=== PATIENT | female | born 1985 | race Caucasian/White ===

== ENCOUNTER 2025-03-22 10:27 | Emergency (ER) | payer OTHER, SELFPAY ==
[2025-03-22 10:30] VITALS: BP 123/86; PULSE 98; RESP 14; TEMP 36.9; O2SAT 99; BMI 29.5
[2025-03-22] MEDS: Rabies Immune Globulin/PF 300 UNIT/ML, 5 ML VIAL 1320 UNIT IM (11:49)
--- NOTE | 2025-03-22 12:14 | EDS_ITS ---
HPI History of Present Illness Chief Complaint: Bite Narrative Narrative: Patient is a 39-year-old female presenting to the emergency department due to concern for a possible bat bite. Patient has no significant past medical history. States that she woke up on Saturday evening around 11 PM and saw her cat in the bathroom who killed a bat. She took the bat to the health department but states that they told her it was too long since it has been to tested for rabies. She went to urgent care and they told her they do not have rabies vaccines so they sent her here for evaluation. Patient has no known bites. No history of tetanus vaccine. [facility] History no medical history Home Medications ?Medication ?Instructions ?Recorded ?Last Taken ?Type albuterol sulfate 90 mcg/actuation 2 inh inhalation Q6 H PRN shortness 03/22/25 Unknown History aerosol inhaler (Ventolin HFA) of breath or wheezing fluoxetine 10 mg capsule 10 mg PO DAILY MOOD 03/22/25 03/21/25 History Allergy/AdvReac Type Severity Reaction Status Date / Time latex Allergy Severe Anaphylaxis Verified 03/22/25 10:30 peanut (peanuts) Allergy Severe Anaphylaxis Verified 03/22/25 10:30 shellfish derived Allergy Intermediate Nausea Verified 03/22/25 10:30 gluten Allergy Unknown Abd Verified 03/22/25 10:47 cramps/diarrhea Family History no significant family his Surgical History no surgical history Social History housing: apartment current occupational status: employed Smoking Status: Never smoker ROS ROS ED ROS Narrative See HPI EXAM Physical Exam Narrative Exam Narrative: Vital signs: Reviewed General: Alert and oriented. No acute distress HEENT: Head is normocephalic and atraumatic, sinuses nontender, pupils equal round and reactive. Nares are patent. Oropharynx and throat exams normal. Neck: Supple without lymphadenopathy nontender Cardiovascular: Regular rate and rhythm, no murmurs. No rubs or gallops. N ormal S1 and S2 Respiratory: Clear to auscultation bilaterally. No wheezes, rales, rhonchi Abdominal: Soft and nontender. Normal bowel sounds. No guarding or rebound. Nonsurgical abdomen Extremities: No tenderness. No bruising. Normal range of motion. Normal sensation. Skin: No rash or redness. Neurological: Cranial nerves II through XII are grossly intact. Normal strength and sensation. Normal cerebellar function The rest of the physical exam is unremarkable Const Vital Signs: 03/22/25 10:30 03/22/25 12:26 Temperature 98.5 F 98.5 F Temperature Source Temporal Pulse Rate 98 87 Respiratory Rate 14 16 Blood Pressure 123/86 H 119/71 Blood Pressure Mean 98 87 Pulse Ox 99 99 Oxygen Delivery Method Room Air MDM MDM MDM Narrative Medical decision making narrative: Patient is a 39-year-old female presenting emergency department for possible rabies exposure. Patient was seen and examined. Vitals are stable. Patient resting bed comfortably in no acute distress. Given she has never had a rabies vaccine before and is immunocompetent she was given rabies vaccine as well as immunoglobulin. Risks of the immunoglobulin were discussed with patient and she understands. She tolerated well here. She was given instructions for coming back on the following days for continued vaccination schedule. She is agreeable. Patient discharged from the Emergency Department. I do not feel that the patient's evaluation reveals any acute reason for admission at this time. I instructed them to either follow-up with their primary care physician or promptly return to the Emergency Department for reevaluation should symptoms worsen or new symptoms develop. I explained what symptoms would indicate the need to return to the emergency department. Shared decision making was used. The patient voiced understanding of the treatment plan and is agreeable with it. Clinical impression Possible rabies exposure History & Record Review Discussion w/independent historian: Patient Discharge Plan Triage Chief Complaint: Bite ED Provider: Carleen Coles Dx/Rx/DC Orders Clinical Impression: Rabies exposure Instructions: Rabies Immune Globulin (Human) Solution for injection, Rabies Vaccine Prescriptions: No Action fluoxetine 10 mg capsule 10 mg PO DAILY albuterol sulfate [Ventolin HFA] 90 mcg/actuation HFA aerosol inhaler 2 inh inhalation Q6H PRN (Reason: shortness of breath or wheezing) Primary Care Provider: Irma Alcala Referrals: Irma Alcala MD [Primary Care Provider] - 2 Days Activity Restrictions/Additional Instructions: You need to return at days 3, 7 and 14 for continued rabies vaccine series. Your evaluation in the Emergency Department did not reveal any acute reason for admission. However, I want to emphasize that you may be early in the course of a disease process or illness even if it is not present. For this reason you should follow-up within 24 hours for reevaluation with either your primary care physician or if necessary back here in the Emergency Department. You should return to the Emergency Department immediately if your symptoms worsen or new symptoms develop. Print Language: Mohawk Disposition Disposition: Home, Self Care Discharge Date/Time: 03/22/25 12:27
[2025-03-22 12:26] VITALS: BP 119/71; PULSE 87; RESP 16; TEMP 36.9; O2SAT 99
== END 2025-03-22 12:27 | disposition home or self-care (01) ==
PROVIDERS: Emergency Provider Student in an Organized Health Care Education/Training Program; PCP Internal Medicine; Visit Provider Student in an Organized Health Care Education/Training Program
DX: Z20.3 Contact with and (suspected) exposure to rabies (principal); Z23 Encounter for immunization
CPT/HCPCS: 90675; 96372; 99282; 90375

== ENCOUNTER 2025-03-25 05:36 | Outpatient (CLI) | payer OTHER, SELFPAY ==
[2025-03-25 05:38] VITALS: BP 124/75; PULSE 78; RESP 16; TEMP 36.8; O2SAT 99; BMI 30.3
--- OUTSIDE RECORDS SUMMARY | 2025-03-25 06:15 | XMS RPT_ITS | CCD ---
Author Organization [facility] Care Team Providers Care Restaurant Hospitality Manager Name Role Phone Cari BAUMANN, Irma Primary Care Provider [phone] Irma Villegas MD Primary Care Provider [phone] Older HOSPICE ADMINISTRATOR.COUNTER WAITER, Sridevi Unavailable CHRISTIANNE MURRAY Attending Unavailable IRMA VILLEGAS Primary Care Unavailable IRMA VILLEGAS Attending Unavailable IRMA VILLEGAS Primary Care Unavailable Sharyn BAUMANN, Dr. Durant Emergency Provider Unavailab celsa Villegas MD, Dr. Solis Primary Care Provider [phone] Carleen Coles Attending Unavailable Irma Villegas Primary Care Unavailable Allergies Allergy Classification Reported Allergen(s) Allergy Type Date of Onset Reaction(s) Facility (17 sources) Cheese; Translations: [CHEESE (SEE VEGETABLE GUM)] Food Intolerance 8 Intolerance [facility] Work Phone: (19 sources) Latex; Translations: [LATEX] Propensity to adverse reactions 5 Hives, Swelling [facility] Work Phone: (17 sources) peanut; Translations: [PEANUTS] Propensity to adverse reactions 5 Vomiting [facility] Work Phone: (17 sources) Shellfish; Translations: [SHELLFISH CONTAINING PRODUCTS] Drug Intolerance 8 Vomiting [facility] Work Phone: (17 sources) Sulfonamides (Antibiotic); Translations: [SULFA (SULFONAMIDE ANTIBIOTICS)] Propensity to adverse reactions 7 Hives [facility] Work Phone: (18 sources) Wheat gluten extract; Translations: [GLUTEN] Drug Allergy 8 Mental Status Change, Rash, Intolerance [facility] Work Phone: (10 sources) banannas [Other] Propensity to adverse reactions 5 Intolerance [facility] Work Phone: (17 sources) Monosodium Glutamate (Msg); Translations: [MONOSODIUM GLUTAMATE (MSG)] Food Intolerance 8 Intolerance [facility] Work Phone: (17 sources) Red Food Color (Bulk); Translations: [RED FOOD COLOR (BULK)] Drug Intolerance 8 Intolerance [facility] Work Phone: (7 sources) Banana Extract; Translations: [BANANA] Drug Allergy 4 Intolerance [facility] (1 source) peanut allergenic extract Drug Allergy 5 Anaphylaxis [facility] (2 sources) Shellfish; Translations: [shellfish derived] Allergy to substance 5 Nausea [facility] (1 source) Gluten Drug allergy (disorder) 5 [facility] (1 source) peanut allergenic extract Drug Allergy 5 [facility] Medications Current Medications Medication Drug Class(es) Dates Sig (Normalized) Sig (Original) [id number] 200 actuat albuterol 0.09 mg/actuat metered dose inhaler (20 sources) beta2-Adrenergic Agonist Start: 03-22-2025 Albuterol Sulfate (Ventolin Hfa) 90 mcg/actuation HFA aerosol inhaler Active 2 NMA INHALATION EVERY 6 HOURS as needed for shortness of breath or wheezing March 22, 2025 12:00am Start: 03-04-2020 take 2 puff(s) by in halation every four hours as needed for wheezing albuterol HFA (VENTOLIN HFA) 90 mcg/actuation inhaler Indications: Exercise-induced asthma (HCC) Inhale 2 Puffs as instructed every 4 hours as needed for Wheezing/Shortness of Breath. 1 Inhaler 03/04/2020 Active Start: 06-23-2007 End: 11-13-2023 take 2 puff(s) by inhalation every four to six hours as needed for wheezing albuterol 90 mcg/Actuation INHALATION Aero Indications: Unspecified asthma(493.90) 2 puffs every 4-6 hours as needed for wheezing or coughing. 1 0 06/23/2007 11/13/2023 Discontinued (Course of therapy completed) Comment on above: 2 puffs every 4-6 ho urs as needed for wheezing or coughing. Inhale 2 Puffs as in structed every 4 hours as needed for Wheezing/Shortness of Breath. doxycycline hyclate 100 mg oral tablet (1 source) Tetracycline-class Drug Start: End: take 1 tablet by mouth twice daily doxycycline (VIBRA-TABS) 100 mg tablet Indications: Acute cystitis without hematuria Take 1 tablet by mouth two times a day for 7 days. 14 tablet 0 11/26/2023 12/03/2023 Active FLUoxetine 10 mg oral capsule (12 sources) Serotonin Reuptake Inhibitor Start: take 1 capsule by mouth once daily Fluoxetine 10 mg capsule Active 10 mg PO DAILY March 22, 2025 12:00am MOOD Start: 02-18-2025 FLUoxetine HCl 20 mg tablet Indications: Depression, unspecified depression type Take 1/2 tablet daily to=10 mg daily (capsules and 10 mg tablets have red dye) 45 tablet 1 02/18/2025 Active Start: 02-18-2025 End: 02-18-2025 take 1 capsule by mouth once daily FLUoxetine (PROZAC) 10 mg capsule Take 1 capsule by mouth once daily. 30 capsule 4 02/18/2025 02/18/2025 Discontinued Start: 09-04-2022 End: 11-13-2023 FLUoxetine HCl 20 mg tablet Take 1/2 tablet daily to=10 mg daily (capsules and 10 mg tablets have red dye) 0 09/04/2022 11/13/2023 Discontinued (Course of therapy completed) Start: 09-04-2022 End: 09-04-2022 take 1 capsule by mouth once daily FLUoxetine (PROZAC) 10 mg capsule Take 1 capsule by mouth once daily. 30 capsule 4 09/04/2022 09/04/2022 Discontinued (Other) Comment on above: Take 1/2 tablet cleopatra y to=10 mg daily (capsules and 10 mg tablets have red dye) Take 1 capsule by mo [facility] once daily. Glycopyrrolate, Bulk, 100 % powd (3 sources) Start: 02-18-2025 Glycopyrrolate, Bulk, 100 % powd Indications: Excessive sweating 1 each every morning. 100 g 1 02/18/2025 Active Completed/Discontinued Medications Medication Drug Class(es) Dates Sig (Normalized) Sig (Original) buPROPion hydrochloride 75 mg oral tablet (2 sources) Aminoketone Start: 11-28-2022 End: 11-13-2023 take 1 tablet by mouth twice daily buPROPion (WELLBUTRIN) 75 mg tablet Take 1 tablet by mouth twice daily. 60 tablet 3 11/28/2022 11/13/2023 Discontinued (Course of therapy completed) Comment on above: Take 1 tablet by arash twice daily. nitrofurantoin, macrocrystals 25 mg / nitrofurantoin, monohydrate 75 mg oral capsule (3 sources) Nitrofuran Antibacterial Start: 11-18-2023 End: 11-23-2023 take 1 capsule by mouth twice daily nitrofurantoin monohydrate and macrocrystal (MACROBID) 100 mg capsule Take 1 capsule by mouth two times a day for 5 days. 10 capsule 0 11/18/2023 11/23/2023 Comment on above: Take 1 capsule by mo [facility] two times a day for 5 days. Problems Active Problems Problem Classification Problem Date Documented Da te Episodic/Chronic Adjustment disorders (2 sources) Grief finding; Translations: [Adjustment disorder, unspecified] Onset: 02-18-2025 02-18-2025 Chronic Anxiety disorders (1 source) Mixed anxiety and depressive disorder; Translations: [Other specified anxiety disorders] Chronic Benign neoplasm of uterus (1 source) Intramural leiomyoma of uterus; Translations: [Intramural leiomyoma of uterus] 11-22-2023 Episodic Contraceptive and procreative management (1 source) Encounter for other general counseling and advice on contraception; Translations: [ control counseling] Onset: 02-18-2025 Episodic Disorders of lipid metabolism (1 source) Mixed hyperlipidemia; Translations: [Mixed hyperlipidemia] 02-27-2024 Chronic E Codes: Fall (2 sources) Unspecified fall due to ice and snow, initial encounter; Translations: [Fall from other slipping, tripping, or stumbling] Episodic Genitourinary symptoms and ill-defined conditions (2 sources) Increased frequency of urination; Translations: [Frequency of micturition] 11-13-2023 Episodic Headache; including migraine (16 sources) Migraine; Translations: [Migraine, unspecified, not intractable, without status migrainosus] Onset: 11-13-2017 11-13-2017 Chronic Immunizations and screening for infectious disease (5 sources) Patient encounter status; Translations: [Encounter for immunization] Episodic Menstrual disorders (2 sources) Menorrhagia; Translations: [Excessive and frequent menstruation with regular cycle] 11-13-2023 Chronic Mood disorders (2 sources) Moderate major depression, single episode; Translations: [Major depressive disorder, single episode, moderate] Chronic Mood disorders (1 source) Mood disorders; Translations: [Depression, unspecified depression type] Onset: 02-18-2025 Nonmalignant breast conditions (1 source) Breast finding ; Translations: [Dense breast tissue] 11-17-2024 Episodic Open wounds of extremities (1 source) Laceration of right hand; Translations: [Laceration without foreign body of right hand, sequela] Episodic Other nutritional; endocrine; and metabolic disorders (1 source) Overweight; Translations: [Overweight] 11-22-2023 Episodic Other screening for suspected conditions (not mental disorders or infectious disease) (1 source) Cancer cervix screening status; Translations: [Encounter for screening for malignant neoplasm of cervix] 11-13-2023 Episodic Other skin disorders (1 source) Excessive sweating; Translations: [Generalized hyperhidrosis] 02-18-2025 Episodic Other skin disorders (1 source) Generalized hyperhidrosis; Translations: [Excessive sweating] Onset: 02-18-2025 Episodic Residual codes; unclassified (1 source) Early satiety; Translations: [Early satiety] 11-13-2023 Episodic Urinary tract infections (1 source) Acute cystitis; Translations: [Acute cystitis without hematuria] 11-22-2023 Episodic Past or Other Problems Problem Classification Problem Date Documented Da te Episodic/Chronic Residual codes; unclassified (13 sources) Family history of malignant neoplasm of ovary; Translations: [Family history of malignant neoplasm of ovary] Onset: 11-13-2023 11-13-2023 Episodic Unclassified (2 sources) Patient encounter status 11-17-2024 Unclassified (1 source) Breast finding 11-17-2024 Results Test Name Value Interpretation Reference Range Facil ity Emergency Department Summary on 03-22-2025 Emergency Department Summary [facility] Medical Records Department [address] [place] [address] Emergency Department Summary 03/22/25 MR#: [id number] Acct: [id number] Name: ALEX QUINONES Rep #: [id number] : 1985 39 From: Carleen Coles MD PCP: Dr. Irma Villegas MD Status:DEP ER Location: ED HPI History of Present Illness Chief Complaint: Bite Narrative Narrative: Patient is a 39-year-old female presenting to the emergency department due to concern for a possible bat bite. Patient has no significant past medical history. States that she woke up on Saturday evening around 11 PM and saw her cat in the bathroom who killed a bat. She took the bat to the health department but states that they told her it was too long since it has been to tested for rabies. She went to urgent care and they told her they do not have rabies vaccines so they sent her here for evaluation. Patient has no known bites. No history of tetanus vaccine. PFSH PFSH Medical History no medical history Home Medications ???Medication ???Instructions ???Recorded ???Last Taken ???Type albuterol sulfate 90 mcg/actuation 2 inh inhalation Q6H PRN shortne ss 03/22/25 Unknown History aerosol inhaler (Ventolin HFA) of breath or wheezing fluoxetine 10 mg capsule 10 mg PO DAILY MOOD 03/22/2503/21 History Allergy/AdvReac Type Severity Reaction Status Date / Time latex Allergy Severe Anaphylaxis Verified 03/22/25 10:30 peanut (peanuts) Allergy Severe Anaphylaxis Verified 03/22/25 10:30 shellfish derived Allergy Intermediate Nausea Verified 03/22/25 10:30 gluten Allergy Unknown Abd Verified 03/22/25 10:47 cramps/diarrhea Family History no significant family his Surgical History no surgical history Social History housing: apartment current occupational status: employed Smoking Status: Never smoker ROS ROS ED ROS Narrative See HPI EXAM Physical Exam Narrative Exam Narrative: Vital signs: Reviewed General: Alert and oriented. No acute distress HEENT: Head is normocephalic and atraumatic, sinuses nontender, pupils equal round and reactive. Nares are patent. Oropharynx and throat exams normal. Neck: Supple without lymphadenopathy nontender Cardiovascular: Regular rate and rhythm, no murmurs. No rubs or gallops. Normal S1 and S2 Respiratory: Clear to auscultation bilaterally. No wheezes, rales, rhonchi Abdominal: Soft and nontender. Normal bowel sounds. No guarding or rebound. Nonsurgical abdomen Extremities: No tenderness. No bruising. Normal range of motion. Normal sensation. Skin: No rash or redness. Neurological: Cranial nerves II through XII are grossly intact. Normal strength and sensation. Normal cerebellar function The rest of the physical exam is unremarkable Const Vital Signs: 03/22/25 10:30 03/22/25 12:26 Temperature 98.5 F 98.5 F Temperature Source Temporal Pulse Rate 98 87 Respiratory Rate 14 16 Blood Pressure 123/86 H 119/71 Blood Pressure Mean 98 87 Pulse Ox 99 99 Oxygen Delivery Method Room Air MDM MDM MDM Narrative Medical decision making narrative: Patient is a 39-year-old female presenting emergency department for possible rabies exposure. Patient was seen and examined. Vitals are stable. Patient resting bed comfortably in no acute distress. Given she has never had a rabies vaccine before and is immunocompetent she was given rabies vaccine as well as immunoglobulin. Risks of the immunoglobulin were discussed with patient and she understands. She tolerated well here. She was given instructions for coming back on the following days for continued vaccination schedule. She is agreeable. Patient discharged from the Emergency Department. I do not feel that the patient's evaluation reveals any acute reason for admission at this time. I instructed them to either follow-up with their primary care physician or promptly return to the Emergency Department for reevaluation should symptoms worsen or new symptoms develop. I explained what symptoms would indicate the need to return to the emergency department. Shared decision making was used. The patient voiced understanding of the treatment plan and is agreeable with it. Clinical impression Possible rabies exposure History Record Review Discussion w/independent historian: Patient Discharge Plan Triage Chief Complaint: Bite ED Provider: Carleen Coles Dx/Rx/DC Orders Clinical Impression: Rabies exposure Instructions: Rabies Immune Globulin (Human) Solution for injection, Rabies Vaccine Prescriptions: No Action fluoxetine 10 mg capsule 10 mg PO DAILY albuterol sulfate [Ventolin HFA] 90 mcg/actuation HFA aerosol inhaler 2 inh inhalation Q6H PRN (Reason: shortness of breath or wheezing) (more content not included)... Normal [facility] ALEX QUINONES I ([id number]) 1985 F Date Time Provider Department 03/16/25 IRMA VILLEGAS INTMWS During your visit today, we recorded the following information about you: Abi Mcnally LPN 03/16/2025 2:43 PM Signed Electronic PA rec'd and completed for fluoxetine HCL 20mg. This was approved. Prior authorization approved Payer: [employer] [phone] Note from payer: CaseId:[id number];Stat us:Approved;Review Type:Prior Auth;Coverage Start Date:02/14/2025;Cover age End Date:03/16/2026; Approval Details Authorized from February 14, 2025 to March 16, 2026 Electronic appeal: Not supported Prior auth initiated by: Abi Mcnally LPN View History Medication Being Authorized FLUoxetine HCl 20 mg tablet Take 1/2 tablet daily to=10 mg daily (capsules and 10 mg tablets have red dye) Dispense: 45 tablet Refills: 1 Start: 02/18/2025 Class: Normal Diagnoses: Depression, unspecified depression type [F32.A] This order has been released to its destination. To be filled at: [id number] [place] [address] [phone] [facility] [phone] [id number] Pharmacy notified. Allergies As of Date: 03/16/2025 Noted Allergy Reaction GLUTEN 11/13/2017 1 - Mental Status Change 2 - Rash 5 - Intolerance LATEX 05/24/2005 4 - Hives 7 - Swelling MONOSODIUM GLUTAMATE (MSG) 11/13/2017 5 - Intolerance Comments: migraines PEANUTS 05/24/2005 11 - Vomiting RED FOOD COLOR (BULK) 11/13/2017 5 - Intolerance Comments: migraines SHELLFISH CONTAINING PRODUCTS 11/13/2017 11 - Vomiting SULFA (SULFONAMIDE ANTIBIOTICS) 12/18/2006 4 - Hives BANANA 11/26/2023 5 - Intolerance CHEESE (SEE VEGETABLE GUM) 11/13/2017 5 - Intolerance Comments: Evan Cheese- Migraines Date Reviewed: 02/18/2025 Reviewed by: Mary Ellen Valdez MA - Fully Assessed Reason for Visit: Insurance Authorization [[id number]] Prescriptions as of 03/16/2025 - FLUoxetine HCl 20 mg tablet Take 1/2 tablet daily to=10 mg daily (capsules and 10 mg tablets have red dye) - Glycopyrrolate, Bulk, 100 % powd 1 each every morning. - albuterol HFA (VENTOLIN HFA) 90 mcg/actuation inhaler Inhale 2 Puffs as instructed every 4 hours as needed for Wheezing/Shortness of Breath. Problem List As Of Date 03/16/2025 Noted Resolved Migraines [G43.909] 11/13/2017 Family history of ovarian cancer [Z80.41] 11/13/2023 Encounter Status:Closed by ABI MCNALLY on 03/16/25 [facility] CNOVon 02-18-2025 CNOV Office Visit (INTMWS ) MONIQUE QUINONESN Andree ([id number]) 1985 F Date Time Provider Department 02/18/25 8:00 AM IRMA VILLEGAS INTMWS During your visit today, we recorded the following information about you: Pulse Respiration Blood pressure Weight 101/minute 16/minute 112/72 66.2 kg Irma Villegas MD 02/18/2025 12:05 PM Signed Reason for Visit Physical with few complaints HPI Alex Quinones is a 39-year-old female presenting with fatigue, decreased motivation, and irritability. She is also seeking advice on fragrance-free deodorants and control options. Alex reports feeling fatigued, less motivated, and experiencing increased irritability over the past week. She attributes these symptoms to the recent of her mother in September, for whom she was the primary caregiver. She describes her relationship with her mother as challenging and notes that while she does not feel sadness or grief, she does miss her mother. She also mentions being upset by the current political climate and social justice issues, which are important to her. She is considering restarting fluoxetine, which she found helpful in the past, but plans to wait until after her current semester ends on March 05 due to the medication's sedative effects. She was previously on a 20 mg dose, which she tolerated well after initially starting at 10 mg. Alex also reports difficulty finding a fragrance-free deodorant that does not cause headaches. She has tried various natural alternatives without success and inquires about the availability of a prescription deodorant. Additionally, Alex is interested in discussing control options. She has a history of using oral contraceptives as a teenager to regulate heavy menstrual periods but prefers not to use them again. She is considering a diaphragm but has a latex allergy, which complicates her options. She has never been sexually active but is interested in dating and wants to have contraceptive options available. Alex follows a gluten-free diet due to its positive impact on her skin and mental health, although she has not been formally tested for celiac disease. She denies recent migraines, attributing their absence to avoiding MSG and red dye. She tolerates dairy without issues. She reports regular menstrual periods. Social History Tobacco Use Smoking status: Never Smokeless tobacco: Never Vaping Use Vaping status: Never Used Substance Use Topics Alcohol use: Yes Comment: Occasionally Drug use: No Past medical history, appointments, medications, allergies reviewed. Pertinent Lab/Diagnostic Studies are reviewed and discussed today Current Outpatient Medications: FLUoxetine HCl 20 mg tablet Glycopyrrolate, Bulk, 100 % powd albuterol HFA (VENTOLIN HFA) 90 mcg/actuation inhaler Health Maintenance Depression Screening Anxiety Screening Covid-19 Vaccine( season)@ Review Of Systems Constitutional: (+) fatigue, (+) weight loss Head: (+) headaches Neurological: (-) migraines Psychiatric: (+) decreased motivation, (+) irritability Physical Exam BP 112/72 Pulse 101 Resp 16 Wt 66.2 kg (146 lb) LMP 10/19/2024 (Within Days) SpO2 98% BMI 28.75 kg/m? GENERAL: NAD, alert and oriented SKIN: unremarkable, no rash or skin lesions. HEAD: normocephalic EYES: PERRLA, EOMI, conjunctiva clear EARS: external ears normal, canals clear, TM's normal. NOSE/SINUSES: Nares normal. Septum midline. OROPHARYNX: lips, mucosa, and tongue normal, good dentition. No oral lesions noted. NECK: Supple, no lymphadenopathy, normal thyroid, no carotid bruits. LUNGS: Clear to auscultation bilaterally, no wheezes/rhonchi/rales . HEART: Regular rate and rhythm, no murmurs. No ectopy. EXTREMITIES: Normal, No deformities, No skin discoloration, No edema. NEURO: Awake, alert and oriented x3, cranial nerves II-XII grossly intact, normal gait, no involuntary motions Assessment and Plan 1. Annual physical exam (Z00.00) Patient presents for annual physical exam. 2. Depression, unspecified depression type (F32.A) Experiencing fatigue, decreased motivation, and irritability. Previous positive response to fluoxetine 20 mg. - Prescribed fluoxetine 20 mg daily, to be initiated on March 05 after the ester ends. - Sent prescription to [facility] for a 90-day supply with refills for 6 months. 3. Grief reaction (F43.20) Patient's mother in September from ovarian cancer. Patient is experiencing mild grief symptoms, including missing her mother and wishing to share moments with her. 4. Excessive sweating (R61) Patient reports difficulty finding a fragrance-free deodorant due to sensitivity to artificial fragrances, which trigger headaches. - Discussed potential use of glycopyrrolate powder as a topical application to reduce sweating. - Bayron (more content not included)... Normal [facility] CNOVon 11-17-2024 CNOV Office Visit (OBGYWM ) ALEX QUINONES I ([id number]) 1985 F Date Time Provider Department 11/17/24 3:30 PM CHRISTIANNE MURRAY During your visit today, we recorded the following information about you: Blood pressure Weight Height Last Period 118/70 68 kg 1.518 m 10/19/24 Christianne Murray APRN.CNM 11/17/2024 4:53 PM Signed Alex is a 39 year old who presents for an annual gynecologic exam Mother passed in September with Ovarian cancer Still get period: Yes LMP: 10/19/2024 Monthly, last 5 days Bleeding amount bothersome: Yes Bleeding between periods: No Period symptoms: Breast tenderness; Cramps; Fecal incontinence (inability to control bowel movements) Contraception frequency: N/A HPV vaccine: No; HPV: 11/13/2023 Negative Last pap smear: 11/13/2023 Normal History of abnormal pap: No, all prior PAP smears have been normal Bothersome pelvic pain: No Last mammogram: never OB History Gravida0 Para0 Term0 Preterm0 AB0 Living0 SAB0 IAB0 Ectopic0 Multiple0 Live Births0 Metal Sash Setter History LMP: 10/19/2024 (Within Days), Having periods Age at Menarche: 12 Age at First : Age at Menopause: Metal Sash Setter History Comments: Sexual Activity: Not Currently; No partner data on record Contraception: No contraception data on record Menstrual Tracking History Flowsheet Row Office Visit from 11/17/2024 in OB/Gynecology Period Cycle (Days) 28 Period Duration (Days) 5 Menstrual Flow Heavy FAMILY HISTORY Problem Relation Age of Onset Ovarian cancer Mother 65 Lived 2 years after diagnosis, passed 10/01/24 Hypertension Mother Thyroid Mother other (fallopian tube cancer) Mother Hyperlipidemia Father ADD/ADHD Brother No Known Problems Brother Diabetes Maternal Grandmother other (depression) Maternal Grandmother Prostate Cancer Maternal Grandfather bone cancer other (Couyfkw-Xqopo-Zouut Disease) Maternal Grandfather Hypertension Paternal Grandmother other (adrenal cancer) Paternal Grandmother Diabetes Paternal Grandfather Prostate Cancer Paternal Grandfather Heart Paternal Grandfather CHF other (auto immune problems) Other maternal side Diabetes Other maternal side other (graves disease) Other maternal side Arthritis Other maternal side SOCIAL HISTORY Social History Tobacco Use Smoking status: Never Smokeless tobacco: Never Vaping Use Vaping status: Never Used Substance Use Topics Alcohol use: Yes Comment: Occasionally Drug use: No REVIEW OF SYSTEMS Abdomen: No abdominal pain, nausea, vomiting, diarrhea, or constipation. No bloating, early satiety, indigestion, or increased flatulence. Bladder: No dysuria, gross hematuria, urinary frequency, urinary urgency, or incontinence. Breast: No breast lumps, nipple d/c, overlying skin changes, redness or skin retraction. Allergies and current medication updated:Yes SENSITIVE EXAM: The sensitive examination was discussed with the Patient or Patient's Authorized Development Director. As applicable, any other physician, advance practice provider, medical student, or other health professional student that will be observing or involved in the sensitive examination for educational or training purposes was discussed with the Patient or Authorized Development Director. The Patient or Authorized Development Director has agreed to proceed with the sensitive examination. (Sensitive examination includes inspection and/or palpation of the breasts, pelvis, prostate and anorectal regions). EXAM: BP 118/70 Ht 4' 11.75 (1.52m) Wt 150 lb (68.0kg) LMP 10/19/2024 BMI 29.53 kg/(m2). GENERAL: pleasant, female in no apparent distress HEENT: Normocephalic, atraumatic, mucus membranes moist, and no lesions NECK: Supple, full range of motion, no adenopathy, and thyroid normal DERMATOLOGY: Normal, without lesions, non-icteric, and non-hirsute BREAST: soft, non-tender, symmetric, no dominant mass, normal nipple-areolar complex, no lymphadenopathy, and no nipple discharge CHEST: Normal inspiratory effort ABDOMEN: soft, non-tender, and no masses PELVIC: external genitalia normal, normal Bartholin's glands, urethra, [place]'s glands, no vulvar lesions, no cervical lesions, good vaginal support, physiologic discharge present, normal appearing perineal body and perianal region BIMANUAL: uterus normal size, shape and consistency, no adnexal masses, and non-tender RECTOVAGINAL: deferred. NEURO: alert and oriented x3,exam grossly non-focal EXTREMITIES: normal ASSESSMENT/PLAN: 1. Encounter for gynecological examination (general) (routine) with abnormal findings - ICD9: V72.31, ICD10: Z01.411 (primary diagnosis) - Completed pelvic and breast exam - Encouraged monthly BSE - Follow up for annual exam in one year. - GRAHAM SCREENING W MAGGIE 2. Encounter for screening mammogram for breast cancer - ICD9: V76.12, ICD10: Z12.31 (more content not included)... Normal [facility] Panel Informationon 09-04 [facility] Vital Signs Date Time Vital Sign Value Performing Clinician Facility 03-22-2025 12:26-0400 Body temperature 98.5 [degF] Dr. Carleen Coles MD [facility] 03-22-2025 12:26-0400 Diastolic blood pressure 71 mm[Hg] Dr. Carleen Coles MD [facility] 03-22-2025 12:26-0400 Heart rate 87 /min Dr. Carleen Coles MD [facility] 03-22-2025 12:26-0400 Respiratory rate 16 /min Dr. Carleen Coles MD [facility] 03-22-2025 12:26-0400 SaO2% (BldA) [Mass fraction] 99 % Dr. Carleen Coles MD [facility] 03-22-2025 12:26-0400 Systolic blood pressure 119 mm[Hg] Dr. Carleen Coles MD [facility] 03-22-2025 10:30-0400 Body height 149.[address] Carleen Coles MD [facility] 03-22-2025 10:30-0400 Body mass index (BMI) [Ratio] 29.5 kg/m2 Dr. Carleen Coles MD [facility] 03-22-2025 10:30-0400 Body weight 66.[address] Carleen Coles MD [facility] 02-18-2025 08:01-0400 Body mass index (BMI) [Ratio] 28.75 kg/m2 Irma Villegas MD Work Phone: [facility] 02-18-2025 08:01-0400 Body weight 66.22 kg Irma Villegas MD Work Phone: [facility] 02-18-2025 08:01-0400 Diastolic blood pressure 72 mm[Hg] Irma Villegas MD Work Phone: [facility] 02-18-2025 08:01-0400 Heart rate 101 /min Irma Villegas MD Work Phone: [facility] 02-18-2025 08:01-0400 Respiratory rate 16 /min Irma Villegas MD Work Phone: [facility] 02-18-2025 08:01-0400 SaO2% (BldA) [Mass fraction] 98 % Irma Villegas MD Work Phone: [facility] 02-18-2025 08:01-0400 Systolic blood pressure 112 mm[Hg] Irma Villegas MD Work Phone: [facility] 11-17-2024 15:30-0400 Body height 151.8 cm Christianne Murray HOSPICE ADMINISTRATOR.CNM Work Phone: [facility] 11-17-2024 15:30-0400 Body mass index (BMI) [Ratio] 29.54 kg/m2 Christianne Murray HOSPICE ADMINISTRATOR.CNM Work Phone: [facility] 11-17-2024 15:30-0400 Body weight 68.04 kg Christianne Murray HOSPICE ADMINISTRATOR.CNM Work Phone: [facility] 11-17-2024 15:30-0400 Diastolic blood pressure 70 mm[Hg] Christianne Murray HOSPICE ADMINISTRATOR.CNM Work Phone: [facility] 11-17-2024 15:30-0400 Systolic blood pressure 118 mm[Hg] Christianne Murray HOSPICE ADMINISTRATOR.CNM Work Phone: [facility] 02-27-2024 08:50-0400 Body height 152.4 cm Irma Villegas MD Work Phone: [facility] 02-27-2024 08:50-0400 Body mass index (BMI) [Ratio] 29.35 kg/m2 Irma Villegas MD Work Phone: [facility] 02-27-2024 08:50-0400 Body weight 68.18 kg Irma Villegas MD Work Phone: [facility] 02-27-2024 08:50-0400 Diastolic blood pressure 82 mm[Hg] Irma Villegas MD Work Phone: [facility] 02-27-2024 08:50-0400 Heart rate 95 /min Irma Villegas MD Work Phone: [facility] 02-27-2024 08:50-0400 SaO2% (BldA) [Mass fraction] 97 % Irma Villegas MD Work Phone: [facility] 02-27-2024 08:50-0400 Systolic blood pressure 118 mm[Hg] Irma Villegas MD Work Phone: [facility] 11-13-2023 15:24-0400 Body height 152.4 cm Christianne Murray HOSPICE ADMINISTRATOR.CNM Work Phone: [facility] 11-13-2023 15:24-0400 Body weight 68.13 kg Christianne Murray HOSPICE ADMINISTRATOR.CNM Work Phone: [facility] 11-13-2023 15:24-0400 Diastolic blood pressure 78 mm[Hg] Christianne Murray HOSPICE ADMINISTRATOR.CNM Work Phone: [facility] 11-13-2023 15:24-0400 Systolic blood pressure 120 mm[Hg] Christianne Murray HOSPICE ADMINISTRATOR.CNM Work Phone: [facility] 09-04-2022 09:46-0500 Body height 152.4 cm Irma Villegas MD Work Phone: [facility] 09-04-2022 09:46-0500 Body temperature 98.71 [degF] Irma Villegas MD Work Phone: [facility] 09-04-2022 09:46-0500 Body weight 65.32 kg Irma Villegas MD Work Phone: [facility] 09-04-2022 09:46-0500 Diastolic blood pressure 62 mm[Hg] Irma Villegas MD Work Phone: [facility] 09-04-2022 09:46-0500 Heart rate 89 /min Irma Villegas MD Work Phone: [facility] 09-04-2022 09:46-0500 Respiratory rate 12 /min Irma Villegas MD Work Phone: [facility] 09-04-2022 09:46-0500 SaO2% (BldA) [Mass fraction] 98 % Irma Villegas MD Work Phone: [facility] 09-04-2022 09:46-0500 Systolic blood pressure 122 mm[Hg] Irma Villegas MD Work Phone: [facility] Encounters Encounter Date Encounter Type Care Provider Facility Start: 03-22-2025 End: 03-22-2025 Emergency department patient visit Dr. Carleen Coles MD -Emergency Department Work Phone: Start: 03-21-2025 End: 03-21-2025 ambulatory Nell Jones RN NURSE SPREADER OPERATOR Comment on above: Information Start: 03-16-2025 End: 03-16-2025 Telephone encounter Irma Villegas MD Work Phone: [facility] [place] Comment on above: Insurance Authorizat ion Start: 02-18-2025 End: 02-18-2025 Periodic preventive med est patient 18-39 yrs Irma Villegas MD Work Phone: [facility] [place] Comment on above: Annual physical exam (Primary Dx); Depression, unspecified depression type; Grief reaction; Excessive sweating; control counseling Start: 02-18-2025 End: 02-18-2025 ambulatory IRMA VILLEGAS Facility:[facility] Start: 02-18-2025 End: 02-18-2025 Patient encounter procedure Irma Villegas MD Work Phone: [facility] Work Phone: Start: 11-17-2024 End: 11-17-2024 ambulatory CHRISTIANNE MRURAY Facility:[facility] Start: 11-17-2024 End: 11-17-2024 Patient encounter procedure Christianne Murray APRN.CNM Work Phone: OB/Gynecology Comment on above: Encounter for gyneco logical examination (general) (routine) with abnormal findings (Primary Dx); Encounter for screening mammogram for breast cancer; Dense breast tissue; Family history of ovarian cancer Start: 11-17-2024 End: 11-17-2024 Patient encounter status Christianne Murray APRN.CNM Work Phone: [facility] Start: 02-27-2024 End: 02-27-2024 Patient encounter procedure Irma Villegas MD Work Phone: [facility] [place] Comment on above: Annual physical exam (Primary Dx); Hyperlipidemia, mixed Start: 11-22-2023 End: 11-22-2023 ambulatory Christianne Murray APRN.CNM Work Phone: OB/Gynecology Comment on above: Acute cystitis witho ut hematuria (Primary Dx); Family history of ovarian cancer; Intramural leiomyoma of uterus; Overweight Start: 11-22-2023 End: 11-22-2023 Telemedicine consultation with patient Christianne Murray APRN.CNM Work Phone: OB/Gynecology Start: 11-19-2023 ambulatory Christianne Murray APRN.CNM Work Phone: OB/Gynecology Comment on above: Can t take prescribe d medication Start: 11-18-2023 Telephone encounter Christianne templeton APRN.CNM Work Phone: OB/Gynecology Comment on above: Results Start: 11-18-2023 End: 11-18-2023 Subsequent hospital visit by physician [facility] Work Phone: Radiology Comment on above: Menorrhagia with reg ular cycle [N92.0] Start: 11-13-2023 End: 11-13-2023 Patient encounter procedure Christianne Murray APRN.CNM Work Phone: OB/Gynecology Comment on above: Encounter for gyneco logical examination (general) (routine) without abnormal findings (Primary Dx); Screening for cervical cancer; Encounter for screening for human papillomavirus (HPV); Family history of ovarian cancer; Urinary frequency; Nocturia; Menorrhagia with regular cycle; Early satiety Start: 11-13-2023 End: 11-13-2023 Patient encounter status Christianne Murray APRCASE Work Phone: [facility] Start: 11-28-2022 End: 11-28-2022 [facility] Imra Villegas MD Work Phone: Internal [facility] [place] Comment on above: Current moderate epi sode of major depressive disorder without prior episode (HCC) (Primary Dx) Start: 11-02-2022 ambulatory Irma Velez Work Phone: [facility] [place] Start: 11-02-2022 Emergency department patient visit Irma Villegas MD Work Phone: [facility] [place] Comment on above: Sorry to cancel! Per juanjo emergency Start: 09-04-2022 ambulatory Anju jean RN NURSE SPREADER OPERATOR Comment on above: Fall Start: 09-04-2022 Telephone encounter Irma castañeda MD Work Phone: [facility] [place] Comment on above: Medication Update Start: 09-04-2022 End: 09-04-2022 Subsequent hospital visit by physician Adi [facility] [place] Work Phone: Radiology Comment on above: Fall due to slipping on ice or snow, initial encounter [W00.9XXA] Start: 09-04-2022 End: 09-04-2022 Patient encounter procedure Irma Villegas MD Work Phone: [facility] [place] Comment on above: Fall due to slipping on ice or snow, initial encounter (Primary Dx); Encounter for immunization; Laceration of right hand, foreign body presence unspecified, sequela; Depression with anxiety Procedures Date Procedure Procedure Detail Performing Clinician Start: 09-04-2022 Radex spine cervical 4 or 5 views Irma Villegas MD Work Phone: Plan of Treatment Date Care Activity Detail Author Start: 09-04-2032 Urine microalbumin profile [facility] Start: 11-12-2028 Screening for malign ant neoplasm of cervix [facility] Start: 11-17-2025 End: 11-17-2025 Patient encounter procedure Mammogram Comment on above: Encounter for gyneco logical examination (general) (routine) with abnormal findings [Z01.411]; Encounter for screening mammogram for breast cancer [Z12.31]; Dense breast tissue [R92.30] Annual Start: 08-27-2025 End: 08-27-2025 Patient encounter procedure 08/27/2025 8:40 AM EST Office Visit [facility] [place] [address] [place] [address] Irma Villegas MD [address] [facility] [place] [id number] 6 month f/u [facility] [place] Comment on above: 6 month f/u Start: 05-19-2025 End: 12-17-2025 DBT Breast - bilateral screening GRAHAM SCREENING W MAGGIE Radiology Routine Encounter for gynecological examination (general) (routine) with abnormal findings Encounter for screening mammogram for breast cancer Dense breast tissue Expected: 05/19/2025 (Approximate), Expires: 12/17/2025 [facility] Work Phone: Comment on above: Expected: 05/19/2025 (Approximate), Expires: 12/17/2025 Start: 04-05-2025 Influenza vaccination Influenza Vacc ine (#1) [facility] Start: 02-26-2025 End: 02-26-2025 Patient encounter procedure 02/26/2025 8:00 AM EDT Office Visit Internal Medicine [place] [address] [place] [address] Irma Villegas MD [address] [facility] [place] [address] annual physical [facility] [place] Comment on above: annual physical Start: 02-18-2025 End: 05-20-2025 CBC W Auto Differential panel - Blood COMPLETE BLOOD COUNT AND DIFFERENTIAL Lab Routine Annual physical exam Expected: 02/18/2025, Expires: 05/20/2025 [facility] Comment on above: Expected: 02/18/2025 , Expires: 05/20/2025 Start: 02-18-2025 End: 05-20-2025 Comprehensive metabolic 2000 panel - Serum or Plasma COMPREHENSIVE METABOLIC PANEL Lab Routine Annual physical exam Expected: 02/18/2025, Expires: 05/20/2025 [facility] Comment on above: Expected: 02/18/2025 , Expires: 05/20/2025 Start: 02-18-2025 End: 05-20-2025 Lipid 1996 panel - Serum or Plasma LIPID PANEL, FASTING Lab Routine Annual physical exam Expected: 02/18/2025, Expires: 05/20/2025 [facility] Work Phone: Comment on above: Expected: 02/18/2025 , Expires: 05/20/2025 Start: 02-18-2025 End: 02-18-2025 Patient encounter procedure 02/18/2025 8:00 AM EDT Office Visit [facility] Medicine [place] [address] [place] [address] Irma Villegas MD [address] [place] [address] annual physical [facility] Medicine [place] Comment on above: annual physical Start: 11-12-2024 End: 11-12-2024 Patient encounter procedure 11/12/2024 3:30 PM EDT Office Visit OB/Gynecology [address] [place] [address] Christianne Murray APRN.CN [address] [place] [address] Annual OB/Gynecology Comment on above: Annual Start: 04-05-2024 Covid-19 Vaccine ( season) Covid-19 Vaccine ( season) [facility] Start: 04-05-2024 Influenza vaccination [facility] Start: 02-28-2024 End: 02-28-2024 ambulatory 02/28/2024 8:30 AM EDT Results Only [facility] [address] [place] [address] [facility] Start: 02-27-2024 End: 05-28-2024 CBC W Auto Differential panel - Blood COMPLETE BLOOD COUNT AND DIFFERENTIAL Lab Routine Annual physical exam Expected: 02/27/2024, Expires: 05/28/2024 [facility] Comment on above: Expected: 02/27/2024 , Expires: 05/28/2024 Start: 02-27-2024 End: 05-28-2024 Comprehensive metabolic 2000 panel - Serum or Plasma COMPREHENSIVE METABOLIC PANEL Lab Routine Hyperlipidemia, mixed Expected: 02/27/2024, Expires: 05/28/2024 [facility] Work Phone: Comment on above: Expected: 02/27/2024 , Expires: 05/28/2024 Start: 02-27-2024 End: 05-28-2024 Lipid 1996 panel - Serum or Plasma LIPID PANEL BASIC Lab Routine Hyperlipidemia, mixed Expected: 02/27/2024, Expires: 05/28/2024 [facility] Comment on above: Expected: 02/27/2024 , Expires: 05/28/2024 Start: 02-27-2024 End: 02-27-2024 Patient encounter procedure 02/27/2024 9:00 AM EDT Office Visit Internal Medicine [place] [address] [place], [place] [id number] Irma Villegas MD [address] [place] [address] [facility] Internal [facility] [place] Comment on above: [facility] general health Start: 11-13-2023 End: 02-12-2024 Bacteria identified in Urine by Culture URINE CULTURE Microbiology Routine Urinary frequency Expected: 11/13/2023, Expires: 02/12/2024 [facility] Work Phone: Comment on above: Expected: 11/13/2023 , Expires: 02/12/2024 Start: 11-13-2023 End: 02-12-2024 Cancer Ag 125 [Units/volume] in Serum or Plasma CA 125 Lab Routine Family history of ovarian cancer Early satiety Expected: 11/13/2023, Expires: 02/12/2024 [facility] Work Phone: Comment on above: Expected: 11/13/2023 , Expires: 02/12/2024 Start: 11-13-2023 End: 02-12-2024 Comprehensive metabolic 2000 panel - Serum or Plasma COMPREHENSIVE METABOLIC PANEL Lab Routine Menorrhagia with regular cycle Early satiety Expected: 11/13/2023, Expires: 02/12/2024 [facility] Work Phone: Comment on above: Expected: 11/13/2023 , Expires: 02/12/2024 Start: 11-13-2023 End: 02-12-2024 Prolactin [Mass/volume] in Serum or Plasma PROLACTIN Lab Routine Menorrhagia with regular cycle Early satiety Expected: 11/13/2023, Expires: 02/12/2024 [facility] Work Phone: Comment on above: Expected: 11/13/2023 , Expires: 02/12/2024 Start: 11-13-2023 End: 02-12-2024 Thyrotropin [Units/volume] in Serum or Plasma THYROID STIMULATING HORMONE Lab Routine Menorrhagia with regular cycle Early satiety Expected: 11/13/2023, Expires: 02/12/2024 [facility] Work Phone: Comment on above: Expected: 11/13/2023 , Expires: 02/12/2024 Start: 08-05-2023 Behavioral Health Screening Behavioral Health Screening [facility] Start: 04-05-2023 Covid-19 Vaccine () Covid-19 Vaccine () [facility] Start: 04-05-2023 Influenza vaccination Influenza Vacc ine (#1) [facility] Start: 11-13-2022 HPV TESTING HPV TESTING [facility] Start: 11-13-2022 PAP TESTING PAP TESTING [facility] Start: 11-13-2022 Screening for malign ant neoplasm of cervix [facility] Start: 04-05-2022 Influenza vaccination INFLUENZA (#1) [facility] Start: 09-18-2021 COVID-19 VACCINE (4 - Booster for Moderna series) COVID-19 VACCINE (4 - Booster for Moderna series) [facility] Start: 03-29-2014 Urine microalbumin profile DTAP,TDAP,TD (8 - Tdap) [facility] Start: 2012 HPV Vaccine (1 - 3-d ose SCDM series) HPV Vaccine (1 - 3-dose SCDM series) [facility] Start: 2003 Anxiety Screening Anxiety Screening [facility] Start: 2003 Depression Screening Depression Scre ening [facility] Start: 2003 HEPATITIS C SCREENING HEPATITIS C [facility] Start: 2003 Hepatitis C screening Hepatitis C [facility] Start: 2003 HIV SCREENING HIV SCREENING [facility] Start: 2003 HIV screening HIV Screening [facility] PAP TEST PAP TEST Lab Rou gomez Encounter for gynecological examination (general) (routine) without abnormal findings Screening for cervical cancer Encounter for screening for human papillomavirus (HPV) 11/13/2023 3:58 PM EDT [facility] Work Phone: Patient Education Rabies Immune Globulin (Human) Solution for injection Rabies Vaccine [facility] Work Phone: End: 12-12-2024 US Pelvis transvaginal US FEMALE PELVIS TRANSVAG Radiology Routine Menorrhagia with regular cycle 1 Occurrences starting 11/13/2023 until 12/12/2024 [facility] Work Phone: Comment on above: 1 Occurrences starti ng 11/13/2023 until 12/12/2024 US Pelvis transvaginal US FEMALE PELVIS TRANSVAG Radiology Routine Menorrhagia with regular cycle 11/18/2023 12:00 PM EDT [facility] Work Phone: [facility] Immunizations Immunization Date Immunization Notes Care Provider Fa cility 03-22-[address] Carleen quiñonez MD [facility] 03-22-2025 rabies vaccine, for intramuscular injection Dr. Carleen Coles MD [facility] 05-26-2024 influenza virus vacc ine, unspecified formulation Irma Villegas MD Work Phone: [facility] 09-04-2022 tetanus toxoid, redu marilynn diphtheria toxoid, and acellular pertussis vaccine, adsorbed Irma Villeags MD Work Phone: [facility] Work Phone: 05-22-2022 influenza virus vacc ine, unspecified formulation [facility] Work Phone: [facility] 03-29-2004 diphtheria and tetan us toxoids, adsorbed for pediatric use Anju Medina RN [facility] Work Phone: 02-18-2004 meningococcal polysaccharide vaccine (MPSV4) Anju Medina RN [facility] Work Phone: 08-05-2002 influenza virus vacc ine, unspecified formulation Anju Medina RN [facility] Work Phone: 07-01-2002 influenza virus vacc ine, unspecified formulation Anju Medina RN [facility] Work Phone: 05-30-2001 meningococcal polysaccharide vaccine (MPSV4) Anju Medina RN [facility] Work Phone: 06-25-2000 diphtheria and tetan us toxoids, adsorbed for pediatric use Anju Medina RN [facility] Work Phone: 03-22-1998 hepatitis B vaccine, pediatric or pediatric/adolescent dosage Anju Medina RN [facility] Work Phone: 11-11-1997 hepatitis B vaccine, pediatric or pediatric/adolescent dosage Anju Medina RN [facility] Work Phone: 08-02-1997 hepatitis B vaccine, pediatric or pediatric/adolescent dosage Anju Medina RN [facility] Work Phone: 08-02-1997 measles, mumps and rubella virus vaccine Anju Medina RN [facility] Work Phone: 02-10-1992 diphtheria, tetanus toxoids and pertussis vaccine Anju Medina RN [facility] Work Phone: 02-10-1992 trivalent poliovirus vaccine, live, oral Anju Medina RN [facility] Work Phone: 1990 Chicken Pox (disease) Alba Medina RN [facility] Work Phone: 07-20-1987 haemophilus influenz ae type b vaccine, HbOC conjugate Anju Medina RN [facility] Work Phone: 12-30-1986 diphtheria, tetanus toxoids and pertussis vaccine Anju Medina RN [facility] Work Phone: 12-30-1986 trivalent poliovirus vaccine, live, oral Anju Medina [facility] Work Phone: 10-21-1986 measles, mumps and rubella virus vaccine Anju Medina [facility] Work Phone: 1985 diphtheria, tetanus toxoids and pertussis vaccine Anju eMdina [facility] Work Phone: 1985 diphtheria, tetanus toxoids and pertussis vaccine Anju Medina [facility] Work Phone: 1985 trivalent poliovirus vaccine, live, oral Anju Medina [facility] Work Phone: 1985 diphtheria, tetanus toxoids and pertussis vaccine Anju Medina [facility] Work Phone: 1985 trivalent poliovirus vaccine, live, oral Anju Medina [facility] Work Phone: Payers Date Payer Category Payer Self-pay 2025 Unknown [id number] 2019 Private Health Insurance [facility] [id number] 2019 Unknown [id number] 2019 Unknown [id number] Unknown [id number] Social History Date Type Detail Facility Start: 09-04-2022 End: 03-22-2025 Tobacco smoking status NHIS Never smoked tobacco [facility] Work Phone: Start: 09-04-2022 Tobacco use and exposure Smokeless tobacco non-user [facility] Work Phone: Start: 09-04-2022 End: 11-17-2024 Alcohol intake Current drinker of alcohol (finding) [facility] Start: 03-04-2020 End: 11-28-2022 History SDOH Alcohol Frequency 3 [facility] Start: 03-04-2020 End: 11-28-2022 History SDOH Alcohol Std Drinks 1 [facility] Start: 03-04-2020 End: 11-28-2022 History SDOH Social Connections Living 7 [facility] Start: 03-04-2020 End: 05-04-2020 History SDOH Physical Activity DPW 5 [facility] Start: 03-04-2020 End: 11-28-2022 History SDOH Stress 2 [facility] Start: 03-03-2020 Education 17 [facility] Start: 11-13-2017 Alcohol Comment occasionally [facility] Start: 1985 Sex Assigned At Female [facility] Start: 11-01-2022 End: 11-28-2022 History SDOH Social Connections Phone 4 [facility] [facility] Start: 11-01-2022 End: 11-28-2022 History SDOH [facility]ctions [facility] Start: 05-04-2020 End: 11-13-2023 History of Social function [facility] Start: 05-04-2020 End: 11-13-2023 Social connection and isolation panel [facility] Start: 07-06-2012 Frequency of Social Gatherings with Friends and Family Not on file [facility] How often to you hav e a drink containing alcohol? 2-4 times a month [facility] How many standard dr inks containing alcohol do you have on a typical day? 1 or 2 [facility] How often do you hav e 6 or more drinks on 1 occasion? Never [facility] Do you feel stress - tense, restless, nervous, or anxious, or unable to sleep at night because your mind is troubled all the time - these days [OSQ] Only a little [facility] (I/We) worried wheth er (my/our) food would run out before (I/we) got money to buy more. Never true [facility] In the past 12 month s, was there a time when you were not able to pay the mortgage or rent on time? No [facility] Start: 04-11-2021 Gender identity Identifies as female gender (finding) [facility] Do you belong to any clubs or organizations such as sikhism groups, unions, fraternal or athletic groups, or school groups? Yes [facility] Are you now , , , , never or living with a partner? Never [facility] How hard is it for y ou to pay for the very basics like food, housing, medical care, and heating Somewhat hard [facility] Do you feel stress - tense, restless, nervous, or anxious, or unable to sleep at night because your mind is troubled all the time - these days [OSQ] To some extent [facility] Start: 10-15-2023 Sexual orientation Heterosexual (finding) [facility] Clinical Notes 09-04-2022 to 03-21-2025 Telephone Encounter - Nell Jones RN - 03/21/2025 8:42 AM EDTTelephone Encounter - Nell Jones RN - 03/21/2025 8:42 AM EDTPatient InstructionsPatient Instructions Note Date & Type Note Facility 03-21-2025 Telephone encounter Note Patient calling with information she states her cat killed a bat and it was in her bathroom. She states she had no contact with bat and when she disposed of it she wore gloves. Reviewed information on protocol bat bites. No bite noted but [facility]. Also advised patient to contact cats veterinary on Saturday. Patient will also contact health department to dispose of bat body.Patient denies any new or worsening symptoms of which a provider is not aware:Yes. [facility] 03-21-2025 Miscellaneous Notes Patient calling with information she states her cat killed a bat and it was in her bathroom. She states she had no contact with bat and when she disposed of it she wore gloves. Reviewed information on protocol bat bites. No bite noted but patient advised to go to [facility] for rabies vaccine. Also advised patient to contact cats veterinary on Saturday. Patient will also contact health department to dispose of bat body.Patient denies any new or worsening symptoms of which a provider is not aware:Yes. documented in this encounter [facility] 03-16-2025 Telephone encounter Note Images from the original note were not included. Electronic PA rec'd and completed for fluoxetine HCL 20mg. This was approved. Prior authorization approved Payer: [employer] [phone] Note from payer: CaseId:[id number];Status:Approve d;Review Type:Prior Auth;Coverage Start Date:02/14/2025;Coverage End Date:03/16/2026; Approval Details Authorized from February 14, 2025 to March 16, 2026 Electronic appeal: Not supported Prior auth initiated by: Abi Mcnally LPN View History Medication Being Authorized FLUoxetine HCl 20 mg tablet Take 1/2 tablet daily to=10 mg daily (capsules and 10 mg tablets have red dye) Dispense: 45 tablet Refills: 1 Start: 02/18/2025 Class: Normal Diagnoses: Depression, unspecified depression type [F32.A] This order has been released to its destination. To be filled at: [facility] [place] [address] [address] [facility] [phone] [id number] Pharmacy notified. [facility] 03-16-2025 Miscellaneous Notes Images from the original note were not included. Electronic PA rec'd and completed for fluoxetine HCL 20mg. This was approved. Prior authorization approved Payer: [employer] [phone] Note from payer: CaseId:[id number];Status:Approve d;Review Type:Prior Auth;Coverage Start Date:02/14/2025;Coverage End Date:03/16/2026; Approval Details Authorized from February 14, 2025 to March 16, 2026 Electronic appeal: Not supported Prior auth initiated by: Abi Mcnally LPN View History Medication Being Authorized FLUoxetine HCl 20 mg tablet Take 1/2 tablet daily to=10 mg daily (capsules and 10 mg tablets have red dye) Dispense: 45 tablet Refills: 1 Start: 02/18/2025 Class: Normal Diagnoses: Depression, unspecified depression type [F32.A] This order has been released to its destination. To be filled at: [facility] [place] [address] [address] [facility] [phone] [id number] Pharmacy notified. documented in this encounter [facility] 02-18-2025 Instructions Irma Villegas MD - 02/18/2025 8:46 AM EDT We discussed your mental health and feelings of fatigue, anger, and lack of motivation: - We decided to restart you on Fluoxetine (Prozac) at 20 mg daily, as this worked well for you in the past. This prescription has been sent to [facility] for a 90-day supply with 6 months of refills. You mentioned you plan to start taking it after your semester ends on March 05 due to concerns about drowsiness. - Please monitor how you feel once you start the medication and let me know if you experience any side effects or if adjustments are needed. We discussed your concerns about deodorants and fragrance sensitivity: - You are sensitive to artificial fragrances, which cause headaches. I sent a message to the pharmacist to inquire about the use of glycopyrrolate bulk powder as a potential option for dusting on your underarms. I will follow up with you once I receive a response. - I recommend continuing to research fragrance-free deodorants, as there may be non-prescription options available. If you find one that works, please let me know. We discussed your interest in control options: - You expressed interest in non-hormonal options, such as diaphragms or non-latex condoms, due to your latex allergy and preference to avoid modes that have half-way release of hormones - I recommend scheduling an appointment with [facility] to discuss your options in more detail, including barrier methods, non-latex options, and other contraceptive methods. We discussed your dietary restrictions and migraines: - You reported that avoiding gluten, MSG, and red dye has helped prevent migraines and improved your overall well-being. Continue to avoid these triggers as they seem to be effective for you. Follow-Up: - Please let me know if you experience any issues with the Fluoxetine or if you have additional questions about your care plan. - Schedule an appointment with [facility] to discuss control options. - I will follow up with you regarding the pharmacist s response about glycopyrrolate powder for deodorant use. documented in this encounter [facility] 02-18-2025 Note HNO ID: [id number] Author: IRMA VILLEGAS MD Service: ? Author Type: Physician Type: Progress Notes Filed: 02/18/2025 12:05 Note Text: Reason for Visit Physical with few complaints HPI Alex Quinones is a 39-year-old female presenting with fatigue, decreased motivation, and irritability. She is also seeking advice on fragrance-free deodorants and control options. Alex reports feeling fatigued, less motivated, and experiencing increased irritability over the past week. She attributes these symptoms to the recent of her mother in September, for whom she was the primary caregiver. She describes her relationship with her mother as challenging and notes that while she does not feel sadness or grief, she does miss her mother. She also mentions being upset by the current political climate and social justice issues, which are important to her. She is considering restarting fluoxetine, which she found helpful in the past, but plans to wait until after her current semester ends on March 05 due to the medication's sedative effects. She was previously on a 20 mg dose, which she tolerated well after initially starting at 10 mg. Alex also reports difficulty finding a fragrance-free deodorant that does not cause headaches. She has tried various natural alternatives without success and inquires about the availability of a prescription deodorant. Additionally, Alex is interested in discussing control options. She has a history of using oral contraceptives as a teenager to regulate heavy menstrual periods but prefers not to use them again. She is considering a diaphragm but has a latex allergy, which complicates her options. She has never been sexually active but is interested in dating and wants to have contraceptive options available. Alex follows a gluten-free diet due to its positive impact on her skin and mental health, although she has not been formally tested for celiac disease. She denies recent migraines, attributing their absence to avoiding MSG and red dye. She tolerates dairy without issues. She reports regular menstrual periods. Social History Tobacco Use Smoking status: Never Smokeless tobacco: Never Vaping Use Vaping status: Never Used Substance Use Topics Alcohol use: Yes Comment: Occasionally Drug use: No Past medical history, appointments, medications, allergies reviewed. Pertinent Lab/Diagnostic Studies are reviewed and discussed today Current Outpatient Medications: FLUoxetine HCl 20 mg tablet Glycopyrrolate, Bulk, 100 % powd albuterol HFA (VENTOLIN HFA) 90 mcg/actuation inhaler Health Maintenance Depression Screening Anxiety Screening Covid-19 Vaccine( season)@ Review Of Systems Constitutional: (+) fatigue, (+) weight loss Head: (+) headaches Neurological: (-) migraines Psychiatric: (+) decreased motivation, (+) irritability Physical Exam BP 112/72 Pulse 101 Resp 16 Wt 66.2 kg (146 lb) LMP 10/19/2024 (Within Days) SpO2 98% BMI 28.75 kg/m? GENERAL: NAD, alert and oriented SKIN: unremarkable, no rash or skin lesions. HEAD: normocephalic EYES: PERRLA, EOMI, conjunctiva clear EARS: external ears normal, canals clear, TM's normal. NOSE/SINUSES: Nares normal. Septum midline. OROPHARYNX: lips, mucosa, and tongue normal, good dentition. No oral lesions noted. NECK: Supple, no lymphadenopathy, normal thyroid, no carotid bruits. LUNGS: Clear to auscultation bilaterally, no wheezes/rhonchi/rales. HEART: Regular rate and rhythm, no murmurs. No ectopy. EXTREMITIES: Normal, No deformities, No skin discoloration, No edema. NEURO: Awake, alert and oriented x3, cranial nerves II-XII grossly intact, normal gait, no involuntary motions Assessment and Plan 1. Annual physical exam (Z00.00) Patient presents for annual physical exam. 2. Depression, unspecified depression type (F32.A) Experiencing fatigue, decreased motivation, and irritability. Previous positive response to fluoxetine 20 mg. - Prescribed fluoxetine 20 mg daily, to be initiated on March 05 after the semester ends. - Sent prescription to [facility] for a 90-day supply with refills for 6 months. 3. Grief reaction (F43.20) Patient's mother in September from ovarian cancer. Patient is experiencing mild grief symptoms, including missing her mother and wishing to share moments with her. 4. Excessive sweating (R61) Patient reports difficulty finding a fragrance-free deodorant due to sensitivity to artificial fragrances, which trigger headaches. - Discussed potential use of glycopyrrolate powder as a topical application to reduce sweating. - Sent a message to the pharmacist to inquire about the use of glycopyrrolate powder as a deodorant and to recommend fragrance-free options. 5. control counseling (Z30.09) Patient is considering control options and has a latex allergy. Prefers non-hormonal (more content not included)... [facility] 02-18-2025 History of Presen t illness Narrative Reason for Visit Physical with few complaints HPI Alex Quinones is a 39-year-old female presenting with fatigue, decreased motivation, and irritability. She is also seeking advice on fragrance-free deodorants and control options. Alex reports feeling fatigued, less motivated, and experiencing increased irritability over the past week. She attributes these symptoms to the recent of her mother in September, for whom she was the primary caregiver. She describes her relationship with her mother as challenging and notes that while she does not feel sadness or grief, she does miss her mother. She also mentions being upset by the current political climate and social justice issues, which are important to her. She is considering restarting fluoxetine, which she found helpful in the past, but plans to wait until after her current semester ends on March 05 due to the medication's sedative effects. She was previously on a 20 mg dose, which she tolerated well after initially starting at 10 mg. Alex also reports difficulty finding a fragrance-free deodorant that does not cause headaches. She has tried various natural alternatives without success and inquires about the availability of a prescription deodorant. Additionally, Alex is interested in discussing control options. She has a history of using oral contraceptives as a teenager to regulate heavy menstrual periods but prefers not to use them again. She is considering a diaphragm but has a latex allergy, which complicates her options. She has never been sexually active but is interested in dating and wants to have contraceptive options available. Alex follows a gluten-free diet due to its positive impact on her skin and mental health, although she has not been formally tested for celiac disease. She denies recent migraines, attributing their absence to avoiding MSG and red dye. She tolerates dairy without issues. She reports regular menstrual periods. Social History Tobacco Use Smoking status: Never Smokeless tobacco: Never Vaping Use Vaping status: Never Used Substance Use Topics Alcohol use: Yes Comment: Occasionally Drug use: No Past medical history, appointments, medications, allergies reviewed. Pertinent Lab/Diagnostic Studies are reviewed and discussed today Current Outpatient Medications: FLUoxetine HCl 20 mg tablet Glycopyrrolate, Bulk, 100 % powd albuterol HFA (VENTOLIN HFA) 90 mcg/actuation inhaler Health Maintenance Depression Screening Anxiety Screening Covid-19 Vaccine( season)@ Review Of Systems Constitutional: (+) fatigue, (+) weight loss Head: (+) headaches Neurological: (-) migraines Psychiatric: (+) decreased motivation, (+) irritability Physical Exam BP 112/72 Pulse 101 Resp 16 Wt 66.2 kg (146 lb) LMP 10/19/2024 (Within Days) SpO2 98% BMI 28.75 kg/m GENERAL: NAD, alert and oriented SKIN: unremarkable, no rash or skin lesions. HEAD: normocephalic EYES: PERRLA, EOMI, conjunctiva clear EARS: external ears normal, canals clear, TM's normal. NOSE/SINUSES: Nares normal. Septum midline. OROPHARYNX: lips, mucosa, and tongue normal, good dentition. No oral lesions noted. NECK: Supple, no lymphadenopathy, normal thyroid, no carotid bruits. LUNGS: Clear to auscultation bilaterally, no wheezes/rhonchi/rales. HEART: Regular rate and rhythm, no murmurs. No ectopy. EXTREMITIES: Normal, No deformities, No skin discoloration, No edema. NEURO: Awake, alert and oriented x3, cranial nerves II-XII grossly intact, normal gait, no involuntary motions Assessment and Plan 1. Annual physical exam (Z00.00) Patient presents for annual physical exam. 2. Depression, unspecified depression type (F32.A) Experiencing fatigue, decreased motivation, and irritability. Previous positive response to fluoxetine 20 mg. - Prescribed fluoxetine 20 mg daily, to be initiated on March 05 after the ester ends. - Sent prescription to [facility] for a 90-day supply with refills for 6 months. 3. Grief reaction (F43.20) Patient's mother in September from ovarian cancer. Patient is experiencing mild grief symptoms, including missing her mother and wishing to share moments with her. 4. Excessive sweating (R61) Patient reports difficulty finding a fragrance-free deodorant due to sensitivity to artificial fragrances, which trigger headaches. - Discussed potential use of glycopyrrolate powder as a topical application to reduce sweating. - Sent a message to the pharmacist to inquire about the use of glycopyrrolate powder as a deodorant and to recommend fragrance-free options. 5. control counseling (Z30.09) Patient is considering control options and has a latex allergy. Prefers non-hormonal methods such as diaphragms and non-latex condoms. - Referred patient to [facility] for detailed control counseling. Voice recognition software was used to compose this office note. Please excuse any unintended typographical errors. Recording using VIAP software for draft documentation of the visit was discussed with the patient/authorized inbound call center representative; all questions welcomed and answered. Patient/authorized inbound call center representative agreed to proceed Irma Villegas MD documented in this encounter [facility] 11-17-2024 Note HNO ID: [id number] Author: CHRISTIANNE MURRAY APRN.CNM Service: ? Author Type: Dicer Machine Operator Type: Progress Notes Filed: 11/17/2024 16:53 Note Text: Alex is a 39 year old who presents for an annual gynecologic exam Mother passed in September with Ovarian cancer Still get period: Yes LMP: 10/19/2024 Monthly, last 5 days Bleeding amount bothersome: Yes Bleeding between periods: No Period symptoms: Breast tenderness; Cramps; Fecal incontinence (inability to control bowel movements) Contraception frequency: N/A HPV vaccine: No; HPV: 11/13/2023 Negative Last pap smear: 11/13/2023 Normal History of abnormal pap: No, all prior PAP smears have been normal Bothersome pelvic pain: No Last mammogram: never OB History Gravida0 Para0 Term0 Preterm0 AB0 Living0 SAB0 IAB0 Ectopic0 Multiple0 Live Births0 Metal Sash 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 History LMP: 10/19/2024 (Within Days), Having periods Age at Menarche: 12 Age at First : Age at Menopause: Metal Sash Setter History Comments: Sexual Activity: Not Currently; No partner data on record Contraception: No contraception data on record Menstrual Tracking History Flowsheet Row Office Visit from 11/17/2024 in OB/Gynecology Period Cycle (Days) 28 Period Duration (Days) 5 Menstrual Flow Heavy FAMILY HISTORY Problem Relation Age of Onset Ovarian cancer Mother 65 Lived 2 years after diagnosis, passed 10/01/24 Hypertension Mother Thyroid Mother other (fallopian tube cancer) Mother Hyperlipidemia Father ADD/ADHD Brother No Known Problems Brother Diabetes Maternal Grandmother other (depression) Maternal Grandmother Prostate Cancer Maternal Grandfather bone cancer other (Ccxfhjh-Wfryk-Ypnxp Disease) Maternal Grandfather Hypertension Paternal Grandmother other (adrenal cancer) Paternal Grandmother Diabetes Paternal Grandfather Prostate Cancer Paternal Grandfather Heart Paternal Grandfather CHF other (auto immune problems) Other maternal side Diabetes Other maternal side other (graves disease) Other maternal side Arthritis Other maternal side SOCIAL HISTORY Social History Tobacco Use Smoking status: Never Smokeless tobacco: Never Vaping Use Vaping status: Never Used Substance Use Topics Alcohol use: Yes Comment: Occasionally Drug use: No REVIEW OF SYSTEMS Abdomen: No abdominal pain, nausea, vomiting, diarrhea, or constipation. No bloating, early satiety, indigestion, or increased flatulence. Bladder: No dysuria, gross hematuria, urinary frequency, urinary urgency, or incontinence. Breast: No breast lumps, nipple d/c, overlying skin changes, redness or skin retraction. Allergies and current medication updated:Yes SENSITIVE EXAM: The sensitive examination was discussed with the Patient or Patient's Authorized Development Director. As applicable, any other physician, advance practice provider, medical student, or other health professional student that will be observing or involved in the sensitive examination for educational or training purposes was discussed with the Patient or Authorized Development Director. The Patient or Authorized Development Director has agreed to proceed with the sensitive examination. (Sensitive examination includes inspection and/or palpation of the breasts, pelvis, prostate and anorectal regions). EXAM: BP 118/70 Ht 4' 11.75 (1.52m) Wt 150 lb (68.0kg) LMP 10/19/2024 BMI 29.53 kg/(m2). GENERAL: pleasant, female in no apparent distress HEENT: Normocephalic, atraumatic, mucus membranes moist, and no lesions NECK: Supple, full range of motion, no adenopathy, and thyroid normal DERMATOLOGY: Normal, without lesions, non-icteric, and non-hirsute BREAST: soft, non-tender, symmetric, no dominant mass, normal nipple-areolar complex, no lymphadenopathy, and no nipple discharge CHEST: Normal inspiratory effort ABDOMEN: soft, non-tender, and no masses PELVIC: external genitalia normal, normal Bartholin's glands, urethra, [place]'s glands, no vulvar lesions, no cervical lesions, good vaginal support, physiologic discharge present, normal appearing perineal body and perianal region BIMANUAL: uterus normal size, shape and consistency, no adnexal masses, and non-tender RECTOVAGINAL: deferred. NEURO: alert and oriented x3,exam grossly non-focal EXTREMITIES: normal ASSESSMENT/PLAN: 1. Encounter for gynecological examination (general) (routine) with abnormal findings - ICD9: V72.31, ICD10: Z01.411 (primary diagnosis) - Completed pelvic and breast exam - Encouraged monthly BSE - Follow up for annual exam in one year. - GRAHAM SCREENING W MAGGIE 2. Encounter for screening mammogram for breast cancer - ICD9: V76.12, ICD10: Z12.31 - Completed pelvic and breast exam - Encouraged monthly BSE - Follow up for annual exam in one year. - GRAHAM SCREENING W MAGGIE 3. Dense breast tissue - ICD9: 793.82, ICD10: R92.30 - GRAHAM SCREENING W MAGGIE 4. Family history of ovarian cancer - ICD9: V16.41, ICD (more content not included)... [facility] 11-17-2024 History of Presen t illness Narrative Alex is a 39 year old who presents for an annual gynecologic exam Mother passed in September with Ovarian cancer Still get period: Yes LMP: 10/19/2024 Monthly, last 5 days Bleeding amount bothersome: Yes Bleeding between periods: No Period symptoms: Breast tenderness; Cramps; Fecal incontinence (inability to control bowel movements) Contraception frequency: N/A HPV vaccine: No; HPV: 11/13/2023 Negative Last pap smear: 11/13/2023 Normal History of abnormal pap: No, all prior PAP smears have been normal Bothersome pelvic pain: No Last mammogram: never OB History Gravida0 Para0 Term0 Preterm0 AB0 Living0 SAB0 IAB0 Ectopic0 Multiple0 Live Births0 Metal 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 History LMP: 10/19/2024 (Within Days), Having periods Age at Menarche: 12 Age at First : Age at Menopause: Metal Sash Setter History Comments: Sexual Activity: Not Currently; No partner data on record Contraception: No contraception data on record Menstrual Tracking History Flowsheet Row Office Visit from 11/17/2024 in OB/Gynecology Period Cycle (Days) 28 Period Duration (Days) 5 Menstrual Flow Heavy FAMILY HISTORY Problem Relation Age of Onset Ovarian cancer Mother 65 Lived 2 years after diagnosis, passed 10/01/24 Hypertension Mother Thyroid Mother other (fallopian tube cancer) Mother Hyperlipidemia Father ADD/ADHD Brother No Known Problems Brother Diabetes Maternal Grandmother other (depression) Maternal Grandmother Prostate Cancer Maternal Grandfather bone cancer other (Crwevjm-Ppxxi-Irlri Disease) Maternal Grandfather Hypertension Paternal Grandmother other (adrenal cancer) Paternal Grandmother Diabetes Paternal Grandfather Prostate Cancer Paternal Grandfather Heart Paternal Grandfather CHF other (auto immune problems) Other maternal side Diabetes Other maternal side other (graves disease) Other maternal side Arthritis Other maternal side SOCIAL HISTORY Social History Tobacco Use Smoking status: Never Smokeless tobacco: Never Vaping Use Vaping status: Never Used Substance Use Topics Alcohol use: Yes Comment: Occasionally Drug use: No REVIEW OF SYSTEMS Abdomen: No abdominal pain, nausea, vomiting, diarrhea, or constipation. No bloating, early satiety, indigestion, or increased flatulence. Bladder: No dysuria, gross hematuria, urinary frequency, urinary urgency, or incontinence. Breast: No breast lumps, nipple d/c, overlying skin changes, redness or skin retraction. Allergies and current medication updated:Yes SENSITIVE EXAM: The sensitive examination was discussed with the Patient or Patient's Authorized Development Director. As applicable, any other physician, advance practice provider, medical student, or other health professional student that will be observing or involved in the sensitive examination for educational or training purposes was discussed with the Patient or Authorized Development Director. The Patient or Authorized Development Director has agreed to proceed with the sensitive examination. (Sensitive examination includes inspection and/or palpation of the breasts, pelvis, prostate and anorectal regions). EXAM: BP 118/70 Ht 4' 11.75 (1.52m) Wt 150 lb (68.0kg) LMP 10/19/2024 BMI 29.53 kg/(m^2). GENERAL: pleasant, female in no apparent distress HEENT: Normocephalic, atraumatic, mucus membranes moist, and no lesions NECK: Supple, full range of motion, no adenopathy, and thyroid normal DERMATOLOGY: Normal, without lesions, non-icteric, and non-hirsute BREAST: soft, non-tender, symmetric, no dominant mass, normal nipple-areolar complex, no lymphadenopathy, and no nipple discharge CHEST: Normal inspiratory effort ABDOMEN: soft, non-tender, and no masses PELVIC: external genitalia normal, normal Bartholin's glands, urethra, [place]'s glands, no vulvar lesions, no cervical lesions, good vaginal support, physiologic discharge present, normal appearing perineal body and perianal region BIMANUAL: uterus normal size, shape and consistency, no adnexal masses, and non-tender RECTOVAGINAL: deferred. NEURO: alert and oriented x3,exam grossly non-focal EXTREMITIES: normal ASSESSMENT/PLAN: 1. Encounter for gynecological examination (general) (routine) with abnormal findings - ICD9: V72.31, ICD10: Z01.411 (primary diagnosis) - Completed pelvic and breast exam - Encouraged monthly BSE - Follow up for annual exam in one year. - GRAHAM SCREENING W MAGGIE 2. Encounter for screening mammogram for breast cancer - ICD9: V76.12, ICD10: Z12.31 - Completed pelvic and breast exam - Encouraged monthly BSE - Follow up for annual exam in one year. - GRAHAM SCREENING W MAGGIE 3. Dense breast tissue - ICD9: 793.82, ICD10: R92.30 - GRAHAM SCREENING W MAGGIE 4. Family history of ovarian cancer - ICD9: V16.41, ICD10: Z80.41 -Declines any genetic referral 1) Health maintenance: Pap/HPV up to date. Mammogram starting age 40. Nutrition, exercise and routine health maintenance exams reviewed. Calcium/Vitamin D supplementation information provided. Colon cancer screening: start at age 45 Lipids/glucose: followed by PCP Vitamin D: followed by PCP 2) Contraception: none. Contraceptive options reviewed and information provided. 3) STD screening: Declined STD check. 4) Follow up one year or sooner as needed Christianne Murray APRN.CNM documented in this encounter [facility] 02-27-2024 History of Presen t illness Narrative Reason for Visit Patient presents with: Physical: Bowel habits have changed, loose and frequent for over a year. Alex Quinones is a 38 year old female who presents here today for CPE. Health Maintenance Depression Screening Anxiety Screening Hepatitis C Screening HIV Screening Covid-19 Vaccine( season) HPI Very pleasant 38-year-old with a past medical history of migraines that are triggered by red dyes, depression and anxiety, gluten intolerance She had fallen a year ago on the ice and is better with regard to that, no issues now. Weight gain has been a concern and she has been trying to do her best to lose weight, she has been stable for the past few years. Does not have time to take care of herself as her mother is very sick, and she it taking care of her after dx of ovarian cancer. She goes to a cancer support group once a month that helps her. Over all with anxiety and depression, she is stable and does not need more help She has been having heavy menstrual bleeding,. Has a fibroid that is the culprit. never sexually active, never had a bld transfusion, never used needles. 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 No problem-specific Assessment & Plan notes found for this encounter. PAST MEDICAL HISTORY Diagnosis Date Allergic rhinitis Attention deficit disorder with hyperactivity(314.01) Migraine without aura and without status migrainosus, not intractable Unspecified asthma(493.90) PAST SURGICAL HISTORY Procedure Laterality Date PAST SURGICAL HISTORY OF 3 years of age hernia repair FAMILY HISTORY Problem Relation Age of Onset Ovarian cancer Mother Hypertension Mother Thyroid Mother other (fallopian tube cancer) Mother Hyperlipidemia Father ADD/ADHD Brother No Known Problems Brother Diabetes Maternal Grandmother other (depression) Maternal Grandmother Prostate Cancer Maternal Grandfather bone cancer other (Dwegzdk-Nxgtb-Ygdyk Disease) Maternal Grandfather Hypertension Paternal Grandmother other (adrenal cancer) Paternal Grandmother Diabetes Paternal Grandfather Prostate Cancer Paternal Grandfather Heart Paternal Grandfather CHF other (auto immune problems) Other maternal side Diabetes Other maternal side other (graves disease) Other maternal side Arthritis Other maternal side Social History Tobacco Use Smoking status: Never Smokeless tobacco: Never Vaping Use Vaping Use: Never used Substance Use Topics Alcohol use: Yes Comment: Occasionally Drug use: No Past medical history, appointments, medications, allergies reviewed. Pertinent Lab/Diagnostic Studies are reviewed and discussed today Current Outpatient Medications: albuterol HFA (VENTOLIN HFA) 90 mcg/actuation inhaler Review of Systems CONSTITUTIONAL: No fevers, chills, nightsweats, unintended weight loss HEENT: Denies frequent or severe heaches, nasal congestion/sinus symptoms, problematic allergy problems. EYES: No diplopia or blurry vision. CARDIOVASCULAR: No chest pain, dyspnea, palpitations, orthopnea, PND, ankle edema. PULM: No dyspnea, unexplained cough. GI: No dysphagia/odynophagia, problematic reflux, constipation, diarrhea, changes in stool habits, hematochezia, melena. : No new urinary complaints, including dysuria, gross hematuria or pyuria. NEURO: No new balance problems, peripheral weakness/paresthesias or numbness of concern. MUSC-SKEL: No new joint pain, swelling, or erythema. PSY: No concerns regarding depression, anxiety or panic. INTEGUMENTARY: No new skin changes (rash, new or changing mole, new growth) Physical Exam BP 118/82 (BP Site: Left Arm) Pulse 95 Ht 152.4 cm (5') Wt 68.2 kg (150 lb 4.8 oz) LMP 10/31/2023 (Approximate) SpO2 97% BMI 29.35 kg/m General appearance: Well appearing, alert, in no acute distress, well-hydrated, well nourished. Skin: Skin color, texture, turgor normal, no suspicious rashes or lesions Head: Normocephalic, no masses, lesions, tenderness or abnormalities Eyes: Anicteric sclera. Pupils are equally round and reactive to light. Extraocular movements are intact. Ears: External ears normal, canals clear Nose/Sinuses: Nares normal, septum midline, mucosa normal, no drainage or sinus tenderness Oropharynx: Lips, mucosa, and tongue normal, teeth and gums normal, oropharynx normal Neck: Supple, no adenopathy; thyroid symmetric, normal size, no bruits Back: Normal exam Lungs: Lungs clear to auscultation. No wheezing, rhonchi, rales Heart: RRR without murmur, gallop, or rubs. No ectopy Abdomen: Normal abdominal exam, Abdomen soft, non-tender. Bowel sounds normal. No masses, organomegaly Extremities: No deformities, edema, skin discoloration, clubbing or cyanosis. Good capillary refill. Musculoskeletal: No joint swelling, deformity, or tenderness Peripheral pulses: Normal Neuro: Gait normal. Reflexes normal and symmetric. Sensation grossly intact. ASSESSMENT/PLAN: 1. Annual physical exam - ICD9: V70.0, ICD10: Z00.00 (primary diagnosis) - COMPLETE BLOOD COUNT AND DIFFERENTIAL 2. Hyperlipidemia, mixed - ICD9: 272.2, ICD10: E78.2 - COMPREHENSIVE METABOLIC PANEL - LIPID PANEL BASIC Imra Villegas MD documented in this encounter [facility] 11-22-2023 Miscellaneous Notes Seen patient for visit today. Christianne Murray APRN.CNM Patient was prescribed Macrobid on 11/17 for UTI. Carly Conte RN documented in this encounter [facility] 11-22-2023 Instructions Christianne Murray APRN.CNM - 11/22/2023 2:22 PM EDT Urinary Tract Infection: [facility] Urinary Tract Plus 30-90 days Weight management: Nutrition Therapy: 8 am to 4 pm: [phone] [facility] Call Center: 24 hours/day, 7 days/week: [phone] I can put a consult for weight management if you desire. documented in this encounter [facility] 11-22-2023 History of Presen t illness Narrative DISTANCE HEALTH VISIT This Team Access Model visit is a virtual encounter. It required patient-provider interaction for the medical decision making as documented below. I have communicated my name and active licensure. The patient's identity and physical location were verified at the time of this visit. Either the patient or their legal inbound call center representative has been informed of the risks and benefits of -- and alternatives to -- treatment through a remote evaluation and consents to proceed with the evaluation remotely. Alex Quinones is a 38 year old female seen for follow up. Menses are heavier than normal for her but still manageable. . 11/13/23-In the last year, increased urination frequency, nocturia at least once if not more. Denies increased thirst. Staph Increased bowel movements, having about three a day, loose to pasty. Decreased hunger cues, early satiety, denies bloating. Increased weight gain 04/12/21 124lb, now 150lb. In the last year feels diet choices have not been as good, increased stress, and feels she could improve her choices. Increased exercise and feels she is on the right path. Menses: Started in last year. Menses are every 28 days, last for 5 days. Heavy for first 3 days, Menses heavy, soaking through overnight pad in one hour during the morning then slows. This is for 2 days. Contraception: none HISTORY REVIEWED (electronic chart updated): - medical history - medications - allergies REVIEW OF SYSTEMS: GENERAL: feeling well without fatigue, no recent change in weight PHYSICAL EXAMINATION: VIDEO EXAM: (if done, performed via video enabled technology) GENERAL: alert and appropriate, in no distress, well-hydrated, well nourished, and happy, smiling, interactive 11/19/23IMPRESSION: 1. Thickened endometrial stripe likely related to phase of menstrual cycle. 2. Left upper uterine body intramural fibroid. Latest Ref Rng 11/14/2023 Protein, Total 6.3 - 8.0 g/dL 7.6 Albumin 3.9 - 4.9 g/dL 4.4 Calcium 8.5 - 10.2 mg/dL 9.6 Bilirubin, Total 0.2 - 1.3 mg/dL 0.4 Alkaline Phosphatase 34 - 123 U/L 74 AST 13 - 35 U/L 16 ALT 7 - 38 U/L 16 Glucose 74 - 99 mg/dL 95 BUN 7 - 21 mg/dL 10 Creatinine 0.58 - 0.96 mg/dL 0.82 Sodium 136 - 144 mmol/L 136 Potassium 3.7 - 5.1 mmol/L 3.8 Chloride 97 - 105 mmol/L 103 CO2 22 - 30 mmol/L 24 Anion Gap 9 - 18 mmol/L 9 eGFR >=60 mL/min/1.73m 94 CA 125 <39 U/mL 13 TSH 0.270 - 4.200 mIU/L 1.570 Prolactin 4.5 - 26.8 ng/mL 14.8 ASSESSMENT/PLAN: 1. Acute cystitis without hematuria - ICD9: 595.0, ICD10: N30.00 (primary diagnosis) -Allergic to red dye in macrobid, will send Doxycycline 100mg PO BID x 7 days 2. Family history of ovarian cancer - ICD9: V16.41, ICD10: Z80.41 -US and CA 125 normal 3. Intramural leiomyoma of uterus - ICD9: 218.1, ICD10: D25.1 -Reviewed menses overall normal and not concerning for flow. Ok to monitor or discussed can try hormonal management at this time. Would like to monitor and will follow up if she desires futher management. 4. Overweight - ICD9: 278.02, ICD10: E66.3 -Referral to salesperson terrazzo tiles Christianne Murray APRN.CNM I spent 30 minutes in the visit, with more than 50% of the total [id number] time of the visit in counseling / coordination of care. documented in this encounter [facility] 11-18-2023 Miscellaneous Notes Order signed. Christianne Murray APRN.CNM Patient notified. Allergies updated. Dejah Nye RN Left message for patient to call office. Adrienne Hernandez RN ----- Message from Christianne Murray APRN.CNM sent at 11/18/2023 12:23 PM EDT ----- Patient needs treatment for UTI. Allergy list not completed and has latex and peanut allergy with unknown reaction. I can submit medication unless these are corrected. Can you please call patient to find out reaction and then can send Macrobid 100mg PO BID x 5 days. Thanks, Christianne Murray APRN.CNM documented in this encounter [facility] 11-18-2023 History of Presen t illness Narrative Radiology Service Progress Note PATIENT NAME: Alxe Quinones DATE OF SERVICE: November 18, 2023 TIME: 2:33 PM PATIENT IDENTITY VERIFICATION COMPLETED USING TWO (2) IDENTIFIERS: Name and Date of confirmed by patient verbally. FALL SCREENING: Has the patient had 2 falls in the last year or 1 fall with injury or currently using an Ambulatory Assistive Device (Walker, Cane, Wheelchair, Crutches, etc.)? No PATIENT GENDER DATA: Female. status: : No status: NO. PATIENT RELEVANT IMPLANT DATA REVIEWED: Not Applicable PATIENT PRESENTS WITH AN IMPLANTABLE OR ATTACHED NETWORK DIAGNOSTIC SUPPORT SPECIALIST: No RADIOLOGY DEPARTMENT: Ultrasound PERIPHERAL IV DATA: Not applicable SIGNED BY: Christianne Mooney RDMS RVT November 18, 2023 2:33 PM documented in this encounter [facility] 11-13-2023 History of Presen t illness Narrative Supervisor Loading offered: Patient declines. Alex is a 38 year old who presents for an annual gynecologic exam without complaints. In the last year, increased urination frequency, nocturia at least once if not more. Denies increased thirst. Increased bowel movements, having about three a day, loose to pasty. Decreased hunger cues, early satiety, denies bloating. Increased weight gain 04/12/21 124lb, now 150lb. Menses: Started in last year. Menses are every 28 days, last for 5 days. Heavy for first 3 days, Menses heavy, soaking through overnight pad in one hour during the morning then slows. This is for 2 days. Contraception: none HPV vaccine: No Last Pap: 11/21/2017 normal HPV: 11/15/2017 negative History of abnormal pap: No Last mammogram: never Sexually active: No, virgin Exercise: Walking 1-2 hr a day Diet: trying to eat but early satiety Seatbelt use: Yes OB History T0 L0 SAB0 IAB0 Ectopic0 Multiple0 Live Births0 Metal Sash Setter History LMP: 10/31/2023 (Approximate), Having periods Age at Menarche: Age at First : Age at Menopause: Metal Sash Setter History Comments: Sexual Activity: Not Currently; No partner data on record Contraception: No contraception data on record PAST MEDICAL HISTORY Diagnosis Date Allergic rhinitis Attention deficit disorder with hyperactivity(314.01) Migraine without aura and without status migrainosus, not intractable Unspecified asthma(493.90) PAST SURGICAL HISTORY Procedure Laterality Date PAST SURGICAL HISTORY OF 3 years of age hernia repair FAMILY HISTORY Problem Relation Age of Onset Ovarian cancer Mother Hypertension Mother Thyroid Mother other (fallopian tube cancer) Mother Hyperlipidemia Father ADD/ADHD Brother No Known Problems Brother Diabetes Maternal Grandmother other (depression) Maternal Grandmother Prostate Cancer Maternal Grandfather bone cancer other (Pxymijw-Laxqn-Batqm Disease) Maternal Grandfather Hypertension Paternal Grandmother other (adrenal cancer) Paternal Grandmother Diabetes Paternal Grandfather Prostate Cancer Paternal Grandfather Heart Paternal Grandfather CHF other (auto immune problems) Other maternal side Diabetes Other maternal side other (graves disease) Other maternal side Arthritis Other maternal side SOCIAL HISTORY Social History Tobacco Use Smoking status: Never Smokeless tobacco: Never Vaping Use Vaping Use: Never used Substance Use Topics Alcohol use: Yes Comment: Occasionally Drug use: No REVIEW OF SYSTEMS Abdomen: No abdominal pain, nausea, vomiting, diarrhea, or constipation. No bloating, early satiety, indigestion, or increased flatulence. Bladder: No dysuria, gross hematuria, urinary urgency, or incontinence. Breast: No breast lumps, nipple d/c, overlying skin changes, redness or skin retraction. Allergies and current medication updated:Yes EXAM: BP 120/78 Ht 5' 0 (1.52m) Wt 150 lb 3.2 oz (68.1kg) LMP 10/31/2023 BMI 29.33 kg/(m^2). GENERAL: pleasant, female in no apparent distress HEENT: Normocephalic, atraumatic, mucus membranes moist, and no lesions NECK: Supple, full range of motion, no adenopathy, and thyroid normal DERMATOLOGY: Normal, without lesions, non-icteric, and non-hirsute BREAST: soft, non-tender, symmetric, no dominant mass, normal nipple-areolar complex, no lymphadenopathy, and no nipple discharge CHEST: Clear to auscultation, Normal inspiratory effort, Regular rate and rhythm, and No murmurs, clicks, rubs or gallops ABDOMEN: soft, non-tender, and no masses PELVIC: external genitalia normal, normal Bartholin's glands, urethra, [place]'s glands, no vulvar lesions, no cervical lesions, good vaginal support, physiologic discharge present, normal appearing perineal body and perianal region BIMANUAL: uterus normal size, shape and consistency, no adnexal masses, and non-tender RECTOVAGINAL: deferred. NEURO: alert and oriented x3,exam grossly non-focal EXTREMITIES: normal ASSESSMENT/PLAN: 1. Encounter for gynecological examination (general) (routine) without abnormal findings - ICD9: V72.31, ICD10: Z01.419 (primary diagnosis) - Completed pelvic and breast exam - Encouraged monthly BSE - Follow up for annual exam in one year. - PAP TEST 2. Screening for cervical cancer - ICD9: V76.2, ICD10: Z12.4 - Completed pelvic and breast exam - Encouraged monthly BSE - Follow up for annual exam in one year. - PAP TEST 3. Encounter for screening for human papillomavirus (HPV) - ICD9: V73.81, ICD10: Z11.51 - PAP TEST 4. Family history of ovarian cancer - ICD9: V16.41, ICD10: Z80.41 -Early satiety, mother with history of ovarian cancer. Genetic testing negative and patient was informed she did not need testing. Offered referral to genetic counselor and declines. - CA 125 5. Urinary frequency - ICD9: 788.41, ICD10: R35.0 - URINE CULTURE 6. Nocturia - ICD9: 788.43, ICD10: R35.1 - URINE CULTURE -States she had HgBA1C at work and normal. CMP ordered and requested lab 7. Menorrhagia with regular cycle - ICD9: 626.2, ICD10: N92.0 - US FEMALE PELVIS TRANSVAG - THYROID STIMULATING HORMONE - PROLACTIN - COMPREHENSIVE METABOLIC PANEL 8. Early satiety - ICD9: 780.94, ICD10: R68.81 - CA 125 - THYROID STIMULATING HORMONE - PROLACTIN - COMPREHENSIVE METABOLIC PANEL 1) Health maintenance: Pap done with HPV. Mammogram starting age 40. Nutrition, exercise and routine health maintenance exams reviewed. Calcium/Vitamin D supplementation information provided. Lipids/glucose: followed by PCP Vitamin D: followed by PCP 2) Contraception: none and virgin. 3) STD screening: Declined STD check. 4) Follow up one year or sooner as needed Christianne Murray APRN.CNM documented in this encounter [facility] 11-28-2022 History of Presen t illness Narrative Chief Complaint Patient presents with: Depression HPI Alex Quinones is a 37 year old female who is contacted today for a virtual/telemedicine visit. This is an established patient of Dr. Irma Villegas MD. Follow up neck and back pain. Reviewed neck and back xr. They are normal Neck pain is much better infact resolved. The pain dissipated over time. She was taking naproxen , was putting heat on it and resting a lot more. Back pain was not much of an issue. No concerns today On prozac for depression, she is def noticed a difference, she is more relaxed, laughs more and feeling over all better. She had nausea initially but that resolved. She does note being a lot more tired , feels the need to nap more, Like on Saturday she napped 3 times, watches TV a lot which is new. Lost a friend to suicide , grand mother recently from her adrenal issues, and mother was dx recently with adenocarcinoma of the fallopian tubes and ovary. Patient is primary caregiver. There has been a lot of appointments and dealing with this illness at home has been challenging for the patient Past medical history, appointments, medications, allergies reviewed 11/28/2022 Previous Medical History PAST MEDICAL HISTORY Diagnosis Date Allergic rhinitis Attention deficit disorder with hyperactivity(314.01) Migraine without aura and without status migrainosus, not intractable Unspecified asthma(493.90) Previous Surgical History PAST SURGICAL HISTORY Procedure Laterality Date PAST SURGICAL HISTORY OF 3 years of age hernia repair Family History FAMILY HISTORY Problem Relation Age of Onset Hypertension Mother Thyroid Mother other (fallopian tube cancer) Mother Hyperlipidemia Father ADD/ADHD Brother No Known Problems Brother Diabetes Maternal Grandmother other (depression) Maternal Grandmother Prostate Cancer Maternal Grandfather bone cancer other (Fntrsrz-Ysryz-Wdhaw Disease) Maternal Grandfather Ovarian cancer Paternal Grandmother Hypertension Paternal Grandmother Diabetes Paternal Grandfather Prostate Cancer Paternal Grandfather Heart Paternal Grandfather CHF other (auto immune problems) Other maternal side Diabetes Other maternal side other (graves disease) Other maternal side Arthritis Other maternal side Patient Allergies ALLERGIES Allergen Reactions Banannas [Other] Cheese (See Vegetab* Intolerance Evan Cheese- Migraines Gluten Mental Status Change, Rash Latex Monosodium Glutamat* Intolerance migraines Peanuts Red Food Color (Bul* Intolerance migraines Shellfish Containin* Vomiting Sulfa (Sulfonamide * Hives Current Medications Current Outpatient Medications on File Prior to Visit Medication Sig FLUoxetine HCl 20 mg tablet Take 1/2 tablet daily to=10 mg daily (capsules and 10 mg tablets have red dye) albuterol HFA (VENTOLIN HFA) 90 mcg/actuation inhaler Inhale 2 Puffs as instructed every 4 hours as needed for Wheezing/Shortness of Breath. albuterol 90 mcg/Actuation INHALATION Aero 2 puffs every 4-6 hours as needed for wheezing or coughing. No current facility-administered medications on file prior to visit. Social History Social History Tobacco Use Smoking status: Never Smokeless tobacco: Never Vaping Use Vaping Use: Never used Substance Use Topics Alcohol use: Yes Comment: Occasionally Drug use: No Review of Symptoms GENERAL: No weight loss. No malaise or fevers HEENT: Negative for headaches No eye discharge or redness No earaches or drainage No sore throat Nose POS/NEG for congestion and nasal discharge NECK: Negative for lumps, pain or significant neck swelling RESPIRATORY: No wheezing, SOB, Difficulty breathing. CARDIOVASCULAR: Negative for chest pain GI: No nausea, vomiting, or diarrhea MUSCULOSKELETAL: Negative for muscle aches or bodyaches SKIN: Negative for lesions, rash, and itching Neuro: No lightheadedness or dizziness EXAM: LMP 08/27/2022 (Approximate) Deferred physical exam as visit was completed over the phone. Virtual visit completed using video, limited exam completed. General Appearance: Well appearing, alert, in no acute distress, well-hydrated, well nourished. Skin: Skin color Head: Normocephalic Psych: Attitude - cooperative, easily engaged in conversation Appearance - normal, hygiene and grooming appropriate Affect - euthymic, normal mood Mental status: Alert, attentive. Speech is clear and fluent with good repetition, comprehension Coordination: No abnormal or extraneous movements. Gait/Stance: Posture is normal. Health Maintenance List HEPATITIS C SCREENING Never done HIV SCREENING Never done COVID-19 VACCINE(4 - Booster for Moderna series) due on 09/18/2021 PAP TESTING due on 11/13/2022 HPV TESTING due on 11/13/2022 DTAP,TDAP,TD(9 - Td or Tdap) due on 09/04/2032 HEPATITIS B Completed INFLUENZA Completed DEPRESSION ASSESSMENT Completed Data reviewed Last 5 Encounter BP Readings: Date: BP: 09/04/2022 122/62 04/12/2021 104/62 05/06/2020 108/68 02/16/2020 100/62 11/13/2017 110/72 BMI Readings from Last 5 Encounters: 09/04/22 : 28.12 kg/m 04/12/21 : 23.72 kg/m 05/06/20 : 23.83 kg/m 02/16/20 : 24.58 kg/m 11/13/17 : 26.02 kg/m Last 5 Encounter Wt Readings: Date: Wt: 09/04/2022 65.3 kg (144 lb) 04/12/2021 56.2 kg (124 lb) 05/06/2020 55.3 kg (122 lb) 02/16/2020 57.2 kg (126 lb) 11/13/2017 60.5 kg (133 lb 6.4 oz) Medication and allergy list reviewed, reconciled and updated 11/28/2022 ASSESSMENT/PLAN: 1. Current moderate episode of major depressive disorder without prior episode (HCC) - ICD9: 296.22, ICD10: F32.1 Adding the Wellbutrin to the Prozac. If her symptoms are much better of anxiety and depression is controlled with Wellbutrin continue the same regimen. Discussed SSRI's in detail, their side effects including weight gain in some, sexual side effects, that it needs to build up in their system and usually in the 3rd week they will start feeling the effects. Also discussed that each SSRI may affect differently , might have to try a couple before finding out a perfect fit. Irma Villegas MD documented in this encounter [facility] 09-04-2022 Miscellaneous Notes Lester from [facility] pharmacy calls and wanted provider to know that fluoxetine 10 mg capsules has red dye in it as does 10 mg tablets. Lester switch medication to fluoxetine 20 mg tablet and told patient to take half a tablet daily since 20 mg tablet does not have red dye. Katie Quinteros RN documented in this encounter [facility] 09-04-2022 History of Presen t illness Narrative Radiology Service Progress Note PATIENT NAME: Alex Quinones DATE OF SERVICE: September 04, 2022 TIME: 11:26 AM PATIENT IDENTITY VERIFICATION COMPLETED USING TWO (2) IDENTIFIERS: Name and Date of confirmed by patient verbally. FALL SCREENING: Has the patient had 2 falls in the last year or 1 fall with injury or currently using an Ambulatory Assistive Device (Walker, Cane, Wheelchair, Crutches, etc.)? No PATIENT GENDER DATA: Female. status: : No status: NO. PATIENT RELEVANT IMPLANT DATA REVIEWED: Not Applicable RADIOLOGY DEPARTMENT: General X-ray: Exam(s) Completed: Spine X-Ray(s): Cervical AP / LAT / OBL and Lumbar AP / LAT / L5-S1 PERIPHERAL IV DATA: Not applicable SIGNED BY: RT Helga(R) September 04, 2022 11:30 AM documented in this encounter [facility] 09-04-2022 History of Presen t illness Narrative Reason for Visit No chief complaint on file. Alex Quinones is a 37 year old female who presents here today for Above Complaints.. Health Maintenance HEPATITIS C SCREENING HIV SCREENING DTAP,TDAP,TD(8 - Tdap) COVID-19 VACCINE(4 - Booster for Moderna series) INFLUENZA(1) DEPRESSION ASSESSMENT PAP TESTING HPV TESTING HPI She was in [facility] recently, when she slipped and fell as there was sleet. She slipped and twisted on fell on the lower back, it pushed her neck forward, head does not hurt but her neck does hurt and it is very stiff and the lower back does hurt some. she took 600 mgs of advil 6:15 Am and she feels like the shower helps her. No gross swelling anywhere. Patient has not been feeling emotionally well for a while, she was hard time taking care of things. Her parents got within the past 12 months. Gained weight around 20 pounds since she last saw me. Phq9- 1, 2, 3,2, 2,1,1, 0, 0. - 12- moderate. Gad7- 1, 0, 1,0, 0, 1,1- 4- She has been functional although she is a little depressed. The divorce was a little bit of a trigger. She cannot tolerate gluten and the red dyes cause migraines. No problem-specific Assessment & Plan notes found for this encounter. PAST MEDICAL HISTORY Diagnosis Date Allergic rhinitis Attention deficit disorder with hyperactivity(314.01) Migraine without aura and without status migrainosus, not intractable Unspecified asthma(493.90) PAST SURGICAL HISTORY Procedure Laterality Date PAST SURGICAL HISTORY OF 3 years of age hernia repair FAMILY HISTORY Problem Relation Age of Onset Hypertension Mother Thyroid Mother Hyperlipidemia Father ADD/ADHD Brother No Known Problems Brother Diabetes Maternal Grandmother other (depression) Maternal Grandmother Prostate Cancer Maternal Grandfather bone cancer other (Uqdzxom-Vdbfj-Rrurm Disease) Maternal Grandfather Ovarian cancer Paternal Grandmother Hypertension Paternal Grandmother Diabetes Paternal Grandfather Prostate Cancer Paternal Grandfather Heart Paternal Grandfather CHF other (auto immune problems) Other maternal side Diabetes Other maternal side other (graves disease) Other maternal side Arthritis Other maternal side Social History Tobacco Use Smoking status: Never Smokeless tobacco: Never Vaping Use Vaping Use: Never used Substance Use Topics Alcohol use: Yes Comment: Occasionally Drug use: No Past medical history, appointments, medications, allergies reviewed. Pertinent Lab/Diagnostic Studies are reviewed and discussed today Current Outpatient Medications: albuterol HFA (VENTOLIN HFA) 90 mcg/actuation inhaler albuterol 90 mcg/Actuation INHALATION Aero Review of Systems CONSTITUTIONAL: No fevers, chills night sweats, unintended weight loss CARDIOVASCULAR: No chest pain, dyspnea, palpitations, orthopnea, PND, ankle edema. PULM: No dyspnea, unexplained cough. GI: No dysphagia/odynophagia, problematic reflux, constipation, diarrhea, changes in stool habits, hematochezia, melena. : No new urinary complaints, including dysuria, gross hematuria or pyuria. NEURO: No new balance problems, peripheral weakness/paresthesias or numbness of concern. Physical Exam BP 122/62 (BP Site: Left Arm, BP Position: Sitting, BP Cuff Size: Regular Adult) Pulse 89 Temp 37.1 C (98.7 F) Resp 12 Ht 152.4 cm (5') Wt 65.3 kg (144 lb) LMP 08/27/2022 (Approximate) SpO2 98% BMI 28.12 kg/m General appearance: Well appearing, alert, in no acute distress, well nourished. Skin:very tiny skin laceration of the hand, looks like a small ulcer that is around 3 mm in diameter Head: Normocephalic, no masses, lesions, tenderness or abnormalities Eyes: Anicteric sclera. Pupils are equally round and reactive to light. Extraocular movements are intact. Lungs: Lungs clear to auscultation. No wheezing, rhonchi, rales Heart: RRR without murmur, gallop, or rubs. Extremities: No deformities, edema, skin discoloration, clubbing or cyanosis. Good capillary refill. ASSESSMENT/PLAN: 1. Fall due to slipping on ice or snow, initial encounter - ICD9: E885.9, ICD10: W00.9XXA (primary diagnosis) - DEPRESSION SCREENING/ASSESSMENT - XR LUMBAR LIMITED 2V AP/LAT - XR CERV OTHER 4V AP/LAT/OBL - TDAP VACCINE AGE 7+ IM 2. Encounter for immunization - ICD9: V03.89, ICD10: Z23 3. Laceration of right hand, foreign body presence unspecified, sequela - ICD9: 906.1, ICD10: S61.411S 4. Depression with anxiety - ICD9: 300.4, ICD10: F41.8 Discussed SSRI's in detail, their side effects including weight gain in some, sexual side effects, that it needs to build up in their system and usually in the 3rd week they will start feeling the effects. Also discussed that each SSRI may affect differently , might have to try a couple before finding out a perfect fit. Irma Villegas MD documented in this encounter [facility] 09-04-2022 Miscellaneous Notes Reason for Call: Neck and Upper Shoulder Discomfort due to recent fall Outcome: Patient was conferenced to [place] in Appointment Center for PCP within 24 hour scheduling. Advised patient that Express/Urgent Care are options if no appointments available. Reason for Disposition [1] No prior tetanus shots (or is not fully vaccinated) AND [2] any wound (e.g., cut, scrape) Answer Assessment - Initial Assessment Questions 1. MECHANISM: Icy parking lot, snow over ice, slipped, slid rotated to left, landed on right upper buttock, back of head struck car bumper, neck crunched down, neck and upper shoulders sore, right hand cut 2. ONSET: 09/03/22 9:45 AM 3. NEUROLOGIC SYMPTOMS: Denies any loss of consciousness 4. MENTAL STATUS: Denies any change in mental status 5. LOCATION: Back of head 6. SCALP APPEARANCE Not bleeding, cut on right hand from breaking fall 7. SIZE: Probably bruise on right buttock where landed 8. PAIN: Head is fine, neck and shoulders sore, left and right rotation of neck causes discomfort 9. TETANUS: Long time ago, 1991 10. OTHER SYMPTOMS Holding head in downward position due to discomfort 11. : Denies. Last period a couple days ago Protocols used: Head Nbirmy-IYNUD-TC documented in this encounter [facility] Evaluation note Diagnosis Fall due to slipping on ice or snow, initial encounter- Primary Encounter for immunization Need for other specified prophylactic vaccination against single bacterial disease Laceration of right hand, foreign body presence unspecified, sequela Depression with anxiety Dysthymic disorder [facility] Diagnosis Current moderate episode of major depressive disorder without prior episode (HCC)- [facility] Fall due to slipping on ice or snow, initial encounter [facility] Diagnosis Encounter for gynecological examination (general) (routine) without abnormal findings- Primary Screening for cervical cancer Screening for malignant neoplasm of the cervix Encounter for screening for human papillomavirus (HPV) Special screening examination for human papillomavirus (HPV) Family history of ovarian cancer Family history of malignant neoplasm of ovary Urinary frequency Nocturia Menorrhagia with regular cycle Excessive or frequent menstruation Early satiety [facility] Diagnosis Menorrhagia with regular cycle Excessive or frequent menstruation [facility] Diagnosis Acute cystitis without hematuria- Primary Acute cystitis Family history of ovarian cancer Family history of malignant neoplasm of ovary Intramural leiomyoma of uterus Overweight [facility] Diagnosis Annual physical exam- Primary Routine general medical examination at a health care facility Hyperlipidemia, mixed Mixed hyperlipidemia [facility] Diagnosis Encounter for gynecological examination (general) (routine) with abnormal findings- Primary Encounter for screening mammogram for breast cancer Dense breast tissue Family history of ovarian cancer Family history of malignant neoplasm of ovary [facility] Diagnosis Annual physical exam- Primary Routine general medical examination at a health care facility Depression, unspecified depression type Grief reaction Adjustment disorder with depressed mood Excessive sweating Generalized hyperhidrosis control counseling General counseling for initiation of other contraceptive measures [facility] noteNo assessment information availableWKindred Healthcare Work Phone: Hospital Discharge instructionsAdditional Instructions You need to return at days 3, 7 and 14 for continued rabies vaccine series. Your evaluation in the Emergency Department did not reveal any acute reason for admission. However, I want to emphasize that you may be early in the course of a disease process or illness even if it is not present. For this reason you should follow-up within 24 hours for reevaluation with either your primary care physician or if necessary back here in the Emergency Department. You should return to the Emergency Department immediately if your symptoms worsen or new symptoms develop.[facility] Work Phone: Reason for referral (narrative)* Diagnostic Procedure Only (Routine) - Closed Specialty Diagnoses / Procedures Referred By Contac t Referred To Contact XR IMAGING Diagnoses Fall due to slipping on ice or snow, initial encounter Procedures XR CERV OTHER 4V AP/LAT/OBL RADEX SPINE CERVICAL 4 OR 5 VIEWS Irma Villegas MD [address] [place] [address] Xr Imaging Referral ID Status Reason Start Date Expiration Date V isits Requested Visits Authorized [id number] Closed Auto-Generate d Referral 09/04/2022 10/04/2023 1 1 * Diagnostic Procedure Only (Routine) - Closed Specialty Diagnoses / Procedures Referred By Contac t Referred To Contact XR IMAGING Diagnoses Fall due to slipping on ice or snow, initial encounter Procedures XR LUMBAR LIMITED 2V AP/LAT RADEX SPINE LUMBOSACRAL 2/3 VIEWS Irma Villegas MD [address] [place] [address] Xr Imaging Referral ID Status Reason Start Date Expiration Date V isits Requested Visits Authorized [id number] Closed Auto-Generate d Referral 09/04/2022 10/04/2023 1 1 [facility] for referral (narrative)* Diagnostic Procedure Only (Routine) - Closed Specialty Diagnoses / Procedures Referred By Contac t Referred To Contact XR IMAGING Diagnoses Fall due to slipping on ice or snow, initial encounter Procedures XR LUMBAR LIMITED 2V AP/LAT RADEX SPINE LUMBOSACRAL 2/3 VIEWS Irma Villegas MD [address] [place] [address] [place] [address] Referral ID Status Reason Start Date Expiration Date V isits Requested Visits Authorized [id number] Closed Auto-Generate d Referral 09/04/2022 10/04/2023 1 1 * Diagnostic Procedure Only (Routine) - Closed Specialty Diagnoses / Procedures Referred By Contac t Referred To Contact XR IMAGING Diagnoses Fall due to slipping on ice or snow, initial encounter Procedures XR CERV OTHER 4V AP/LAT/OBL RADEX SPINE CERVICAL 4 OR 5 VIEWS Irma Villegas MD [address] [place] [address] [place] [address] Referral ID Status Reason Start Date Expiration Date V isits Requested Visits Authorized [id number] Closed Auto-Generate d Referral 09/04/2022 10/04/2023 1 1 [facility] for referral (narrative)* Diagnostic Procedure Only (Routine) - Pending Review Specialty Diagnoses / Procedures Referred By Contac t Referred To Contact US IMAGING Diagnoses Menorrhagia with regular cycle Procedures US FEMALE PELVIS TRANSVAG US TRANSVAGINAL Christianne Murray APRN.CNBrittney [address] [place] [address] [place] [address] Referral ID Status Reason Start Date Expiration Date Visits Requested Visits Authorized [id number] Pending Review Auto-Generat ed Referral 11/13/2023 12/12/2024 1 1 [facility] for referral (narrative)No reason for referral information availableWKindred Healthcare Work Phone: Reason for visit Narrative* Diagnostic Procedure Only (Routine) - Closed Specialty Diagnoses / Procedures Referred By Contac t Referred To Contact Internal Medicine / INTERNAL MEDICINE Diagnoses Wellness examination PER NOC SEEN WITHIN 24 HOURS Neck Stiffness pt fell Procedures OFFICE/OUTPATIENT ESTABLISHED MOD MDM 30-39 MIN 4C EST Self Irma Villegas MD [address] [place] [address] Referral ID Status Reason Start Date Expiration Date Visits Re quested Visits Authorized [id number] Closed 09/04/2022 12/03/2022 1 1 [facility] for visit Narrative* Diagnostic Procedure Only (Routine) - Closed Specialty Diagnoses / Procedures Referred By Contac t Referred To Contact XR IMAGING Diagnoses Fall due to slipping on ice or snow, initial encounter Procedures XR CERV OTHER 4V AP/LAT/OBL RADEX SPINE CERVICAL 4 OR 5 VIEWS Irma Villegas MD [address] [place] [address] [place] [address] Referral ID Status Reason Start Date Expiration Date V isits Requested Visits Authorized [id number] Closed Auto-Generate d Referral 09/04/2022 10/04/2023 1 1 [facility] Reason for Referral Specialty Diagnoses / Procedures Referred By Contac t Referred To Contact Nutrition Diagnoses Overweight Procedures CONSULT TO NUTRITION THERAPY MEDICAL NUTRITION ASSMT&IVNTJ INDIV EACH 15 Christianne Spencer APRN.CNM [address] [place] [address] Referral ID Status Reason Start Date Expiration Date Visits Requested Visits Authorized [id number] Pending Review PCP Requested Referral 11/26/2023 11/21/2024 1 4 Summary Purpose Family History No Family History Records FoundNo Family History Records Found Advance Directives No Advanced Directives Records Found Advance Directive Response Recorded Date/ Time Do you have a Healthcare Power of Salon Designer? No March 22, 2025 10:53am Chief Complaint and Reason for Visit Chief Complaint Admit Date RABIES EXPOSURE March 22, 2025 10 :27am Additional Source Comments Source Comments (unrecognize d section and content) In the event this informatio n is protected by the Federal Confidentiality of Alcohol and Drug Abuse Patient Records regulations: The Federal rules restrict any use of the information to criminally investigate or prosecute any alcohol or drug abuse patient.[facility] the event this information is protected by the Federal Confidentiality of Alcohol and Drug Abuse Patient Records regulations: The Federal rules restrict any use of the information to criminally investigate or prosecute any alcohol or drug abuse patient.[facility] Hospital[facility] the event this information is protected by the Federal Confidentiality of Alcohol and Drug Abuse Patient Records regulations: The Federal rules restrict any use of the information to criminally investigate or prosecute any alcohol or drug abuse patient.[facility] Hospital[facility] the event this information is protected by the Federal Confidentiality of Alcohol and Drug Abuse Patient Records regulations: The Federal rules restrict any use of the information to criminally investigate or prosecute any alcohol or drug abuse patient.[facility] Hospital[facility] the event this information is protected by the Federal Confidentiality of Alcohol and Drug Abuse Patient Records regulations: The Federal rules restrict any use of the information to criminally investigate or prosecute any alcohol or drug abuse patient.[facility] Hospital[facility] the event this information is protected by the Federal Confidentiality of Alcohol and Drug Abuse Patient Records regulations: The Federal rules restrict any use of the information to criminally investigate or prosecute any alcohol or drug abuse patient.[facility] Hospital[facility] the event this information is protected by the Federal Confidentiality of Alcohol and Drug Abuse Patient Records regulations: The Federal rules restrict any use of the information to criminally investigate or prosecute any alcohol or drug abuse patient.[facility] Hospital[facility] the event this information is protected by the Federal Confidentiality of Alcohol and Drug Abuse Patient Records regulations: The Federal rules restrict any use of the information to criminally investigate or prosecute any alcohol or drug abuse patient.[facility] HospitalIn the event this information is protected by the Federal Confidentiality of Alcohol and Drug Abuse Patient Records regulations: The Federal rules restrict any use of the information to criminally investigate or prosecute any alcohol or drug abuse patient.[facility] Hospital[facility] the event this information is protected by the Federal Confidentiality of Alcohol and Drug Abuse Patient Records regulations: The Federal rules restrict any use of the information to criminally investigate or prosecute any alcohol or drug abuse patient.[facility] Hospital[facility] the event this information is protected by the Federal Confidentiality of Alcohol and Drug Abuse Patient Records regulations: The Federal rules restrict any use of the information to criminally investigate or prosecute any alcohol or drug abuse patient.[facility] HospitalIn the event this information is protected by the Federal Confidentiality of Alcohol and Drug Abuse Patient Records regulations: The Federal rules restrict any use of the information to criminally investigate or prosecute any alcohol or drug abuse patient.[facility] HospitalIn the event this information is protected by the Federal Confidentiality of Alcohol and Drug Abuse Patient Records regulations: The Federal rules restrict any use of the information to criminally investigate or prosecute any alcohol or drug abuse patient.[facility] HospitalIn the event this information is protected by the Federal Confidentiality of Alcohol and Drug Abuse Patient Records regulations: The Federal rules restrict any use of the information to criminally investigate or prosecute any alcohol or drug abuse patient.[facility] Hospital[facility] the event this information is protected by the Federal Confidentiality of Alcohol and Drug Abuse Patient Records regulations: The Federal rules restrict any use of the information to criminally investigate or prosecute any alcohol or drug abuse patient.[facility] HospitalIn the event this information is protected by the Federal Confidentiality of Alcohol and Drug Abuse Patient Records regulations: The Federal rules restrict any use of the information to criminally investigate or prosecute any alcohol or drug abuse patient.[facility] Reason for Visit (unrecogniz ed section and content) Reason Comments Fall Reason Onset Date Comments Medication Update 09/04/2022 Reason Comments Depression Reason Comments Well Woman Reason Comments Results Reason Comments Radiology US Specialty Diagnoses / Procedures Referred By Tamra dawson Referred To Contact US IMAGING Diagnoses Menorrhagia with regular cycle Procedures US FEMALE PELVIS TRANSVAG US TRANSVAGINAL Christianne Murray APRN.CN [address] [place] [address] [facility] [place] [address] Referral ID Status Reason Start Date Expiration Date V isits Requested Visits Authorized [id number] Closed Auto-Generate d Referral 11/13/2023 12/12/2024 1 1 Reason Comments Menstrual Problem Reason Comments Physical Bowel habits have ch anged, loose and frequent for over a year. Reason Comments Yearly Exam Annual Physical Reason Comments Insurance Authorization Reason Comments Information Care Teams (unrecognized sec tion and content) Restaurant Hospitality Manager Relationship Specialty Start Date End Date Irma Villegas MD [address], [place] [id number] PCP - General Internal Medicine 09/04/22 Restaurant Hospitality Manager Relationship Specialty Start Date End Date Irma Villegas MD [address], [place] [id number] PCP - General Internal Medicine 09/04/22 Restaurant Hospitality Manager Relationship Specialty Start Date End Date Irma Villegas MD [address], [place] [id number] PCP - General Internal Medicine 09/04/22 Restaurant Hospitality Manager Relationship Specialty Start Date End Date Irma Villegas MD [address] [facility] [place] [address] PCP - General Internal Medicine 09/04/22 Restaurant Hospitality Manager Relationship Specialty Start Date End Date Irma Villegas MD [address] [facility] [place] [address] PCP - General Internal Medicine 09/04/22 Restaurant Hospitality Manager Relationship Specialty Start Date End Date Irma Villegas MD [address] [facility] [place] [address] PCP - General Internal Medicine 09/04/22 Restaurant Hospitality Manager Relationship Specialty Start Date End Date Irma Villegas MD [address] [facility] [place] [address] PCP - General Internal Medicine 09/04/22 Restaurant Hospitality Manager Relationship Specialty Start Date End Date Irma Villegas MD [address] [facility] [place] [address] PCP - General Internal Medicine 09/04/22 Restaurant Hospitality Manager Relationship Specialty Start Date End Date Irma Villegas MD [address] [facility] [place] [address] PCP - General Internal Medicine 09/04/22 [employer] Relationship Specialty Start Date End Date Irma Villegas MD [address] [facility] [place] [address] PCP - General Internal Medicine 09/04/22 [employer]ality [employer] Relationship Specialty Start Date End Date Irma Villegas MD [address] [facility] [place] [address] PCP - General Internal Medicine 09/04/22 Restaurant Hospitality Manager Relationship Specialty Start Date End Date Irma Villegas MD [address] [facility] [place], [place] [address] PCP - General Internal Medicine 09/04/22 Sridevi Sol APRN.COUNTER WAITER [address] [facility] [place], [place] [address] Network Relations Consultant Internal Medicine 07/12/24 Restaurant Hospitality Manager Relationship Specialty Start Date End Date Irma Villegas MD [address] [facility], [place] [id number] PCP - General Internal Medicine 09/04/22 Sridevi Sol APRN.COUNTER WAITER [address] [facility] [place] [address] Network Relations Consultant Internal Medicine 07/12/24 Restaurant Hospitality Manager Relationship Specialty Start Date End Date Irma Villegas MD [address] [facility], [place] [address] PCP - General Internal Medicine 09/04/22 Sridevi Sol APRN.COUNTER WAITER [address] [facility] [place] [address] Network Relations Consultant Internal Medicine 07/12/24 Team Status: Active Member Role/Relationship Status Dates Dr. Irma Villegas MD Primary Care Provider Active Team Status: Inactive Member Role/Relationship Status Dates Dr. Carleen Coles MD Emergency Provider Active S tart: March 22, 2025 End: March 22, 2025 Dr. Irma Villegas MD Primary Care Provider Active Start: March 22, 2025 End: March 22, 2025 INFORMATION SOURCE (unrecogn ized section and content) DATE CREATED AUTHOR 03/18/2025 [facility] DATE CREATED AUTHOR AUTHOR'S ORGANIZ ATION 03/23/2025 [facility] Goals (unrecognized section and content) Goals may be documented in a n alternate section FOR RECORDS PERTAINING TO PATIENTS WHO ARE OR HAVE BEEN ENROLLED IN A CHEMICAL DEPENDENCY/SUBSTANCEABUSE PROGRAM, SOME INFORMATION MAY BE OMITTED. This clinical summary was aggregated from multiple sources. Caution should be exercised in using it in the provision of clinical care. This summary normalizes information from multiple sources, and as a consequence, information in this document may materially change the coding, format and clinical context of patient data. In addition, data may be omitted in some cases. CLINICAL DECISIONS SHOULD BE BASED ON THE PRIMARY CLINICAL RECORDS. [facility] [employer] [facility]. provides no warranty or guarantee of the accuracy or completeness of information in this document.
[2025-03-25 06:34] VITALS: BP 111/74; PULSE 77; RESP 16; TEMP 37.1; O2SAT 97
--- OUTSIDE RECORDS SUMMARY | 2025-03-25 07:13 | XMS RPT_ITS | CCD ---
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 Durant Emergency Provider Unavailab Bayron BAUMANN, Dr. Solis Primary Care Provider [phone] Carleen Coles Attending Unavailable Irma Villegas Primary Care Unavailable Sharyn BAUMANN, Dr. Durant Referring Provider Unavailab celsa Allergies Allergy Classification Reported Allergen(s) Allergy Type Date of Onset Reaction(s) Facility (17 sources) Cheese; Translations: [CHEESE (SEE VEGETABLE GUM)] Food Intolerance 8 Intolerance [facility] Work Phone: (20 sources) Latex; Translations: [LATEX] Propensity to adverse reactions 5 Hives, Swelling [facility] Work Phone: (17 sources) peanut; Translations: [PEANUTS] Propensity to adverse reactions 5 Vomiting [facility] Work Phone: (17 sources) Shellfish; Translations: [SHELLFISH CONTAINING PRODUCTS] Drug Intolerance 8 Vomiting [facility] Work Phone: (17 sources) Sulfonamides (Antibiotic); Translations: [SULFA (SULFONAMIDE ANTIBIOTICS)] Propensity to adverse reactions 7 Hives [facility] Work Phone: (19 sources) Wheat gluten extract; Translations: [GLUTEN] Drug Allergy 8 Mental Status Change, Rash, Intolerance [facility] Work Phone: (10 sources) banannas [Other] Propensity to adverse reactions 5 Intolerance [facility] Work Phone: (17 sources) Monosodium Glutamate (Msg); Translations: [MONOSODIUM GLUTAMATE (MSG)] Food Intolerance 8 Intolerance [facility] Work Phone: (17 sources) Red Food Color (Bulk); Translations: [RED FOOD COLOR (BULK)] Drug Intolerance 8 Intolerance [facility] Work Phone: (7 sources) Banana Extract; Translations: [BANANA] Drug Allergy 4 Intolerance [facility] (2 sources) peanut allergenic extract Drug Allergy 5 Anaphylaxis [facility] (3 sources) Shellfish; Translations: [shellfish derived] Allergy to substance 5 Nausea [facility] (1 source) Gluten Drug allergy (disorder) 5 [facility] Repository (1 source) peanut allergenic extract Drug Allergy 5 [facility] Repository Medications Current Medications Medication Drug Class(es) Dates Sig (Normalized) Sig (Original) [id number] 200 actuat albuterol 0.09 mg/actuat metered dose [...] 12/03/2023 Active FLUoxetine 10 mg oral capsule (13 sources) Serotonin Reuptake Inhibitor Start: take 1 [...] have red dye) Take 1 capsule by [facility] once daily. Glycopyrrolate, Bulk, 100 % powd [...] on above: Take 1 capsule by mo [facility] two times a day for 5 [...] Chronic Immunizations and screening for infectious disease (6 sources) Patient encounter status; Translations: [Encounter for [...] Department Summary on 03-22-2025 Emergency Department Summary [facility] Medical Records Department [address] [place] [address] Emergency Department Summary 03/22/25 MR#: [id number] Acct: [id number] Name: ALEX QUINONES Rep #: [id number] : 1985 39 From: Carleen Coles MD [...] or wheezing) (more content not included)... Normal [facility] 03-16-2025 CNPN Telephone (INTMWS) ALEX QUINONES I ([id number]) 1985 F Date Time Provider Department 03/16/25 IRMA VILLEGAS INTMWS During your visit today, we recorded the following information about you: Abi Mcnally LPN 03/16/2025 2:43 PM Signed Electronic PA rec'd and completed for fluoxetine HCL 20mg. This was approved. Prior authorization approved Payer: [employer] [phone] Note from payer: CaseId:[id number];Stat us:Approved;Review Type:Prior Auth;Coverage Start Date:02/14/2025;Cover age End [...] to its destination. To be filled at: [facility] [id number] [place] [address] [facility] [phone] [id number] Pharmacy notified. Allergies As of Date: [...] Encounter Status:Closed by ABI MCNALLY on 03/16/25 [facility] Supa 02-18-2025 CNOV Office Visit (INTMWS ) ALEX QUINONES I ([id number]) 1985 F Date Time Provider Department 02/18/25 8:00 AM IRMA VILLEGAS INTBrittneyWS During your visit today, we recorded the following information about you: Pulse Respiration Blood pressure Weight 101/minute 16/minute 112/72 66.2 kg Irma Villegas MD 02/18/2025 12:05 PM Signed Reason for Visit Physical with few complaints HPI Alex Andree Quinones is a 39-year-old female presenting with [...] the ester ends. - Sent prescription to [facility] for a 90-day supply with refills [...] - Bayron (more content not included)... Normal [facility] CNOVon 11-17-2024 CNOV Office Visit (OBGYWM ) ALEX QUINONES I ([id number]) 1985 F Date Time Provider Department 11/17/24 [...] Living0 SAB0 IAB0 Ectopic0 Multiple0 Live Births0 Chief Operator Synthesis History LMP: 10/19/2024 (Within Days), Having periods Age at Menarche: 12 Age at First : Age at Menopause: Chief Operator Synthesis History Comments: Sexual Activity: Not Currently; No [...] Prostate Cancer Maternal Grandfather bone cancer other (Xjykpnd-Kbypv-Azwxw Disease) Maternal Grandfather Hypertension Paternal Grandmother other [...] discussed with the Patient or Patient's Authorized Liner Replacer. As applicable, any other physician, advance practice provider, medical student, or other health professional student that will be observing or involved in the sensitive examination for educational or training purposes was discussed with the Patient or Authorized Liner Replacer. The Patient or Authorized Liner Replacer has agreed to proceed with the sensitive [...] external genitalia normal, normal Bartholin's glands, urethra, [place]'s glands, no vulvar lesions, no cervical lesions, [...] ICD10: Z12.31 (more content not included)... Normal [facility] No Panel Informationon 09-04 [facility] Vital Signs Date Time Vital Sign Value Performing Clinician Facility 03-25-2025 06:34-0400 Body temperature 98.7 [degF] Dr. Carleen Coles MD [facility] 03-25-2025 06:34-0400 Diastolic blood pressure 74 mm[Hg] Dr. Carleen Coles MD [facility] 03-25-2025 06:34-0400 Heart rate 77 /min Dr. Carleen Coles MD [facility] 03-25-2025 06:34-0400 Respiratory rate 16 /min Dr. Carleen Coles MD [facility] 03-25-2025 06:34-0400 SaO2% (BldA) [Mass fraction] 97 % Dr. Carleen Coles MD [facility] 03-25-2025 06:34-0400 Systolic blood pressure 111 mm[Hg] Dr. Carleen Coles MD [facility] 03-25-2025 05:38-0400 Body height 149.[address] Carleen Coles MD [facility] 03-25-2025 05:38-0400 Body mass index (BMI) [Ratio] 30.3 kg/m2 Dr. Carleen Coles MD [facility] 03-25-2025 05:38-0400 Body weight 68.[address] Carleen Coles MD [facility] 03-22-2025 12:26-0400 Body temperature 98.5 [degF] Dr. Carleen Coles MD [facility] 03-22-2025 12:26-0400 Diastolic blood pressure 71 mm[Hg] Dr. Carleen Coles MD [facility] 03-22-2025 12:26-0400 Heart rate 87 /min Dr. Carleen Coles MD [facility] 03-22-2025 12:26-0400 Respiratory rate 16 /min Dr. Carleen Coles MD [facility] 03-22-2025 12:26-0400 SaO2% (BldA) [Mass fraction] 99 % Dr. Carleen Coles MD [facility] 03-22-2025 12:26-0400 Systolic blood pressure 119 mm[Hg] Dr. Carleen Coles MD [facility] 03-22-2025 10:30-0400 Body height 149.[address] Carleen Coles MD [facility] 03-22-2025 10:30-0400 Body mass index (BMI) [Ratio] 29.5 kg/m2 Dr. Carleen Coles MD [facility] 03-22-2025 10:30-0400 Body weight 66.[address] Carleen Coles MD [facility] 02-18-2025 08:01-0400 Body mass index (BMI) [Ratio] 28.75 kg/m2 Irma Villegas MD Work Phone: [facility] 02-18-2025 08:01-0400 Body weight 66.22 kg Irma Villegas MD Work Phone: [facility] 02-18-2025 08:01-0400 Diastolic blood pressure 72 mm[Hg] Irma Villegas MD Work Phone: [facility] 02-18-2025 08:01-0400 Heart rate 101 /min Irma Villegas MD Work Phone: [facility] 02-18-2025 08:01-0400 Respiratory rate 16 /min Irma Villegas MD Work Phone: [facility] 02-18-2025 08:01-0400 SaO2% (BldA) [Mass fraction] 98 % Irma Villegas MD Work Phone: [facility] 02-18-2025 08:01-0400 Systolic blood pressure 112 mm[Hg] Irma Villegas MD Work Phone: [facility] 11-17-2024 15:30-0400 Body height 151.8 cm Christianne Murray FARM CONTRACTOR BUYER.CNM Work Phone: [facility] 11-17-2024 15:30-0400 Body mass index (BMI) [Ratio] 29.54 kg/m2 Christianne Murray APRN.CNM Work Phone: [facility] 11-17-2024 15:30-0400 Body weight 68.04 kg Christianne Murray APRN.CNM Work Phone: [facility] 11-17-2024 15:30-0400 Diastolic blood pressure 70 mm[Hg] Christianne Murray APRN.CNM Work Phone: [facility] 11-17-2024 15:30-0400 Systolic blood pressure 118 mm[Hg] Christianne Murray APRN.CNM Work Phone: [facility] 02-27-2024 08:50-0400 Body height 152.4 cm Irma Villegas MD Work Phone: [facility] 02-27-2024 08:50-0400 Body mass index (BMI) [Ratio] 29.35 kg/m2 Irma Villegas MD Work Phone: [facility] 02-27-2024 08:50-0400 Body weight 68.18 kg Irma Villegas MD Work Phone: [facility] 02-27-2024 08:50-0400 Diastolic blood pressure 82 mm[Hg] Irma Villegas MD Work Phone: [facility] 02-27-2024 08:50-0400 Heart rate 95 /min Irma Villegas MD Work Phone: [facility] 02-27-2024 08:50-0400 SaO2% (BldA) [Mass fraction] 97 % Imra Villegas MD Work Phone: [facility] 02-27-2024 08:50-0400 Systolic blood pressure 118 mm[Hg] Irma Villegas MD Work Phone: [facility] 11-13-2023 15:24-0400 Body height 152.4 cm 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 Murray FARM CONTRACTOR BUYER.CNM Work Phone: [facility] 11-13-2023 15:24-0400 Body weight 68.13 kg Christianne Trevor BOTELLO.CNM Work Phone: [facility] 11-13-2023 15:24-0400 Diastolic blood pressure 78 mm[Hg] Christianne Trevor FARM CONTRACTOR BUYER.CNM Work Phone: [facility] 11-13-2023 15:24-0400 Systolic blood pressure 120 mm[Hg] Christianne Trevor SINGHN.CNM Work Phone: [facility] 09-04-2022 09:46-0500 Body height 152.4 cm Irma Villegas MD Work Phone: [facility] 09-04-2022 09:46-0500 Body temperature 98.71 [degF] Irma Villegas MD Work Phone: [facility] 09-04-2022 09:46-0500 Body weight 65.32 kg Irma Villegas MD Work Phone: [facility] 09-04-2022 09:46-0500 Diastolic blood pressure 62 mm[Hg] Irma Villegas MD Work Phone: [facility] 09-04-2022 09:46-0500 Heart rate 89 /min Irma Villegas MD Work Phone: [facility] 09-04-2022 09:46-0500 Respiratory rate 12 /min Irma Villegas MD Work Phone: [facility] 09-04-2022 09:46-0500 SaO2% (BldA) [Mass fraction] 98 % Irma Villegas MD Work Phone: [facility] 09-04-2022 09:46-0500 Systolic blood pressure 122 mm[Hg] Irma Villegas MD Work Phone: [facility] Encounters Encounter Date Encounter Type Care Provider Facility Start: 03-25-2025 End: 03-25-2025 Emergency department patient visit Dr. Carleen Coles MD -Emergency Department Work Phone: Start: 03-22-2025 End: 03-22-2025 Emergency department patient visit Dr. Carleen Coles MD -Emergency Department Work Phone: Start: 03-21-2025 End: 03-21-2025 ambulatory Nell Jones RN NURSE WHEEL CUTTER Comment on above: Information Start: 03-16-2025 End: 03-16-2025 Telephone encounter Irma Villegas MD Work Phone: [facility] [place] Comment on above: Insurance Authorizat ion Start: 02-18-2025 End: 02-18-2025 Periodic preventive med est patient 18-39 yrs Irma Villegas MD Work Phone: [facility] [place] Comment on above: Annual physical exam (Primary Dx); Depression, unspecified depression type; Grief reaction; Excessive sweating; control counseling Start: 02-18-2025 End: 02-18-2025 ambulatory IRMA VILLEGAS Facility:[facility] Start: 02-18-2025 End: 02-18-2025 Patient encounter procedure Iram Villegas MD Work Phone: [facility] Work Phone: Start: 11-17-2024 End: 11-17-2024 ambulatory CHRISTIANNE MURRAY Facility:[facility] Start: 11-17-2024 End: 11-17-2024 Patient encounter procedure Christianne Murray APRN.CNM Work Phone: OB/Gynecology Comment on above: Encounter for gyneco logical examination (general) (routine) with abnormal findings (Primary Dx); Encounter for screening mammogram for breast cancer; Dense breast tissue; Family history of ovarian cancer Start: 11-17-2024 End: 11-17-2024 Patient encounter status Christianne Murray APRN.CNM Work Phone: [facility] Start: 02-27-2024 End: 02-27-2024 Patient encounter procedure Irma Villegas MD Work Phone: [facility] [place] Comment on above: Annual physical exam (Primary Dx); Hyperlipidemia, mixed Start: 11-22-2023 End: 11-22-2023 ambulatory Christianne Murray APRN.CNM Work Phone: OB/Gynecology Comment on above: Acute cystitis witho ut hematuria (Primary Dx); Family history of ovarian cancer; Intramural leiomyoma of uterus; Overweight Start: 11-22-2023 End: 11-22-2023 Telemedicine consultation with patient Christianne Murray LINO Work Phone: OB/Gynecology Start: 11-19-2023 ambulatory Christianne Trevor HUYNH Work Phone: OB/Gynecology Comment on above: Can t take prescribe d medication Start: 11-18-2023 Telephone encounter Christiannemagali templeton APRN.CNM Work Phone: OB/Gynecology Comment on above: Results Start: 11-18-2023 End: 11-18-2023 Subsequent hospital visit by physician [facility] Work Phone: Radiology Comment on above: Menorrhagia with reg ular cycle [N92.0] Start: 11-13-2023 End: 11-13-2023 Patient encounter procedure Christianne Murray LINO Work Phone: OB/Gynecology Comment on above: Encounter for gyneco logical examination (general) (routine) without abnormal findings (Primary Dx); Screening for cervical cancer; Encounter for screening for human papillomavirus (HPV); Family history of ovarian cancer; Urinary frequency; Nocturia; Menorrhagia with regular cycle; Early satiety Start: 11-13-2023 End: 11-13-2023 Patient encounter status Christianne Trevor HUYNH Work Phone: [facility] Start: 11-28-2022 End: 11-28-2022 [facility] Irma Villegas MD Work Phone: [facility] [place] Comment on above: Current moderate epi sode of major depressive disorder without prior episode (HCC) (Primary Dx) Start: 11-02-2022 ambulatory Irma Velez Work Phone: [facility] [place] Start: 11-02-2022 Emergency department patient visit Irma Villegas MD Work Phone: [facility] [place] Comment on above: Sorry to cancel! Per [facility]anjo emergency Start: 09-04-2022 ambulatory Anju jean RN NURSE WHEEL CUTTER Comment on above: Fall Start: 09-04-2022 Telephone encounter Irma castañeda MD Work Phone: [facility] [place] Comment on above: Medication Update Start: 09-04-2022 End: 09-04-2022 Subsequent hospital visit by physician Adi [facility] [place] Work Phone: Radiology Comment on above: Fall due to slipping on ice or snow, initial encounter [W00.9XXA] Start: 09-04-2022 End: 09-04-2022 Patient encounter procedure Irma Villegas MD Work Phone: [facility] [place] Comment on above: Fall due to slipping [...] Detail Author Start: 09-04-2032 Urine microalbumin profile [facility] Start: 11-12-2028 Screening for malign ant neoplasm of cervix [facility] Start: 11-17-2025 End: 11-17-2025 Patient encounter procedure Mammogram Comment on above: Encounter for gyneco logical examination (general) (routine) with abnormal findings [Z01.411]; Encounter for screening mammogram for breast cancer [Z12.31]; Dense breast tissue [R92.30] Annual Start: 08-27-2025 End: 08-27-2025 Patient encounter procedure 08/27/2025 8:40 AM EST Office Visit [facility] [place] [address] [place] [address] Irma Villegas MD [address] [place] [id number] 6 month f/u [facility] [place] Comment on above: 6 month f/u Start: 05-19-2025 End: 12-17-2025 DBT Breast - bilateral screening [facility] SCREENING [facility] Radiology Routine Encounter for gynecological examination (general) (routine) with abnormal findings Encounter for screening mammogram for breast cancer Dense breast tissue Expected: 05/19/2025 (Approximate), Expires: 12/17/2025 [facility] Work Phone: Comment on above: Expected: 05/19/2025 (Approximate), Expires: 12/17/2025 Start: 04-05-2025 Influenza vaccination Influenza Vacc ine (#1) [facility] Start: 02-26-2025 End: 02-26-2025 Patient encounter procedure 02/26/2025 8:00 AM EDT Office Visit [facility] [place] [address] [facility] [place] [id number] Irma Villegas MD [address] [facility] [place] [id number] annual physical [facility] [place] Comment on above: annual physical Start: 02-18-2025 End: 05-20-2025 CBC W Auto Differential panel - Blood COMPLETE BLOOD COUNT AND DIFFERENTIAL Lab Routine Annual physical exam Expected: 02/18/2025, Expires: 05/20/2025 [facility] Comment on above: Expected: 02/18/2025 , Expires: 05/20/2025 Start: 02-18-2025 End: 05-20-2025 Comprehensive metabolic 2000 panel - Serum or Plasma COMPREHENSIVE METABOLIC PANEL Lab Routine Annual physical exam Expected: 02/18/2025, Expires: 05/20/2025 [facility] Comment on above: Expected: 02/18/2025 , Expires: 05/20/2025 Start: 02-18-2025 End: 05-20-2025 Lipid 1996 panel - Serum or Plasma LIPID PANEL, FASTING Lab Routine Annual physical exam Expected: 02/18/2025, Expires: 05/20/2025 [facility] Work Phone: Comment on above: Expected: 02/18/2025 , Expires: 05/20/2025 Start: 02-18-2025 End: 02-18-2025 Patient encounter procedure 02/18/2025 8:00 AM EDT Office Visit [facility] [place] [address] [facility] [place] [phone] Irma Villegas MD [address] [place] [address] annual physical [facility] [place] Comment on above: annual physical Start: 11-12-2024 End: 11-12-2024 Patient encounter procedure 11/12/2024 3:30 PM EDT Office Visit OB/Gynecology [address] [place] [address] Christianne Murray APRN.CN [address] [place] [address] Annual OB/Gynecology Comment on above: Annual Start: 04-05-2024 Covid-19 Vaccine ( season) Covid-19 Vaccine ( season) [facility] Start: 04-05-2024 Influenza vaccination [facility] Start: 02-28-2024 End: 02-28-2024 ambulatory 02/28/2024 8:30 AM EDT Results Only [place] [facility] Draw Station [address] [place] [address] [facility] Draw Station Start: 02-27-2024 End: 05-28-2024 CBC W Auto Differential panel - Blood COMPLETE BLOOD COUNT AND DIFFERENTIAL Lab Routine Annual physical exam Expected: 02/27/2024, Expires: 05/28/2024 [facility] Comment on above: Expected: 02/27/2024 , Expires: 05/28/2024 Start: 02-27-2024 End: 05-28-2024 Comprehensive metabolic 2000 panel - Serum or Plasma COMPREHENSIVE METABOLIC PANEL Lab Routine Hyperlipidemia, mixed Expected: 02/27/2024, Expires: 05/28/2024 [facility] Work Phone: Comment on above: Expected: 02/27/2024 , Expires: 05/28/2024 Start: 02-27-2024 End: 05-28-2024 Lipid 1996 panel - Serum or Plasma LIPID PANEL BASIC Lab Routine Hyperlipidemia, mixed Expected: 02/27/2024, Expires: 05/28/2024 [facility] Comment on above: Expected: 02/27/2024 , Expires: 05/28/2024 Start: 02-27-2024 End: 02-27-2024 Patient encounter procedure 02/27/2024 9:00 AM EDT Office Visit [facility] [place] [address] [place] [address] Irma Villegas MD [address] [facility] [place] [id number] [facility] [place] Comment on above: [facility] general health Start: 11-13-2023 End: 02-12-2024 Bacteria identified in Urine by Culture URINE CULTURE Microbiology Routine Urinary frequency Expected: 11/13/2023, Expires: 02/12/2024 [facility] Work Phone: Comment on above: Expected: 11/13/2023 , Expires: 02/12/2024 Start: 11-13-2023 End: 02-12-2024 Cancer Ag 125 [Units/volume] in Serum or Plasma CA 125 Lab Routine Family history of ovarian cancer Early satiety Expected: 11/13/2023, Expires: 02/12/2024 [facility] Work Phone: Comment on above: Expected: 11/13/2023 , Expires: 02/12/2024 Start: 11-13-2023 End: 02-12-2024 Comprehensive metabolic 2000 panel - Serum or Plasma COMPREHENSIVE METABOLIC PANEL Lab Routine Menorrhagia with regular cycle Early satiety Expected: 11/13/2023, Expires: 02/12/2024 [facility] Work Phone: Comment on above: Expected: 11/13/2023 , Expires: 02/12/2024 Start: 11-13-2023 End: 02-12-2024 Prolactin [Mass/volume] in Serum or Plasma PROLACTIN Lab Routine Menorrhagia with regular cycle Early satiety Expected: 11/13/2023, Expires: 02/12/2024 [facility] Work Phone: Comment on above: Expected: 11/13/2023 , Expires: 02/12/2024 Start: 11-13-2023 End: 02-12-2024 Thyrotropin [Units/volume] in Serum or Plasma THYROID STIMULATING HORMONE Lab Routine Menorrhagia with regular cycle Early satiety Expected: 11/13/2023, Expires: 02/12/2024 [facility] Work Phone: Comment on above: Expected: 11/13/2023 , Expires: 02/12/2024 Start: 08-05-2023 Behavioral Health Screening Behavioral Health Screening [facility] Start: 04-05-2023 Covid-19 Vaccine () Covid-19 Vaccine () [facility] Start: 04-05-2023 Influenza vaccination Influenza Vacc ine (#1) [facility] Start: 11-13-2022 HPV TESTING HPV TESTING [facility] Start: 11-13-2022 PAP TESTING PAP TESTING [facility] Start: 11-13-2022 Screening for malign ant neoplasm of cervix [facility] Start: 04-05-2022 Influenza vaccination INFLUENZA (#1) [facility] Start: 09-18-2021 COVID-19 VACCINE (4 - Booster for Moderna series) COVID-19 VACCINE (4 - Booster for Moderna series) [facility] Start: 03-29-2014 Urine microalbumin profile DTAP,TDAP,TD (8 - Tdap) [facility] Start: 2012 HPV Vaccine (1 - 3-d ose SCDM series) HPV Vaccine (1 - 3-dose SCDM series) [facility] Start: 2003 Anxiety Screening Anxiety Screening [facility] Start: 2003 Depression Screening Depression Scre ening [facility] Start: 2003 HEPATITIS C SCREENING HEPATITIS C [facility] Start: 2003 Hepatitis C screening Hepatitis C [facility] Start: 2003 HIV SCREENING HIV SCREENING [facility] Start: 2003 HIV screening HIV Screening [facility] PAP TEST PAP TEST Lab Divina dyer Encounter for gynecological examination (general) (routine) without abnormal findings Screening for cervical cancer Encounter for screening for human papillomavirus (HPV) 11/13/2023 3:58 PM EDT [facility] Work Phone: Patient Education Rabies Immune Globulin (Human) Solution for injection Rabies Vaccine [facility] Work Phone: End: 12-12-2024 US Pelvis transvaginal US FEMALE PELVIS TRANSVAG Radiology Routine Menorrhagia with regular cycle 1 Occurrences starting 11/13/2023 until 12/12/2024 [facility] Work Phone: Comment on above: 1 Occurrences starti ng 11/13/2023 until 12/12/2024 US Pelvis transvaginal US FEMALE PELVIS TRANSVAG Radiology Routine Menorrhagia with regular cycle 11/18/2023 12:00 PM EDT [facility] Work Phone: [facility] Immunizations Immunization Date Immunization Notes Care Provider Fa ysabel 03-25-2025 rabies vaccine, for intramuscular injection Dr. Carleen Coles MD [facility] 03-22-[address] Carleen quiñonez MD [facility] 03-22-2025 rabies vaccine, for intramuscular injection Dr. Carleen Coles MD [facility] 05-26-2024 influenza virus vacc ine, unspecified formulation Irma Villegas MD Work Phone: [facility] 09-04-2022 tetanus toxoid, redu marilynn diphtheria toxoid, and acellular pertussis vaccine, adsorbed Irma Villegas MD Work Phone: [facility] Work Phone: 05-22-2022 influenza virus vacc ine, unspecified formulation [employer] Work Phone: [facility] 03-29-2004 diphtheria and tetan us toxoids, adsorbed for pediatric use Anju Medina RN [facility] Work Phone: 02-18-2004 meningococcal polysaccharide vaccine (MPSV4) Anju Medina RN [facility] Work Phone: 08-05-2002 influenza virus vacc ine, unspecified formulation Anju Medina RN [facility] Work Phone: 07-01-2002 influenza virus vacc ine, unspecified formulation Anju Medina RN [facility] Work Phone: 05-30-2001 meningococcal polysaccharide vaccine (MPSV4) Anju Medina RN [facility] Work Phone: 06-25-2000 diphtheria and tetan us toxoids, adsorbed for pediatric use Anju Medina RN [facility] Work Phone: 03-22-1998 hepatitis B vaccine, pediatric or pediatric/adolescent dosage Anju Medina RN [facility] Work Phone: 11-11-1997 hepatitis B vaccine, pediatric or pediatric/adolescent dosage Anju Medina RN [facility] Work Phone: 08-02-1997 hepatitis B vaccine, pediatric or pediatric/adolescent dosage Anju Medina RN [facility] Work Phone: 08-02-1997 measles, mumps and rubella virus vaccine Anju Medina RN [facility] Work Phone: 02-10-1992 diphtheria, tetanus toxoids and pertussis vaccine Anju Medina RN [facility] Work Phone: 02-10-1992 trivalent poliovirus vaccine, live, oral Anju Medina RN [facility] Work Phone: 1990 Chicken Pox (disease) Alba Medina RN [facility] Work Phone: 07-20-1987 haemophilus influenz ae type b vaccine, HbOC conjugate Anju Medina RN [facility] Work Phone: 12-30-1986 diphtheria, tetanus toxoids and pertussis vaccine Anju Medina RN [facility] Work Phone: 12-30-1986 trivalent poliovirus vaccine, live, oral Anju Medina RN [facility] Work Phone: 10-21-1986 measles, mumps and rubella virus vaccine Anju Medina RN [facility] Work Phone: 1985 diphtheria, tetanus toxoids and pertussis vaccine Anju Medina RN [facility] Work Phone: 1985 diphtheria, tetanus toxoids and pertussis vaccine Anju Medina RN [facility] Work Phone: 1985 trivalent poliovirus vaccine, live, oral Anju Medina RN [facility] Work Phone: 1985 diphtheria, tetanus toxoids and pertussis vaccine Anju Medina RN [facility] Work Phone: 1985 trivalent poliovirus vaccine, live, oral Anju Medina RN [facility] Work Phone: Payers Date Payer Category Payer Self-pay 2025 Unknown [id number] 2019 Private Health Insurance [facility] [employer] [employer] [id number] 2019 Unknown [id number] 2019 Unknown [id number] Unknown [id number] Social History Date Type Detail Facility Start: 09-04-2022 End: 03-22-2025 Tobacco smoking status NHIS Never smoked tobacco [facility] Work Phone: Start: 09-04-2022 Tobacco use and exposure Smokeless tobacco non-user [facility] Work Phone: Start: 09-04-2022 End: 11-17-2024 Alcohol intake Current drinker of alcohol (finding) [facility] Start: 03-04-2020 End: 11-28-2022 History SDOH Alcohol Frequency 3 [facility] Start: 03-04-2020 End: 11-28-2022 History SDOH Alcohol Std Drinks 1 [facility] Start: 03-04-2020 End: 11-28-2022 History SDOH Social Connections Living 7 [facility] Start: 03-04-2020 End: 05-04-2020 History SDOH Physical Activity DPW 5 [facility] Start: 03-04-2020 End: 11-28-2022 History SDOH Stress 2 [facility] Start: 03-03-2020 Education 17 [facility] Start: 11-13-2017 Alcohol Comment occasionally [facility] Start: 1985 Sex Assigned At Female [facility] Start: 11-01-2022 End: 11-28-2022 History SDOH Social Connections Phone 4 [facility] Start: 11-01-2022 End: 11-28-2022 History SDOH Social Connections Hindu 98 [facility] Start: 05-04-2020 End: 11-13-2023 History of Social function [facility] Start: 05-04-2020 End: 11-13-2023 Social connection and isolation panel [facility] Start: 07-06-2012 Frequency of Social Gatherings with Friends and Family Not on file [facility] How often to you hav e a drink containing alcohol? 2-4 times a month [facility] How many standard dr inks containing alcohol do you have on a typical day? 1 or 2 [facility] How often do you hav e 6 or more drinks on 1 occasion? Never [facility] Do you feel stress - tense, restless, nervous, or anxious, or unable to sleep at night because your mind is troubled all the time - these days [OSQ] Only a little [facility] (I/We) worried wheth er (my/our) food would run out before (I/we) got money to buy more. Never true [facility] In the past 12 month s, was there a time when you were not able to pay the mortgage or rent on time? No [facility] Start: 04-11-2021 Gender identity Identifies as female gender (finding) [facility] Do you belong to any clubs or organizations such as restoration groups, unions, fraternal or athletic groups, or school groups? Yes [facility] Are you now , , , , never or living with a partner? Never [facility] How hard is it for y ou to pay for the very basics like food, housing, medical care, and heating Somewhat hard [facility] Do you feel stress - tense, restless, nervous, or anxious, or unable to sleep at night because your mind is troubled all the time - these days [OSQ] To some extent [facility] Start: 10-15-2023 Sexual orientation Heterosexual (finding) [facility] Clinical Notes 09-04-2022 to 03-21-2025 Telephone [...] noted but patient advised to [facility]. Also advised patient to contact cats veterinary on Saturday. Patient will also contact health department to dispose of bat body.Patient denies any new or worsening symptoms of which a provider is not aware:Yes. [facility] 03-21-2025 Miscellaneous Notes Patient calling with information she states her cat killed a bat and it was in her bathroom. She states she had no contact with bat and when she disposed of it she wore gloves. Reviewed information on protocol bat bites. No bite noted but patient advised to [facility]. Also advised patient to contact cats veterinary on Saturday. Patient will also contact health department to dispose of bat body.Patient denies any new or worsening symptoms of which a provider is not aware:Yes. documented in this encounter [facility] 03-16-2025 Telephone encounter Note Images from the original note were not included. Electronic PA rec'd and completed for fluoxetine HCL 20mg. This was approved. Prior authorization approved Payer: [employer] [phone] Note from payer: CaseId:[id number];Status:Approve d;Review Type:Prior Auth;Coverage Start Date:02/14/2025;Coverage End Date:03/16/2026; [...] to its destination. To be filled at: [address] [id number] - [address] [id number] Pharmacy notified. [facility] 03-16-2025 Miscellaneous Notes Images from the original note were not included. Electronic PA rec'd and completed for fluoxetine HCL 20mg. This was approved. Prior authorization approved Payer: [employer] [phone] Note from payer: CaseId:[id number];Status:Approve d;Review Type:Prior Auth;Coverage Start Date:02/14/2025;Coverage End Date:03/16/2026; [...] to its destination. To be filled at: [id number] [place] [address] [address] [facility] [phone] Pharmacy notified. documented in this encounter [facility] 02-18-2025 Instructions Irma Villegas MD - 02/18/2025 8:46 AM EDT We discussed your mental health and feelings of fatigue, anger, and lack of motivation: - We decided to restart you on Fluoxetine (Prozac) at 20 mg daily, as this worked well for you in the past. This prescription has been sent to [facility] for a 90-day supply with 6 [...] and preference to avoid modes that have penitentiary release of hormones - I recommend scheduling [...] for deodorant use. documented in this encounter [facility] 02-18-2025 Note HNO ID: [id number] Author: IRMA VILLEGAS MD Service: ? Author [...] the semester ends. - Sent prescription to [facility] for a 90-day supply with refills [...] allergy. Prefers non-hormonal (more content not included)... [facility] 02-18-2025 History of Presen t illness Narrative [...] the semester ends. - Sent prescription to [facility] for a 90-day supply with refills [...] excuse any unintended typographical errors. Recording using Kyte software for draft documentation of the visit was discussed with the patient/authorized insurance healthcare representative; all questions welcomed and answered. Patient/authorized insurance healthcare representative agreed to proceed Irma Villegas MD documented in this encounter [facility] 11-17-2024 Note HNO ID: [id number] Author: CHRISTIANNE MURRAY APRN.CNM Service: ? Author Type: Child Health Associate Type: Progress Notes Filed: 11/17/2024 16:53 Note [...] Living0 SAB0 IAB0 Ectopic0 Multiple0 Live Births0 Chief Operator Synthesis History LMP: 10/19/2024 (Within Days), Having periods Age at Menarche: 12 Age at First : Age at Menopause: Chief Operator Synthesis History Comments: Sexual Activity: Not Currently; No [...] Prostate Cancer Maternal Grandfather bone cancer other (Xanhpnw-Migjv-Ozccn Disease) Maternal Grandfather Hypertension Paternal Grandmother other [...] discussed with the Patient or Patient's Authorized Liner Replacer. As applicable, any other physician, advance practice provider, medical student, or other health professional student that will be observing or involved in the sensitive examination for educational or training purposes was discussed with the Patient or Authorized Liner Replacer. The Patient or Authorized Liner Replacer has agreed to proceed with the sensitive [...] external genitalia normal, normal Bartholin's glands, urethra, [place]'s glands, no vulvar lesions, no cervical lesions, [...] ICD9: V16.41, ICD (more content not included)... [facility] 11-17-2024 History of Presen t illness Narrative [...] Living0 SAB0 IAB0 Ectopic0 Multiple0 Live Births0 Chief Operator Synthesis History LMP: 10/19/2024 (Within Days), Having periods Age at Menarche: 12 Age at First : Age at Menopause: Chief Operator Synthesis History Comments: Sexual Activity: Not Currently; No [...] Prostate Cancer Maternal Grandfather bone cancer other (Kowmben-Migth-Zexfp Disease) Maternal Grandfather Hypertension Paternal Grandmother other [...] discussed with the Patient or Patient's Authorized Liner Replacer. As applicable, any other physician, advance practice provider, medical student, or other health professional student that will be observing or involved in the sensitive examination for educational or training purposes was discussed with the Patient or Authorized Liner Replacer. The Patient or Authorized Liner Replacer has agreed to proceed with the sensitive [...] external genitalia normal, normal Bartholin's glands, urethra, [place]'s glands, no vulvar lesions, no cervical lesions, [...] Christianne Murray APRN.CNM documented in this encounter [facility] 02-27-2024 History of Presen t illness [...] Prostate Cancer Maternal Grandfather bone cancer other (Gvobsoe-Ocldt-Lmpdt Disease) Maternal Grandfather Hypertension Paternal Grandmother other [...] COMPREHENSIVE METABOLIC PANEL - LIPID PANEL BASIC Irma Villegas MD documented in this encounter [facility] 11-22-2023 Miscellaneous Notes Seen patient for visit today. Christianne Murray APRN.CNM Patient was prescribed Macrobid on 11/17 for UTI. Carly Conte RN documented in this encounter [facility] 11-22-2023 Instructions Christianne Murray APRN.CNM - 11/22/2023 2:22 PM EDT Urinary Tract Infection: [facility] Urinary Tract Plus 30-90 days Weight management: Nutrition Therapy: 8 am to 4 pm: [phone] [facility] Call Center: 24 hours/day, 7 days/week: [phone] I can put a consult for weight management if you desire. documented in this encounter [facility] 11-22-2023 History of Presen t illness Narrative DISTANCE HEALTH VISIT This Team Access Model visit is a virtual encounter. It required patient-provider interaction for the medical decision making as documented below. I have communicated my name and active licensure. The patient's identity and physical location were verified at the time of this visit. Either the patient or their legal insurance healthcare representative has been informed of the risks [...] - ICD9: 278.02, ICD10: E66.3 -Referral to sql database administrator Christianne Murray APRN.CNM I spent 30 minutes in the visit, with more than 50% of the total eezu-dt-esix time of the visit in counseling / coordination of care. documented in this encounter [facility] 11-18-2023 Miscellaneous Notes Order signed. Christianne [...] Christianne Murray APRN.CNM documented in this encounter [facility] 11-18-2023 History of Presen t illness Narrative Radiology Service Progress Note PATIENT NAME: Alex Quinones DATE OF SERVICE: November 18, 2023 [...] PATIENT PRESENTS WITH AN IMPLANTABLE OR ATTACHED INSPECTOR PACKER GLASS CONTAINER: No RADIOLOGY DEPARTMENT: Ultrasound PERIPHERAL IV DATA: Not applicable SIGNED BY: Christianne Mooney RDMS RVT November 18, 2023 2:33 PM documented in this encounter [facility] 11-13-2023 History of Presen t illness Narrative Bilingual Legal Assistant offered: Patient declinesJanis Johnson is a 38 year old who presents [...] L0 SAB0 IAB0 Ectopic0 Multiple0 Live Births0 Chief Operator Synthesis History LMP: 10/31/2023 (Approximate), Having periods Age at Menarche: Age at First : Age at Menopause: Chief Operator Synthesis History Comments: Sexual Activity: Not Currently; No [...] Prostate Cancer Maternal Grandfather bone cancer other (Oqzgiio-Fmoah-Cgshg Disease) Maternal Grandfather Hypertension Paternal Grandmother other [...] external genitalia normal, normal Bartholin's glands, urethra, [place]'s glands, no vulvar lesions, no cervical lesions, [...] Christianne Murray APRN.CNM documented in this encounter [facility] 11-28-2022 History of Presen t illness [...] Prostate Cancer Maternal Grandfather bone cancer other (Hittzjb-Fxqca-Smzuc Disease) Maternal Grandfather Ovarian cancer Paternal Grandmother [...] Irma Villegas MD documented in this encounter [facility] 09-04-2022 Miscellaneous Notes Lester from [facility] calls and wanted provider to know that fluoxetine 10 mg capsules has red dye in it as does 10 mg tablets. Lester switch medication to fluoxetine 20 mg tablet and told patient to take half a tablet daily since 20 mg tablet does not have red dye. Katie Quinteros RN documented in this encounter [facility] 09-04-2022 History of Presen t illness [...] 2022 11:30 AM documented in this encounter [facility] 09-04-2022 History of Presen t illness Narrative Reason for Visit No chief complaint on file. Alex Quinones is a 37 year old female who presents here today for Above Complaints.. Health Maintenance HEPATITIS C SCREENING HIV SCREENING DTAP,TDAP,TD(8 - Tdap) COVID-19 VACCINE(4 - Booster for Moderna series) INFLUENZA(1) DEPRESSION ASSESSMENT PAP TESTING HPV TESTING HPI She was in [facility] recently, when she slipped and fell as [...] Prostate Cancer Maternal Grandfather bone cancer other (Bnkdfss-Uzdhy-Aknyx Disease) Maternal Grandfather Ovarian cancer Paternal Grandmother [...] Irma Villegas MD documented in this encounter [facility] 09-04-2022 Miscellaneous Notes Reason for Call: Neck and Upper Shoulder Discomfort due to recent fall Outcome: Patient was conferenced to [place] in Appointment Center for PCP within 24 [...] a couple days ago Protocols used: Head Odkidn-DDKGD-HR documented in this encounter [facility] Evaluation note Diagnosis Fall due to slipping on ice or snow, initial encounter- Primary Encounter for immunization Need for other specified prophylactic vaccination against single bacterial disease Laceration of right hand, foreign body presence unspecified, sequela Depression with anxiety Dysthymic disorder [facility] Diagnosis Current moderate episode of major depressive disorder without prior episode (HCC)- Primary [facility]* Diagnosis Fall due to slipping on ice or snow, initial encounter [facility]* Diagnosis Encounter for gynecological examination [...] menstruation Early satiety [facility] Diagnosis Menorrhagia with regular cycle Excessive or frequent menstruation [facility]* Diagnosis Acute cystitis without hematuria- Primary Acute cystitis Family history of ovarian cancer Family history of malignant neoplasm of ovary Intramural leiomyoma of uterus Overweight [facility]* Diagnosis Annual physical exam- Primary Routine general medical examination at a health care facility Hyperlipidemia, mixed Mixed hyperlipidemia [facility] Diagnosis Encounter for gynecological examination (general) (routine) with abnormal findings- Primary Encounter for screening mammogram for breast cancer Dense breast tissue Family history of ovarian cancer Family history of malignant neoplasm of ovary [facility] Annual physical exam- Primary Routine general medical examination at a health care facility Depression, unspecified depression type Grief reaction Adjustment disorder with depressed mood Excessive sweating Generalized hyperhidrosis control counseling General counseling for initiation of other contraceptive measures [facility] noteNo assessment information availableWDiley Ridge Medical Center Work Phone: Hospital Discharge instructionsAdditional Instructions You [...] if your symptoms worsen or new symptoms develop.[facility] Work Phone: Reason for referral (narrative)* Diagnostic Procedure Only (Routine) - Closed Specialty Diagnoses / Procedures Referred By Contac t Referred To Contact XR IMAGING Diagnoses Fall due to slipping on ice or snow, initial encounter Procedures XR CERV OTHER 4V AP/LAT/OBL RADEX SPINE CERVICAL 4 OR 5 VIEWS Irma Villegas MD [address] [place] [address] Xr Imaging Referral ID Status Reason Start Date Expiration Date V isits Requested Visits Authorized [id number] Closed Auto-Generate d Referral 09/04/2022 10/04/2023 1 1 * Diagnostic Procedure Only (Routine) - Closed Specialty Diagnoses / Procedures Referred By Contac t Referred To Contact XR IMAGING Diagnoses Fall due to slipping on ice or snow, initial encounter Procedures XR LUMBAR LIMITED 2V AP/LAT RADEX SPINE LUMBOSACRAL 2/3 VIEWS Irma Villegsa MD [address] [place] [address] X[facility] Imaging Referral ID Status Reason Start Date Expiration Date V isits Requested Visits Authorized [id number] Closed Auto-Generate d Referral 09/04/2022 10/04/2023 1 1 [facility] for referral (narrative)* Diagnostic Procedure Only (Routine) - Closed Specialty Diagnoses / Procedures Referred By Contac t Referred To Contact XR IMAGING Diagnoses Fall due to slipping on ice or snow, initial encounter Procedures XR LUMBAR LIMITED 2V AP/LAT RADEX SPINE LUMBOSACRAL 2/3 VIEWS Irma Villegas MD [address] [place] [address] [place] [address] Referral ID Status Reason Start Date Expiration Date V isits Requested Visits Authorized [id number] Closed Auto-Generate d Referral 09/04/2022 10/04/2023 1 1 * Diagnostic Procedure Only (Routine) - Closed Specialty Diagnoses / Procedures Referred By Contac t Referred To Contact XR IMAGING Diagnoses Fall due to slipping on ice or snow, initial encounter Procedures XR CERV OTHER 4V AP/LAT/OBL RADEX SPINE CERVICAL 4 OR 5 VIEWS Irma Villegas MD [address] [place] [address] [place] [address] Referral ID Status Reason Start Date Expiration Date V isits Requested Visits Authorized [id number] Closed Auto-Generate d Referral 09/04/2022 10/04/2023 1 1 [facility] for referral (narrative)* Diagnostic Procedure Only (Routine) - Pending Review Specialty Diagnoses / Procedures Referred By Contac t Referred To Contact US IMAGING Diagnoses Menorrhagia with regular cycle Procedures US FEMALE PELVIS TRANSVAG US TRANSVAGINAL Christianne Murray APRN.CNM [address] [place] [address] [place] [address] Referral ID Status Reason Start Date Expiration Date Visits Requested Visits Authorized [id number] Pending Review Auto-Generat ed Referral 11/13/2023 12/12/2024 1 1 [facility] for referral (narrative)No reason for referral information availableWDiley Ridge Medical Center Work Phone: Reason for visit Narrative* Diagnostic Procedure Only (Routine) - Closed Specialty Diagnoses / Procedures Referred By Contac t Referred To Contact Internal Medicine / INTERNAL MEDICINE Diagnoses Wellness examination PER NOC SEEN WITHIN 24 HOURS Neck Stiffness pt fell Procedures OFFICE/OUTPATIENT ESTABLISHED MOD MDM 30-39 MIN 4C EST Self Irma Villegas MD [address] [place] [address] Referral ID Status Reason Start Date Expiration Date Visits Re quested Visits Authorized [id number] Closed 09/04/2022 12/03/2022 1 1 [facility] Diagnostic Procedure Only (Routine) - Closed Specialty Diagnoses / Procedures Referred By Contac t Referred To Contact XR IMAGING Diagnoses Fall due to slipping on ice or snow, initial encounter Procedures XR CERV OTHER 4V AP/LAT/OBL RADEX SPINE CERVICAL 4 OR 5 VIEWS Irma Villegas MD [address] [place] [address] [place] [address] Referral ID Status Reason Start Date Expiration Date V isits Requested Visits Authorized [id number] Closed Auto-Generate d Referral 09/04/2022 10/04/2023 1 1 [facility] Reason for Referral Specialty Diagnoses / Procedures Referred By Contac t Referred To Contact Nutrition Diagnoses Overweight Procedures CONSULT TO NUTRITION THERAPY MEDICAL NUTRITION ASSMT&IVNTJ INDIV EACH 15 Christianne Spencer, ROSMERY.CN [address] [place] [address] Referral ID Status Reason Start Date Expiration Date Visits Requested Visits Authorized [id number] Pending Review PCP Requested Referral 11/26/2023 11/21/2024 1 4 Summary Purpose Family History No Family History Records FoundNo Family History Records Found Advance Directives Advance Directive Response Recorded Date/ Time Do you have a Healthcare Power of Flooring Mechanic? No March 22, 2025 10:53am Chief Complaint and Reason for Visit Chief Complaint Admit Date RABIES EXPOSURE March 22, 2025 10 :27am Chief Complaint Admit Date RABIES EXPOSURE March 22, 2025 10 :27am rabies shot March 25, 2025 5: 36am Additional Source Comments Source Comments (unrecognize d section and content) In the event this informatio n is protected by the Federal Confidentiality of Alcohol and Drug Abuse Patient Records regulations: The Federal rules restrict any use of the information to criminally investigate or prosecute any alcohol or drug abuse patient.[facility] the event this information is protected by the Federal Confidentiality of Alcohol and Drug Abuse Patient Records regulations: The Federal rules restrict any use of the information to criminally investigate or prosecute any alcohol or drug abuse patient.[facility] the event this information is protected by the Federal Confidentiality of Alcohol and Drug Abuse Patient Records regulations: The Federal rules restrict any use of the information to criminally investigate or prosecute any alcohol or drug abuse patient.[facility] the event this information is protected by the Federal Confidentiality of Alcohol and Drug Abuse Patient Records regulations: The Federal rules restrict any use of the information to criminally investigate or prosecute any alcohol or drug abuse patient.[facility] the event this information is protected by the Federal Confidentiality of Alcohol and Drug Abuse Patient Records regulations: The Federal rules restrict any use of the information to criminally investigate or prosecute any alcohol or drug abuse patient.[facility] the event this information is protected by the Federal Confidentiality of Alcohol and Drug Abuse Patient Records regulations: The Federal rules restrict any use of the information to criminally investigate or prosecute any alcohol or drug abuse patient.[facility] the event this information is protected by the Federal Confidentiality of Alcohol and Drug Abuse Patient Records regulations: The Federal rules restrict any use of the information to criminally investigate or prosecute any alcohol or drug abuse patient.[facility]In the event this information is protected by the Federal Confidentiality of Alcohol and Drug Abuse Patient Records regulations: The Federal rules restrict any use of the information to criminally investigate or prosecute any alcohol or drug abuse patient.[facility] the event this information is protected by the Federal Confidentiality of Alcohol and Drug Abuse Patient Records regulations: The Federal rules restrict any use of the information to criminally investigate or prosecute any alcohol or drug abuse patient.[facility]In the event this information is protected by the Federal Confidentiality of Alcohol and Drug Abuse Patient Records regulations: The Federal rules restrict any use of the information to criminally investigate or prosecute any alcohol or drug abuse patient.[facility]In the event this information is protected by the Federal Confidentiality of Alcohol and Drug Abuse Patient Records regulations: The Federal rules restrict any use of the information to criminally investigate or prosecute any alcohol or drug abuse patient.[facility] HospitalIn the event this information is protected by the Federal Confidentiality of Alcohol and Drug Abuse Patient Records regulations: The Federal rules restrict any use of the information to criminally investigate or prosecute any alcohol or drug abuse patient.[facility] HospitalIn the event this information is protected by the Federal Confidentiality of Alcohol and Drug Abuse Patient Records regulations: The Federal rules restrict any use of the information to criminally investigate or prosecute any alcohol or drug abuse patient.[facility] HospitalIn the event this information is protected by the Federal Confidentiality of Alcohol and Drug Abuse Patient Records regulations: The Federal rules restrict any use of the information to criminally investigate or prosecute any alcohol or drug abuse patient.[facility] HospitalIn the event this information is protected by the Federal Confidentiality of Alcohol and Drug Abuse Patient Records regulations: The Federal rules restrict any use of the information to criminally investigate or prosecute any alcohol or drug abuse patient.[facility] HospitalIn the event this information is protected by the Federal Confidentiality of Alcohol and Drug Abuse Patient Records regulations: The Federal rules restrict any use of the information to criminally investigate or prosecute any alcohol or drug abuse patient.[facility] Reason for Visit (unrecogniz ed section and content) Reason Comments Fall Reason Onset Date Comments Medication Update 09/04/2022 Reason Comments Depression Reason Comments Well Woman Reason Comments Results Reason Comments Radiology US Specialty Diagnoses / Procedures Referred By Tamra dawson Referred To Contact US IMAGING Diagnoses Menorrhagia with regular cycle Procedures US FEMALE PELVIS TRANSVAG US TRANSVAGINAL Christianne Murray APRN.CN [id number] [place] [address] [place] [address] Referral ID Status Reason Start Date Expiration Date V isits Requested Visits Authorized [id number] Closed Auto-Generate d Referral 11/13/2023 12/12/2024 1 1 Reason Comments Menstrual Problem Reason Comments Physical Bowel habits have ch anged, loose and frequent for over a year. Reason Comments Yearly Exam Annual Physical Reason Comments Insurance Authorization Reason Comments Information Care Teams (unrecognized sec tion and content) Residential Substance Abuse Counselor Relationship Specialty Start Date End Date Irma Villegas MD [address] [place] [address] PCP - General Internal Medicine 09/04/22 Residential Substance Abuse Counselor Relationship Specialty Start Date End Date Irma Villegas MD [address] [place] [address] PCP - General Internal Medicine 09/04/22 Residential Substance Abuse Counselor Relationship Specialty Start Date End Date Irma Villegas MD [address] [place] [address] PCP - General Internal Medicine 09/04/22 Residential Substance Abuse Counselor Relationship Specialty Start Date End Date Irma Villegas MD [address] [place] [address] PCP - General Internal Medicine 09/04/22 Residential Substance Abuse Counselor Relationship Specialty Start Date End Date Irma Villegas MD [address] [place] [address] PCP - General Internal Medicine 09/04/22 Residential Substance Abuse Counselor Relationship Specialty Start Date End Date Irma Villegas MD [address] [place] [address] PCP - General Internal Medicine 09/04/22 Residential Substance Abuse Counselor Relationship Specialty Start Date End Date Irma Villegas MD [address] [place] [address] PCP - General Internal Medicine 09/04/22 Residential Substance Abuse Counselor Relationship Specialty Start Date End Date Irma Villegas MD [address] [place] [address] PCP - General Internal Medicine 09/04/22 Residential Substance Abuse Counselor Relationship Specialty Start Date End Date Irma Villegas MD [address] [place] [address] PCP - General Internal Medicine 09/04/22 Residential Substance Abuse Counselor Relationship Specialty Start Date End Date Irma Villegas MD [address] [place] [address] PCP - General Internal Medicine 09/04/22 Residential Substance Abuse Counselor Relationship Specialty Start Date End Date Irma Villegas MD [address] [place] [address] PCP - General Internal Medicine 09/04/22 Residential Substance Abuse Counselor Relationship Specialty Start Date End Date Irma Villegas MD [address] [place] [address] PCP - General Internal Medicine 09/04/22 Sridevi Sol APRN.CNP [address] [place] [address] Accounts Payable Representative Internal Medicine 07/12/24 Residential Substance Abuse Counselor Relationship Specialty Start Date End Date Irma Villegas MD [address] [facility] [place] [address] PCP - General Internal Medicine 09/04/22 Sridevi Sol APRN.FITTING ROOM SUPERVISOR [address] [facility] [place] [address] Accounts Payable Representative Internal Medicine 07/12/24 Residential Substance Abuse Counselor Relationship Specialty Start Date End Date Irma Villegas MD [address] [place] [address] PCP - General Internal Medicine 09/04/22 Sridevi Sol APRN.FITTING ROOM SUPERVISOR [address] [facility] [place] [address] Accounts Payable Representative Internal Medicine 07/12/24 Team Status: Active Member Role/Relationship Status Dates Dr. Irma Villegas MD Primary Care Provider Active Team Status: Inactive Member Role/Relationship Status Dates Dr. Carleen Coles MD Emergency Provider Active S tart: March 22, 2025 End: March 22, 2025 Dr. Irma Villegas MD Primary Care Provider Active Start: March 22, 2025 End: March 22, 2025 Team Status: Inactive Member Role/Relationship Status Dates Dr. Irma Villegas MD Primary Care Provider Active Start: March 25, 2025 End: March 25, 2025 Dr. Carleen Coles MD Referring Provider Active S tart: March 25, 2025 End: March 25, 2025 Dr. Carleen Coles MD Emergency Provider Active S tart: March 25, 2025 End: March 25, 2025 INFORMATION SOURCE (unrecogn ized section and content) DATE CREATED AUTHOR 03/18/2025 [facility] DATE CREATED AUTHOR AUTHOR'S ORGANIZ ATION 03/23/2025 [facility] Goals (unrecognized section and content) Goals may be documented in a n alternate sectionGoals may be documented in an alternate section FOR RECORDS PERTAINING TO PATIENTS [...] BE BASED ON THE PRIMARY CLINICAL RECORDS. [facility] [employer] [facility] provides no warranty or guarantee of the accuracy or completeness of information in this document.
--- OUTSIDE RECORDS SUMMARY | 2025-03-25 07:13 | XMS RPT_ITS | CCD ---
Author Organization [facility] Care Team Providers Care Signalman Name Role Phone Cari BAUMANN, Irma Primary Care Provider Irma Villegas MD Primary Care Provider [phone] Older CLAIM INVESTIGATOR.TYPEWRITERS FUNCTIONAL TESTER, Sridevi Unavailable CHRISTIANNE MURRAY Attending Unavailable IRMA VILLEGAS Primary Care Unavailable IRMA VILLEGAS Attending Unavailable IRMA VILLEGAS Primary Care Unavailable Sharyn BAUMANN, Dr. Durant Emergency Provider Unavailab Bayron BAUMANN, Dr. Solis Primary Care Provider [phone] Carleen Coles Attending Unavailable Irma Villegas Primary Care Unavailable Sharyn BAUMANN, Dr. Durant Referring Provider Unavailab celsa Allergies Allergy Classification Reported Allergen(s) Allergy Type Date of Onset Reaction(s) Facility (17 sources) Cheese; Translations: [CHEESE (SEE VEGETABLE GUM)] Food Intolerance 8 Intolerance [facility] Work Phone: (20 sources) Latex; Translations: [LATEX] Propensity to adverse reactions 5 Hives, Swelling [facility] Work Phone: (17 sources) peanut; Translations: [PEANUTS] Propensity to adverse reactions 5 Vomiting [facility] Work Phone: (17 sources) Shellfish; Translations: [SHELLFISH CONTAINING PRODUCTS] Drug Intolerance 8 Vomiting [facility] Work Phone: (17 sources) Sulfonamides (Antibiotic); Translations: [SULFA (SULFONAMIDE ANTIBIOTICS)] Propensity to adverse reactions 7 Hives [facility] Work Phone: (19 sources) Wheat gluten extract; Translations: [GLUTEN] Drug Allergy 8 Mental Status Change, Rash, Intolerance [facility] Work Phone: (10 sources) banannas [Other] Propensity to adverse reactions 5 Intolerance [facility] Work Phone: (17 sources) Monosodium Glutamate (Msg); Translations: [MONOSODIUM GLUTAMATE (MSG)] Food Intolerance 8 Intolerance [facility] Work Phone: (17 sources) Red Food Color (Bulk); Translations: [RED FOOD COLOR (BULK)] Drug Intolerance 8 Intolerance [facility] Work Phone: (7 sources) Banana Extract; Translations: [BANANA] Drug Allergy 4 Intolerance [facility] (2 sources) peanut allergenic extract Drug Allergy 5 Anaphylaxis [facility] (3 sources) Shellfish; Translations: [shellfish derived] Allergy to substance 5 Nausea [facility] (1 source) Gluten Drug allergy (disorder) 5 [facility] Repository (1 source) peanut allergenic extract Drug Allergy 5 [facility]ository Medications Current Medications Medication Drug Class(es) Dates Sig (Normalized) Sig (Original) [id number] 200 actuat albuterol 0.09 mg/actuat metered dose [...] have red dye) Take 1 capsule by [facility] once daily. Glycopyrrolate, Bulk, 100 % [...] on above: Take 1 capsule by mo [facility] two times a day for 5 days. [...] Department Summary on 03-22-2025 Emergency Department Summary [facility] Medical Records Department [address] [place] [address] Emergency Department Summary 03/22/25 MR#: [id number] Acct: [id number] Name: ALEX QUINONES Rep #: [id number] : 1985 39 From: Carleen Coles MD [...] or wheezing) (more content not included)... Normal [facility] 03-16-2025 CNPN Telephone (INTMWS) ALEX QUINONES I ([id number]) 1985 F Date Time Provider Department 03/16/25 IRMA VILLEGAS INTMWS During your visit today, we recorded the following information about you: Abi Mcnally LPN 03/16/2025 2:43 PM Signed Electronic PA rec'd and completed for fluoxetine HCL 20mg. This was approved. Prior authorization approved Payer: [employer] [phone] Note from payer: CaseId:[id number];Stat us:Approved;Review Type:Prior Auth;Coverage Start Date:02/14/2025;Cover age End [...] to its destination. To be filled at: [id number] [place] [address] [address] [employer] [phone] [id number] Pharmacy notified. Allergies As of Date: [...] Encounter Status:Closed by ABI MCNALLY on 03/16/25 [facility] Supa 02-18-2025 CNOV Office Visit (INTMWS ) ALEX QUINONES I ([id number]) 1985 F Date Time Provider Department 02/18/25 [...] the ester ends. - Sent prescription to [facility] for a 90-day supply with refills [...] - Bayron (more content not included)... Normal [facility] CNOVon 11-17-2024 CNOV Office Visit (OBGYWM ) ALEX QUINONES I ([id number]) 1985 F Date Time Provider Department 11/17/24 [...] Living0 SAB0 IAB0 Ectopic0 Multiple0 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 LMP: 10/19/2024 (Within Days), Having periods Age at Menarche: 12 Age at First : Age at Menopause: 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 History Comments: Sexual Activity: Not Currently; No [...] Prostate Cancer Maternal Grandfather bone cancer other (Nmehpsv-Dgtsu-Osjhl Disease) Maternal Grandfather Hypertension Paternal Grandmother other [...] discussed with the Patient or Patient's Authorized Jumpbasting Lining Baster. As applicable, any other physician, advance practice provider, medical student, or other health professional student that will be observing or involved in the sensitive examination for educational or training purposes was discussed with the Patient or Authorized Jumpbasting Lining Baster. The Patient or Authorized Jumpbasting Lining Baster has agreed to proceed with the sensitive [...] external genitalia normal, normal Bartholin's glands, urethra, Bensley's glands, no vulvar lesions, no cervical lesions, [...] ICD10: Z12.31 (more content not included)... Normal [facility] No Panel Informationon 09-04 [facility] Vital Signs Date Time Vital Sign Value Performing Clinician Facility 03-25-2025 06:34-0400 Body temperature 98.7 [degF] Dr. Carleen Coles MD [facility] 03-25-2025 06:34-0400 Diastolic blood pressure 74 mm[Hg] Dr. Carleen Coles MD [facility] 03-25-2025 06:34-0400 Heart rate 77 /min Dr. Carleen Coles MD [facility] 03-25-2025 06:34-0400 Respiratory rate 16 /min Dr. Carlene Coles MD [facility] 03-25-2025 06:34-0400 SaO2% (BldA) [Mass fraction] 97 % Dr. Carleen Coles MD [facility] 03-25-2025 06:34-0400 Systolic blood pressure 111 mm[Hg] Dr. Carleen Coles MD [facility] 03-25-2025 05:38-0400 Body height 149.[address] Carleen Coles MD [facility] 03-25-2025 05:38-0400 Body mass index (BMI) [Ratio] 30.3 kg/m2 Dr. Carleen Coles MD [facility] 03-25-2025 05:38-0400 Body weight 68.[address] Carleen Coles MD [facility] 03-22-2025 12:26-0400 Body temperature 98.5 [degF] Dr. Carleen Coles MD [facility] 03-22-2025 12:26-0400 Diastolic blood pressure 71 mm[Hg] Dr. Carleen Coles MD [facility] 03-22-2025 12:26-0400 Heart rate 87 /min Dr. Carleen Coles MD [facility] 03-22-2025 12:26-0400 Respiratory rate 16 /min Dr. Carleen Coles MD [facility] 03-22-2025 12:26-0400 SaO2% (BldA) [Mass fraction] 99 % Dr. Carleen Coles MD [facility] 03-22-2025 12:26-0400 Systolic blood pressure 119 mm[Hg] Dr. Carleen Coles MD [facility] 03-22-2025 10:30-0400 Body height 149.[address] Carleen Coles MD [facility] 03-22-2025 10:30-0400 Body mass index (BMI) [Ratio] 29.5 kg/m2 Dr. Carleen Coles MD [facility] 03-22-2025 10:30-0400 Body weight 66.[address] Carleen Coles MD [facility] 02-18-2025 08:01-0400 Body mass index (BMI) [Ratio] 28.75 kg/m2 Irma Villegas MD Work Phone: [facility] 02-18-2025 08:01-0400 Body weight 66.22 kg Irma Villegas MD Work Phone: [facility] 02-18-2025 08:01-0400 Diastolic blood pressure 72 mm[Hg] Irma Villegas MD Work Phone: [facility] 02-18-2025 08:01-0400 Heart rate 101 /min Irma Villegas MD Work Phone: [facility] 02-18-2025 08:01-0400 Respiratory rate 16 /min Irma Villegas MD Work Phone: [facility] 02-18-2025 08:01-0400 SaO2% (BldA) [Mass fraction] 98 % Irma Villegas MD Work Phone: [facility] 02-18-2025 08:01-0400 Systolic blood pressure 112 mm[Hg] Irma Villgeas MD Work Phone: [facility] 11-17-2024 15:30-0400 Body height 151.8 cm Christianne Murray CLAIM INVESTIGATOR.CNM Work Phone: [facility] 11-17-2024 15:30-0400 Body mass index (BMI) [Ratio] 29.54 kg/m2 Christianne Murray APRN.CNM Work Phone: [facility] 11-17-2024 15:30-0400 Body weight 68.04 kg Christianne Murray APRN.CNM Work Phone: [facility] 11-17-2024 15:30-0400 Diastolic blood pressure 70 mm[Hg] Christianne Murray APRN.CNM Work Phone: [facility] 11-17-2024 15:30-0400 Systolic blood pressure 118 mm[Hg] Christianne Murray APRN.CNM Work Phone: [facility] 02-27-2024 08:50-0400 Body height 152.4 cm Irma Villegas MD Work Phone: [facility] 02-27-2024 08:50-0400 Body mass index (BMI) [Ratio] 29.35 kg/m2 Irma Villegas MD Work Phone: [facility] 02-27-2024 08:50-0400 Body weight 68.18 kg Irma Villegas MD Work Phone: [facility] 02-27-2024 08:50-0400 Diastolic blood pressure 82 mm[Hg] Irma Villegas MD Work Phone: [facility] 02-27-2024 08:50-0400 Heart rate 95 /min Irma Villegas MD Work Phone: [facility] 02-27-2024 08:50-0400 SaO2% (BldA) [Mass fraction] 97 % Irma Villegas MD Work Phone: [facility] 02-27-2024 08:50-0400 Systolic blood pressure 118 mm[Hg] Irma Villegas MD Work Phone: [facility] 11-13-2023 15:24-0400 Body height 152.4 cm Christianne Murray CLAIM INVESTIGATOR.CNM Work Phone: [facility] 11-13-2023 15:24-0400 Body weight 68.13 kg Christianne Trevor BOTELLO.CNM Work Phone: [facility] 11-13-2023 15:24-0400 Diastolic blood pressure 78 mm[Hg] Christianne Trevor CLAIM INVESTIGATOR.CNM Work Phone: [facility] 11-13-2023 15:24-0400 Systolic blood pressure 120 mm[Hg] Christianne Trevor SINGHN.CNM Work Phone: [facility] 09-04-2022 09:46-0500 Body height 152.4 cm Irma Villegas MD Work Phone: [facility] 09-04-2022 09:46-0500 Body temperature 98.71 [degF] Irma Villegas MD Work Phone: [facility] 09-04-2022 09:46-0500 Body weight 65.32 kg Irma Villegas MD Work Phone: [facility] 09-04-2022 09:46-0500 Diastolic blood pressure 62 mm[Hg] Irma Villegas MD Work Phone: [facility] 09-04-2022 09:46-0500 Heart rate 89 /min Irma Villegas MD Work Phone: [facility] 09-04-2022 09:46-0500 Respiratory rate 12 /min Irma Villegas MD Work Phone: [facility] 09-04-2022 09:46-0500 SaO2% (BldA) [Mass fraction] 98 % Irma Villegas MD Work Phone: [facility] 09-04-2022 09:46-0500 Systolic blood pressure 122 mm[Hg] Irma Villegas MD Work Phone: [facility] Encounters Encounter Date Encounter Type Care Provider Facility Start: 03-25-2025 End: 03-25-2025 Emergency department patient visit Dr. Carleen Coles MD -Emergency Department Work Phone: Start: 03-22-2025 End: 03-22-2025 Emergency department patient visit Dr. Carleen Coles MD -Emergency Department Work Phone: Start: 03-21-2025 End: 03-21-2025 ambulatory Nell Jones RN NURSE FACILITIES ADMINISTRATOR Comment on above: Information Start: 03-16-2025 End: 03-16-2025 Telephone encounter Irma Villegas MD Work Phone: [facility] [place] Comment on above: Insurance Authorizat ion Start: 02-18-2025 End: 02-18-2025 Periodic preventive med est patient 18-39 yrs Irma Villegas MD Work Phone: [facility] [place] Comment on above: Annual physical exam (Primary Dx); Depression, unspecified depression type; Grief reaction; Excessive sweating; control counseling Start: 02-18-2025 End: 02-18-2025 ambulatory IRMA VILLEGAS Facility:[facility] Start: 02-18-2025 End: 02-18-2025 Patient encounter procedure Irma Villegas MD Work Phone: [facility] Work Phone: Start: 11-17-2024 End: 11-17-2024 ambulatory CHRISTIANNE MURRAY Facility:[facility] Start: 11-17-2024 End: 11-17-2024 Patient encounter procedure Christianne Murray APRN.CNM Work Phone: OB/Gynecology Comment on above: Encounter for gyneco logical examination (general) (routine) with abnormal findings (Primary Dx); Encounter for screening mammogram for breast cancer; Dense breast tissue; Family history of ovarian cancer Start: 11-17-2024 End: 11-17-2024 Patient encounter status Christianne Murray APRN.CNM Work Phone: [facility] Start: 02-27-2024 End: 02-27-2024 Patient encounter [...] End: 11-18-2023 Subsequent hospital visit by physician [facility] Work Phone: Radiology Comment [...] encounter status Christianne Trevor HUYNH Work Phone: [facility] Start: 11-28-2022 End: 11-28-2022 [facility] Irma Villegas MD Work Phone: [facility] [place] Comment on above: Current moderate epi sode of major depressive disorder without prior episode (HCC) (Primary Dx) Start: 11-02-2022 ambulatory Irma Velez Work Phone: [facility] [place] Start: 11-02-2022 Emergency department patient visit Irma Villegas MD Work Phone: [facility] [place] Comment on above: Sorry to cancel! Per juanjo emergency Start: 09-04-2022 ambulatory Anju jean RN NURSE FACILITIES ADMINISTRATOR Comment on above: Fall Start: 09-04-2022 Telephone encounter Irma castañeda MD Work Phone: [facility] [place] Comment on above: Medication Update Start: 09-04-2022 End: 09-04-2022 Subsequent hospital visit by physician Adi [facility] [place] Work Phone: Radiology Comment on [...] Detail Author Start: 09-04-2032 Urine microalbumin profile [facility] Start: 11-12-2028 Screening for malign ant neoplasm of cervix [facility] Start: 11-17-2025 End: 11-17-2025 Patient encounter procedure Mammogram Comment on above: Encounter for gyneco logical examination (general) (routine) with abnormal findings [Z01.411]; Encounter for screening mammogram for breast cancer [Z12.31]; Dense breast tissue [R92.30] Annual Start: 08-27-2025 End: 08-27-2025 Patient encounter procedure 08/27/2025 8:40 AM EST Office Visit [facility] [place] [address] [place] [address] Irma Villegas MD [address] [place] [id number] 6 month f/u [facility] [place] Comment on above: 6 month f/u Start: 05-19-2025 End: 12-17-2025 DBT Breast - bilateral screening [facility] SCREENING [facility] Radiology Routine Encounter for gynecological examination (general) (routine) with abnormal findings Encounter for screening mammogram for breast cancer Dense breast tissue Expected: 05/19/2025 (Approximate), Expires: 12/17/2025 [facility] Work Phone: Comment on above: Expected: 05/19/2025 (Approximate), Expires: 12/17/2025 Start: 04-05-2025 Influenza vaccination Influenza Vacc ine (#1) [facility] Start: 02-26-2025 End: 02-26-2025 Patient encounter procedure 02/26/2025 8:00 AM EDT Office Visit [facility] [place] [address] [facility] [place] [phone] Irma Villegas MD [address] [facility] [place] [id number] annual physical [facility] [place] Comment on above: annual physical Start: 02-18-2025 End: 05-20-2025 CBC W Auto Differential panel - Blood COMPLETE BLOOD COUNT AND DIFFERENTIAL Lab Routine Annual physical exam Expected: 02/18/2025, Expires: 05/20/2025 [facility] Comment on above: Expected: 02/18/2025 , Expires: 05/20/2025 Start: 02-18-2025 End: 05-20-2025 Comprehensive metabolic 2000 panel - Serum or Plasma COMPREHENSIVE METABOLIC PANEL Lab Routine Annual physical exam Expected: 02/18/2025, Expires: 05/20/2025 [facility] Comment on above: Expected: 02/18/2025 , Expires: 05/20/2025 Start: 02-18-2025 End: 05-20-2025 Lipid 1996 panel - Serum or Plasma LIPID PANEL, FASTING Lab Routine Annual physical exam Expected: 02/18/2025, Expires: 05/20/2025 [facility] Work Phone: Comment on above: Expected: 02/18/2025 , Expires: 05/20/2025 Start: 02-18-2025 End: 02-18-2025 Patient encounter procedure 02/18/2025 8:00 AM EDT Office Visit [facility] [place] [address] [facility] [place] [phone] Irma Villegas MD [address] [place] [address] annual physical [facility] [place] Comment on above: annual physical Start: 11-12-2024 End: 11-12-2024 Patient encounter procedure 11/12/2024 3:30 PM EDT Office Visit OB/Gynecology [address] [place] [address] Christianne Murray APRN.CN [address] [place] [address] Annual OB/Gynecology Comment on above: Annual Start: 04-05-2024 Covid-19 Vaccine ( season) Covid-19 Vaccine ( season) [facility] Start: 04-05-2024 Influenza vaccination [facility] Start: 02-28-2024 End: 02-28-2024 ambulatory 02/28/2024 8:30 AM EDT Results Only [place] [facility] Draw Station [address] [place] [address] [facility] Start: 02-27-2024 End: 05-28-2024 CBC W Auto Differential panel - Blood COMPLETE BLOOD COUNT AND DIFFERENTIAL Lab Routine Annual physical exam Expected: 02/27/2024, Expires: 05/28/2024 [facility] Comment on above: Expected: 02/27/2024 , Expires: 05/28/2024 Start: 02-27-2024 End: 05-28-2024 Comprehensive metabolic 2000 panel - Serum or Plasma COMPREHENSIVE METABOLIC PANEL Lab Routine Hyperlipidemia, mixed Expected: 02/27/2024, Expires: 05/28/2024 [facility] Work Phone: Comment on above: Expected: 02/27/2024 , Expires: 05/28/2024 Start: 02-27-2024 End: 05-28-2024 Lipid 1996 panel - Serum or Plasma LIPID PANEL BASIC Lab Routine Hyperlipidemia, mixed Expected: 02/27/2024, Expires: 05/28/2024 [facility] Comment on above: Expected: 02/27/2024 , Expires: 05/28/2024 Start: 02-27-2024 End: 02-27-2024 Patient encounter procedure 02/27/2024 9:00 AM EDT Office Visit [facility] [place] [address] [place] [address] Irma Villegas MD [address] [facility] [place] [phone] [facility] [place] Comment on above: [facility] general health Start: 11-13-2023 End: 02-12-2024 Bacteria identified in Urine by Culture URINE CULTURE Microbiology Routine Urinary frequency Expected: 11/13/2023, Expires: 02/12/2024 [facility] Work Phone: Comment on above: Expected: 11/13/2023 , Expires: 02/12/2024 Start: 11-13-2023 End: 02-12-2024 Cancer Ag 125 [Units/volume] in Serum or Plasma CA 125 Lab Routine Family history of ovarian cancer Early satiety Expected: 11/13/2023, Expires: 02/12/2024 [facility] Work Phone: Comment on above: Expected: 11/13/2023 , Expires: 02/12/2024 Start: 11-13-2023 End: 02-12-2024 Comprehensive metabolic 2000 panel - Serum or Plasma COMPREHENSIVE METABOLIC PANEL Lab Routine Menorrhagia with regular cycle Early satiety Expected: 11/13/2023, Expires: 02/12/2024 [facility] Work Phone: Comment on above: Expected: 11/13/2023 , Expires: 02/12/2024 Start: 11-13-2023 End: 02-12-2024 Prolactin [Mass/volume] in Serum or Plasma PROLACTIN Lab Routine Menorrhagia with regular cycle Early satiety Expected: 11/13/2023, Expires: 02/12/2024 [facility] Work Phone: Comment on above: Expected: 11/13/2023 , Expires: 02/12/2024 Start: 11-13-2023 End: 02-12-2024 Thyrotropin [Units/volume] in Serum or Plasma THYROID STIMULATING HORMONE Lab Routine Menorrhagia with regular cycle Early satiety Expected: 11/13/2023, Expires: 02/12/2024 [facility] Work Phone: Comment on above: Expected: 11/13/2023 , Expires: 02/12/2024 Start: 08-05-2023 Behavioral Health Screening Behavioral Health Screening [facility] Start: 04-05-2023 Covid-19 Vaccine () Covid-19 Vaccine () [facility] Start: 04-05-2023 Influenza vaccination Influenza Vacc ine (#1) [facility] Start: 11-13-2022 HPV TESTING HPV TESTING [facility] Start: 11-13-2022 PAP TESTING PAP TESTING [facility] Start: 11-13-2022 Screening for malign ant neoplasm of cervix [facility] Start: 04-05-2022 Influenza vaccination INFLUENZA (#1) [facility] Start: 09-18-2021 COVID-19 VACCINE (4 - Booster for Moderna series) COVID-19 VACCINE (4 - Booster for Moderna series) [facility] Start: 03-29-2014 Urine microalbumin profile DTAP,TDAP,TD (8 - Tdap) [facility] Start: 2012 HPV Vaccine (1 - 3-d ose SCDM series) HPV Vaccine (1 - 3-dose SCDM series) [facility] Start: 2003 Anxiety Screening Anxiety Screening [facility] Start: 2003 Depression Screening Depression Scre ening [facility] Start: 2003 HEPATITIS C SCREENING HEPATITIS C [facility] Start: 2003 Hepatitis C screening Hepatitis C [facility] Start: 2003 HIV SCREENING HIV SCREENING [facility] Start: 2003 HIV screening HIV Screening [facility] PAP TEST PAP TEST Lab Divina dyer Encounter for gynecological examination (general) (routine) without abnormal findings Screening for cervical cancer Encounter for screening for human papillomavirus (HPV) 11/13/2023 3:58 PM EDT [facility] Work Phone: Patient Education Rabies Immune Globulin (Human) Solution for injection Rabies Vaccine [facility] Work Phone: End: 12-12-2024 US Pelvis transvaginal US FEMALE PELVIS TRANSVAG Radiology Routine Menorrhagia with regular cycle 1 Occurrences starting 11/13/2023 until 12/12/2024 [facility] Work Phone: Comment on above: 1 Occurrences starti ng 11/13/2023 until 12/12/2024 US Pelvis transvaginal US FEMALE PELVIS TRANSVAG Radiology Routine Menorrhagia with regular cycle 11/18/2023 12:00 PM EDT [facility] Work Phone: [facility] Immunizations Immunization Date Immunization Notes Care Provider Fa ysabel 03-25-2025 rabies vaccine, for intramuscular injection Dr. Carleen Coles MD [facility] 03-22-[address] Carleen quiñonez MD [facility] 03-22-2025 rabies vaccine, for intramuscular injection Dr. Carleen Coles MD [facility] 05-26-2024 influenza virus vacc ine, unspecified formulation Irma Villegas MD Work Phone: [facility] 09-04-2022 tetanus toxoid, redu marilynn diphtheria toxoid, and acellular pertussis vaccine, adsorbed Irma Villegas MD Work Phone: [facility] Work Phone: 05-22-2022 influenza virus vacc ine, unspecified formulation Xr Mob Work Phone: [facility] 03-29-2004 diphtheria and tetan us toxoids, adsorbed for pediatric use Anju Medina RN [facility] Work Phone: 02-18-2004 meningococcal polysaccharide vaccine (MPSV4) Anju Medina RN [facility] Work Phone: 08-05-2002 influenza virus vacc ine, unspecified formulation Anju Medina RN [facility] Work Phone: 07-01-2002 influenza virus vacc ine, unspecified formulation Anju Medina RN [facility] Work Phone: 05-30-2001 meningococcal polysaccharide vaccine (MPSV4) Anju Medina RN [facility] Work Phone: 06-25-2000 diphtheria and tetan us toxoids, adsorbed for pediatric use Anju Medina RN [facility] Work Phone: 03-22-1998 hepatitis B vaccine, pediatric or pediatric/adolescent dosage Anju Medina RN [facility] Work Phone: 11-11-1997 hepatitis B vaccine, pediatric or pediatric/adolescent dosage Anju Medina RN [facility] Work Phone: 08-02-1997 hepatitis B vaccine, pediatric or pediatric/adolescent dosage Anju Medina RN [facility] Work Phone: 08-02-1997 measles, mumps and rubella virus vaccine Anju Medina RN [facility] Work Phone: 02-10-1992 diphtheria, tetanus toxoids and pertussis vaccine Anju Medina RN [facility] Work Phone: 02-10-1992 trivalent poliovirus vaccine, live, oral Anju Medina RN [facility] Work Phone: 1990 Chicken Pox (disease) Alba Medina RN [facility] Work Phone: 07-20-1987 haemophilus influenz ae type b vaccine, HbOC conjugate Anju Medina RN [facility] Work Phone: 12-30-1986 diphtheria, tetanus toxoids and pertussis vaccine Anju Medina RN [facility] Work Phone: 12-30-1986 trivalent poliovirus vaccine, live, oral Anju Medina RN [facility] Work Phone: 10-21-1986 measles, mumps and rubella virus vaccine Anju Medina RN [facility] Work Phone: 1985 diphtheria, tetanus toxoids and pertussis vaccine Anju Medina RN [facility] Work Phone: 1985 diphtheria, tetanus toxoids and pertussis vaccine Anju Medina RN [facility] Work Phone: 1985 trivalent poliovirus vaccine, live, oral Anju Medina RN [facility] Work Phone: 1985 diphtheria, tetanus toxoids and pertussis vaccine Anju Medina RN [facility] Work Phone: 1985 trivalent poliovirus vaccine, live, oral Anju Medina RN [facility] Work Phone: Payers Date Payer Category Payer Self-pay 2025 Unknown [id number] 2019 Private Health Insurance [facility] [employer] [id number] 2019 Unknown [id number] 2019 Unknown [id number] Unknown [id number] Social History Date Type Detail Facility Start: 09-04-2022 End: 03-22-2025 Tobacco smoking status NHIS Never smoked tobacco [facility] Work Phone: Start: 09-04-2022 Tobacco use and exposure Smokeless tobacco non-user [facility] Work Phone: Start: 09-04-2022 End: 11-17-2024 Alcohol intake Current drinker of alcohol (finding) [facility] Start: 03-04-2020 End: 11-28-2022 History SDOH Alcohol Frequency 3 [facility] Start: 03-04-2020 End: 11-28-2022 History SDOH Alcohol Std Drinks 1 [facility] Start: 03-04-2020 End: 11-28-2022 History SDOH Social Connections Living 7 [facility] Start: 03-04-2020 End: 05-04-2020 History SDOH Physical Activity DPW 5 [facility] Start: 03-04-2020 End: 11-28-2022 History SDOH Stress 2 [facility] Start: 03-03-2020 Education 17 [facility] Start: 11-13-2017 Alcohol Comment occasionally [facility] Start: 1985 Sex Assigned At Female [facility] Start: 11-01-2022 End: 11-28-2022 History SDOH Social Connections Phone 4 [facility] Start: 11-01-2022 End: 11-28-2022 History SDOH Social Connections [facility] Start: 05-04-2020 End: 11-13-2023 History of Social function [facility] Start: 05-04-2020 End: 11-13-2023 Social connection and isolation panel [facility] Start: 07-06-2012 Frequency of Social Gatherings with Friends and Family Not on file [facility] How often to you hav e a drink containing alcohol? 2-4 times a month [facility] How many standard dr inks containing alcohol do you have on a typical day? 1 or 2 [facility] How often do you hav e 6 or more drinks on 1 occasion? Never [facility] Do you feel stress - tense, restless, nervous, or anxious, or unable to sleep at night because your mind is troubled all the time - these days [OSQ] Only a little [facility] (I/We) worried wheth er (my/our) food would run out before (I/we) got money to buy more. Never true [facility] In the past 12 month s, was there a time when you were not able to pay the mortgage or rent on time? No [facility] Start: 04-11-2021 Gender identity Identifies as female gender (finding) [facility] Do you belong to any clubs or organizations such as mosque groups, unions, fraternal or athletic groups, or school groups? Yes [facility] Are you now , , , , never or living with a partner? Never [facility] How hard is it for y ou to pay for the very basics like food, housing, medical care, and heating Somewhat hard [facility] Do you feel stress - tense, restless, nervous, or anxious, or unable to sleep at night because your mind is troubled all the time - these days [OSQ] To some extent [facility] Start: 10-15-2023 Sexual orientation Heterosexual (finding) [facility] Clinical Notes 09-04-2022 to 03-21-2025 Telephone [...] of which a provider is not aware:Yes. [facility] 03-21-2025 Miscellaneous Notes Patient calling with [...] is not aware:Yes. documented in this encounter [facility] 03-16-2025 Telephone encounter Note Images from the original note were not included. Electronic PA rec'd and completed for fluoxetine HCL 20mg. This was approved. Prior authorization approved Payer: [employer] [phone] Note from payer: CaseId:[id number];Status:Approve d;Review Type:Prior Auth;Coverage Start Date:02/14/2025;Coverage End Date:03/16/2026; [...] to its destination. To be filled at: [address] [id number] [address] [id number] Pharmacy notified. [facility] 03-16-2025 Miscellaneous Notes Images from the original note were not included. Electronic PA rec'd and completed for fluoxetine HCL 20mg. This was approved. Prior authorization approved Payer: [employer] [phone] Note from payer: CaseId:[id number];Status:Approve d;Review Type:Prior Auth;Coverage Start Date:02/14/2025;Coverage End Date:03/16/2026; [...] to its destination. To be filled at: [id number] [place] [address] [address] [phone] [id number] Pharmacy notified. documented in this encounter [facility] 02-18-2025 Instructions Irma Villegas MD - 02/18/2025 8:46 AM EDT We discussed your mental health and feelings of fatigue, anger, and lack of motivation: - We decided to restart you on Fluoxetine (Prozac) at 20 mg daily, as this worked well for you in the past. This prescription has been sent to [facility] for a 90-day supply with 6 [...] and preference to avoid modes that have mcc release of hormones - I recommend scheduling [...] for deodorant use. documented in this encounter [facility] 02-18-2025 Note HNO ID: [id number] Author: IRMA VILLEGAS MD Service: ? Author [...] the semester ends. - Sent prescription to [facility] for a 90-day supply with refills [...] allergy. Prefers non-hormonal (more content not included)... [facility] 02-18-2025 History of Presen t [...] the semester ends. - Sent prescription to [facility] for a 90-day supply with refills [...] excuse any unintended typographical errors. Recording using [employer] software for draft documentation of the visit was discussed with the patient/authorized auto claim representative; all questions welcomed and answered. Patient/authorized auto claim representative agreed to proceed Irma Villegas MD documented in this encounter [facility] 11-17-2024 Note HNO ID: [id number] Author: CHRISTIANNE MURRAY APRN.CNM Service: ? 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 As applicable, any other physician, advance practice provider, medical student, or other health professional student that will be observing or involved in the sensitive examination for educational or training purposes was discussed with the Patient or Authorized Jumpbasting Lining Baster. The Patient or Authorized Jumpbasting Lining Baster has agreed to proceed with the sensitive [...] external genitalia normal, normal Bartholin's glands, urethra, Bensley's glands, no vulvar lesions, no cervical lesions, [...] ICD9: V16.41, ICD (more content not included)... 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 As applicable, any other physician, advance practice provider, medical student, or other health professional student that will be observing or involved in the sensitive examination for educational or training purposes was discussed with the Patient or Authorized Jumpbasting Lining Baster. The Patient or Authorized Jumpbasting Lining Baster has agreed to proceed with the sensitive [...] external genitalia normal, normal Bartholin's glands, urethra, Bensley's glands, no vulvar lesions, no cervical lesions, [...] Christianne Murray APRN.CNM documented in this encounter [facility] 02-27-2024 History of Presen t illness [...] Prostate Cancer Maternal Grandfather bone cancer other (Ymiflbr-Mkgbn-Gnfqu Disease) Maternal Grandfather Hypertension Paternal Grandmother other [...] Irma Villegas MD documented in this encounter [facility] 11-22-2023 Miscellaneous Notes Seen patient for visit today. Christianne Murray APRN.CNM Patient was prescribed Macrobid on 11/17 for UTI. Carly Conte RN documented in this encounter [facility] 11-22-2023 Instructions Christianne Murray APRN.CNM - 11/22/2023 2:22 PM EDT Urinary Tract Infection: [facility] Urinary Tract Plus 30-90 days Weight management: Nutrition Therapy: 8 am to 4 pm: [phone] [facility] Call Center: 24 hours/day, 7 days/week: [phone] I can put a consult for weight management if you desire. documented in this encounter [facility] 11-22-2023 History of Presen t illness Narrative DISTANCE HEALTH VISIT This Team Access Model visit is a virtual encounter. It required patient-provider interaction for the medical decision making as documented below. I have communicated my name and active licensure. The patient's identity and physical location were verified at the time of this visit. 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 documented in this encounter [facility] 11-18-2023 Miscellaneous Notes Order signed. Christianne [...] Christianne Murray APRN.CNM documented in this encounter [facility] 11-18-2023 History of Presen t illness [...] PATIENT PRESENTS WITH AN IMPLANTABLE OR ATTACHED TRACTOR DRILL OPERATOR: No RADIOLOGY DEPARTMENT: Ultrasound PERIPHERAL IV DATA: Not applicable SIGNED BY: Christianne Mooney RDMS RVT November 18, 2023 2:33 PM documented in this encounter [facility] 11-13-2023 History of Presen t illness Narrative Tile Molder offered: Patient declinesJanis Johnson is a 38 [...] L0 SAB0 IAB0 Ectopic0 Multiple0 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 LMP: 10/31/2023 (Approximate), Having periods Age at Menarche: Age at First : Age at 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: 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 History Comments: Sexual Activity: Not Currently; No [...] Prostate Cancer Maternal Grandfather bone cancer other (Poprpki-Erexf-Suhue Disease) Maternal Grandfather Hypertension Paternal Grandmother other [...] external genitalia normal, normal Bartholin's glands, urethra, Bensley's glands, no vulvar lesions, no cervical lesions, [...] Christianne Murray APRN.CNM documented in this encounter [facility] 11-28-2022 History of Presen t illness [...] Prostate Cancer Maternal Grandfather bone cancer other (Bkaacwh-Iczbp-Eyjap Disease) Maternal Grandfather Ovarian cancer Paternal Grandmother [...] Irma Villegas MD documented in this encounter [facility] 09-04-2022 Miscellaneous Notes Lester from [facility] pharmacy calls and wanted provider to know that fluoxetine 10 mg capsules has red dye in it as does 10 mg tablets. Lester switch medication to fluoxetine 20 mg tablet and told patient to take half a tablet daily since 20 mg tablet does not have red dye. Katie Quinteros RN documented in this encounter [facility] 09-04-2022 History of Presen t illness [...] 2022 11:30 AM documented in this encounter [facility] 09-04-2022 History of Presen t illness Narrative Reason for Visit No chief complaint on file. Alex Quinones is a 37 year old female who presents here today for Above Complaints.. Health Maintenance HEPATITIS C SCREENING HIV SCREENING DTAP,TDAP,TD(8 - Tdap) COVID-19 VACCINE(4 - Booster for Moderna series) INFLUENZA(1) DEPRESSION ASSESSMENT PAP TESTING HPV TESTING HPI She was in [facility] recently, when she slipped and fell [...] Prostate Cancer Maternal Grandfather bone cancer other (Rpwioam-Jplct-Wtqmf Disease) Maternal Grandfather Ovarian cancer Paternal Grandmother [...] Irma Villegas MD documented in this encounter [facility] 09-04-2022 Miscellaneous Notes Reason for Call: Neck and Upper Shoulder Discomfort due to recent fall Outcome: Patient was conferenced to [place] in Appointment Center for PCP within 24 [...] a couple days ago Protocols used: Head Hfrprg-XMDJM-RE documented in this encounter [facility] Evaluation note Diagnosis Fall due to slipping on ice or snow, initial encounter- Primary Encounter for immunization Need for other specified prophylactic vaccination against single bacterial disease Laceration of right hand, foreign body presence unspecified, sequela Depression with anxiety Dysthymic disorder [facility] Current moderate episode of major depressive disorder without prior episode (HCC)- Primary [facility] Diagnosis Fall due to slipping on ice or snow, initial encounter [facility] Diagnosis Encounter for gynecological examination [...] menstruation Early satiety [facility] Diagnosis Menorrhagia with regular cycle Excessive or frequent menstruation [facility] Diagnosis Acute cystitis without hematuria- Primary Acute cystitis Family history of ovarian cancer Family history of malignant neoplasm of ovary Intramural leiomyoma of uterus Overweight [facility] Diagnosis Annual physical exam- Primary Routine general medical examination at a health care facility Hyperlipidemia, mixed Mixed hyperlipidemia [facility] Diagnosis Encounter for gynecological examination [...] other contraceptive measures [facility] noteNo assessment information availableWCleveland Clinic Luther[facility] Work Phone: Hospital Discharge instructionsAdditional Instructions You [...] if your symptoms worsen or new symptoms develop.[facility] Work Phone: Reason for referral (narrative)* Diagnostic Procedure Only (Routine) - Closed Specialty Diagnoses / Procedures Referred By Contac t Referred To Contact XR IMAGING Diagnoses Fall due to slipping on ice or snow, initial encounter Procedures XR CERV OTHER 4V AP/LAT/OBL RADEX SPINE CERVICAL 4 OR 5 VIEWS Irma Villegas MD [address] [place] [address] Xr Imaging Referral ID Status Reason Start Date Expiration Date V isits Requested Visits Authorized [id number] Closed Auto-Generate d Referral 09/04/2022 10/04/2023 1 1 * Diagnostic Procedure Only (Routine) - Closed Specialty Diagnoses / Procedures Referred By Contac t Referred To Contact XR IMAGING Diagnoses Fall due to slipping on ice or snow, initial encounter Procedures XR LUMBAR LIMITED 2V AP/LAT RADEX SPINE LUMBOSACRAL 2/3 VIEWS Irma Villegas MD [address] [place] [address] Xr Imaging Referral ID Status Reason Start Date Expiration Date V isits Requested Visits Authorized [id number] Closed Auto-Generate d Referral 09/04/2022 10/04/2023 1 1 [facility] for referral (narrative)* Diagnostic Procedure Only (Routine) - Closed Specialty Diagnoses / Procedures Referred By Contac t Referred To Contact XR IMAGING Diagnoses Fall due to slipping on ice or snow, initial encounter Procedures XR LUMBAR LIMITED 2V AP/LAT RADEX SPINE LUMBOSACRAL 2/3 VIEWS Irma Villegas MD [address] [place] [address] [place] [address] Referral ID Status Reason Start Date Expiration Date V isits Requested Visits Authorized [id number] Closed Auto-Generate d Referral 09/04/2022 10/04/2023 1 1 * Diagnostic Procedure Only (Routine) - Closed Specialty Diagnoses / Procedures Referred By Contac t Referred To Contact XR IMAGING Diagnoses Fall due to slipping on ice or snow, initial encounter Procedures XR CERV OTHER 4V AP/LAT/OBL RADEX SPINE CERVICAL 4 OR 5 VIEWS Irma Villegas MD [address] [place] [address] [place] [address] Referral ID Status Reason Start Date Expiration Date V isits Requested Visits Authorized [id number] Closed Auto-Generate d Referral 09/04/2022 10/04/2023 1 1 [facility] for referral (narrative)* Diagnostic Procedure Only (Routine) - Pending Review Specialty Diagnoses / Procedures Referred By Contac t Referred To Contact US IMAGING Diagnoses Menorrhagia with regular cycle Procedures US FEMALE PELVIS TRANSVAG US TRANSVAGINAL hCristianne Murray APRN.CNM [address] [place] [address] [place] [address] Referral ID Status Reason Start Date Expiration Date Visits Requested Visits Authorized [id number] Pending Review Auto-Generat ed Referral 11/13/2023 12/12/2024 1 1 [facility] for referral (narrative)No reason for referral information availableWCleveland Clinic Lutheran Hospital Work Phone: Reason for visit Narrative* Diagnostic Procedure Only (Routine) - Closed Specialty Diagnoses / Procedures Referred By Contac t Referred To Contact Internal Medicine / INTERNAL MEDICINE Diagnoses Wellness examination PER NOC SEEN WITHIN 24 HOURS Neck Stiffness pt fell Procedures OFFICE/OUTPATIENT ESTABLISHED MOD MDM 30-39 MIN 4C EST Self Irma Villegas MD [address] [place] [address] Referral ID Status Reason Start Date Expiration Date Visits Re quested Visits Authorized [id number] Closed 09/04/2022 12/03/2022 1 1 [facility]* Diagnostic Procedure Only (Routine) - Closed Specialty Diagnoses / Procedures Referred By Contac t Referred To Contact XR IMAGING Diagnoses Fall due to slipping on ice or snow, initial encounter Procedures XR CERV OTHER 4V AP/LAT/OBL RADEX SPINE CERVICAL 4 OR 5 VIEWS Irma Villegas MD [address] [place] [address] [place] [address] Referral ID Status Reason Start Date Expiration Date V isits Requested Visits Authorized [id number] Closed Auto-Generate d Referral 09/04/2022 10/04/2023 1 1 [facility] Reason for Referral Specialty Diagnoses / Procedures Referred By Contac t Referred To Contact Nutrition Diagnoses Overweight Procedures CONSULT TO NUTRITION THERAPY MEDICAL NUTRITION ASSMT&IVNTJ INDIV EACH 15 Christianne Spencer, ROSMERY.CN [address] [place] [address] Referral ID Status Reason Start Date Expiration Date Visits Requested Visits Authorized [id number] Pending Review PCP Requested Referral 11/26/2023 11/21/2024 1 4 Summary Purpose Family History No Family History Records FoundNo Family History Records Found Advance Directives Advance Directive Response Recorded Date/ Time Do you have a Healthcare Power of Beverage Server? No March 22, 2025 10:53am Chief Complaint [...] or prosecute any alcohol or drug abuse patient.[facility] the event this information is protected by the Federal Confidentiality of Alcohol and Drug Abuse Patient Records regulations: The Federal rules restrict any use of the information to criminally investigate or prosecute any alcohol or drug abuse patient.[facility] HospitalIn the event this information is protected by the Federal Confidentiality of Alcohol and Drug Abuse Patient Records regulations: The Federal rules restrict any use of the information to criminally investigate or prosecute any alcohol or drug abuse patient.[facility] HospitalIn the event this information is protected by the Federal Confidentiality of Alcohol and Drug Abuse Patient Records regulations: The Federal rules restrict any use of the information to criminally investigate or prosecute any alcohol or drug abuse patient.[facility] HospitalIn the event this information is protected by the Federal Confidentiality of Alcohol and Drug Abuse Patient Records regulations: The Federal rules restrict any use of the information to criminally investigate or prosecute any alcohol or drug abuse patient.[facility] HospitalIn the event this information is protected by the Federal Confidentiality of Alcohol and Drug Abuse Patient Records regulations: The Federal rules restrict any use of the information to criminally investigate or prosecute any alcohol or drug abuse patient.[facility] HospitalIn the event this information is protected by the Federal Confidentiality of Alcohol and Drug Abuse Patient Records regulations: The Federal rules restrict any use of the information to criminally investigate or prosecute any alcohol or drug abuse patient.[facility] HospitalIn the event this information is protected by the Federal Confidentiality of Alcohol and Drug Abuse Patient Records regulations: The Federal rules restrict any use of the information to criminally investigate or prosecute any alcohol or drug abuse patient.[facility] HospitalIn the event this information is protected by the Federal Confidentiality of Alcohol and Drug Abuse Patient Records regulations: The Federal rules restrict any use of the information to criminally investigate or prosecute any alcohol or drug abuse patient.[facility] HospitalIn the event this information is protected by the Federal Confidentiality of Alcohol and Drug Abuse Patient Records regulations: The Federal rules restrict any use of the information to criminally investigate or prosecute any alcohol or drug abuse patient.[facility] HospitalIn the event this information is protected by the Federal Confidentiality of Alcohol and Drug Abuse Patient Records regulations: The Federal rules restrict any use of the information to criminally investigate or prosecute any alcohol or drug abuse patient.[facility] HospitalIn the event this information is protected by the Federal Confidentiality of Alcohol and Drug Abuse Patient Records regulations: The Federal rules restrict any use of the information to criminally investigate or prosecute any alcohol or drug abuse patient.[facility] HospitalIn the event this information is protected by the Federal Confidentiality of Alcohol and Drug Abuse Patient Records regulations: The Federal rules restrict any use of the information to criminally investigate or prosecute any alcohol or drug abuse patient.[facility] HospitalIn the event this information is protected by the Federal Confidentiality of Alcohol and Drug Abuse Patient Records regulations: The Federal rules restrict any use of the information to criminally investigate or prosecute any alcohol or drug abuse patient.[facility] HospitalIn the event this information is protected by the Federal Confidentiality of Alcohol and Drug Abuse Patient Records regulations: The Federal rules restrict any use of the information to criminally investigate or prosecute any alcohol or drug abuse patient.[facility] HospitalIn the event this information is protected by the Federal Confidentiality of Alcohol and Drug Abuse Patient Records regulations: The Federal rules restrict any use of the information to criminally investigate or prosecute any alcohol or drug abuse patient.[facility] Reason for Visit (unrecogniz ed section [...] Christianne Murray APRN.CN [id number] [place] [address] [place] [address] Referral ID Status Reason Start Date Expiration Date V isits Requested Visits Authorized [id number] Closed Auto-Generate d Referral 11/13/2023 12/12/2024 1 1 Reason Comments Menstrual Problem Reason Comments Physical Bowel habits have ch anged, loose and frequent for over a year. Reason Comments Yearly Exam Annual Physical Reason Comments Insurance Authorization Reason Comments Information Care Teams (unrecognized sec tion and content) Signalman Relationship Specialty Start Date End Date Irma Villegas MD [address] [place] [address] PCP - General Internal Medicine 09/04/22 Signalman Relationship Specialty Start Date End Date Irma Villegas MD [address] [place] [address] PCP - General Internal Medicine 09/04/22 Signalman Relationship Specialty Start Date End Date Irma Villegas MD [address] [place] [address] PCP - General Internal Medicine 09/04/22 Signalman Relationship Specialty Start Date End Date Irma Villegas MD [address] [place] [address] PCP - General Internal Medicine 09/04/22 Signalman Relationship Specialty Start Date End Date Irma Villegas MD [address] [place] [address] PCP - General Internal Medicine 09/04/22 Signalman Relationship Specialty Start Date End Date Irma Vilelgas MD [address] [place] [address] PCP - General Internal Medicine 09/04/22 Signalman Relationship Specialty Start Date End Date Irma Villegas MD [address] [place] [address] PCP - General Internal Medicine 09/04/22 Signalman Relationship Specialty Start Date End Date Irma Villegas MD [address] [place] [address] PCP - General Internal Medicine 09/04/22 Signalman Relationship Specialty Start Date End Date Irma Villegas MD [address] [place] [address] PCP - General Internal Medicine 09/04/22 Signalman Relationship Specialty Start Date End Date Irma Villegas MD [address] [place] [address] PCP - General Internal Medicine 09/04/22 Signalman Relationship Specialty Start Date End Date Irma Villegas MD [address] [place] [address] PCP - General Internal Medicine 09/04/22 Signalman Relationship Specialty Start Date End Date Irma Villegas MD [address] [place] [address] PCP - General Internal Medicine 09/04/22 Sridevi Sol APRN.CNP [address] [place] [address] Assembler Bonding Internal Medicine 07/12/24 Signalman Relationship Specialty Start Date End Date Irma Villegas MD [address] [facility] [place] [address] PCP - General Internal Medicine 09/04/22 Sridevi Sol APRN.[employer]CTION[employer] [address] [facility] [place] [address] Assembler Bonding Internal Medicine 07/12/24 Signalman Relationship Specialty Start Date End Date Irma Villegas MD [address] [place] [address] PCP - General Internal Medicine 09/04/22 Sridevi Sol APRN.[employer] [address] [facility] [place] [place] [address] Assembler Bonding Internal Medicine 07/12/24 Team Status: Active Member [...] section and content) DATE CREATED AUTHOR 03/18/2025 [facility] DATE CREATED AUTHOR AUTHOR'S ORGANIZ ATION 03/23/2025 [facility] Goals (unrecognized section and content) Goals [...] BE BASED ON THE PRIMARY CLINICAL RECORDS. [facility] [employer] [facility]. provides no warranty or guarantee of the accuracy or completeness of information in this document.
== END 2025-03-25 06:36 | disposition home or self-care (01) ==
LOC: ED 07:10
PROVIDERS: PCP Internal Medicine; Referring Provider Student in an Organized Health Care Education/Training Program; Visit Provider Student in an Organized Health Care Education/Training Program
DX: Z23 Encounter for immunization (principal); Z20.3 Contact with and (suspected) exposure to rabies
CPT/HCPCS: 90675; 96372

== ENCOUNTER 2025-03-29 05:37 | Outpatient (CLI) | payer OTHER, SELFPAY ==
[2025-03-29 05:37] VITALS: BP 106/79; PULSE 87; RESP 18; O2SAT 98
[2025-03-29 05:46] VITALS: BP 106/79; PULSE 87; RESP 16; TEMP 36.6; O2SAT 98
--- OUTSIDE RECORDS SUMMARY | 2025-03-29 05:59 | XMS RPT_ITS | CCD ---
Author Organization [facility] Care Team Providers Care Drinking Water Technician Name Role Phone Cari BAUMANN, Irma Primary Care Provider Irma Villegas MD Primary Care Provider Older OPERATIONS OFFICER TRUST DEPARTMENT.TIME ANALYSIS CLERK, Sridevi Unavailable CHRISTIANNE MURRAY Attending Unavailable IRMA VILLEGAS Primary Care Unavailable IRMA VILLEGAS Attending Unavailable IRMA VILLEGAS Primary Care Unavailable Sharyn BAUMANN, Dr. Durant Emergency Provider Unavailab Bayron BAUMANN, Dr. Solis Primary Care Provider Dr. Carleen Coles MD Referring Provider UnavailCarleen Zavala Referring Unavailable Carleen Coles Attending Unavailable Irma Villegas Primary Care Unavailable Carleen Coles Attending Unavailable Irma Villegas Primary Care Unavailable Allergies Allergy Classification Reported Allergen(s) Allergy Type Date of Onset Reaction(s) Facility (17 sources) Cheese; Translations: [CHEESE (SEE VEGETABLE GUM)] Food Intolerance 8 Intolerance [facility] Work Phone: (20 sources) Latex; Translations: [LATEX] Propensity to adverse reactions 200 5 Hives, Swelling [facility] Work Phone: (17 sources) peanut; Translations: [PEANUTS] Propensity to adverse reactions 200 5 Vomiting [facility] Work Phone: (17 sources) Shellfish; Translations: [SHELLFISH CONTAINING PRODUCTS] Drug Intolerance 8 Vomiting [facility] Work Phone: (17 sources) Sulfonamides (Antibiotic); Translations: [SULFA (SULFONAMIDE ANTIBIOTICS)] Propensity to adverse reactions 7 Hives [facility] Work Phone: (19 sources) Wheat gluten extract; Translations: [GLUTEN] Drug Allergy 8 Mental Status Change, Rash, Intolerance [facility] Work Phone: (10 sources) banannas [Other] Propensity to adverse reactions 5 Intolerance [facility] Work Phone: (17 sources) Monosodium Glutamate (Msg); Translations: [MONOSODIUM GLUTAMATE (MSG)] Food Intolerance 8 Intolerance [facility] Work Phone: (17 sources) Red Food Color (Bulk); Translations: [RED FOOD COLOR (BULK)] Drug Intolerance 8 Intolerance [facility] Work Phone: (7 sources) Banana Extract; Translations: [BANANA] Drug Allergy 4 Intolerance [facility] (2 sources) peanut allergenic extract Drug Allergy 5 Anaphylaxis [facility] (3 sources) Shellfish; Translations: [shellfish derived] Allergy to substance 5 Nausea [facility] (1 source) Gluten Drug allergy (disorder) 5 [facility] Repository (1 source) peanut allergenic extract Drug Allergy 5 [facility] Repository Medications Current Medications Medication Drug Class(es) Dates Sig (Normalized) Sig (Original) [id number] 200 actuat albuterol 0.09 mg/actuat metered dose [...] red dye) Take 1 capsule by mo [facility] once daily. Glycopyrrolate, Bulk, 100 % powd [...] Comment on above: Take 1 tablet by [facility] twice daily. nitrofurantoin, macrocrystals 25 mg / nitrofurantoin, monohydrate 75 mg oral capsule (3 sources) Nitrofuran Antibacterial Start: 11-18-2023 End: 11-23-2023 take 1 capsule by mouth twice daily nitrofurantoin monohydrate and macrocrystal (MACROBID) 100 mg capsule Take 1 capsule by mouth two times a day for 5 days. 10 capsule 0 11/18/2023 11/23/2023 Comment on above: Take 1 capsule by [facility] two times a day for 5 days. [...] Chronic Immunizations and screening for infectious disease (7 sources) Patient encounter status; Translations: [Encounter for immunization] Onset: 03-26-2025 Episodic Menstrual disorders (2 sources) Menorrhagia; Translations: [...] Department Summary on 03-22-2025 Emergency Department Summary [facility] Medical Records Department [address] [place] [address] Emergency Department Summary 03/22/25 MR#: [id number] Acct: [id number] Name: ALEX QUINONES Rep #: [id number] : 1985 39 From: Carleen Coles MD [...] bites. No history of tetanus vaccine. PFSH PFS Medical History no medical history Home Medications [...] or wheezing) (more content not included)... Normal [facility] 03-16-2025 [facility] Telephone (INTMWS) ALEX QUINONES I ([id number]) 1985 F Date Time Provider Department 03/16/25 IRMA VILLEGAS INTMWS During your visit today, we recorded the following information about you: Abi Mcnally LPN 03/16/2025 2:43 PM Signed Electronic PA rec'd and completed for fluoxetine HCL 20mg. This was approved. Prior authorization approved Payer: [employer] [phone] Note from payer: CaseId:[id number];Stat us:Approved;Review Type:Prior Auth;Coverage Start Date:02/14/2025;Cover age End [...] its destination. To be filled at: [id number] [place] [address] [address] [facility] [phone] [id number] Pharmacy notified. Allergies As of Date: [...] cancer [Z80.41] 11/13/2023 Encounter Status:Closed by ABI MNCALLY on 03/16/25 [facility] 02-18-2025 CNOV Office Visit (INTMWS ) ALEX QUINONES I ([id number]) 1985 F Date Time Provider Department 02/18/25 [...] the ester ends. - Sent prescription to [facility] for a 90-day supply with refills [...] a topical application to reduce sweating. - Sen (more content not included)... Normal [facility] CNOVon 11-17-2024 CNOV Office Visit (OBGYWM ) ALEX QUINONES I ([id number]) 1985 F Date Time Provider Department 11/17/24 3:30 PM CHRISTIANNE MURRAY During your visit today, we recorded the following information about you: Blood pressure Weight Height Last Period 118 68 kg 1.518 m 10/19/24 Christianne Murray APRN.CN 11/17/2024 4:53 PM Signed Alex is a [...] Living0 SAB0 IAB0 Ectopic0 Multiple0 Live Births0 Mig Welder History LMP: 10/19/2024 (Within Days), Having periods Age at Menarche: 12 Age at First : Age at Menopause: Mig Welder History Comments: Sexual Activity: Not Currently; No [...] Prostate Cancer Maternal Grandfather bone cancer other (Kzdnxrk-Dpwbv-Ejgna Disease) Maternal Grandfather Hypertension Paternal Grandmother other [...] discussed with the Patient or Patient's Authorized Reporting Lead. As applicable, any other physician, advance practice provider, medical student, or other health professional student that will be observing or involved in the sensitive examination for educational or training purposes was discussed with the Patient or Authorized Reporting Lead. The Patient or Authorized Reporting Lead has agreed to proceed with the sensitive [...] external genitalia normal, normal Bartholin's glands, urethra, [place]'s glands, no vulvar lesions, no cervical lesions, [...] ICD10: Z12.31 (more content not included)... Normal [facility] No Panel Informationon 09-04 [facility] Vital Signs Date Time Vital Sign Value Performing Clinician Facility 03-25-2025 06:34-0400 Body temperature 98.7 [degF] Dr. Carleen Coles MD [facility] 03-25-2025 06:34-0400 Diastolic blood pressure 74 mm[Hg] Dr. Carleen Coles MD [facility] 03-25-2025 06:34-0400 Heart rate 77 /min Dr. Carleen Coles MD [facility] 03-25-2025 06:34-0400 Respiratory rate 16 /min Dr. Carleen Coles MD [facility] 03-25-2025 06:34-0400 SaO2% (BldA) [Mass fraction] 97 % Dr. Carleen Coles MD [facility] 03-25-2025 06:34-0400 Systolic blood pressure 111 mm[Hg] Dr. Carleen Coles MD [facility] 03-25-2025 05:38-0400 Body height 149.[address] Carleen Coles MD [facility] 03-25-2025 05:38-0400 Body mass index (BMI) [Ratio] 30.3 kg/m2 Dr. Carleen Coles MD [facility] 03-25-2025 05:38-0400 Body weight 68.[address] Carleen Coles MD [facility] 03-22-2025 12:26-0400 Body temperature 98.5 [degF] Dr. Carleen Coles MD [facility] 03-22-2025 12:26-0400 Diastolic blood pressure 71 mm[Hg] Dr. Carleen Coles MD [facility] 03-22-2025 12:26-0400 Heart rate 87 /min Dr. Carleen Coles MD [facility] 03-22-2025 12:26-0400 Respiratory rate 16 /min Dr. Carleen Coles MD [facility] 03-22-2025 12:26-0400 SaO2% (BldA) [Mass fraction] 99 % Dr. Carleen Coles MD [facility] 03-22-2025 12:26-0400 Systolic blood pressure 119 mm[Hg] Dr. Carleen Coles MD [facility] 03-22-2025 10:30-0400 Body height 149.[address] Carleen Coles MD [facility] 03-22-2025 10:30-0400 Body mass index (BMI) [Ratio] 29.5 kg/m2 Dr. Carleen Coles MD [facility] 03-22-2025 10:30-0400 Body weight 66.[address] Carleen Coles MD [facility] 02-18-2025 08:01-0400 Body mass index (BMI) [Ratio] 28.75 kg/m2 Irma Villegas MD Work Phone: [facility] 02-18-2025 08:01-0400 Body weight 66.22 kg Irma Villegas MD Work Phone: [facility] 02-18-2025 08:01-0400 Diastolic blood pressure 72 mm[Hg] Irma Villegas MD Work Phone: [facility] 02-18-2025 08:01-0400 Heart rate 101 /min Irma Villegas MD Work Phone: [facility] 02-18-2025 08:01-0400 Respiratory rate 16 /min Irma Villegas MD Work Phone: [facility] 02-18-2025 08:01-0400 SaO2% (BldA) [Mass fraction] 98 % Irma Villegas MD Work Phone: [facility] 02-18-2025 08:01-0400 Systolic blood pressure 112 mm[Hg] Irma Villegas MD Work Phone: [facility] 11-17-2024 15:30-0400 Body height 151.8 cm Christianne Murray OPERATIONS OFFICER TRUST DEPARTMENT.CNM Work Phone: [facility] 11-17-2024 15:30-0400 Body mass index (BMI) [Ratio] 29.54 kg/m2 Christianne Murray OPERATIONS OFFICER TRUST DEPARTMENT.CNM Work Phone: [facility] 11-17-2024 15:30-0400 Body weight 68.04 kg Christianne Murray OPERATIONS OFFICER TRUST DEPARTMENT.CNM Work Phone: [facility] 11-17-2024 15:30-0400 Diastolic blood pressure 70 mm[Hg] Christianne Murray OPERATIONS OFFICER TRUST DEPARTMENT.CNM Work Phone: [facility] 11-17-2024 15:30-0400 Systolic blood pressure 118 mm[Hg] Christianne Murray OPERATIONS OFFICER TRUST DEPARTMENT.CNM Work Phone: [facility] 02-27-2024 08:50-0400 Body height 152.4 cm Irma Villegas MD Work Phone: [facility] 02-27-2024 08:50-0400 Body mass index (BMI) [Ratio] 29.35 kg/m2 Irma Villegas MD Work Phone: [facility] 02-27-2024 08:50-0400 Body weight 68.18 kg Irma Villegas MD Work Phone: [facility] 02-27-2024 08:50-0400 Diastolic blood pressure 82 mm[Hg] Irma Villegas MD Work Phone: [facility] 02-27-2024 08:50-0400 Heart rate 95 /min Irma Villegas MD Work Phone: [facility] 02-27-2024 08:50-0400 SaO2% (BldA) [Mass fraction] 97 % Irma Villegas MD Work Phone: [facility] 02-27-2024 08:50-0400 Systolic blood pressure 118 mm[Hg] Irma Villegas MD Work Phone: [facility] 11-13-2023 15:24-0400 Body height 152.4 cm Christianne Murray APRN.CNM Work Phone: [facility] 11-13-2023 15:24-0400 Body weight 68.13 kg Christianne Murray APRN.CNM Work Phone: [facility] 11-13-2023 15:24-0400 Diastolic blood pressure 78 mm[Hg] Christianne Murray OPERATIONS OFFICER TRUST DEPARTMENT.CNM Work Phone: [facility] 11-13-2023 15:24-0400 Systolic blood pressure 120 mm[Hg] Christianne Murray OPERATIONS OFFICER TRUST DEPARTMENT.CNM Work Phone: [facility] 09-04-2022 09:46-0500 Body height 152.4 cm Irma Villegas MD Work Phone: [facility] 09-04-2022 09:46-0500 Body temperature 98.71 [degF] Irma Villegas MD Work Phone: [facility] 09-04-2022 09:46-0500 Body weight 65.32 kg Irma Villegas MD Work Phone: [facility] 09-04-2022 09:46-0500 Diastolic blood pressure 62 mm[Hg] Irma Villegas MD Work Phone: [facility] 09-04-2022 09:46-0500 Heart rate 89 /min Irma Villegas MD Work Phone: [facility] 09-04-2022 09:46-0500 Respiratory rate 12 /min Irma Villegas MD Work Phone: [facility] 09-04-2022 09:46-0500 SaO2% (BldA) [Mass fraction] 98 % Irma Villegas MD Work Phone: [facility] 09-04-2022 09:46-0500 Systolic blood pressure 122 mm[Hg] Irma Villegas MD Work Phone: [facility] Encounters Encounter Date Encounter Type Care Provider Facility Start: 03-25-2025 End: 03-25-2025 Emergency department patient visit Dr. Carleen Coles MD -Emergency Department Work Phone: Start: 03-25-2025 End: 03-25-2025 ambulatory Carleen Coles Facility:[facility] Start: 03-22-2025 End: 03-22-2025 Emergency department patient visit Dr. Carleen Coles MD -Emergency Department Work Phone: Start: 03-21-2025 End: 03-21-2025 ambulatory Nell Jones RN NURSE SHOW HOST Comment on above: Information Start: 03-16-2025 End: 03-16-2025 Telephone encounter Irma Villegas MD Work Phone: [facility] Comment on above: Insurance Authorizat ion Start: 02-18-2025 End: 02-18-2025 Periodic preventive med est patient 18-39 yrs Irma Villegas MD Work Phone: [facility] Comment on above: Annual physical exam (Primary Dx); Depression, unspecified depression type; Grief reaction; Excessive sweating; control counseling Start: 02-18-2025 End: 02-18-2025 ambulatory IRMA VILLEGAS Facility:[facility] Start: 02-18-2025 End: 02-18-2025 Patient encounter procedure Irma Villegas MD Work Phone: [facility] Work Phone: Start: 11-17-2024 End: 11-17-2024 ambulatory CHRISTIANNE MURRAY Facility:[facility] Start: 11-17-2024 End: 11-17-2024 Patient encounter procedure Christianne Murray APRN.CNM Work Phone: OB/Gynecology Comment on above: Encounter for gyneco logical examination (general) (routine) with abnormal findings (Primary Dx); Encounter for screening mammogram for breast cancer; Dense breast tissue; Family history of ovarian cancer Start: 11-17-2024 End: 11-17-2024 Patient encounter status Christianne Murray APRN.CNM Work Phone: [facility] Start: 02-27-2024 End: 02-27-2024 Patient encounter [...] End: 11-22-2023 Telemedicine consultation with patient Christianne Trevor HUYNH Work Phone: OB/Gynecology Start: 11-19-2023 ambulatory Christianne Murray APRN.CNM Work Phone: OB/Gynecology Comment on above: Can t take prescribe d medication Start: 11-18-2023 Telephone encounter Christianne templeton APRN.CNM Work Phone: OB/Gynecology Comment on above: Results Start: 11-18-2023 End: 11-18-2023 Subsequent hospital visit by physician [facility] Work Phone: Radiology Comment [...] End: 11-13-2023 Patient encounter status Christianne Murray APRN.CNM Work Phone: [facility] Start: 11-28-2022 End: 11-28-2022 [facility] Irma Villegas MD Work Phone: [facility] [place] Comment on above: Current moderate epi sode of major depressive disorder without prior episode (HCC) (Primary Dx) Start: 11-02-2022 ambulatory Irma Velez Work Phone: [facility] [place] Start: 11-02-2022 Emergency department patient visit Irma Villegas MD Work Phone: [facility] [place] Comment on above: Sorry to cancel! Per [facility] emergency Start: 09-04-2022 ambulatory Anju jean RN NURSE SHOW HOST Comment on above: Fall Start: 09-04-2022 Telephone encounter Irma castañeda MD Work Phone: [facility] [place] Comment on above: Medication Update Start: 09-04-2022 End: 09-04-2022 Subsequent hospital visit by physician Adi [facility] [place] Work Phone: Radiology Comment on [...] Detail Author Start: 09-04-2032 Urine microalbumin profile [facility] Start: 11-12-2028 Screening for malign ant neoplasm of cervix [facility] Start: 11-17-2025 End: 11-17-2025 Patient encounter procedure Mammogram Comment on above: Encounter for gyneco logical examination (general) (routine) with abnormal findings [Z01.411]; Encounter for screening mammogram for breast cancer [Z12.31]; Dense breast tissue [R92.30] Annual Start: 08-27-2025 End: 08-27-2025 Patient encounter procedure 08/27/2025 8:40 AM EST Office Visit [facility] [place] [address] [place] [address] Irma Villegas MD [address] [place] [id number] 6 month f/u [facility] Comment on above: 6 month f/u Start: 05-19-2025 End: 12-17-2025 DBT Breast - bilateral screening [facility] SCREENING [facility] Radiology Routine Encounter for gynecological examination (general) (routine) with abnormal findings Encounter for screening mammogram for breast cancer Dense breast tissue Expected: 05/19/2025 (Approximate), Expires: 12/17/2025 [facility] Work Phone: Comment on above: Expected: 05/19/2025 (Approximate), Expires: 12/17/2025 Start: 04-05-2025 Influenza vaccination Influenza Vacc ine (#1) [facility] Start: 02-26-2025 End: 02-26-2025 Patient encounter procedure 02/26/2025 8:00 AM EDT Office Visit [facility] [address] [place], [place] [id number] Irma Villegas MD [address] [place] [address] annual physical [facility] Comment on above: annual physical Start: 02-18-2025 End: 05-20-2025 CBC W Auto Differential panel - Blood COMPLETE BLOOD COUNT AND DIFFERENTIAL Lab Routine Annual physical exam Expected: 02/18/2025, Expires: 05/20/2025 [facility] Comment on above: Expected: 02/18/2025 , Expires: 05/20/2025 Start: 02-18-2025 End: 05-20-2025 Comprehensive metabolic 2000 panel - Serum or Plasma COMPREHENSIVE METABOLIC PANEL Lab Routine Annual physical exam Expected: 02/18/2025, Expires: 05/20/2025 [facility] Comment on above: Expected: 02/18/2025 , Expires: 05/20/2025 Start: 02-18-2025 End: 05-20-2025 Lipid 1996 panel - Serum or Plasma LIPID PANEL, FASTING Lab Routine Annual physical exam Expected: 02/18/2025, Expires: 05/20/2025 [facility] Work Phone: Comment on above: Expected: 02/18/2025 , Expires: 05/20/2025 Start: 02-18-2025 End: 02-18-2025 Patient encounter procedure 02/18/2025 8:00 AM EDT Office Visit [facility] [place] [address] [place] [address] Irma Villegas MD [address] [place] [address] annual physical [facility] [place] Comment on above: annual physical Start: 11-12-2024 End: 11-12-2024 Patient encounter procedure 11/12/2024 3:30 PM EDT Office Visit OB/Gynecology [address] [place] [address] Christianne Murray APRN.CN [address] [place] [address] Annual OB/Gynecology Comment on above: Annual Start: 04-05-2024 Covid-19 Vaccine ( season) Covid-19 Vaccine ( season) [facility] Start: 04-05-2024 Influenza vaccination C [facility] Start: 02-28-2024 End: 02-28-2024 ambulatory 02/28/2024 8:30 AM EDT Results Only [place] [address] [place] [address] [facility] Start: 02-27-2024 End: 05-28-2024 CBC W Auto Differential panel - Blood COMPLETE BLOOD COUNT AND DIFFERENTIAL Lab Routine Annual physical exam Expected: 02/27/2024, Expires: 05/28/2024 [facility] Comment on above: Expected: 02/27/2024 , Expires: 05/28/2024 Start: 02-27-2024 End: 05-28-2024 Comprehensive metabolic 2000 panel - Serum or Plasma COMPREHENSIVE METABOLIC PANEL Lab Routine Hyperlipidemia, mixed Expected: 02/27/2024, Expires: 05/28/2024 [facility] Work Phone: Comment on above: Expected: 02/27/2024 , Expires: 05/28/2024 Start: 02-27-2024 End: 05-28-2024 Lipid 1996 panel - Serum or Plasma LIPID PANEL BASIC Lab Routine Hyperlipidemia, mixed Expected: 02/27/2024, Expires: 05/28/2024 [facility] Comment on above: Expected: 02/27/2024 , Expires: 05/28/2024 Start: 02-27-2024 End: 02-27-2024 Patient encounter procedure 02/27/2024 9:00 AM EDT Office Visit [facility] [place] [address] [place] [id number] Irma Villegas MD [address] [place], [place] [phone] [facility] [place] Comment on above: [facility] Start: 11-13-2023 End: 02-12-2024 Bacteria identified in Urine by Culture URINE CULTURE Microbiology Routine Urinary frequency Expected: 11/13/2023, Expires: 02/12/2024 [facility] Work Phone: Comment on above: Expected: 11/13/2023 , Expires: 02/12/2024 Start: 11-13-2023 End: 02-12-2024 Cancer Ag 125 [Units/volume] in Serum or Plasma CA 125 Lab Routine Family history of ovarian cancer Early satiety Expected: 11/13/2023, Expires: 02/12/2024 [facility] Work Phone: Comment on above: Expected: 11/13/2023 , Expires: 02/12/2024 Start: 11-13-2023 End: 02-12-2024 Comprehensive metabolic 2000 panel - Serum or Plasma COMPREHENSIVE METABOLIC PANEL Lab Routine Menorrhagia with regular cycle Early satiety Expected: 11/13/2023, Expires: 02/12/2024 [facility] Work Phone: Comment on above: Expected: 11/13/2023 , Expires: 02/12/2024 Start: 11-13-2023 End: 02-12-2024 Prolactin [Mass/volume] in Serum or Plasma PROLACTIN Lab Routine Menorrhagia with regular cycle Early satiety Expected: 11/13/2023, Expires: 02/12/2024 [facility] Work Phone: Comment on above: Expected: 11/13/2023 , Expires: 02/12/2024 Start: 11-13-2023 End: 02-12-2024 Thyrotropin [Units/volume] in Serum or Plasma THYROID STIMULATING HORMONE Lab Routine Menorrhagia with regular cycle Early satiety Expected: 11/13/2023, Expires: 02/12/2024 [facility] Work Phone: Comment on above: Expected: 11/13/2023 , Expires: 02/12/2024 Start: 08-05-2023 Behavioral Health Screening Behavioral Health Screening [facility] Start: 04-05-2023 Covid-19 Vaccine () Covid-19 Vaccine () [facility] Start: 04-05-2023 Influenza vaccination Influenza Vacc ine (#1) [facility] Start: 11-13-2022 HPV TESTING HPV TESTING [facility] Start: 11-13-2022 PAP TESTING PAP TESTING [facility] Start: 11-13-2022 Screening for malign ant neoplasm of cervix [facility] Start: 04-05-2022 Influenza vaccination INFLUENZA (#1) [facility] Start: 09-18-2021 COVID-19 VACCINE (4 - Booster for Moderna series) COVID-19 VACCINE (4 - Booster for Moderna series) [facility] Start: 03-29-2014 Urine microalbumin profile DTAP,TDAP,TD (8 - Tdap) [facility] Start: 2012 HPV Vaccine (1 - 3-d ose SCDM series) HPV Vaccine (1 - 3-dose SCDM series) [facility] Start: 2003 Anxiety Screening Anxiety Screening [facility] Start: 2003 Depression Screening Depression Scre ening [facility] Start: 2003 HEPATITIS C SCREENING HEPATITIS C [facility] Start: 2003 Hepatitis C screening Hepatitis C [facility] Start: 2003 HIV SCREENING HIV SCREENING [facility] Start: 2003 HIV screening HIV Screening [facility] PAP TEST PAP TEST Lab Rou gomez Encounter for gynecological examination (general) (routine) without abnormal findings Screening for cervical cancer Encounter for screening for human papillomavirus (HPV) 11/13/2023 3:[address] [facility] Work Phone: Patient Education Rabies Immune Globulin (Human) Solution for injection Rabies Vaccine [facility] Work Phone: End: 12-12-2024 US Pelvis transvaginal US FEMALE PELVIS TRANSVAG Radiology Routine Menorrhagia with regular cycle 1 Occurrences starting 11/13/2023 until 12/12/2024 [facility] Work Phone: Comment on above: 1 Occurrences starti ng 11/13/2023 until 12/12/2024 US Pelvis transvaginal US FEMALE PELVIS TRANSVAG Radiology Routine Menorrhagia with regular cycle 11/18/2023 12:[address] [facility] Work Phone: [facility] [facility] Immunization Date Immunization Notes Care Provider Debbie grady 03-25-2025 rabies vaccine, for intramuscular injection Dr. Carleen Coels MD [facility] 03-22-[address] Carleen quiñonez MD [facility] 03-22-2025 rabies vaccine, for intramuscular injection Dr. Carleen Coles MD [facility] 05-26-2024 influenza virus vacc ine, unspecified formulation Irma Villegas MD Work Phone: [facility] 09-04-2022 tetanus toxoid, redu marilynn diphtheria toxoid, and acellular pertussis vaccine, adsorbed Irma Villegas MD Work Phone: [facility] Work Phone: 05-22-2022 influenza virus vacc ine, unspecified formulation [facility] Work Phone: [facility] 03-29-2004 diphtheria and tetan us toxoids, adsorbed for pediatric use Anju Medina RN [facility] Work Phone: 02-18-2004 meningococcal polysaccharide vaccine (MPSV4) Anju Medina RN [facility] Work Phone: 08-05-2002 influenza virus vacc ine, unspecified formulation Anju Medina [facility] Work Phone: 07-01-2002 influenza virus vacc ine, unspecified formulation Anju Medina [facility] Work Phone: 05-30-2001 meningococcal polysaccharide vaccine (MPSV4) Anju Medina RN [facility] Work Phone: 06-25-2000 diphtheria and tetan us toxoids, adsorbed for pediatric use Anju Medina RN [facility] Work Phone: 03-22-1998 hepatitis B vaccine, pediatric or pediatric/adolescent dosage Anju Medina RN [facility] Work Phone: 11-11-1997 hepatitis B vaccine, pediatric or pediatric/adolescent dosage Anju Medina [facility] Work Phone: 08-02-1997 hepatitis B vaccine, pediatric or pediatric/adolescent dosage Anju Medina [facility] Work Phone: 08-02-1997 measles, mumps and rubella virus vaccine Anju Medina [facility] Work Phone: 02-10-1992 diphtheria, tetanus toxoids and pertussis vaccine Anju Medina [facility] Work Phone: 02-10-1992 trivalent poliovirus vaccine, live, oral Anju Medina [facility] Work Phone: 1990 Chicken Pox (disease) Alba Medina [facility] Work Phone: 07-20-1987 haemophilus influenz ae type b vaccine, HbOC conjugate Anju Medina [facility] Work Phone: 12-30-1986 diphtheria, tetanus toxoids and pertussis vaccine Anju Medina [facility] Work Phone: 12-30-1986 trivalent poliovirus vaccine, live, oral Anju Medina [facility] Work Phone: 10-21-1986 measles, mumps and rubella virus vaccine Anju Medina RN [facility] Work Phone: 1985 diphtheria, tetanus toxoids and pertussis vaccine Anju Medina RN [facility] Work Phone: 1985 diphtheria, tetanus toxoids and pertussis vaccine Anju Medina RN [facility] Work Phone: 1985 trivalent poliovirus vaccine, live, oral Anju Medina RN [facility] Work Phone: 1985 diphtheria, tetanus toxoids and pertussis vaccine Anju Medina RN [facility] Work Phone: 1985 trivalent poliovirus vaccine, live, oral Anju Medina RN [facility] Work Phone: Payers Date Payer Category Payer Self-pay 2019 Private Health Insurance [facility] [id number] 2019 Unknown [id number] 2019 Unknown [id number] Unknown [id number] Unknown [id number] Unknown [id number] Social History Date Type Detail Facility Start: 09-04-2022 End: 03-22-2025 Tobacco smoking status ARIS Never smoked tobacco [facility] Work Phone: Start: 09-04-2022 Tobacco use and exposure Smokeless tobacco non-user [facility] Work Phone: Start: 09-04-2022 End: 11-17-2024 Alcohol intake Current drinker of alcohol (finding) [facility] Start: 03-04-2020 End: 11-28-2022 History SDOH Alcohol Frequency 3 [facility] Start: 03-04-2020 End: 11-28-2022 History SDOH Alcohol Std Drinks 1 [facility] Start: 03-04-2020 End: 11-28-2022 History SDOH Social Connections Living 7 [facility] Start: 03-04-2020 End: 05-04-2020 History SDOH Physical Activity DPW 5 [facility] Start: 03-04-2020 End: 11-28-2022 History SDOH Stress 2 [facility] Start: 03-03-2020 Education 17 [facility] Start: 11-13-2017 Alcohol Comment occasionally [facility] Start: 1985 Sex Assigned At Female [facility] Start: 11-01-2022 End: 11-28-2022 History SDOH Social Connections Phone 4 [facility] Start: 11-01-2022 End: 11-28-2022 History SDOH Social Connections [facility] 98 [facility] Start: 05-04-2020 End: 11-13-2023 History of Social function [facility] Start: 05-04-2020 End: 11-13-2023 Social connection and isolation panel [facility] Start: 07-06-2012 Frequency of Social Gatherings with Friends and Family Not on file [facility] How often to you hav e a drink containing alcohol? 2-4 times a month [facility] How many standard dr inks containing alcohol do you have on a typical day? 1 or 2 [facility] How often do you hav e 6 or more drinks on 1 occasion? Never [facility] Do you feel stress - tense, restless, nervous, or anxious, or unable to sleep at night because your mind is troubled all the time - these days [OSQ] Only a little [facility] (I/We) worried whegiselle er (my/our) food would run out before (I/we) got money to buy more. Never true [facility] In the past 12 month s, was there a time when you were not able to pay the mortgage or rent on time? No [facility] Start: 04-11-2021 Gender identity Identifies as female gender (finding) [facility] Do you belong to any clubs or organizations such as anabaptism groups, unions, fraternal or athletic groups, or school groups? Yes [facility] Are you now , , , , never or living with a partner? Never [facility] How hard is it for y ou to pay for the very basics like food, housing, medical care, and heating Somewhat hard [facility] Do you feel stress - tense, restless, nervous, or anxious, or unable to sleep at night because your mind is troubled all the time - these days [OSQ] To some extent [facility] Start: 10-15-2023 Sexual orientation Heterosexual (finding) [facility] Clinical Notes 09-04-2022 to 03-21-2025 Telephone [...] of which a provider is not aware:Yes. [facility] 03-21-2025 Miscellaneous Notes Patient calling with [...] advised patient to contact cats veterinary on [address]. Patient will also contact health department to dispose of bat body.Patient denies any new or worsening symptoms of which a provider is not aware:Yes. documented in this encounter [facility] 03-16-2025 Telephone encounter Note Images from the original note were not included. Electronic PA rec'd and completed for fluoxetine HCL 20mg. This was approved. Prior authorization approved Payer: [employer] HOME DELIVERY [phone] Note from payer: CaseId:[id number];Status:Approve d;Review Type:Prior Auth;Coverage Start Date:02/14/2025;Coverage End Date:03/16/2026; [...] its destination. To be filled at: [facility] [address] [address] [address] [address] Pharmacy notified. [facility] 03-16-2025 Miscellaneous Notes Images from the original note were not included. Electronic PA rec'd and completed for fluoxetine HCL 20mg. This was approved. Prior authorization approved Payer: [employer] HOME [employer]IVERY [phone] Note from payer: CaseId:[id number];Status:Approve d;Review Type:Prior Auth;Coverage Start Date:02/14/2025;Coverage End Date:03/16/2026; [...] to its destination. To be filled at: [facility] [address] [place] [address] [facility] [phone] [id number] Pharmacy notified. documented in this encounter [facility] 02-18-2025 Instructions Irma Villegas MD - 02/18/2025 8:46 AM EDT We discussed your mental health and feelings of fatigue, anger, and lack of motivation: - We decided to restart you on Fluoxetine (Prozac) at 20 mg daily, as this worked well for you in the past. This prescription has been sent to [facility] for a 90-day supply with 6 [...] and preference to avoid modes that have alf release of hormones - I recommend scheduling [...] for deodorant use. documented in this encounter [facility] 02-18-2025 Note HNO ID: [id number] Author: IRMA VILLEGAS MD Service: ? Author [...] the semester ends. - Sent prescription to [facility] for a 90-day supply with refills [...] allergy. Prefers non-hormonal (more content not included)... [facility] 02-18-2025 History of Presen t illness [...] the semester ends. - Sent prescription to [facility] for a 90-day supply with refills [...] excuse any unintended typographical errors. Recording using [employer] software for draft documentation of the visit was discussed with the patient/authorized disability representative; all questions welcomed and answered. Patient/authorized disability representative agreed to proceed Irma Villegas MD documented in this encounter [facility] 11-17-2024 Note HNO ID: [id number] Author: CHRISTIANNE MURRAY APRN.CNM Service: ? Author Type: Inside Sales Specialist Type: Progress Notes Filed: 11/17/2024 16:53 Note [...] Living0 SAB0 IAB0 Ectopic0 Multiple0 Live Births0 Mig Welder History LMP: 10/19/2024 (Within Days), Having periods Age at Menarche: 12 Age at First : Age at Menopause: Mig Welder History Comments: Sexual Activity: Not Currently; No [...] Prostate Cancer Maternal Grandfather bone cancer other (Ckykprh-Cbbyd-Avjxf Disease) Maternal Grandfather Hypertension Paternal Grandmother other [...] discussed with the Patient or Patient's Authorized Reporting Lead. As applicable, any other physician, advance practice provider, medical student, or other health professional student that will be observing or involved in the sensitive examination for educational or training purposes was discussed with the Patient or Authorized Reporting Lead. The Patient or Authorized Reporting Lead has agreed to proceed with the sensitive [...] external genitalia normal, normal Bartholin's glands, urethra, [place]'s glands, no vulvar lesions, no cervical lesions, [...] ICD9: V16.41, ICD (more content not included)... [facility] 11-17-2024 History of Presen t illness [...] Living0 SAB0 IAB0 Ectopic0 Multiple0 Live Births0 Mig Welder History LMP: 10/19/2024 (Within Days), Having periods Age at Menarche: 12 Age at First : Age at Menopause: Mig Welder History Comments: Sexual Activity: Not Currently; No [...] Prostate Cancer Maternal Grandfather bone cancer other (Eyeysqa-Foneq-Rfist Disease) Maternal Grandfather Hypertension Paternal Grandmother other [...] discussed with the Patient or Patient's Authorized Reporting Lead. As applicable, any other physician, advance practice provider, medical student, or other health professional student that will be observing or involved in the sensitive examination for educational or training purposes was discussed with the Patient or Authorized Reporting Lead. The Patient or Authorized Reporting Lead has agreed to proceed with the sensitive [...] external genitalia normal, normal Bartholin's glands, urethra, [place]'s glands, no vulvar lesions, no cervical lesions, [...] Christianne Murray APRN.CNM documented in this encounter [facility] 02-27-2024 History of Presen t illness [...] Prostate Cancer Maternal Grandfather bone cancer other (Rrykvoc-Vjpif-Psdnh Disease) Maternal Grandfather Hypertension Paternal Grandmother other [...] Irma Villegas MD documented in this encounter [facility] 11-22-2023 Miscellaneous Notes Seen patient for visit today. Christianne Murray APRN.CNM Patient was prescribed Macrobid on 11/17 for UTI. Carly Conte RN documented in this encounter [facility] 11-22-2023 Instructions Christianne Murray APRN.CNM - 11/22/2023 2:22 PM EDT Urinary Tract Infection: [facility] Urinary Tract Plus 30-90 days Weight management: Nutrition Therapy: 8 am to 4 pm: [phone] [facility] Call Center: 24 hours/day, 7 days/week: [phone] I can put a consult for weight management if you desire. documented in this encounter [facility] 11-22-2023 History of Presen t illness Narrative DISTANCE HEALTH VISIT This Team Access Model visit is a virtual encounter. It required patient-provider interaction for the medical decision making as documented below. I have communicated my name and active licensure. The patient's identity and physical location were verified at the time of this visit. Either the patient or their legal disability representative has been informed of the risks [...] - ICD9: 278.02, ICD10: E66.3 -Referral to snow removal/plowing Christianne Murray APRN.CNM I spent 30 minutes in the visit, with more than 50% of the total mwxb-ul-ptcz time of the visit in counseling / coordination of care. documented in this encounter [facility] 11-18-2023 Miscellaneous Notes Order signed. Christianne [...] Christianne Murray APRN.CNM documented in this encounter [facility] 11-18-2023 History of Presen t illness [...] PATIENT PRESENTS WITH AN IMPLANTABLE OR ATTACHED KNIFE SETTER ASSEMBLER: No RADIOLOGY DEPARTMENT: Ultrasound PERIPHERAL IV DATA: Not applicable SIGNED BY: Christianne Mooney RDMS RVT November 18, 2023 2:33 PM documented in this encounter [facility] 11-13-2023 History of Presen t illness Narrative [employer] Teacher offered: Patient declines. Alex is a 38 [...] L0 SAB0 IAB0 Ectopic0 Multiple0 Live Births0 Mig Welder History LMP: 10/31/2023 (Approximate), Having periods Age at Menarche: Age at First : Age at Menopause: Mig Welder History Comments: Sexual Activity: Not Currently; No [...] Prostate Cancer Maternal Grandfather bone cancer other (Zpnozlv-Vfhdj-Vdivs Disease) Maternal Grandfather Hypertension Paternal Grandmother other [...] external genitalia normal, normal Bartholin's glands, urethra, [place]'s glands, no vulvar lesions, no cervical lesions, [...] Christianne Murray APRN.CNM documented in this encounter [facility] 11-28-2022 History of Presen t illness [...] Prostate Cancer Maternal Grandfather bone cancer other (Evmwgci-Rstcj-Thrry Disease) Maternal Grandfather Ovarian cancer Paternal Grandmother [...] Irma Villegas MD documented in this encounter [facility] 09-04-2022 Miscellaneous Notes Lester from [facility] calls and wanted provider to know that fluoxetine 10 mg capsules has red dye in it as does 10 mg tablets. Lester switch medication to fluoxetine 20 mg tablet and told patient to take half a tablet daily since 20 mg tablet does not have red dye. Katie Quinteros RN documented in this encounter [facility] 09-04-2022 History of Presen t illness [...] 2022 11:30 AM documented in this encounter [facility] 09-04-2022 History of Presen t illness Narrative Reason for Visit No chief complaint on file. Alex Quinones is a 37 year old female who presents here today for Above Complaints.. Health Maintenance HEPATITIS C SCREENING HIV SCREENING DTAP,TDAP,TD(8 - Tdap) COVID-19 VACCINE(4 - Booster for Moderna series) INFLUENZA(1) DEPRESSION ASSESSMENT PAP TESTING HPV TESTING HPI She was [facility] recently, when she slipped and fell [...] Prostate Cancer Maternal Grandfather bone cancer other (Gwryofo-Nayrx-Eucbo Disease) Maternal Grandfather Ovarian cancer Paternal Grandmother [...] Irma Villegas MD documented in this encounter [facility] 09-04-2022 Miscellaneous Notes Reason for Call: Neck and Upper Shoulder Discomfort due to recent fall Outcome: Patient was conferenced to [facility] in Appointment Center for PCP within 24 [...] a couple days ago Protocols used: Head Dgnghw-VESZD-JU documented in this encounter [facility] Evaluation note Diagnosis Fall due to slipping on ice or snow, initial encounter- Primary Encounter for immunization Need for other specified prophylactic vaccination against single bacterial disease Laceration of right hand, foreign body presence unspecified, sequela Depression with anxiety Dysthymic disorder [facility] Diagnosis Current moderate episode of major depressive disorder without prior episode (HCC)- Primary [facility] Fall due to slipping on ice or snow, initial encounter [facility] Diagnosis Encounter for gynecological examination [...] menstruation Early satiety [facility] Diagnosis Menorrhagia with regular cycle Excessive or frequent menstruation [facility] Diagnosis Acute cystitis without hematuria- Primary Acute cystitis Family history of ovarian cancer Family history of malignant neoplasm of ovary Intramural leiomyoma of uterus Overweight [facility] Diagnosis Annual physical exam- Primary Routine general medical examination at a health care facility Hyperlipidemia, mixed Mixed hyperlipidemia [facility] Diagnosis Encounter for gynecological examination (general) (routine) with abnormal findings- Primary Encounter for screening mammogram for breast cancer Dense breast tissue Family history of ovarian cancer Family history of malignant neoplasm of ovary [facility] Diagnosis Annual physical exam- Primary Routine general medical examination at a health care facility Depression, unspecified depression type Grief reaction Adjustment disorder with depressed mood Excessive sweating Generalized hyperhidrosis control counseling General counseling for initiation of other contraceptive measures [facility] noteNo assessment information availableWooOhio State [facility] Work Phone: Hospital Discharge instructionsAdditional Instructions [...] if your symptoms worsen or new symptoms develop.[facility] Work Phone: Reason for referral (narrative)* Diagnostic Procedure Only (Routine) - Closed Specialty Diagnoses / Procedures Referred By Contac t Referred To Contact XR IMAGING Diagnoses Fall due to slipping on ice or snow, initial encounter Procedures XR CERV OTHER 4V AP/LAT/OBL RADEX SPINE CERVICAL 4 OR 5 VIEWS Irma Villegas MD [address] [place] [address] Xr Imaging Referral ID Status Reason Start Date Expiration Date V isits Requested Visits Authorized [id number] Closed Auto-Generate d Referral 09/04/2022 10/04/2023 1 1 * Diagnostic Procedure Only (Routine) - Closed Specialty Diagnoses / Procedures Referred By Contac t Referred To Contact XR IMAGING Diagnoses Fall due to slipping on ice or snow, initial encounter Procedures XR LUMBAR LIMITED 2V AP/LAT RADEX SPINE LUMBOSACRAL 2/3 VIEWS Irma Villegas MD [address] [place] [address] Xr Imaging Referral ID Status Reason Start Date Expiration Date V isits Requested Visits Authorized [id number] Closed Auto-Generate d Referral 09/04/2022 10/04/2023 1 1 [facility] for referral (narrative)* Diagnostic Procedure Only (Routine) - Closed Specialty Diagnoses / Procedures Referred By Contac t Referred To Contact XR IMAGING Diagnoses Fall due to slipping on ice or snow, initial encounter Procedures XR LUMBAR LIMITED 2V AP/LAT RADEX SPINE LUMBOSACRAL 2/3 VIEWS Irma Villegas MD [address] [place] [address] [place] [address] Referral ID Status Reason Start Date Expiration Date V isits Requested Visits Authorized [id number] Closed Auto-Generate d Referral 09/04/2022 10/04/2023 1 1 * Diagnostic Procedure Only (Routine) - Closed Specialty Diagnoses / Procedures Referred By Contac t Referred To Contact XR IMAGING Diagnoses Fall due to slipping on ice or snow, initial encounter Procedures XR CERV OTHER 4V AP/LAT/OBL RADEX SPINE CERVICAL 4 OR 5 VIEWS Irma Villegas MD [address] [place] [address] [place] [address] Referral ID Status Reason Start Date Expiration Date V isits Requested Visits Authorized [id number] Closed Auto-Generate d Referral 09/04/2022 10/04/2023 1 1 [facility] for referral (narrative)* Diagnostic Procedure Only (Routine) - Pending Review Specialty Diagnoses / Procedures Referred By Contac t Referred To Contact US IMAGING Diagnoses Menorrhagia with regular cycle Procedures US FEMALE PELVIS TRANSVAG US TRANSVAGINAL Christianne Murray APRN.CNM [address] [place] [address] [place] [address] Referral ID Status Reason Start Date Expiration Date Visits Requested Visits Authorized [id number] Pending Review Auto-Generat ed Referral 11/13/2023 12/12/2024 1 1 [facility] for referral (narrative)No reason for referral information availableWGerman Hospital Work Phone: Reason for visit Narrative* Diagnostic Procedure Only (Routine) - Closed Specialty Diagnoses / Procedures Referred By Contac t Referred To Contact Internal Medicine / INTERNAL MEDICINE Diagnoses Wellness examination PER NOC SEEN WITHIN 24 HOURS Neck Stiffness pt fell Procedures OFFICE/OUTPATIENT ESTABLISHED MOD MDM 30-39 MIN 4C EST Self Irma Villegas MD [address] [place] [address] Referral ID Status Reason Start Date Expiration Date Visits Re quested Visits Authorized [id number] Closed 09/04/2022 12/03/2022 1 1 [facility] for visit Narrative* Diagnostic Procedure Only (Routine) - Closed Specialty Diagnoses / Procedures Referred By Tamra t Referred To Contact XR IMAGING Diagnoses Fall due to slipping on ice or snow, initial encounter Procedures XR CERV OTHER 4V AP/LAT/OBL RADEX SPINE CERVICAL 4 OR 5 VIEWS Irma Villegas MD [address] [place] [address] [place] [address] Referral ID Status Reason Start Date Expiration Date V isits Requested Visits Authorized [id number] Closed Auto-Generate d Referral 09/04/2022 10/04/2023 1 1 [facility] Reason for Referral Specialty Diagnoses / Procedures Referred By Tamra t Referred To Contact Nutrition Diagnoses Overweight Procedures CONSULT TO NUTRITION THERAPY MEDICAL NUTRITION ASSMT&IVNTJ INDIV EACH 15 NM Christianne Murray, ROSMERY.CN [address] [place] [address] Referral ID Status Reason Start Date Expiration Date Visits Requested Visits Authorized [id number] Pending Review PCP Requested Referral 11/26/2023 11/21/2024 1 4 Summary Purpose Family History No Family History Records FoundNo Family History Records Found Advance Directives No Advanced Directives Records Found Advance Directive Response Recorded Date/ Time Do you have a Healthcare Power of Engineering Test Mechanic? No March 22, 2025 10:53am Chief [...] or prosecute any alcohol or drug abuse patient.[facility] Hospital[facility] the event this information is protected by the Federal Confidentiality of Alcohol and Drug Abuse Patient Records regulations: The Federal rules restrict any use of the information to criminally investigate or prosecute any alcohol or drug abuse patient.[facility] HospitalIn the event this information is protected by the Federal Confidentiality of Alcohol and Drug Abuse Patient Records regulations: The Federal rules restrict any use of the information to criminally investigate or prosecute any alcohol or drug abuse patient.[facility] HospitalIn the event this information is protected by the Federal Confidentiality of Alcohol and Drug Abuse Patient Records regulations: The Federal rules restrict any use of the information to criminally investigate or prosecute any alcohol or drug abuse patient.[facility] HospitalIn the event this information is protected by the Federal Confidentiality of Alcohol and Drug Abuse Patient Records regulations: The Federal rules restrict any use of the information to criminally investigate or prosecute any alcohol or drug abuse patient.[facility] HospitalIn the event this information is protected by the Federal Confidentiality of Alcohol and Drug Abuse Patient Records regulations: The Federal rules restrict any use of the information to criminally investigate or prosecute any alcohol or drug abuse patient.[facility] HospitalIn the event this information is protected by the Federal Confidentiality of Alcohol and Drug Abuse Patient Records regulations: The Federal rules restrict any use of the information to criminally investigate or prosecute any alcohol or drug abuse patient.[facility] HospitalIn the event this information is protected by the Federal Confidentiality of Alcohol and Drug Abuse Patient Records regulations: The Federal rules restrict any use of the information to criminally investigate or prosecute any alcohol or drug abuse patient.[facility] HospitalIn the event this information is protected by the Federal Confidentiality of Alcohol and Drug Abuse Patient Records regulations: The Federal rules restrict any use of the information to criminally investigate or prosecute any alcohol or drug abuse patient.[facility] HospitalIn the event this information is protected by the Federal Confidentiality of Alcohol and Drug Abuse Patient Records regulations: The Federal rules restrict any use of the information to criminally investigate or prosecute any alcohol or drug abuse patient.[facility] HospitalIn the event this information is protected by the Federal Confidentiality of Alcohol and Drug Abuse Patient Records regulations: The Federal rules restrict any use of the information to criminally investigate or prosecute any alcohol or drug abuse patient.[facility] HospitalIn the event this information is protected by the Federal Confidentiality of Alcohol and Drug Abuse Patient Records regulations: The Federal rules restrict any use of the information to criminally investigate or prosecute any alcohol or drug abuse patient.[facility] HospitalIn the event this information is protected by the Federal Confidentiality of Alcohol and Drug Abuse Patient Records regulations: The Federal rules restrict any use of the information to criminally investigate or prosecute any alcohol or drug abuse patient.[facility] HospitalIn the event this information is protected by the Federal Confidentiality of Alcohol and Drug Abuse Patient Records regulations: The Federal rules restrict any use of the information to criminally investigate or prosecute any alcohol or drug abuse patient.[facility] HospitalIn the event this information is protected by the Federal Confidentiality of Alcohol and Drug Abuse Patient Records regulations: The Federal rules restrict any use of the information to criminally investigate or prosecute any alcohol or drug abuse patient.[facility] HospitalIn the event this information is protected by the Federal Confidentiality of Alcohol and Drug Abuse Patient Records regulations: The Federal rules restrict any use of the information to criminally investigate or prosecute any alcohol or drug abuse patient.[facility] Reason for Visit (unrecogniz ed section and content) Reason Comments Fall Reason Onset Date Comments Medication Update 09/04/2022 Reason Comments Depression Reason Comments Well Woman Reason Comments Results Reason Comments Radiology US Specialty Diagnoses / Procedures Referred By Contac t Referred To Contact US IMAGING Diagnoses Menorrhagia with regular cycle Procedures US FEMALE PELVIS TRANSVAG US TRANSVAGINAL Christianne Murray APRN.CN [address] [place] [address] [id number] Referral ID Status Reason Start Date Expiration Date V isits Requested Visits Authorized [id number] Closed Auto-Generate d Referral 11/13/2023 12/12/2024 1 1 Reason Comments Menstrual Problem Reason Comments Physical Bowel habits have ch anged, loose and frequent for over a year. Reason Comments Yearly Exam Annual Physical Reason Comments Insurance Authorization Reason Comments Information Care Teams (unrecognized sec tion and content) Drinking Water Technician Relationship Specialty Start Date End Date Irma Villegas MD [address], [place] [id number] PCP - General Internal Medicine 09/04/22 Drinking Water Technician Relationship Specialty Start Date End Date Irma Villegas MD [address], [place] [id number] PCP - General Internal Medicine 09/04/22 Drinking Water Technician Relationship Specialty Start Date End Date Irma Villegas MD [address], [place] [address] PCP - General Internal Medicine 09/04/22 Drinking Water Technician Relationship Specialty Start Date End Date Irma Villegas MD [address], [place] [id number] PCP - General Internal Medicine 09/04/22 Drinking Water Technician Relationship Specialty Start Date End Date Irma Villegas MD [address] [place] [address] PCP - General Internal Medicine 09/04/22 Drinking Water Technician Relationship Specialty Start Date End Date Irma Villegas MD [address] [place] [address] PCP - General Internal Medicine 09/04/22 Drinking Water Technician Relationship Specialty Start Date End Date Irma Villegas MD [address] [place] [address] PCP - General Internal Medicine 09/04/22 Drinking Water Technician Relationship Specialty Start Date End Date Irma Villegas MD [address] [place] [address] PCP - General Internal Medicine 09/04/22 Drinking Water Technician Relationship Specialty Start Date End Date Irma Villegas MD [address] [place] [address] PCP - General Internal Medicine 09/04/22 Drinking Water Technician Relationship Specialty Start Date End Date Irma Villegas MD [address] [place] [address] PCP - General Internal Medicine 09/04/22 Drinking Water Technician Relationship Specialty Start Date End Date Irma Villegas MD [address] [place] [address] PCP - General Internal Medicine 09/04/22 Drinking Water Technician Relationship Specialty Start Date End Date Irma Villegas MD [address] [place] [address] PCP - General Internal Medicine 09/04/22 Sridevi Sol APRN.TIME ANALYSIS CLERK [address] [place] [address] [employer] [facility] 07/12/24 Drinking Water Technician Relationship Specialty Start Date End Date Irma Villegas MD [address] [place] [address] PCP - General Internal Medicine 09/04/22 Sridevi Sol APRN.TIME ANALYSIS CLERK [address] [place] [address] [employer] [facility] 07/12/24 Drinking Water Technician Relationship Specialty Start Date End Date Irma Villegas MD [address] [place] [address] PCP - General Internal Medicine 09/04/22 Sridevi Sol APRN.TIME ANALYSIS CLERK [address] [place] [address] [employer] [facility] 07/12/24 Team Status: Active Member [...] section and content) DATE CREATED AUTHOR 03/18/2025 [facility] DATE CREATED AUTHOR AUTHOR'Edin MORALES 03/26/2025 [facility] Goals (unrecognized section and content) [...] BE BASED ON THE PRIMARY CLINICAL RECORDS. [employer] [facility]. provides no warranty or guarantee of the accuracy or completeness of information in this document.
[2025-03-29 06:05] VITALS: BP 119/76; PULSE 83; RESP 16; TEMP 36.6; O2SAT 97
--- OUTSIDE RECORDS SUMMARY | 2025-03-29 06:10 | XMS RPT_ITS | CCD ---
Author Organization [facility] Care Team Providers Care Pipe Cleaner Name Role Phone Cari BAUMANN, Irma Primary Care Provider Irma Villegas MD Primary Care Provider Older SUPERINTENDENT DIVISION.DIRECTOR FINANCIAL SYSTEMS, Sridevi Unavailable CHRISTIANNE MURRAY Attending Unavailable IRMA VILLEGAS Primary Care Unavailable IRMA VILLGEAS Attending Unavailable IRMA VILLEGAS Primary Care Unavailable Sharyn BAUMANN, Dr. Durant Emergency Provider Unavailab Bayron BAUMANN, Dr. Solis Primary Care Provider [phone] Dr. Carleen Coles MD Referring Provider UnavailCarleen Zavala Referring Unavailable Carleen Coles Attending Unavailable Irma Villegas Primary Care Unavailable Carleen Coles Attending Unavailable Irma Villegas Primary Care Unavailable Dr. Carleen Coles MD Attending Provider Unavailab steen Allergies Allergy Classification Reported Allergen(s) Allergy Type Date of Onset Reaction(s) Facility (17 sources) Cheese; Translations: [CHEESE (SEE VEGETABLE GUM)] Food Intolerance 8 Intolerance [facility] Work Phone: (20 sources) Latex; Translations: [LATEX] Propensity to adverse reactions 5 Hives, Swelling [facility] Work Phone: (17 sources) peanut; Translations: [PEANUTS] Propensity to adverse reactions 5 Vomiting [facility] Work Phone: (17 sources) Shellfish; Translations: [SHELLFISH CONTAINING PRODUCTS] Drug Intolerance 8 Vomiting [facility] Work Phone: (17 sources) Sulfonamides (Antibiotic); Translations: [SULFA (SULFONAMIDE ANTIBIOTICS)] Propensity to adverse reactions 7 Hives [facility] Work Phone: (20 sources) Wheat gluten extract; Translations: [GLUTEN] Drug Allergy 8 Mental Status Change, Rash, Intolerance [facility] Work Phone: (10 sources) banannas [Other] Propensity to adverse reactions 5 Intolerance [facility] Work Phone: (17 sources) Monosodium Glutamate (Msg); Translations: [MONOSODIUM GLUTAMATE (MSG)] Food Intolerance 8 Intolerance [facility] Work Phone: (17 sources) Red Food Color (Bulk); Translations: [RED FOOD COLOR (BULK)] Drug Intolerance 8 Intolerance [facility] Work Phone: (7 sources) Banana Extract; Translations: [BANANA] Drug Allergy 4 Intolerance [facility] (3 sources) peanut allergenic extract Drug Allergy 5 Anaphylaxis [facility] (4 sources) Shellfish; Translations: [shellfish derived] Allergy to substance 5 Nausea [facility] (1 source) Gluten Drug allergy (disorder) 5 [facility] Repository (1 source) peanut allergenic extract Drug Allergy 5 [facility] Repository Medications Current Medications Medication Drug Class(es) Dates Sig (Normalized) Sig (Original) [id number] 200 actuat albuterol 0.09 mg/actuat metered dose [...] 12/03/2023 Active FLUoxetine 10 mg oral capsule (14 sources) Serotonin Reuptake Inhibitor Start: take 1 [...] red dye) Take 1 capsule by mo [facility] once daily. Glycopyrrolate, Bulk, 100 % powd [...] on above: Take 1 capsule by mo [facility] two times a day for 5 [...] Chronic Immunizations and screening for infectious disease (8 sources) Patient encounter status; Translations: [Encounter for [...] Department Summary on 03-22-2025 Emergency Department Summary [facility] Medical Records Department [address] [place] [address] Emergency Department Summary 03/22/25 MR#: [id number] Acct: [id number] Name: ALEX QUINONES Rep #: [id number] : 1985 39 From: Carleen Coles MD [...] or wheezing) (more content not included)... Normal [facility] 03-16-2025 [facility] Telephone (INTMWS) ALEX QUINONES I ([id number]) 1985 F Date Time Provider Department 03/16/25 IRMA VILLEGAS INTMWS During your visit today, we recorded the following information about you: Abi Mcnally LPN 03/16/2025 2:43 PM Signed Electronic PA rec'd and completed for fluoxetine HCL 20mg. This was approved. Prior authorization approved Payer: [employer] [phone] Note from payer: CaseId:[id number];Stat us:Approved;Review Type:Prior Auth;Coverage Start Date:02/14/2025;Cover age End [...] to its destination. To be filled at: [id number] [place] [address] [id number] [facility] [phone] [id number] Pharmacy notified. Allergies As of Date: [...] Encounter Status:Closed by ABI MCNALLY on 03/16/25 [facility] CNOVon 02-18-2025 CNOV Office Visit (INTMWS ) ALEX QUINONES I ([id number]) 1985 F Date Time Provider Department 02/18/25 [...] the ester ends. - Sent prescription to [facility] for a 90-day supply with refills [...] - Sen (more content not included)... 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 As applicable, any other physician, advance practice provider, medical student, or other health professional student that will be observing or involved in the sensitive examination for educational or training purposes was discussed with the Patient or Authorized It Support Engineer. The Patient or Authorized It Support Engineer has agreed to proceed with the sensitive [...] external genitalia normal, normal Bartholin's glands, urethra, Gibsland's glands, no vulvar lesions, no cervical lesions, [...] ICD10: Z12.31 (more content not included)... Normal [facility] No Panel Informationon 09-04 [facility] Vital Signs Date Time Vital Sign Value Performing Clinician Facility 03-29-2025 06:05-0400 Body temperature 98 [degF] Dr. Carleen Coles MD [facility] 03-29-2025 06:05-0400 Diastolic blood pressure 76 mm[Hg] Dr. Carleen Coles MD [facility] 03-29-2025 06:05-0400 Heart rate 83 /min Dr. Carleen Coles MD [facility] 03-29-2025 06:05-0400 Respiratory rate 16 /min Dr. Carleen Coles MD [facility] 03-29-2025 06:05-0400 SaO2% (BldA) [Mass fraction] 97 % Dr. Carleen Coles MD [facility] 03-29-2025 06:05-0400 Systolic blood pressure 119 mm[Hg] Dr. Carleen Coles MD [facility] 03-29-2025 05:46-0400 Body height 149.[address] Carleen Coles MD [facility] 03-29-2025 05:46-0400 Body mass index (BMI) [Ratio] 30 kg/m2 Dr. Carleen Coles MD [facility] 03-29-2025 05:46-0400 Body weight 67.[address] Carleen Coles MD [facility] 03-25-2025 06:34-0400 Body temperature 98.7 [degF] Dr. Carleen Coles MD [facility] 03-25-2025 06:34-0400 Diastolic blood pressure 74 mm[Hg] Dr. Carleen Coles MD [facility] 03-25-2025 06:34-0400 Heart rate 77 /min Dr. Carleen Coles MD [facility] 03-25-2025 06:34-0400 Respiratory rate 16 /min Dr. Carleen Coles MD [facility] 03-25-2025 06:34-0400 SaO2% (BldA) [Mass fraction] 97 % Dr. Carleen Coles MD [facility] 03-25-2025 06:34-0400 Systolic blood pressure 111 mm[Hg] Dr. Carleen Coles MD [facility] 03-25-2025 05:38-0400 Body height 149.[address] Carleen Coles MD [facility] 03-25-2025 05:38-0400 Body mass index (BMI) [Ratio] 30.3 kg/m2 Dr. Carleen Coles MD [facility] 03-25-2025 05:38-0400 Body weight 68.[address] Carleen Coles MD [facility] 03-22-2025 12:26-0400 Body temperature 98.5 [degF] Dr. Carleen Coles MD [facility] 03-22-2025 12:26-0400 Diastolic blood pressure 71 mm[Hg] Dr. Carleen Coles MD [facility] 03-22-2025 12:26-0400 Heart rate 87 /min Dr. Carleen Coles MD [facility] 03-22-2025 12:26-0400 Respiratory rate 16 /min Dr. Carleen Coles MD [facility] 03-22-2025 12:26-0400 SaO2% (BldA) [Mass fraction] 99 % Dr. Carleen Coles MD [facility] 03-22-2025 12:26-0400 Systolic blood pressure 119 mm[Hg] Dr. Carleen Coles MD [facility] 03-22-2025 10:30-0400 Body height 149.[address] Carleen Coles MD [facility] 03-22-2025 10:30-0400 Body mass index (BMI) [Ratio] 29.5 kg/m2 Dr. Carleen Coles MD [facility] 03-22-2025 10:30-0400 Body weight 66.[address] Carleen Coles MD [facility] 02-18-2025 08:01-0400 Body mass index (BMI) [Ratio] 28.75 kg/m2 Irma Villegas MD Work Phone: [facility] 02-18-2025 08:01-0400 Body weight 66.22 kg Irma Villegas MD Work Phone: [facility] 02-18-2025 08:01-0400 Diastolic blood pressure 72 mm[Hg] Irma Villegas MD Work Phone: [facility] 02-18-2025 08:01-0400 Heart rate 101 /min Irma Villegas MD Work Phone: [facility] 02-18-2025 08:01-0400 Respiratory rate 16 /min Irma Villegas MD Work Phone: [facility] 02-18-2025 08:01-0400 SaO2% (BldA) [Mass fraction] 98 % Irma Villegas MD Work Phone: [facility] 02-18-2025 08:01-0400 Systolic blood pressure 112 mm[Hg] Irma Vilelgas MD Work Phone: [facility] 11-17-2024 15:30-0400 Body height 151.8 cm Christianne Murray APRN.CNM Work Phone: [facility] 11-17-2024 15:30-0400 Body mass index (BMI) [Ratio] 29.54 kg/m2 Christianne Murray APRN.CNM Work Phone: [facility] 11-17-2024 15:30-0400 Body weight 68.04 kg Christianne Murray APRN.CNBrittney Work Phone: [facility] 11-17-2024 15:30-0400 Diastolic blood pressure 70 mm[Hg] Christianne Murray APRN.CNM Work Phone: [facility] 11-17-2024 15:30-0400 Systolic blood pressure 118 mm[Hg] Christianne Murray SUPERINTENDENT DIVISION.CNM Work Phone: [facility] 02-27-2024 08:50-0400 Body height 152.4 cm Irma Villegas MD Work Phone: [facility] 02-27-2024 08:50-0400 Body mass index (BMI) [Ratio] 29.35 kg/m2 Irma Villegas MD Work Phone: [facility] 02-27-2024 08:50-0400 Body weight 68.18 kg Irma Villegas MD Work Phone: [facility] 02-27-2024 08:50-0400 Diastolic blood pressure 82 mm[Hg] Irma Villegas MD Work Phone: [facility] 02-27-2024 08:50-0400 Heart rate 95 /min Irma Villegas MD Work Phone: [facility] 02-27-2024 08:50-0400 SaO2% (BldA) [Mass fraction] 97 % Irma Villegas MD Work Phone: [facility] 02-27-2024 08:50-0400 Systolic blood pressure 118 mm[Hg] Irma Villegas MD Work Phone: [facility] 11-13-2023 15:24-0400 Body height 152.4 cm Christianne Murray SUPERINTENDENT DIVISION.CNM Work Phone: [facility] 11-13-2023 15:24-0400 Body weight 68.13 kg Christianne Murray SUPERINTENDENT DIVISION.CNM Work Phone: [facility] 11-13-2023 15:24-0400 Diastolic blood pressure 78 mm[Hg] Christianne Murray SUPERINTENDENT DIVISION.CNM Work Phone: [facility] 11-13-2023 15:24-0400 Systolic blood pressure 120 mm[Hg] Christianne Murray SUPERINTENDENT DIVISION.CNM Work Phone: [facility] 09-04-2022 09:46-0500 Body height 152.4 cm Irma Villegas MD Work Phone: [facility] 09-04-2022 09:46-0500 Body temperature 98.71 [degF] Irma Villegas MD Work Phone: [facility] 09-04-2022 09:46-0500 Body weight 65.32 kg Irma Villegas MD Work Phone: [facility] 09-04-2022 09:46-0500 Diastolic blood pressure 62 mm[Hg] Irma Villegas MD Work Phone: [facility] 09-04-2022 09:46-0500 Heart rate 89 /min Irma Villegas MD Work Phone: [facility] 09-04-2022 09:46-0500 Respiratory rate 12 /min Irma Villegas MD Work Phone: [facility] 09-04-2022 09:46-0500 SaO2% (BldA) [Mass fraction] 98 % Irma Villegas MD Work Phone: [facility] 09-04-2022 09:46-0500 Systolic blood pressure 122 mm[Hg] Irma Villegas MD Work Phone: [facility] Encounters Encounter Date Encounter Type Care Provider Facility Start: 03-29-2025 End: 03-29-2025 Emergency department patient visit Dr. Carleen Coles MD -Emergency Department Work Phone: Start: 03-25-2025 End: 03-25-2025 Emergency department patient visit Dr. Carleen Coles MD -Emergency Department Work Phone: Start: 03-25-2025 End: 03-25-[address] Carleen Coles MD -Emergency Department Work Phone: Start: 03-25-2025 End: 03-25-2025 ambulatory Carleen Coles Facility:[facility] Start: 03-22-2025 End: 03-22-2025 Emergency department patient visit Dr. Carleen Coles MD -Emergency Department Work Phone: Start: 03-21-2025 End: 03-21-2025 ambulatory Nell Jones RN NURSE SPOOL SORTER Comment on above: Information Start: 03-16-2025 End: 03-16-2025 Telephone encounter Irma Villegas MD Work Phone: [facility] [place] Comment on above: Insurance Authorizat ion Start: 02-18-2025 End: 02-18-2025 Periodic preventive med est patient 18-39 yrs Irma Villegas MD Work Phone: [facility] [place] Comment on above: Annual physical exam (Primary Dx); Depression, unspecified depression type; Grief reaction; Excessive sweating; control counseling Start: 02-18-2025 End: 02-18-2025 ambulatory IRMA VILLEGAS Facility:[facility] Start: 02-18-2025 End: 02-18-2025 Patient encounter procedure Irma Villegas MD Work Phone: [facility] Work Phone: Start: 11-17-2024 End: 11-17-2024 ambulatory CHRISTIANNE MURRAY Facility:[facility] Start: 11-17-2024 End: 11-17-2024 Patient encounter procedure Christianne Murray APRN.CNM Work Phone: OB/Gynecology Comment on above: Encounter for gyneco logical examination (general) (routine) with abnormal findings (Primary Dx); Encounter for screening mammogram for breast cancer; Dense breast tissue; Family history of ovarian cancer Start: 11-17-2024 End: 11-17-2024 Patient encounter status Christianne Murray APRN.CNM Work Phone: [facility] Start: 02-27-2024 End: 02-27-2024 Patient encounter [...] 11-22-2023 Telemedicine consultation with patient Christianne Murray APRN.UYEN Work Phone: OB/Gynecology Start: 11-19-2023 ambulatory Christianne Murray APRN.DEMIM Work Phone: OB/Gynecology Comment on above: Can t take prescribe d medication Start: 11-18-2023 Telephone encounter Christianne Velásquez jareth BOTELLO.CNM Work Phone: OB/Gynecology Comment on above: Results Start: 11-18-2023 End: 11-18-2023 Subsequent hospital visit by physician [facility] Work Phone: Radiology Comment on above: Menorrhagia with reg ular cycle [N92.0] Start: 11-13-2023 End: 11-13-2023 Patient encounter procedure Christianne Murray APRNTRENTM Work Phone: OB/Gynecology Comment on above: Encounter for gyneco logical examination (general) (routine) without abnormal findings (Primary Dx); Screening for cervical cancer; Encounter for screening for human papillomavirus (HPV); Family history of ovarian cancer; Urinary frequency; Nocturia; Menorrhagia with regular cycle; Early satiety Start: 11-13-2023 End: 11-13-2023 Patient encounter status Christianne Murray APRNTRENTM Work Phone: [facility] Start: 11-28-2022 End: 11-28-2022 [facility] Irma Villegas MD Work Phone: [facility] [place] Comment on above: Current moderate epi sode of major depressive disorder without prior episode (HCC) (Primary Dx) Start: 11-02-2022 ambulatory Irma Velez Work Phone: [facility] [place] Start: 11-02-2022 Emergency department patient visit Irma Villegas MD Work Phone: [facility] [place] Comment on above: Sorry to cancel! Per [facility] emergency Start: 09-04-2022 ambulatory Anju jean RN NURSE SPOOL SORTER Comment on above: Fall Start: 09-04-2022 Telephone encounter Irma castañeda MD Work Phone: [facility] [place] Comment on above: Medication Update Start: 09-04-2022 End: 09-04-2022 Subsequent hospital visit by physician [facility]i [facility] [place] Work Phone: Radiology Comment [...] Detail Author Start: 09-04-2032 Urine microalbumin profile [facility] Start: 11-12-2028 Screening for malign ant neoplasm of cervix [facility] Start: 11-17-2025 End: 11-17-2025 Patient encounter procedure Mammogram Comment on above: Encounter for gyneco logical examination (general) (routine) with abnormal findings [Z01.411]; Encounter for screening mammogram for breast cancer [Z12.31]; Dense breast tissue [R92.30] Annual Start: 08-27-2025 End: 08-27-2025 Patient encounter procedure 08/27/2025 8:40 AM EST Office Visit [facility] [place] [address] [place], [place] [id number] Irma Villegas MD [address] [place] [address] 6 month f/u [facility] [place] Comment on above: 6 month f/u Start: 05-19-2025 End: 12-17-2025 DBT Breast - bilateral screening [facility] SCREENING [facility] Radiology Routine Encounter for gynecological examination (general) (routine) with abnormal findings Encounter for screening mammogram for breast cancer Dense breast tissue Expected: 05/19/2025 (Approximate), Expires: 12/17/2025 [facility] Work Phone: Comment on above: Expected: 05/19/2025 (Approximate), Expires: 12/17/2025 Start: 04-05-2025 Influenza vaccination Influenza Vacc ine (#1) [facility] Start: 02-26-2025 End: 02-26-2025 Patient encounter procedure 02/26/2025 8:00 AM EDT Office Visit [facility] [place] [address] [facility] [place], [place] [id number] Irma Villegas MD [address] [facility] [place] [id number] annual physical [facility] [place] Comment on above: annual physical Start: 02-18-2025 End: 05-20-2025 CBC W Auto Differential panel - Blood COMPLETE BLOOD COUNT AND DIFFERENTIAL Lab Routine Annual physical exam Expected: 02/18/2025, Expires: 05/20/2025 [facility] Comment on above: Expected: 02/18/2025 , Expires: 05/20/2025 Start: 02-18-2025 End: 05-20-2025 Comprehensive metabolic 2000 panel - Serum or Plasma COMPREHENSIVE METABOLIC PANEL Lab Routine Annual physical exam Expected: 02/18/2025, Expires: 05/20/2025 [facility] Comment on above: Expected: 02/18/2025 , Expires: 05/20/2025 Start: 02-18-2025 End: 05-20-2025 Lipid 1996 panel - Serum or Plasma LIPID PANEL, FASTING Lab Routine Annual physical exam Expected: 02/18/2025, Expires: 05/20/2025 [facility] Work Phone: Comment on above: Expected: 02/18/2025 , Expires: 05/20/2025 Start: 02-18-2025 End: 02-18-2025 Patient encounter procedure 02/18/2025 8:00 AM EDT Office Visit [facility] [place] [address] [facility] [place], [place] [id number] Irma Villegas MD [address] [facility] [place], [place] [id number] annual physical [facility] [place] Comment on above: annual physical Start: 11-12-2024 End: 11-12-2024 Patient encounter procedure 11/12/2024 3:30 PM EDT Office Visit OB/Gynecology [address] [place] [address] Christianne Murray APRN.CN [address] [place] [address] Annual OB/Gynecology Comment on above: Annual Start: 04-05-2024 Covid-19 Vaccine ( season) Covid-19 Vaccine () [facility] Start: 04-05-2024 Influenza vaccination [facility] Start: 02-28-2024 End: 02-28-2024 ambulatory 02/28/2024 8:30 AM EDT Results Only [place] [facility] Draw Station [address] [place] [address] [place] [facility] Draw Station Start: 02-27-2024 End: 05-28-2024 CBC W Auto Differential panel - Blood COMPLETE BLOOD COUNT AND DIFFERENTIAL Lab Routine Annual physical exam Expected: 02/27/2024, Expires: 05/28/2024 [facility] Comment on above: Expected: 02/27/2024 , Expires: 05/28/2024 Start: 02-27-2024 End: 05-28-2024 Comprehensive metabolic 2000 panel - Serum or Plasma COMPREHENSIVE METABOLIC PANEL Lab Routine Hyperlipidemia, mixed Expected: 02/27/2024, Expires: 05/28/2024 [facility] Work Phone: Comment on above: Expected: 02/27/2024 , Expires: 05/28/2024 Start: 02-27-2024 End: 05-28-2024 Lipid 1996 panel - Serum or Plasma LIPID PANEL BASIC Lab Routine Hyperlipidemia, mixed Expected: 02/27/2024, Expires: 05/28/2024 [facility] Comment on above: Expected: 02/27/2024 , Expires: 05/28/2024 Start: 02-27-2024 End: 02-27-2024 Patient encounter procedure 02/27/2024 9:00 AM EDT Office Visit [facility] [place] [address] [place] [address] Irma Villegas MD [address] [place] [address] [facility] [place] Comment on above: Just general [facility] Start: 11-13-2023 End: 02-12-2024 Bacteria identified in Urine by Culture URINE CULTURE Microbiology Routine Urinary frequency Expected: 11/13/2023, Expires: 02/12/2024 [facility] Work Phone: Comment on above: Expected: 11/13/2023 , Expires: 02/12/2024 Start: 11-13-2023 End: 02-12-2024 Cancer Ag 125 [Units/volume] in Serum or Plasma CA 125 Lab Routine Family history of ovarian cancer Early satiety Expected: 11/13/2023, Expires: 02/12/2024 [facility] Work Phone: Comment on above: Expected: 11/13/2023 , Expires: 02/12/2024 Start: 11-13-2023 End: 02-12-2024 Comprehensive metabolic 2000 panel - Serum or Plasma COMPREHENSIVE METABOLIC PANEL Lab Routine Menorrhagia with regular cycle Early satiety Expected: 11/13/2023, Expires: 02/12/2024 [facility] Work Phone: Comment on above: Expected: 11/13/2023 , Expires: 02/12/2024 Start: 11-13-2023 End: 02-12-2024 Prolactin [Mass/volume] in Serum or Plasma PROLACTIN Lab Routine Menorrhagia with regular cycle Early satiety Expected: 11/13/2023, Expires: 02/12/2024 [facility] Work Phone: Comment on above: Expected: 11/13/2023 , Expires: 02/12/2024 Start: 11-13-2023 End: 02-12-2024 Thyrotropin [Units/volume] in Serum or Plasma THYROID STIMULATING HORMONE Lab Routine Menorrhagia with regular cycle Early satiety Expected: 11/13/2023, Expires: 02/12/2024 [facility] Work Phone: Comment on above: Expected: 11/13/2023 , Expires: 02/12/2024 Start: 08-05-2023 Behavioral Health Screening Behavioral Health Screening [facility] Start: 04-05-2023 Covid-19 Vaccine ( season) Covid-19 Vaccine ( season) [facility] Start: 04-05-2023 Influenza vaccination Influenza Vacc ine (#1) [facility] Start: 11-13-2022 HPV TESTING HPV TESTING [facility] Start: 11-13-2022 PAP TESTING PAP TESTING [facility] Start: 11-13-2022 Screening for malign ant neoplasm of cervix [facility] Start: 04-05-2022 Influenza vaccination INFLUENZA (#1) [facility] Start: 09-18-2021 COVID-19 VACCINE (4 - Booster for Moderna series) COVID-19 VACCINE (4 - Booster for Moderna series) [facility] Start: 03-29-2014 Urine microalbumin profile DTAP,TDAP,TD (8 - Tdap) [facility] Start: 2012 HPV Vaccine (1 - 3-d ose SCDM series) HPV Vaccine (1 - 3-dose SCDM series) [facility] Start: 2003 Anxiety Screening Anxiety Screening [facility] Start: 2003 Depression Screening Depression Scre [facility] Start: 2003 HEPATITIS C SCREENING HEPATITIS C [facility] Start: 2003 Hepatitis C screening Hepatitis C [facility] Start: 2003 HIV SCREENING HIV SCREENING [facility] Start: 2003 HIV screening HIV Screening [facility] PAP TEST PAP TEST Lab Divina dyer Encounter for gynecological examination (general) (routine) without abnormal findings Screening for cervical cancer Encounter for screening for human papillomavirus (HPV) 11/13/2023 3:58 PM EDT [facility] Work Phone: Patient Education Rabies Immune Globulin (Human) Solution for injection Rabies Vaccine [facility] Work Phone: End: 12-12-2024 US Pelvis transvaginal US FEMALE PELVIS TRANSVAG Radiology Routine Menorrhagia with regular cycle 1 Occurrences starting 11/13/2023 until 12/12/2024 [facility] Work Phone: Comment on above: 1 Occurrences starti ng 11/13/2023 until 12/12/2024 US Pelvis transvaginal US FEMALE PELVIS TRANSVAG Radiology Routine Menorrhagia with regular cycle 11/18/2023 12:00 PM EDT [facility] Work Phone: [facility] Immunizations Immunization Date Immunization Notes Care Provider Fa ryder 03-29-2025 rabies vaccine, for intramuscular injection Dr. Carleen Coles MD [facility] 03-25-2025 rabies vaccine, for intramuscular injection Dr. Carleen Coles MD [facility] 03-22-[address] Carleen quiñonez MD [facility] 03-22-2025 rabies vaccine, for intramuscular injection Dr. Carleen Coles MD [facility] 05-26-2024 influenza virus vacc ine, unspecified formulation Irma Villegas MD Work Phone: [facility] 09-04-2022 tetanus toxoid, redu marilynn diphtheria toxoid, and acellular pertussis vaccine, adsorbed Irma Villegas MD Work Phone: [facility] Work Phone: 05-22-2022 influenza virus vacc ine, unspecified formulation [facility] Work Phone: [facility] 03-29-2004 diphtheria and tetan us toxoids, adsorbed for pediatric use nAju Medina RN [facility] Work Phone: 02-18-2004 meningococcal polysaccharide vaccine (MPSV4) Anju Medina RN [facility] Work Phone: 08-05-2002 influenza virus vacc ine, unspecified formulation Anju Medina RN [facility] Work Phone: 07-01-2002 influenza virus vacc ine, unspecified formulation Anju Medina RN [facility] Work Phone: 05-30-2001 meningococcal polysaccharide vaccine (MPSV4) Anju Medina RN [facility] Work Phone: 06-25-2000 diphtheria and tetan us toxoids, adsorbed for pediatric use Anju Medina RN [facility] Work Phone: 03-22-1998 hepatitis B vaccine, pediatric or pediatric/adolescent dosage Anju Medina RN [facility] Work Phone: 11-11-1997 hepatitis B vaccine, pediatric or pediatric/adolescent dosage Anju Medina RN [facility] Work Phone: 08-02-1997 hepatitis B vaccine, pediatric or pediatric/adolescent dosage Anju Medina RN [facility] Work Phone: 08-02-1997 measles, mumps and rubella virus vaccine Anju Medina RN [facility] Work Phone: 02-10-1992 diphtheria, tetanus toxoids and pertussis vaccine Anju Medina [facility] Work Phone: 02-10-1992 trivalent poliovirus vaccine, live, oral Anju Medina [facility] Work Phone: 1990 Chicken Pox (disease) [facility] Work Phone: 07-20-1987 haemophilus influenz ae type b vaccine, HbOC conjugate Anju Medina [facility] Work Phone: 12-30-1986 diphtheria, tetanus toxoids and pertussis vaccine Anju Medina [facility] Work Phone: 12-30-1986 trivalent poliovirus vaccine, live, oral Anju Medina RN [facility] Work Phone: 10-21-1986 measles, mumps and rubella virus vaccine Anju Medina [facility] Work Phone: 1985 diphtheria, tetanus toxoids and pertussis vaccine Anju Medina RN [facility] Work Phone: 1985 diphtheria, tetanus toxoids and pertussis vaccine Anju Medina RN [facility] Work Phone: 1985 trivalent poliovirus vaccine, live, oral Anju Medina [facility] Work Phone: 1985 diphtheria, tetanus toxoids and pertussis vaccine Anju Medina RN [facility] Work Phone: 1985 trivalent poliovirus vaccine, live, oral Anju Medina RN [facility] Work Phone: Payers Date Payer Category Payer Self-pay 2019 Private Health Insurance [facility] PL[facility] GENERIC [id number] 2019 Unknown [id number] 2019 Unknown [id number] Unknown [id number] Unknown [id number] Unknown [id number] Social History Date Type Detail Facility Start: 09-04-2022 End: 03-22-2025 Tobacco smoking status OKIS Never smoked tobacco [facility] Work Phone: Start: 09-04-2022 Tobacco use and exposure Smokeless tobacco non-user [facility] Work Phone: Start: 09-04-2022 End: 11-17-2024 Alcohol intake Current drinker of alcohol (finding) [facility] Start: 03-04-2020 End: 11-28-2022 History SDOH Alcohol Frequency 3 [facility] Start: 03-04-2020 End: 11-28-2022 History SDOH Alcohol Std Drinks 1 [facility] Start: 03-04-2020 End: 11-28-2022 History SDOH Social Connections Living 7 [facility] Start: 03-04-2020 End: 05-04-2020 History SDOH Physical Activity DPW 5 [facility] Start: 03-04-2020 End: 11-28-2022 History SDOH Stress 2 [facility] Start: 03-03-2020 Education 17 [facility] Start: 11-13-2017 Alcohol Comment occasionally [facility] Start: 1985 Sex Assigned At Female [facility] Start: 11-01-2022 End: 11-28-2022 History SDOH Social Connections Phone 4 [facility] Start: 11-01-2022 End: 11-28-2022 History SDOH Social Connections [employer] [facility] Start: 05-04-2020 End: 11-13-2023 History of Social function [facility] Start: 05-04-2020 End: 11-13-2023 Social connection and isolation panel [facility] Start: 07-06-2012 Frequency of Social Gatherings with Friends and Family Not on file [facility] How often to you hav e a drink containing alcohol? 2-4 times a month [facility] How many standard dr inks containing alcohol do you have on a typical day? 1 or 2 [facility] How often do you hav e 6 or more drinks on 1 occasion? Never [facility] Do you feel stress - tense, restless, nervous, or anxious, or unable to sleep at night because your mind is troubled all the time - these days [OSQ] Only a little [facility] (I/We) worried whegiselle er (my/our) food would run out before (I/we) got money to buy more. Never true [facility] In the past 12 month s, was there a time when you were not able to pay the mortgage or rent on time? No [facility] Start: 04-11-2021 Gender identity Identifies as female gender (finding) [facility] Do you belong to any clubs or organizations such as advent groups, unions, fraternal or athletic groups, or school groups? Yes [facility] Are you now , , , , never or living with a partner? Never [facility] How hard is it for y ou to pay for the very basics like food, housing, medical care, and heating Somewhat hard [facility] Do you feel stress - tense, restless, nervous, or anxious, or unable to sleep at night because your mind is troubled all the time - these days [OSQ] To some extent [facility] Start: 10-15-2023 Sexual orientation Heterosexual (finding) [facility] Clinical Notes 09-04-2022 to 03-21-2025 Telephone [...] of which a provider is not aware:Yes. [facility] 03-21-2025 Miscellaneous Notes Patient calling with [...] is not aware:Yes. documented in this encounter [facility] 03-16-2025 Telephone encounter Note Images from the original note were not included. Electronic PA rec'd and completed for fluoxetine HCL 20mg. This was approved. Prior authorization approved Payer: [employer] [phone] Note from payer: CaseId:[id number];Status:Approve d;Review Type:Prior Auth;Coverage Start Date:02/14/2025;Coverage End Date:03/16/2026; [...] to its destination. To be filled at: [facility] [place], [place] [id number] - [address] [id number] Pharmacy notified. [facility] 03-16-2025 Miscellaneous Notes Images from the original note were not included. Electronic PA rec'd and completed for fluoxetine HCL 20mg. This was approved. Prior authorization approved Payer: [employer] [phone] Note from payer: CaseId:[id number];Status:Approve d;Review Type:Prior Auth;Coverage Start Date:02/14/2025;Coverage End Date:03/16/2026; [...] to its destination. To be filled at: [facility] [place], [place] [address] - [address] [facility] [phone] [id number] Pharmacy notified. documented in this encounter [facility] 02-18-2025 Instructions Irma Villegas MD - 02/18/2025 8:46 AM EDT We discussed your mental health and feelings of fatigue, anger, and lack of motivation: - We decided to restart you on Fluoxetine (Prozac) at 20 mg daily, as this worked well for you in the past. This prescription has been sent to [facility] for a 90-day supply with 6 [...] and preference to avoid modes that have buttermaker release of hormones - I recommend scheduling [...] for deodorant use. documented in this encounter [facility] 02-18-2025 Note HNO ID: [id number] Author: IRMA VILLEGAS MD Service: ? Author [...] the semester ends. - Sent prescription to [facility] for a 90-day supply with refills [...] allergy. Prefers non-hormonal (more content not included)... [facility] 02-18-2025 History of Presen t illness [...] the semester ends. - Sent prescription to [facility] for a 90-day supply with refills [...] excuse any unintended typographical errors. Recording using Bu[employer] software for draft documentation of the visit was discussed with the patient/authorized sales representatives; all questions welcomed and answered. Patient/authorized sales representatives agreed to proceed Irma Villegas MD documented in this encounter [facility] 11-17-2024 Note HNO ID: [id number] Author: CHRISTIANNE MURRAY APRN.CNM Service: ? 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 As applicable, any other physician, advance practice provider, medical student, or other health professional student that will be observing or involved in the sensitive examination for educational or training purposes was discussed with the Patient or Authorized It Support Engineer. The Patient or Authorized It Support Engineer has agreed to proceed with the sensitive [...] external genitalia normal, normal Bartholin's glands, urethra, Gibsland's glands, no vulvar lesions, no cervical lesions, [...] ICD9: V16.41, ICD (more content not included)... 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 As applicable, any other physician, advance practice provider, medical student, or other health professional student that will be observing or involved in the sensitive examination for educational or training purposes was discussed with the Patient or Authorized It Support Engineer. The Patient or Authorized It Support Engineer has agreed to proceed with the sensitive [...] external genitalia normal, normal Bartholin's glands, urethra, Gibsland's glands, no vulvar lesions, no cervical lesions, [...] Christianne Murray APRN.CNM documented in this encounter [facility] 02-27-2024 History of Presen t illness [...] Prostate Cancer Maternal Grandfather bone cancer other (Oxhwqdp-Lkdqc-Ogbnx Disease) Maternal Grandfather Hypertension Paternal Grandmother other [...] Irma Villegas MD documented in this encounter [facility] 11-22-2023 Miscellaneous Notes Seen patient for visit today. Christianne Murray APRN.CNM Patient was prescribed Macrobid on 11/17 for UTI. Carly Conte RN documented in this encounter [facility] 11-22-2023 Instructions Christianne Murray APRN.CNM - 11/22/2023 2:22 PM EDT Urinary Tract Infection: [facility] Urinary Tract Plus 30-90 days Weight management: Nutrition Therapy: 8 am to 4 pm: [phone] [facility] Call Center: 24 hours/day, 7 days/week: [phone] I can put a consult for weight management if you desire. documented in this encounter [facility] 11-22-2023 History of Presen t illness Narrative DISTANCE HEALTH VISIT This Team Access Model visit is a virtual encounter. It required patient-provider interaction for the medical decision making as documented below. I have communicated my name and active licensure. The patient's identity and physical location were verified at the time of this visit. Either the patient or their legal sales representatives has been informed of the risks and [...] - ICD9: 278.02, ICD10: E66.3 -Referral to educational director Christianne Murray APRN.CNM I spent 30 minutes in the visit, with more than 50% of the total ysqh-sx-pdif time of the visit in counseling / coordination of care. documented in this encounter [facility] 11-18-2023 Miscellaneous Notes Order signed. 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 LMP: 10/31/2023 (Approximate), Having periods Age at Menarche: Age at First : Age at Menopause: Hatchery Manager History Comments: Sexual Activity: Not Currently; No [...] Prostate Cancer Maternal Grandfather bone cancer other (Ouhhres-Ahbha-Ztqtq Disease) Maternal Grandfather Hypertension Paternal Grandmother other [...] external genitalia normal, normal Bartholin's glands, urethra, Gibsland's glands, no vulvar lesions, no cervical lesions, [...] Christianne Murray APRN.CNM documented in this encounter [facility] 11-28-2022 History of Presen t illness Narrative Chief Complaint Patient presents with: Depression HEBERT Alex Quinones is a 37 year old [...] Prostate Cancer Maternal Grandfather bone cancer other (Sflshkq-Vhkne-Qmqdp Disease) Maternal Grandfather Ovarian cancer Paternal Grandmother [...] Irma Villegas MD documented in this encounter [facility] 09-04-2022 Miscellaneous Notes [facility] and wanted provider to know that fluoxetine 10 mg capsules has red dye in it as does 10 mg tablets. Lester switch medication to fluoxetine 20 mg tablet and told patient to take half a tablet daily since 20 mg tablet does not have red dye. Katie Quinteros RN documented in this encounter [facility] 09-04-2022 History of Presen t illness [...] 2022 11:30 AM documented in this encounter [facility] 09-04-2022 History of Presen t illness Narrative Reason for Visit No chief complaint on file. Alex Quinones is a 37 year old female who presents here today for Above Complaints.. Health Maintenance HEPATITIS C SCREENING HIV SCREENING DTAP,TDAP,TD(8 - Tdap) COVID-19 VACCINE(4 - Booster for Moderna series) INFLUENZA(1) DEPRESSION ASSESSMENT PAP TESTING HPV TESTING HPI She was in [facility] recently, when she slipped and [...] Prostate Cancer Maternal Grandfather bone cancer other (Hgjgyvc-Ubnzi-Niezo Disease) Maternal Grandfather Ovarian cancer Paternal Grandmother [...] Irma Villegas MD documented in this encounter [facility] 09-04-2022 Miscellaneous Notes Reason for Call: Neck and Upper Shoulder Discomfort due to recent fall Outcome: Patient was conferenced to [place] in Appointment Center for PCP within 24 [...] a couple days ago Protocols used: Head Pzvnap-YPMLM-OB documented in this encounter [facility] Evaluation note Diagnosis Fall due to slipping on ice or snow, initial encounter- Primary Encounter for immunization Need for other specified prophylactic vaccination against single bacterial disease Laceration of right hand, foreign body presence unspecified, sequela Depression with anxiety Dysthymic disorder [facility] Diagnosis Current moderate episode of major depressive disorder without prior episode (HCC)- Primary [facility] Diagnosis Fall due to slipping on ice or snow, initial encounter [facility] Diagnosis Encounter for gynecological examination [...] menstruation Early satiety [facility] Diagnosis Menorrhagia with regular cycle Excessive or frequent menstruation [facility] Diagnosis Acute cystitis without hematuria- Primary Acute cystitis Family history of ovarian cancer Family history of malignant neoplasm of ovary Intramural leiomyoma of uterus Overweight [facility] Diagnosis Annual physical exam- Primary Routine general medical examination at a health care facility Hyperlipidemia, mixed Mixed hyperlipidemia [facility] Diagnosis Encounter for gynecological examination (general) (routine) with abnormal findings- Primary Encounter for screening mammogram for breast cancer Dense breast tissue Family history of ovarian cancer Family history of malignant neoplasm of ovary [facility] Diagnosis Annual physical exam- Primary Routine general medical examination at a health care facility Depression, unspecified depression type Grief reaction Adjustment disorder with depressed mood Excessive sweating Generalized hyperhidrosis control counseling General counseling for initiation of other contraceptive measures [facility] noteNo assessment information availableWChildren's Hospital of [facility] Work Phone: Hospital Discharge instructionsAdditional Instructions You [...] if your symptoms worsen or new symptoms develop.[facility] Work Phone: Reason for referral (narrative)* Diagnostic Procedure Only (Routine) - Closed Specialty Diagnoses / Procedures Referred By Contac t Referred To Contact XR IMAGING Diagnoses Fall due to slipping on ice or snow, initial encounter Procedures XR CERV OTHER 4V AP/LAT/OBL RADEX SPINE CERVICAL 4 OR 5 VIEWS Irma Villegas MD [address] [place] [address] Xr Imaging Referral ID Status Reason Start Date Expiration Date V isits Requested Visits Authorized [id number] Closed Auto-Generate d Referral 09/04/2022 10/04/2023 1 1 * Diagnostic Procedure Only (Routine) - Closed Specialty Diagnoses / Procedures Referred By Contac t Referred To Contact XR IMAGING Diagnoses Fall due to slipping on ice or snow, initial encounter Procedures XR LUMBAR LIMITED 2V AP/LAT RADEX SPINE LUMBOSACRAL 2/3 VIEWS Irma Villegas MD [address] [place] [address] Xr Imaging Referral ID Status Reason Start Date Expiration Date V isits Requested Visits Authorized [id number] Closed Auto-Generate d Referral 09/04/2022 10/04/2023 1 1 [facility] for referral (narrative)* Diagnostic Procedure Only (Routine) - Closed Specialty Diagnoses / Procedures Referred By Contac t Referred To Contact XR IMAGING Diagnoses Fall due to slipping on ice or snow, initial encounter Procedures XR LUMBAR LIMITED 2V AP/LAT RADEX SPINE LUMBOSACRAL 2/3 VIEWS Irma Villegas MD [address] [place] [address] [place] [address] Referral ID Status Reason Start Date Expiration Date V isits Requested Visits Authorized [id number] Closed Auto-Generate d Referral 09/04/2022 10/04/2023 1 1 * Diagnostic Procedure Only (Routine) - Closed Specialty Diagnoses / Procedures Referred By Contac t Referred To Contact XR IMAGING Diagnoses Fall due to slipping on ice or snow, initial encounter Procedures XR CERV OTHER 4V AP/LAT/OBL RADEX SPINE CERVICAL 4 OR 5 VIEWS Irma Villegas MD [address] [place] [address] [place] [address] Referral ID Status Reason Start Date Expiration Date V isits Requested Visits Authorized [id number] Closed Auto-Generate d Referral 09/04/2022 10/04/2023 1 1 [facility] for referral (narrative)* Diagnostic Procedure Only (Routine) - Pending Review Specialty Diagnoses / Procedures Referred By Contac t Referred To Contact US IMAGING Diagnoses Menorrhagia with regular cycle Procedures US FEMALE PELVIS TRANSVAG US TRANSVAGINAL Christianne Murray APRN.CNM [address] [place] [address] [place] [address] Referral ID Status Reason Start Date Expiration Date Visits Requested Visits Authorized [id number] Pending Review Auto-Generat ed Referral 11/13/2023 12/12/2024 1 1 [facility] for referral (narrative)No reason for referral information availableWChildren's Hospital of [facility] Work Phone: Reason for visit Narrative* Diagnostic Procedure Only (Routine) - Closed Specialty Diagnoses / Procedures Referred By Contac t Referred To Contact Internal Medicine / INTERNAL MEDICINE Diagnoses Wellness examination PER NOC SEEN WITHIN 24 HOURS Neck Stiffness pt fell Procedures OFFICE/OUTPATIENT ESTABLISHED MOD MDM 30-39 MIN 4C EST Self Irma Villegas MD [address] [place] [address] Referral ID Status Reason Start Date Expiration Date Visits Re quested Visits Authorized [id number] Closed 09/04/2022 12/03/2022 1 1 [facility]* Diagnostic Procedure Only (Routine) - Closed Specialty Diagnoses / Procedures Referred By Contac t Referred To Contact XR IMAGING Diagnoses Fall due to slipping on ice or snow, initial encounter Procedures XR CERV OTHER 4V AP/LAT/OBL RADEX SPINE CERVICAL 4 OR 5 VIEWS Irma Villegas MD [address] [place] [address] [place] [address] Referral ID Status Reason Start Date Expiration Date V isits Requested Visits Authorized [id number] Closed Auto-Generate d Referral 09/04/2022 10/04/2023 1 1 [facility] Reason for Referral Specialty Diagnoses / Procedures Referred By Contac t Referred To Contact Nutrition Diagnoses Overweight Procedures CONSULT TO NUTRITION THERAPY MEDICAL NUTRITION ASSMT&IVNTJ INDIV EACH 15 Christianne Spencer APRN.CNBrittney [address] [place] [address] Referral ID Status Reason Start Date Expiration Date Visits Requested Visits Authorized [id number] Pending Review PCP Requested Referral 11/26/2023 11/21/2024 1 4 Summary Purpose Family History No Family History Records FoundNo Family History Records Found Advance Directives Advance Directive Response Recorded Date/ Time Do you have a Healthcare Power of Office Services Clerk? No March 22, 2025 10:53am Chief Complaint and Reason for Visit Chief Complaint Admit Date RABIES EXPOSURE March 22, 2025 10 :27am Chief Complaint Admit Date RABIES EXPOSURE March 22, 2025 10 :27am rabies shot March 25, 2025 5: 36am Chief Complaint Admit Date RABIES EXPOSURE March 22, 2025 10 :27am rabies shot March 25, 2025 5: 36am meds only March 29, 2025 5: 37am Additional Source Comments Source Comments (unrecognize d section and content) In the event this informatio n is protected by the Federal Confidentiality of Alcohol and Drug Abuse Patient Records regulations: The Federal rules restrict any use of the information to criminally investigate or prosecute any alcohol or drug abuse patient.[facility] the event this information is protected by the Federal Confidentiality of Alcohol and Drug Abuse Patient Records regulations: The Federal rules restrict any use of the information to criminally investigate or prosecute any alcohol or drug abuse patient.[facility] the event this information is protected by the Federal Confidentiality of Alcohol and Drug Abuse Patient Records regulations: The Federal rules restrict any use of the information to criminally investigate or prosecute any alcohol or drug abuse patient.[facility] the event this information is protected by the Federal Confidentiality of Alcohol and Drug Abuse Patient Records regulations: The Federal rules restrict any use of the information to criminally investigate or prosecute any alcohol or drug abuse patient.[facility] the event this information is protected by the Federal Confidentiality of Alcohol and Drug Abuse Patient Records regulations: The Federal rules restrict any use of the information to criminally investigate or prosecute any alcohol or drug abuse patient.[facility] the event this information is protected by the Federal Confidentiality of Alcohol and Drug Abuse Patient Records regulations: The Federal rules restrict any use of the information to criminally investigate or prosecute any alcohol or drug abuse patient.[facility] the event this information is protected by the Federal Confidentiality of Alcohol and Drug Abuse Patient Records regulations: The Federal rules restrict any use of the information to criminally investigate or prosecute any alcohol or drug abuse patient.[facility] the event this information is protected by the Federal Confidentiality of Alcohol and Drug Abuse Patient Records regulations: The Federal rules restrict any use of the information to criminally investigate or prosecute any alcohol or drug abuse patient.[facility] the event this information is protected by the Federal Confidentiality of Alcohol and Drug Abuse Patient Records regulations: The Federal rules restrict any use of the information to criminally investigate or prosecute any alcohol or drug abuse patient.[facility] the event this information is protected by the Federal Confidentiality of Alcohol and Drug Abuse Patient Records regulations: The Federal rules restrict any use of the information to criminally investigate or prosecute any alcohol or drug abuse patient.[facility] the event this information is protected by the Federal Confidentiality of Alcohol and Drug Abuse Patient Records regulations: The Federal rules restrict any use of the information to criminally investigate or prosecute any alcohol or drug abuse patient.[facility] the event this information is protected by the Federal Confidentiality of Alcohol and Drug Abuse Patient Records regulations: The Federal rules restrict any use of the information to criminally investigate or prosecute any alcohol or drug abuse patient.[facility] the event this information is protected by the Federal Confidentiality of Alcohol and Drug Abuse Patient Records regulations: The Federal rules restrict any use of the information to criminally investigate or prosecute any alcohol or drug abuse patient.[facility] the event this information is protected by the Federal Confidentiality of Alcohol and Drug Abuse Patient Records regulations: The Federal rules restrict any use of the information to criminally investigate or prosecute any alcohol or drug abuse patient.[facility] the event this information is protected by the Federal Confidentiality of Alcohol and Drug Abuse Patient Records regulations: The Federal rules restrict any use of the information to criminally investigate or prosecute any alcohol or drug abuse patient.[facility] Hospital[facility] the event this information is protected by the Federal Confidentiality of Alcohol and Drug Abuse Patient Records regulations: The Federal rules restrict any use of the information to criminally investigate or prosecute any alcohol or drug abuse patient.[facility] Reason for Visit (unrecogniz ed section and content) Reason Comments Fall Reason Onset Date Comments Medication Update 09/04/2022 Reason Comments Depression Reason Comments Well Woman Reason Comments Results Reason Comments Radiology US Specialty Diagnoses / Procedures Referred By Contac t Referred To Contact US IMAGING Diagnoses Menorrhagia with regular cycle Procedures US FEMALE PELVIS TRANSVAG US TRANSVAGINAL Christianne Murray APRN.[facility] [address] [place] [address] [place] [address] Referral ID Status Reason Start Date Expiration Date V isits Requested Visits Authorized [id number] Closed Auto-Generate d Referral 11/13/2023 12/12/2024 1 1 Reason Comments Menstrual Problem Reason Comments Physical Bowel habits have ch anged, loose and frequent for over a year. Reason Comments Yearly Exam Annual Physical Reason Comments Insurance Authorization Reason Comments Information Care Teams (unrecognized sec tion and content) Pipe Cleaner Relationship Specialty Start Date End Date Irma Villegas MD [address] [place] [address] PCP - General Internal Medicine 09/04/22 Pipe Cleaner Relationship Specialty Start Date End Date Irma Villegas MD [address] [place] [address] PCP - General Internal Medicine 09/04/22 Pipe Cleaner Relationship Specialty Start Date End Date Irma Villegas MD [address] [place] [address] PCP - General Internal Medicine 09/04/22 Pipe Cleaner Relationship Specialty Start Date End Date Irma Villegas MD [address] [place] [address] PCP - General Internal Medicine 09/04/22 Pipe Cleaner Relationship Specialty Start Date End Date Irma Villegas MD [address] [place] [address] PCP - General Internal Medicine 09/04/22 Pipe Cleaner Relationship Specialty Start Date End Date Irma Villegas MD [address] [place] [address] PCP - General Internal Medicine 09/04/22 Pipe Cleaner Relationship Specialty Start Date End Date Irma Villegas MD [address] [place] [address] PCP - General Internal Medicine 09/04/22 Pipe Cleaner Relationship Specialty Start Date End Date Irma Villegas MD [address] [place] [address] PCP - General Internal Medicine 09/04/22 Pipe Cleaner Relationship Specialty Start Date End Date Irma Villegas MD [address] [place] [address] PCP - General Internal Medicine 09/04/22 Pipe Cleaner Relationship Specialty Start Date End Date Irma Villegas MD [address] [place] [address] PCP - General Internal Medicine 09/04/22 Pipe Cleaner Relationship Specialty Start Date End Date Irma Villegas MD [address] [place] [address] PCP - General Internal Medicine 09/04/22 Pipe Cleaner Relationship Specialty Start Date End Date Irma Villegas MD [address] [place] [address] PCP - General Internal Medicine 09/04/22 Sridevi Sol APRN.[employer] [address] [place] [address] Visual Training Aide Internal Medicine 07/12/24 Pipe Cleaner Relationship Specialty Start Date End Date Irma Villegas MD [address] [place] [address] PCP - General Internal Medicine 09/04/22 Sridevi Sol APRN.[employer] [address] [place] [address] Visual Training Aide Internal Medicine 07/12/24 Pipe Cleaner Relationship Specialty Start Date End Date Irma Villegas MD [address] [place] [address] PCP - General Internal Medicine 09/04/22 Sridevi Sol APRN.[employer] [address] [place] [address] Visual Training Aide Internal Medicine 07/12/24 Team Status: Active Member [...] March 25, 2025 End: March 25, 2025 Team Status: Inactive Member Role/Relationship Status Dates Dr. Carleen Coles MD Attending Provider Active S tart: March 22, 2025 End: March 22, 2025 Dr. Carleen Coles MD Emergency Provider Active S tart: March 22, 2025 End: March 22, 2025 Dr. Irma Villegas MD Primary Care Provider Active Start: March 22, 2025 End: March 22, 2025 Team Status: Inactive Member Role/Relationship Status Dates Dr. Irma Villegas MD Primary Care Provider Active Start: March 25, 2025 End: March 25, 2025 Dr. Carleen Coles MD Attending Provider Active S tart: March 25, 2025 End: March 25, 2025 Dr. Carleen Coles MD Referring Provider Active S tart: March 25, 2025 End: March 25, 2025 Team Status: Inactive Member Role/Relationship Status Dates Dr. Irma Villegas MD Primary Care Provider Active Start: March 29, 2025 End: March 29, 2025 Dr. Carleen Coles MD Emergency Provider Active S tart: March 29, 2025 End: March 29, 2025 INFORMATION SOURCE (unrecogn ized section and content) DATE CREATED AUTHOR 03/18/2025 [facility] DATE CREATED AUTHOR AUTHOR'S ORGANIZ ATION 03/26/2025 [facility] Goals (unrecognized section and content) Goals may be documented in a n alternate sectionGoals may be documented in an alternate sectionGoals may be documented in an [...] BE BASED ON THE PRIMARY CLINICAL RECORDS. [employer] provides no warranty or guarantee of the accuracy or completeness of information in this document.
== END 2025-03-29 06:07 | disposition home or self-care (01) ==
PROVIDERS: PCP Internal Medicine; Visit Provider Student in an Organized Health Care Education/Training Program
DX: Z23 Encounter for immunization (principal)
CPT/HCPCS: 90675; 96372

== ENCOUNTER 2025-04-05 06:02 | Outpatient (CLI) | payer OTHER, SELFPAY ==
[2025-04-05 06:02] VITALS: BP 117/87; PULSE 89; RESP 18; TEMP 36.7; O2SAT 99
--- OUTSIDE RECORDS SUMMARY | 2025-04-05 06:23 | XMS RPT_ITS | CCD ---
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 Durant Emergency Provider Unavailab Bayron BAUMANN, Dr. Solis Primary Care Provider [phone] Sharyn BAUMANN, Dr. Durant Referring Provider Unavailab Levi BAUMANN, Dr. Durant Attending Provider UnavailCarleen Zavala Attending Unavailable Nelly, Irma Primary Care Unavailable Nelly, Irma Primary Care Unavailable Carleen Coles Attending Unavailable Nelly, Irma Primary Care Unavailable Carleen Coles Referring Unavailable Carleen Coles Attending Unavailable Allergies Allergy Classification Reported Allergen(s) Allergy Type Date of Onset Reaction(s) Facility (17 sources) Cheese; Translations: [CHEESE (SEE VEGETABLE GUM)] Food Intolerance 8 Intolerance [facility] Work Phone: (20 sources) Latex; Translations: [LATEX] Propensity to adverse reactions 5 Hives, Swelling [facility] Work Phone: (17 sources) peanut; Translations: [PEANUTS] Propensity to adverse reactions 200 5 Vomiting [facility] Work Phone: (17 sources) Shellfish; Translations: [SHELLFISH CONTAINING PRODUCTS] Drug Intolerance 8 Vomiting [facility] Work Phone: (17 sources) Sulfonamides (Antibiotic); Translations: [SULFA (SULFONAMIDE ANTIBIOTICS)] Propensity to adverse reactions 7 Hives [facility] Work Phone: (20 sources) Wheat gluten extract; Translations: [GLUTEN] Drug Allergy 8 Mental Status Change, Rash, Intolerance [facility] Work Phone: (10 sources) banannas [Other] Propensity to adverse reactions 5 Intolerance [facility] Work Phone: (17 sources) Monosodium Glutamate (Msg); Translations: [MONOSODIUM GLUTAMATE (MSG)] Food Intolerance 8 Intolerance [facility] Work Phone: (17 sources) Red Food Color (Bulk); Translations: [RED FOOD COLOR (BULK)] Drug Intolerance 8 Intolerance [facility] Work Phone: (7 sources) Banana Extract; Translations: [BANANA] Drug Allergy 4 Intolerance [facility] (3 sources) peanut allergenic extract Drug Allergy 5 Anaphylaxis [facility] (4 sources) Shellfish; Translations: [shellfish derived] Allergy to substance 5 Nausea [facility] (1 source) Gluten Drug allergy (disorder) 5 [facility] (1 source) peanut allergenic extract Drug Allergy 5 [facility] Medications Current Medications Medication Drug Class(es) Dates Sig (Normalized) Sig (Original) [id number] 200 actuat albuterol 0.09 mg/actuat metered dose [...] red dye) Take 1 capsule by mo ut once daily. Glycopyrrolate, Bulk, 100 % powd [...] on above: Take 1 capsule by mo [facility] two times a day for 5 [...] Chronic Immunizations and screening for infectious disease (9 sources) Patient encounter status; Translations: [Encounter for [...] Department Summary on 03-22-2025 Emergency Department Summary [facility] Medical Records Department [address] [place] [address] Emergency Department Summary 03/22/25 MR#: [id number] Acct: [id number] Name: ALEX QUINONES Rep #: [id number] : 1985 39 From: Carleen Coles MD [...] or wheezing) (more content not included)... Normal [facility] 03-16-2025 CNP Telephone (INTMWS) ALEX QUINONES I ([id number]) 1985 F Date Time Provider Department 03/16/25 IRMA VILLEGAS INTWS During your visit today, we recorded the following information about you: Abi Mcnally LPN 03/16/2025 2:43 PM Signed Electronic PA rec'd and completed for fluoxetine HCL 20mg. This was approved. Prior authorization approved Payer: [employer] [phone] Note from payer: CaseId:[id number];Stat us:Approved;Review Type:Prior Auth;Coverage Start Date:02/14/2025;Cover age End [...] to its destination. To be filled at: [facility] [address] [address] [facility] [phone] [id number] Pharmacy notified. Allergies As of Date: 03/16/2025 [...] Encounter Status:Closed by ABI MCNALLY on 03/16/25 [facility] Supa 02-18-2025 CNOV Office Visit (INTMWS ) ALEX QUINONES I ([id number]) 1985 F Date Time Provider Department 02/18/25 [...] the ester ends. - Sent prescription to [facility] for a 90-day supply with refills [...] - Sen (more content not included)... Normal [facility] CNOVon 11-17-2024 CNOV Office Visit (OBGYWM ) ALEX QUINONES I ([id number]) 1985 F Date Time Provider Department 11/17/24 3:30 PM CHRISTIANNE MURRAY OBGYWM During your visit today, we recorded the [...] Living0 SAB0 IAB0 Ectopic0 Multiple0 Live Births0 Dolphin Researcher History LMP: 10/19/2024 (Within Days), Having periods Age at Menarche: 12 Age at First : Age at Menopause: Dolphin Researcher History Comments: Sexual Activity: Not Currently; No [...] Prostate Cancer Maternal Grandfather bone cancer other (Sneqtyg-Gwnkf-Ksgpb Disease) Maternal Grandfather Hypertension Paternal Grandmother other [...] discussed with the Patient or Patient's Authorized Zipper Slide Attacher. As applicable, any other physician, advance practice provider, medical student, or other health professional student that will be observing or involved in the sensitive examination for educational or training purposes was discussed with the Patient or Authorized Zipper Slide Attacher. The Patient or Authorized Zipper Slide Attacher has agreed to proceed with the sensitive [...] external genitalia normal, normal Bartholin's glands, urethra, Landrum's glands, no vulvar lesions, no cervical lesions, [...] ICD10: Z12.31 (more content not included)... Normal [facility] No Panel Informationon 09-04 [facility] Vital Signs Date Time Vital Sign Value Performing Clinician Facility 03-29-2025 06:05-0400 Body temperature 98 [degF] Dr. Carleen Coles MD [facility] 03-29-2025 06:05-0400 Diastolic blood pressure 76 mm[Hg] Dr. Carleen Coles MD [facility] 03-29-2025 06:05-0400 Heart rate 83 /min Dr. Carleen Coles MD [facility] 03-29-2025 06:05-0400 Respiratory rate 16 /min Dr. Carleen Coles MD [facility] 03-29-2025 06:05-0400 SaO2% (BldA) [Mass fraction] 97 % Dr. Carleen Coles MD [facility] 03-29-2025 06:05-0400 Systolic blood pressure 119 mm[Hg] Dr. Carleen Coles MD [facility] 03-29-2025 05:46-0400 Body height 149.[address] Carleen Coles MD [facility] 03-29-2025 05:46-0400 Body mass index (BMI) [Ratio] 30 kg/m2 Dr. Carleen Coles MD [facility] 03-29-2025 05:46-0400 Body weight 67.[address] Carleen Coles MD [facility] 03-25-2025 06:34-0400 Body temperature 98.7 [degF] Dr. Carleen Coles MD [facility] 03-25-2025 06:34-0400 Diastolic blood pressure 74 mm[Hg] Dr. Carleen Coles MD [facility] 03-25-2025 06:34-0400 Heart rate 77 /min Dr. Carleen Coles MD [facility] 03-25-2025 06:34-0400 Respiratory rate 16 /min Dr. Carleen Coles MD [facility] 03-25-2025 06:34-0400 SaO2% (BldA) [Mass fraction] 97 % Dr. Carleen Coles MD [facility] 03-25-2025 06:34-0400 Systolic blood pressure 111 mm[Hg] Dr. Carleen Coles MD [facility] 03-25-2025 05:38-0400 Body height 149.[address] Carleen Coles MD [facility] 03-25-2025 05:38-0400 Body mass index (BMI) [Ratio] 30.3 kg/m2 Dr. Carleen Coles MD [facility] 03-25-2025 05:38-0400 Body weight 68.[address] Carleen Coles MD [facility] 03-22-2025 12:26-0400 Body temperature 98.5 [degF] Dr. Carleen Coles MD [facility] 03-22-2025 12:26-0400 Diastolic blood pressure 71 mm[Hg] Dr. Carleen Coles MD [facility] 03-22-2025 12:26-0400 Heart rate 87 /min Dr. Carleen Coles MD [facility] 03-22-2025 12:26-0400 Respiratory rate 16 /min Dr. Carleen Coles MD [facility] 03-22-2025 12:26-0400 SaO2% (BldA) [Mass fraction] 99 % Dr. Carleen Coles MD [facility] 03-22-2025 12:26-0400 Systolic blood pressure 119 mm[Hg] Dr. Carleen Coles MD [facility] 03-22-2025 10:30-0400 Body height 149.[address] Carleen Coles MD [facility] 03-22-2025 10:30-0400 Body mass index (BMI) [Ratio] 29.5 kg/m2 Dr. Carleen Coles MD [facility] 03-22-2025 10:30-0400 Body weight 66.[address] Carleen Coles MD [facility] 02-18-2025 08:01-0400 Body mass index (BMI) [Ratio] 28.75 kg/m2 Irma Villegas MD Work Phone: [facility] 02-18-2025 08:01-0400 Body weight 66.22 kg Irma Villegas MD Work Phone: [facility] 02-18-2025 08:01-0400 Diastolic blood pressure 72 mm[Hg] Irma Villegas MD Work Phone: [facility] 02-18-2025 08:01-0400 Heart rate 101 /min Irma Villegas MD Work Phone: [facility] 02-18-2025 08:01-0400 Respiratory rate 16 /min Irma Villegas MD Work Phone: [facility] 02-18-2025 08:01-0400 SaO2% (BldA) [Mass fraction] 98 % Irma Villegas MD Work Phone: [facility] 02-18-2025 08:01-0400 Systolic blood pressure 112 mm[Hg] Irma Villegas MD Work Phone: [facility] 11-17-2024 15:30-0400 Body height 151.8 cm Christianne Murray APRN.CNM Work Phone: [facility] 11-17-2024 15:30-0400 Body mass index (BMI) [Ratio] 29.54 kg/m2 Christianne Murray APRN.CNBrittney Work Phone: [facility] 11-17-2024 15:30-0400 Body weight 68.04 kg Christianne Murray APRN.CNM Work Phone: [facility] 11-17-2024 15:30-0400 Diastolic blood pressure 70 mm[Hg] Christianne Murray APRN.CNM Work Phone: [facility] 11-17-2024 15:30-0400 Systolic blood pressure 118 mm[Hg] Christianne Murray TECHNICAL SERVICES LIBRARIAN.CNM Work Phone: [facility] 02-27-2024 08:50-0400 Body height 152.4 cm Irma Villegas MD Work Phone: [facility] 02-27-2024 08:50-0400 Body mass index (BMI) [Ratio] 29.35 kg/m2 Irma Villegas MD Work Phone: [facility] 02-27-2024 08:50-0400 Body weight 68.18 kg Irma Villegas MD Work Phone: [facility] 02-27-2024 08:50-0400 Diastolic blood pressure 82 mm[Hg] Irma Villegas MD Work Phone: [facility] 02-27-2024 08:50-0400 Heart rate 95 /min Irma Villegas MD Work Phone: [facility] 02-27-2024 08:50-0400 SaO2% (BldA) [Mass fraction] 97 % Irma Villegas MD Work Phone: [facility] 02-27-2024 08:50-0400 Systolic blood pressure 118 mm[Hg] Irma Villegas MD Work Phone: [facility] 11-13-2023 15:24-0400 Body height 152.4 cm Christianne Murray TECHNICAL SERVICES LIBRARIAN.CNM Work Phone: [facility] 11-13-2023 15:24-0400 Body weight 68.13 kg Christianne Murray TECHNICAL SERVICES LIBRARIAN.CNM Work Phone: [facility] 11-13-2023 15:24-0400 Diastolic blood pressure 78 mm[Hg] Christianne Murray TECHNICAL SERVICES LIBRARIAN.CNM Work Phone: [facility] 11-13-2023 15:24-0400 Systolic blood pressure 120 mm[Hg] Christianne Murray TECHNICAL SERVICES LIBRARIAN.CNM Work Phone: [facility] 09-04-2022 09:46-0500 Body height 152.4 cm Irma Villegas MD Work Phone: [facility] 09-04-2022 09:46-0500 Body temperature 98.71 [degF] Irma Villegas MD Work Phone: [facility] 09-04-2022 09:46-0500 Body weight 65.32 kg rIma Villegas MD Work Phone: [facility] 09-04-2022 09:46-0500 Diastolic blood pressure 62 mm[Hg] Irma Villegas MD Work Phone: [facility] 09-04-2022 09:46-0500 Heart rate 89 /min Irma Villegas MD Work Phone: [facility] 09-04-2022 09:46-0500 Respiratory rate 12 /min Irma Villegas MD Work Phone: [facility] 09-04-2022 09:46-0500 SaO2% (BldA) [Mass fraction] 98 % Irma Villegas MD Work Phone: [facility] 09-04-2022 09:46-0500 Systolic blood pressure 122 mm[Hg] Irma Villegas MD Work Phone: [facility] Encounters Encounter Date Encounter Type Care Provider Facility Start: 03-29-2025 End: 03-29-2025 Emergency department patient visit Dr. Carleen Coles MD -Emergency Department Work Phone: Start: 03-29-2025 End: 03-29-2025 ambulatory [facility] Facility:[facility] Start: 03-25-2025 End: 03-25-2025 Emergency department patient visit Dr. Carleen Coles MD -Emergency Department Work Phone: Start: 03-25-2025 End: 03-25-[address] Carleen Coles MD -Emergency Department Work Phone: Start: 03-25-2025 End: 03-25-2025 ambulatory [facility] Facility:[facility] Start: 03-22-2025 End: 03-22-2025 Emergency department patient visit Dr. Carleen Coles MD -Emergency Department Work Phone: Start: 03-21-2025 End: 03-21-2025 ambulatory Nell Jones RN NURSE SUPERVISOR PAINTING SHIPYARD Comment on above: Information Start: 03-16-2025 End: [...] Start: 02-18-2025 End: 02-18-2025 ambulatory IRMA VILLEGAS Facility:[facility] Start: 02-18-2025 End: 02-18-2025 Patient encounter procedure Irma Villegas MD Work Phone: [facility] Work Phone: Start: 11-17-2024 End: 11-17-2024 ambulatory CHRISTIANNE MURRAY Facility:[facility] Start: 11-17-2024 End: 11-17-2024 Patient encounter procedure Christianne Murray APRN.CNM Work Phone: OB/Gynecology Comment on above: Encounter for gyneco logical examination (general) (routine) with abnormal findings (Primary Dx); Encounter for screening mammogram for breast cancer; Dense breast tissue; Family history of ovarian cancer Start: 11-17-2024 End: 11-17-2024 Patient encounter status Christianne Murray APRN.CNM Work Phone: [facility] Start: 02-27-2024 End: 02-27-2024 Patient encounter procedure Irma Villegas MD Work Phone: Internal [facility] [place] Comment on above: Annual physical exam (Primary [...] d medication Start: 11-18-2023 Telephone encounter Christianne Christen templeton APRN.CNM Work Phone: OB/Gynecology Comment on above: Results Start: 11-18-2023 End: 11-18-2023 Subsequent hospital visit by physician [facility] Work Phone: Radiology Comment on above: Menorrhagia with reg ular cycle [N92.0] Start: 11-13-2023 End: 11-13-2023 Patient encounter procedure Christianne Trevor HUYNH Work Phone: OB/Gynecology Comment on above: Encounter for gyneco logical examination (general) (routine) without abnormal findings (Primary Dx); Screening for cervical cancer; Encounter for screening for human papillomavirus (HPV); Family history of ovarian cancer; Urinary frequency; Nocturia; Menorrhagia with regular cycle; Early satiety Start: 11-13-2023 End: 11-13-2023 Patient encounter status Christianne Trevor HUYNH Work Phone: [facility] Start: 11-28-2022 End: 11-28-2022 [facility] Irma Villegas MD Work Phone: Internal [...] Start: 09-04-2022 ambulatory Anju jean RN NURSE SUPERVISOR PAINT[employer]YARD Comment on above: Fall Start: 09-04-2022 Telephone encounter Irma castañeda MD Work Phone: Internal [facility] [place] Comment on above: Medication Update Start: 09-04-2022 End: 09-04-2022 Subsequent hospital visit by physician Adi [facility] [place] Work Phone: Radiology Comment on [...] Detail Author Start: 09-04-2032 Urine microalbumin profile [facility] Start: 11-12-2028 Screening for malign ant neoplasm of cervix [facility] Start: 11-17-2025 End: 11-17-2025 Patient encounter procedure Mammogram Comment on above: Encounter for gyneco logical examination (general) (routine) with abnormal findings [Z01.411]; Encounter for screening mammogram for breast cancer [Z12.31]; Dense breast tissue [R92.30] Annual Start: 08-27-2025 End: 08-27-2025 Patient encounter procedure 08/27/2025 8:40 AM EST Office Visit [facility] [place] [address] [place] [id number] Irma Villegas MD [address] [place] [id number] 6 month f/u [facility] [place] Comment on above: 6 month f/u Start: 05-19-2025 End: 12-17-2025 DBT Breast - bilateral screening [facility] SCREENING [facility] Radiology Routine Encounter for gynecological examination (general) (routine) with abnormal findings Encounter for screening mammogram for breast cancer Dense breast tissue Expected: 05/19/2025 (Approximate), Expires: 12/17/2025 [facility] Work Phone: Comment on above: Expected: 05/19/2025 (Approximate), Expires: 12/17/2025 Start: 04-05-2025 Influenza vaccination Influenza Vacc ine (#1) [facility] Start: 02-26-2025 End: 02-26-2025 Patient encounter procedure 02/26/2025 8:00 AM EDT Office Visit [facility] [place] [address] [place], [place] [id number] Irma Villegas MD [address] [place], [place] [id number] annual physical [facility] [place] Comment on above: annual physical Start: 02-18-2025 End: 05-20-2025 CBC W Auto Differential panel - Blood COMPLETE BLOOD COUNT AND DIFFERENTIAL Lab Routine Annual physical exam Expected: 02/18/2025, Expires: 05/20/2025 [facility] Comment on above: Expected: 02/18/2025 , Expires: 05/20/2025 Start: 02-18-2025 End: 05-20-2025 Comprehensive metabolic 2000 panel - Serum or Plasma COMPREHENSIVE METABOLIC PANEL Lab Routine Annual physical exam Expected: 02/18/2025, Expires: 05/20/2025 [facility] Comment on above: Expected: 02/18/2025 , Expires: 05/20/2025 Start: 02-18-2025 End: 05-20-2025 Lipid 1996 panel - Serum or Plasma LIPID PANEL, FASTING Lab Routine Annual physical exam Expected: 02/18/2025, Expires: 05/20/2025 [facility] Work Phone: Comment on above: Expected: 02/18/2025 , Expires: 05/20/2025 Start: 02-18-2025 End: 02-18-2025 Patient encounter procedure 02/18/2025 8:00 AM EDT Office Visit [facility] [place] [address] [facility] [place] [phone] Irma Villegas MD [address] [place] [address] annual physical [facility] [place] Comment on above: annual physical Start: 11-12-2024 End: 11-12-2024 Patient encounter procedure 11/12/2024 3:30 PM EDT Office Visit OB/Gynecology [address] [place] [address] Christianne Murray APRN.CN [address] [place] [address] Annual OB/Gynecology Comment on above: Annual Start: 04-05-2024 Covid-19 Vaccine ( season) Covid-19 Vaccine ( season) [facility] Start: 04-05-2024 Influenza vaccination [facility] Start: 02-28-2024 End: 02-28-2024 ambulatory 02/28/2024 8:30 AM EDT Results Only [facility] [address] [place] [address] [facility] Start: 02-27-2024 End: 05-28-2024 CBC W Auto Differential panel - Blood COMPLETE BLOOD COUNT AND DIFFERENTIAL Lab Routine Annual physical exam Expected: 02/27/2024, Expires: 05/28/2024 [facility] Comment on above: Expected: 02/27/2024 , Expires: 05/28/2024 Start: 02-27-2024 End: 05-28-2024 Comprehensive metabolic 2000 panel - Serum or Plasma COMPREHENSIVE METABOLIC PANEL Lab Routine Hyperlipidemia, mixed Expected: 02/27/2024, Expires: 05/28/2024 [facility] Work Phone: Comment on above: Expected: 02/27/2024 , Expires: 05/28/2024 Start: 02-27-2024 End: 05-28-2024 Lipid 1996 panel - Serum or Plasma LIPID PANEL BASIC Lab Routine Hyperlipidemia, mixed Expected: 02/27/2024, Expires: 05/28/2024 [facility] Comment on above: Expected: 02/27/2024 , Expires: 05/28/2024 Start: 02-27-2024 End: 02-27-2024 Patient encounter procedure 02/27/2024 9:00 AM EDT Office Visit [facility] [place] [address] [place] [address] Irma Villegas MD [address] [place] [address] [facility] [place] [facility] [place] Comment on above: [facility] general health Start: 11-13-2023 End: 02-12-2024 Bacteria identified in Urine by Culture URINE CULTURE Microbiology Routine Urinary frequency Expected: 11/13/2023, Expires: 02/12/2024 [facility] Work Phone: Comment on above: Expected: 11/13/2023 , Expires: 02/12/2024 Start: 11-13-2023 End: 02-12-2024 Cancer Ag 125 [Units/volume] in Serum or Plasma CA 125 Lab Routine Family history of ovarian cancer Early satiety Expected: 11/13/2023, Expires: 02/12/2024 [facility] Work Phone: Comment on above: Expected: 11/13/2023 , Expires: 02/12/2024 Start: 11-13-2023 End: 02-12-2024 Comprehensive metabolic 2000 panel - Serum or Plasma COMPREHENSIVE METABOLIC PANEL Lab Routine Menorrhagia with regular cycle Early satiety Expected: 11/13/2023, Expires: 02/12/2024 [facility] Work Phone: Comment on above: Expected: 11/13/2023 , Expires: 02/12/2024 Start: 11-13-2023 End: 02-12-2024 Prolactin [Mass/volume] in Serum or Plasma PROLACTIN Lab Routine Menorrhagia with regular cycle Early satiety Expected: 11/13/2023, Expires: 02/12/2024 [facility] Work Phone: Comment on above: Expected: 11/13/2023 , Expires: 02/12/2024 Start: 11-13-2023 End: 02-12-2024 Thyrotropin [Units/volume] in Serum or Plasma THYROID STIMULATING HORMONE Lab Routine Menorrhagia with regular cycle Early satiety Expected: 11/13/2023, Expires: 02/12/2024 [facility] Work Phone: Comment on above: Expected: 11/13/2023 , Expires: 02/12/2024 Start: 08-05-2023 Behavioral Health Screening Behavioral Health Screening [facility] Start: 04-05-2023 Covid-19 Vaccine () Covid-19 Vaccine () [facility] Start: 04-05-2023 Influenza vaccination Influenza Vacc ine (#1) [facility] Start: 11-13-2022 HPV TESTING HPV TESTING [facility] Start: 11-13-2022 PAP TESTING PAP TESTING [facility] Start: 11-13-2022 Screening for malign ant neoplasm of cervix [facility] Start: 04-05-2022 Influenza vaccination INFLUENZA (#1) [facility] Start: 09-18-2021 COVID-19 VACCINE (4 - Booster for Moderna series) COVID-19 VACCINE (4 - Booster for Moderna series) [facility] Start: 03-29-2014 Urine microalbumin profile DTAP,TDAP,TD (8 - Tdap) [facility] Start: 2012 HPV Vaccine (1 - 3-d ose SCDM series) HPV Vaccine (1 - 3-dose SCDM series) [facility] Start: 2003 Anxiety Screening Anxiety Screening [facility] Start: 2003 Depression Screening Depression Scre [facility] Start: 2003 HEPATITIS C SCREENING HEPATITIS C [facility] Start: 2003 Hepatitis C screening Hepatitis C [facility] Start: 2003 HIV SCREENING HIV SCREENING [facility] Start: 2003 HIV screening HIV Screening [facility] PAP TEST PAP TEST Lab Divina dyer Encounter for gynecological examination (general) (routine) without abnormal findings Screening for cervical cancer Encounter for screening for human papillomavirus (HPV) 11/13/2023 3:58 PM EDT [facility] Work Phone: Patient Education Rabies Immune Globulin (Human) Solution for injection Rabies Vaccine [facility] Work Phone: End: 12-12-2024 US Pelvis transvaginal US FEMALE PELVIS TRANSVAG Radiology Routine Menorrhagia with regular cycle 1 Occurrences starting 11/13/2023 until 12/12/2024 [facility] Work Phone: Comment on above: 1 Occurrences starti ng 11/13/2023 until 12/12/2024 US Pelvis transvaginal US FEMALE PELVIS TRANSVAG Radiology Routine Menorrhagia with regular cycle 11/18/2023 12:00 PM EDT [facility] Work Phone: [facility] Immunizations Immunization Date Immunization Notes Care Provider Fa cili 03-29-2025 rabies vaccine, for intramuscular injection Dr. Carleen Coles MD [facility] 03-25-2025 rabies vaccine, for intramuscular injection Dr. Carleen Coles MD [facility] 03-22-[address] Carleen quiñonez MD [facility] 03-22-2025 rabies vaccine, for intramuscular injection Dr. Carleen Coles MD [facility] 05-26-2024 influenza virus vacc ine, unspecified formulation Irma Villegas MD Work Phone: [facility] 09-04-2022 tetanus toxoid, redu marilynn diphtheria toxoid, and acellular pertussis vaccine, adsorbed Irma Villegas MD Work Phone: [facility] Work Phone: 05-22-2022 influenza virus vacc ine, unspecified formulation Mob Work Phone: [facility] 03-29-2004 diphtheria and tetan us toxoids, adsorbed for pediatric use Anju Medina RN [facility] Work Phone: 02-18-2004 meningococcal polysaccharide vaccine (MPSV4) Anju Medina RN [facility] Work Phone: 08-05-2002 influenza virus vacc ine, unspecified formulation Anju Medina RN [facility] Work Phone: 07-01-2002 influenza virus vacc ine, unspecified formulation Anju Medina RN [facility] Work Phone: 05-30-2001 meningococcal polysaccharide vaccine (MPSV4) Anju Medina RN [facility] Work Phone: 06-25-2000 diphtheria and tetan us toxoids, adsorbed for pediatric use Anju Medina RN [facility] Work Phone: 03-22-1998 hepatitis B vaccine, pediatric or pediatric/adolescent dosage Anju Medina RN [facility] Work Phone: 11-11-1997 hepatitis B vaccine, pediatric or pediatric/adolescent dosage Anju Medina RN [facility] Work Phone: 08-02-1997 hepatitis B vaccine, pediatric or pediatric/adolescent dosage Anju Medina RN [facility] Work Phone: 08-02-1997 measles, mumps and rubella virus vaccine Anju Medina [facility] Work Phone: 02-10-1992 diphtheria, tetanus toxoids and pertussis vaccine Anju Medina RN [facility] Work Phone: 02-10-1992 trivalent poliovirus vaccine, live, oral Anju Medina RN [facility] Work Phone: 1990 Chicken Pox (disease) Alba Medina RN [facility] Work Phone: 07-20-1987 haemophilus influenz ae type b vaccine, HbOC conjugate Anju Medina RN [facility] Work Phone: 12-30-1986 diphtheria, tetanus toxoids and pertussis vaccine Anju Mednia RN [facility] Work Phone: 12-30-1986 trivalent poliovirus vaccine, live, oral Anju Medina RN [facility] Work Phone: 10-21-1986 measles, mumps and rubella virus vaccine Anju Medina RN [facility] Work Phone: 1985 diphtheria, tetanus toxoids and pertussis vaccine Anju Medina RN [facility] Work Phone: 1985 diphtheria, tetanus toxoids and pertussis vaccine Anju Medina RN [facility] Work Phone: 1985 trivalent poliovirus vaccine, live, oral Anju Medina RN [facility] Work Phone: 1985 diphtheria, tetanus toxoids and pertussis vaccine Anju Medina RN [facility] Work Phone: 1985 trivalent poliovirus vaccine, live, oral Anju Medina RN [facility] Work Phone: Payers Date Payer Category Payer Self-pay 2019 Private Health Insurance [facility] CHOICE PLAN GENERIC [id number] 2019 Unknown [id number] 2019 Unknown [id number] Unknown [id number] Unknown [id number] Unknown [id number] Unknown [id number] Social History Date Type Detail Facility Start: 09-04-2022 End: 03-22-2025 Tobacco smoking status NHIS Never smoked tobacco [facility] Work Phone: Start: 09-04-2022 Tobacco use and exposure Smokeless tobacco non-user [facility] Work Phone: Start: 09-04-2022 End: 11-17-2024 Alcohol intake Current drinker of alcohol (finding) [facility] Start: 03-04-2020 End: 11-28-2022 History SDOH Alcohol Frequency 3 [facility] Start: 03-04-2020 End: 11-28-2022 History SDOH Alcohol Std Drinks 1 [facility] Start: 03-04-2020 End: 11-28-2022 History SDOH Social Connections Living 7 [facility] Start: 03-04-2020 End: 05-04-2020 History SDOH Physical Activity DPW 5 [facility] Start: 03-04-2020 End: 11-28-2022 History SDOH Stress 2 [facility] Start: 03-03-2020 Education 17 [facility] Start: 11-13-2017 Alcohol Comment occasionally [facility] Start: 1985 Sex Assigned At Female [facility] Start: 11-01-2022 End: 11-28-2022 History SDOH Social Connections Phone 4 [facility] Start: 11-01-2022 End: 11-28-2022 History SDOH Social Connections Tenriism 98 [facility] Start: 05-04-2020 End: 11-13-2023 History of Social function [facility] Start: 05-04-2020 End: 11-13-2023 Social connection and isolation panel [facility] Start: 07-06-2012 Frequency of Social Gatherings with Friends and Family Not on file [facility] How often to you hav e a drink containing alcohol? 2-4 times a month [facility] How many standard dr inks containing alcohol do you have on a typical day? 1 or 2 [facility] How often do you hav e 6 or more drinks on 1 occasion? Never [facility] Do you feel stress - tense, restless, nervous, or anxious, or unable to sleep at night because your mind is troubled all the time - these days [OSQ] Only a little [facility] (I/We) worried whegiselle er (my/our) food would run out before (I/we) got money to buy more. Never true [facility] In the past 12 month s, was there a time when you were not able to pay the mortgage or rent on time? No [facility] Start: 04-11-2021 Gender identity Identifies as female gender (finding) [facility] Do you belong to any clubs or organizations such as mandaen groups, unions, fraternal or athletic groups, or school groups? Yes [facility] Are you now , , , , never or living with a partner? Never [facility] How hard is it for y ou to pay for the very basics like food, housing, medical care, and heating Somewhat hard [facility] Do you feel stress - tense, restless, nervous, or anxious, or unable to sleep at night because your mind is troubled all the time - these days [OSQ] To some extent [facility] Start: 10-15-2023 Sexual orientation Heterosexual (finding) [facility] Clinical Notes 09-04-2022 to 03-21-2025 Telephone [...] of which a provider is not aware:Yes. [facility] 03-21-2025 Miscellaneous Notes Patient calling with [...] is not aware:Yes. documented in this encounter [facility] 03-16-2025 Telephone encounter Note Images from the original note were not included. Electronic PA rec'd and completed for fluoxetine HCL 20mg. This was approved. Prior authorization approved Payer: [employer] [phone] Note from payer: CaseId:[id number];Status:Approve d;Review Type:Prior Auth;Coverage Start Date:02/14/2025;Coverage End Date:03/16/2026; [...] to its destination. To be filled at: [address] [id number] - [address] [phone] [id number] Pharmacy notified. [facility] 03-16-2025 Miscellaneous Notes Images from the original note were not included. Electronic PA rec'd and completed for fluoxetine HCL 20mg. This was approved. Prior authorization approved Payer: [employer] [phone] Note from payer: CaseId:[id number];Status:Approve d;Review Type:Prior Auth;Coverage Start Date:02/14/2025;Coverage End Date:03/16/2026; [...] to its destination. To be filled at: [id number] [place] [address] [facility] [phone] [id number] Pharmacy notified. documented in this encounter [facility] 02-18-2025 Instructions Irma Villegas MD - 02/18/2025 8:46 AM EDT We discussed your mental health and feelings of fatigue, anger, and lack of motivation: - We decided to restart you on Fluoxetine (Prozac) at 20 mg daily, as this worked well for you in the past. This prescription has been sent to [facility] for a 90-day supply with 6 [...] and preference to avoid modes that have fpc release of hormones - I recommend scheduling [...] for deodorant use. documented in this encounter [facility] 02-18-2025 Note HNO ID: [id number] Author: IRMA VILLEGAS MD Service: ? Author [...] the semester ends. - Sent prescription to [facility] for a 90-day supply with refills [...] allergy. Prefers non-hormonal (more content not included)... [facility] 02-18-2025 History of Presen t illness [...] the semester ends. - Sent prescription to [facility] for a 90-day supply with refills [...] excuse any unintended typographical errors. Recording using [employer] software for draft documentation of the visit was discussed with the patient/authorized medicare sales representative; all questions welcomed and answered. Patient/authorized medicare sales representative agreed to proceed Irma Villegas MD documented in this encounter [facility] 11-17-2024 Note HNO ID: [id number] Author: CHRISTIANNE MURRAY APRN.CNM Service: ? Author Type: Barrel Cap Setter Type: Progress Notes Filed: 11/17/2024 16:53 Note [...] Living0 SAB0 IAB0 Ectopic0 Multiple0 Live Births0 Dolphin Researcher History LMP: 10/19/2024 (Within Days), Having periods Age at Menarche: 12 Age at First : Age at Menopause: Dolphin Researcher History Comments: Sexual Activity: Not Currently; No [...] Prostate Cancer Maternal Grandfather bone cancer other (Rqkcwsh-Epndg-Pmhgp Disease) Maternal Grandfather Hypertension Paternal Grandmother other [...] discussed with the Patient or Patient's Authorized Zipper Slide Attacher. As applicable, any other physician, advance practice provider, medical student, or other health professional student that will be observing or involved in the sensitive examination for educational or training purposes was discussed with the Patient or Authorized Zipper Slide Attacher. The Patient or Authorized Zipper Slide Attacher has agreed to proceed with the sensitive [...] external genitalia normal, normal Bartholin's glands, urethra, Landrum's glands, no vulvar lesions, no cervical lesions, [...] ICD9: V16.41, ICD (more content not included)... [facility] 11-17-2024 History of Presen t illness [...] Living0 SAB0 IAB0 Ectopic0 Multiple0 Live Births0 Dolphin Researcher History LMP: 10/19/2024 (Within Days), Having periods Age at Menarche: 12 Age at First : Age at Menopause: Dolphin Researcher History Comments: Sexual Activity: Not Currently; No [...] Prostate Cancer Maternal Grandfather bone cancer other (Apaoyem-Xvvlt-Siymx Disease) Maternal Grandfather Hypertension Paternal Grandmother other [...] discussed with the Patient or Patient's Authorized Zipper Slide Attacher. As applicable, any other physician, advance practice provider, medical student, or other health professional student that will be observing or involved in the sensitive examination for educational or training purposes was discussed with the Patient or Authorized Zipper Slide Attacher. The Patient or Authorized Zipper Slide Attacher has agreed to proceed with the sensitive [...] external genitalia normal, normal Bartholin's glands, urethra, Landrum's glands, no vulvar lesions, no cervical lesions, [...] Christianne Murray APRN.CNM documented in this encounter [facility] 02-27-2024 History of Presen t illness [...] Prostate Cancer Maternal Grandfather bone cancer other (Uablone-Kvohd-Hpuac Disease) Maternal Grandfather Hypertension Paternal Grandmother other [...] Irma Villegas MD documented in this encounter [facility] 11-22-2023 Miscellaneous Notes Seen patient for visit today. Christianne Murray APRN.CNM Patient was prescribed Macrobid on 11/17 for UTI. Carly Conte RN documented in this encounter [facility] 11-22-2023 Instructions Christianne Murray APRN.CNM - 11/22/2023 2:22 PM EDT Urinary Tract Infection: [facility] Urinary Tract Plus 30-90 days Weight management: Nutrition Therapy: 8 am to 4 pm: [phone] [facility] Call Center: 24 hours/day, 7 days/week: [phone] I can put a consult for weight management if you desire. documented in this encounter [facility] 11-22-2023 History of Presen t illness Narrative DISTANCE HEALTH VISIT This Team Access Model visit is a virtual encounter. It required patient-provider interaction for the medical decision making as documented below. I have communicated my name and active licensure. The patient's identity and physical location were verified at the time of this visit. Either the patient or their legal medicare sales representative has been informed of the risks [...] - ICD9: 278.02, ICD10: E66.3 -Referral to fish trapper Christianne Murray APRN.CNM I spent 30 minutes in the visit, with more than 50% of the total ymhi-ca-tkiw time of the visit in counseling / coordination of care. documented in this encounter [facility] 11-18-2023 Miscellaneous Notes Order signed. Christianne [...] Christianne Murray APRN.CNM documented in this encounter [facility] 11-18-2023 History of Presen t illness [...] PATIENT PRESENTS WITH AN IMPLANTABLE OR ATTACHED OIL REFINERY PROCESS TECHNICIAN: No RADIOLOGY DEPARTMENT: Ultrasound PERIPHERAL IV DATA: Not applicable SIGNED BY: Christianne Mooney RDMS RVT November 18, 2023 2:33 PM documented in this encounter [facility] 11-13-2023 History of Presen t illness Narrative Occupational Therapy Supervisor offered: Patient declines. Alex is a 38 [...] L0 SAB0 IAB0 Ectopic0 Multiple0 Live Births0 Dolphin Researcher History LMP: 10/31/2023 (Approximate), Having periods Age at Menarche: Age at First : Age at Menopause: Dolphin Researcher History Comments: Sexual Activity: Not Currently; No [...] Prostate Cancer Maternal Grandfather bone cancer other (Sdjskvm-Iajru-Fowuz Disease) Maternal Grandfather Hypertension Paternal Grandmother other [...] external genitalia normal, normal Bartholin's glands, urethra, Landrum's glands, no vulvar lesions, no cervical lesions, [...] Christianne Murray APRN.CNM documented in this encounter [facility] 11-28-2022 History of Presen t illness [...] Prostate Cancer Maternal Grandfather bone cancer other (Qbubjym-Oketv-Frtsv Disease) Maternal Grandfather Ovarian cancer Paternal Grandmother [...] Irma Villegas MD documented in this encounter [facility] 09-04-2022 Miscellaneous Notes Lester from [facility] pharmacy calls and wanted provider to know that fluoxetine 10 mg capsules has red dye in it as does 10 mg tablets. Lester switch medication to fluoxetine 20 mg tablet and told patient to take half a tablet daily since 20 mg tablet does not have red dye. Katie Quinteros RN documented in this encounter [facility] 09-04-2022 History of Presen t illness [...] 2022 11:30 AM documented in this encounter [facility] 09-04-2022 History of Presen t illness Narrative Reason for Visit No chief complaint on file. Alex Quinones is a 37 year old female who presents here today for Above Complaints.. Health Maintenance HEPATITIS C SCREENING HIV SCREENING DTAP,TDAP,TD(8 - Tdap) COVID-19 VACCINE(4 - Booster for Moderna series) INFLUENZA(1) DEPRESSION ASSESSMENT PAP TESTING HPV TESTING HPI She was [facility], when she slipped and [...] Prostate Cancer Maternal Grandfather bone cancer other (Thfrbvy-Ujkah-Zwlri Disease) Maternal Grandfather Ovarian cancer Paternal Grandmother [...] Irma Villegas MD documented in this encounter [facility] 09-04-2022 Miscellaneous Notes Reason for Call: Neck and Upper Shoulder Discomfort due to recent fall Outcome: Patient was conferenced to [place] in Appointment Center for PCP within 24 [...] a couple days ago Protocols used: Head Cbxpar-FWGZU-BA documented in this encounter [facility] Evaluation note Diagnosis Fall due to slipping on ice or snow, initial encounter- Primary Encounter for immunization Need for other specified prophylactic vaccination against single bacterial disease Laceration of right hand, foreign body presence unspecified, sequela Depression with anxiety Dysthymic disorder [facility] Current moderate episode of major depressive disorder without prior episode (HCC)- Primary [facility] Diagnosis Fall due to slipping on ice or snow, initial encounter [facility] Diagnosis Encounter for gynecological examination [...] menstruation Early satiety [facility] Diagnosis Menorrhagia with regular cycle Excessive or frequent menstruation [facility] Diagnosis Acute cystitis without hematuria- Primary Acute cystitis Family history of ovarian cancer Family history of malignant neoplasm of ovary Intramural leiomyoma of uterus Overweight [facility] Diagnosis Annual physical exam- Primary Routine general medical examination at a health care facility Hyperlipidemia, mixed Mixed hyperlipidemia [facility] Diagnosis Encounter for gynecological examination (general) (routine) with abnormal findings- Primary Encounter for screening mammogram for breast cancer Dense breast tissue Family history of ovarian cancer Family history of malignant neoplasm of ovary [facility] Diagnosis Annual physical exam- Primary Routine general medical examination at a health care facility Depression, unspecified depression type Grief reaction Adjustment disorder with depressed mood Excessive sweating Generalized hyperhidrosis control counseling General counseling for initiation of other contraceptive measures [facility] this [facility] noteNo assessment information availableWooster [facility] Work Phone: Hospital Discharge instructionsAdditional Instructions [...] if your symptoms worsen or new symptoms develop.[facility] Work Phone: Reason for referral (narrative)* Diagnostic Procedure Only (Routine) - Closed Specialty Diagnoses / Procedures Referred By Contac t Referred To Contact XR IMAGING Diagnoses Fall due to slipping on ice or snow, initial encounter Procedures XR CERV OTHER 4V AP/LAT/OBL RADEX SPINE CERVICAL 4 OR 5 VIEWS Irma Villegas MD [address] [place] [address] Xr Imaging Referral ID Status Reason Start Date Expiration Date V isits Requested Visits Authorized [id number] Closed Auto-Generate d Referral 09/04/2022 10/04/2023 1 1 * Diagnostic Procedure Only (Routine) - Closed Specialty Diagnoses / Procedures Referred By Contac t Referred To Contact XR IMAGING Diagnoses Fall due to slipping on ice or snow, initial encounter Procedures XR LUMBAR LIMITED 2V AP/LAT RADEX SPINE LUMBOSACRAL 2/3 VIEWS Irma Villegas MD [address] [place] [address] X[facility] Imaging Referral ID Status Reason Start Date Expiration Date V isits Requested Visits Authorized [id number] Closed Auto-Generate d Referral 09/04/2022 10/04/2023 1 1 [facility] Diagnostic Procedure Only (Routine) - Closed Specialty Diagnoses / Procedures Referred By Contac t Referred To Contact XR IMAGING Diagnoses Fall due to slipping on ice or snow, initial encounter Procedures XR LUMBAR LIMITED 2V AP/LAT RADEX SPINE LUMBOSACRAL 2/3 VIEWS Irma Villegas MD [address] [place] [address] [place] [address] Referral ID Status Reason Start Date Expiration Date V isits Requested Visits Authorized [id number] Closed Auto-Generate d Referral 09/04/2022 10/04/2023 1 1 * Diagnostic Procedure Only (Routine) - Closed Specialty Diagnoses / Procedures Referred By Contac t Referred To Contact XR IMAGING Diagnoses Fall due to slipping on ice or snow, initial encounter Procedures XR CERV OTHER 4V AP/LAT/OBL RADEX SPINE CERVICAL 4 OR 5 VIEWS Irma Villegas MD [address] [place] [address] [place] [address] Referral ID Status Reason Start Date Expiration Date V isits Requested Visits Authorized [id number] Closed Auto-Generate d Referral 09/04/2022 10/04/2023 1 1 [facility] for referral (narrative)* Diagnostic Procedure Only (Routine) - Pending Review Specialty Diagnoses / Procedures Referred By Contac t Referred To Contact US IMAGING Diagnoses Menorrhagia with regular cycle Procedures US FEMALE PELVIS TRANSVAG US TRANSVAGINAL Christianne Murray APRN.CNM [address] [place] [address] [place] [address] Referral ID Status Reason Start Date Expiration Date Visits Requested Visits Authorized [id number] Pending Review Auto-Generat ed Referral 11/13/2023 12/12/2024 1 1 [facility] for referral (narrative)No reason for referral information availableWSalem Regional [facility] Work Phone: Reason for visit Narrative* Diagnostic Procedure Only (Routine) - Closed Specialty Diagnoses / Procedures Referred By Contac t Referred To Contact Internal Medicine / INTERNAL MEDICINE Diagnoses Wellness examination PER NOC SEEN WITHIN 24 HOURS Neck Stiffness pt fell Procedures OFFICE/OUTPATIENT ESTABLISHED MOD MDM 30-39 MIN 4C EST Self Irma Villegas MD [address] [place] [address] Referral ID Status Reason Start Date Expiration Date Visits Re quested Visits Authorized [id number] Closed 09/04/2022 12/03/2022 1 1 [facility] Diagnostic Procedure Only (Routine) - Closed Specialty Diagnoses / Procedures Referred By Contac t Referred To Contact XR IMAGING Diagnoses Fall due to slipping on ice or snow, initial encounter Procedures XR CERV OTHER 4V AP/LAT/OBL RADEX SPINE CERVICAL 4 OR 5 VIEWS Irma Villegas MD [address] [place] [address] [place] [address] Referral ID Status Reason Start Date Expiration Date V isits Requested Visits Authorized [id number] Closed Auto-Generate d Referral 09/04/2022 10/04/2023 1 1 [facility] Reason for Referral Specialty Diagnoses / Procedures Referred By Contac t Referred To Contact Nutrition Diagnoses Overweight Procedures CONSULT TO NUTRITION THERAPY MEDICAL NUTRITION ASSMT&IVNTJ INDIV EACH 15 Christianne Spencer APRN.CNM [address] [place] [address] Referral ID Status Reason Start Date Expiration Date Visits Requested Visits Authorized [id number] Pending Review PCP Requested Referral 11/26/2023 11/21/2024 1 4 Summary Purpose Family History No Family History Records FoundNo Family History Records Found Advance Directives No Advanced Directives Records Found Advance Directive Response Recorded Date/ Time Do you have a Healthcare Power of Rn Bariatric? No March 22, 2025 10:53am Chief Complaint [...] or prosecute any alcohol or drug abuse patient.[facility]In the event this information is protected by the Federal Confidentiality of Alcohol and Drug Abuse Patient Records regulations: The Federal rules restrict any use of the information to criminally investigate or prosecute any alcohol or drug abuse patient.[facility] HospitalIn the event this information is protected by the Federal Confidentiality of Alcohol and Drug Abuse Patient Records regulations: The Federal rules restrict any use of the information to criminally investigate or prosecute any alcohol or drug abuse patient.[facility] the event this information is protected by the Federal Confidentiality of Alcohol and Drug Abuse Patient Records regulations: The Federal rules restrict any use of the information to criminally investigate or prosecute any alcohol or drug abuse patient.[facility] HospitalIn the event this information is protected by the Federal Confidentiality of Alcohol and Drug Abuse Patient Records regulations: The Federal rules restrict any use of the information to criminally investigate or prosecute any alcohol or drug abuse patient.[facility] HospitalIn the event this information is protected by the Federal Confidentiality of Alcohol and Drug Abuse Patient Records regulations: The Federal rules restrict any use of the information to criminally investigate or prosecute any alcohol or drug abuse patient.[facility] HospitalIn the event this information is protected by the Federal Confidentiality of Alcohol and Drug Abuse Patient Records regulations: The Federal rules restrict any use of the information to criminally investigate or prosecute any alcohol or drug abuse patient.[facility] HospitalIn the event this information is protected by the Federal Confidentiality of Alcohol and Drug Abuse Patient Records regulations: The Federal rules restrict any use of the information to criminally investigate or prosecute any alcohol or drug abuse patient.[facility] HospitalIn the event this information is protected by the Federal Confidentiality of Alcohol and Drug Abuse Patient Records regulations: The Federal rules restrict any use of the information to criminally investigate or prosecute any alcohol or drug abuse patient.[facility] HospitalIn the event this information is protected by the Federal Confidentiality of Alcohol and Drug Abuse Patient Records regulations: The Federal rules restrict any use of the information to criminally investigate or prosecute any alcohol or drug abuse patient.[facility] HospitalIn the event this information is protected by the Federal Confidentiality of Alcohol and Drug Abuse Patient Records regulations: The Federal rules restrict any use of the information to criminally investigate or prosecute any alcohol or drug abuse patient.[facility] HospitalIn the event this information is protected by the Federal Confidentiality of Alcohol and Drug Abuse Patient Records regulations: The Federal rules restrict any use of the information to criminally investigate or prosecute any alcohol or drug abuse patient.[facility] HospitalIn the event this information is protected by the Federal Confidentiality of Alcohol and Drug Abuse Patient Records regulations: The Federal rules restrict any use of the information to criminally investigate or prosecute any alcohol or drug abuse patient.[facility] HospitalIn the event this information is protected by the Federal Confidentiality of Alcohol and Drug Abuse Patient Records regulations: The Federal rules restrict any use of the information to criminally investigate or prosecute any alcohol or drug abuse patient.[facility] HospitalIn the event this information is protected by the Federal Confidentiality of Alcohol and Drug Abuse Patient Records regulations: The Federal rules restrict any use of the information to criminally investigate or prosecute any alcohol or drug abuse patient.[facility] HospitalIn the event this information is protected by the Federal Confidentiality of Alcohol and Drug Abuse Patient Records regulations: The Federal rules restrict any use of the information to criminally investigate or prosecute any alcohol or drug abuse patient.[facility] Reason for Visit (unrecogniz ed section [...] TRANSVAGINAL Christianne Murray APRN.CNM [address] [place] [address] [id number] Referral ID Status Reason Start Date Expiration Date V isits Requested Visits Authorized [id number] Closed Auto-Generate d Referral 11/13/2023 12/12/2024 1 1 Reason Comments Menstrual Problem Reason Comments Physical Bowel habits have ch anged, loose and frequent for over a year. Reason Comments Yearly Exam Annual Physical Reason Comments Insurance Authorization Reason Comments Information Care Teams (unrecognized sec tion and content) Funeral Counselor Relationship Specialty Start Date End Date Irma Villegas MD [address] [place], [place] [id number] PCP - General Internal Medicine 09/04/22 Funeral Counselor Relationship Specialty Start Date End Date Irma Villegas MD [address] [place], [place] [id number] PCP - General Internal Medicine 09/04/22 Funeral Counselor Relationship Specialty Start Date End Date Irma Villegas MD [address] [place], [place] [id number] PCP - General Internal Medicine 09/04/22 Funeral Counselor Relationship Specialty Start Date End Date Irma Villegas MD [address] [facility] [place] [address] PCP - General Internal Medicine 09/04/22 Funeral Counselor Relationship Specialty Start Date End Date Irma Villegas MD [address] [place] [place] [address] PCP - General Internal Medicine 09/04/22 Funeral Counselor Relationship Specialty Start Date End Date Irma Villegas MD [address] [place] [place] [address] PCP - General Internal Medicine 09/04/22 Funeral Counselor Relationship Specialty Start Date End Date Irma Villegas MD [address] [place] [place] [address] PCP - General Internal Medicine 09/04/22 Funeral Counselor Relationship Specialty Start Date End Date Irma Villegas MD [address] [place] [place] [address] PCP - General Internal Medicine 09/04/22 Funeral Counselor Relationship Specialty Start Date End Date Irma Villegas MD [address] [place] [place] [address] PCP - General Internal Medicine 09/04/22 Funeral Counselor Relationship Specialty Start Date End Date Irma Villegas MD [address] [place] [place] [address] PCP - General Internal Medicine 09/04/22 Funeral Counselor Relationship Specialty Start Date End Date Irma Villegas MD [address] [place] [place] [address] PCP - General Internal Medicine 09/04/22 Funeral Counselor Relationship Specialty Start Date End Date Irma Villegas MD [address] [place] [place] [address] PCP - General Internal Medicine 09/04/22 Sridevi Sol APRN.MANAGER [employer] [address] [place] [address] Floor Covering Printer Internal Medicine 07/12/24 Funeral Counselor Relationship Specialty Start Date End Date Irma Villegas MD [address] [facility], [place] [id number] PCP - General Internal Medicine 09/04/22 Sridevi Sol APRN.MANAGER [employer] [address] [place] [address] Floor Covering Printer Internal Medicine 07/12/24 Funeral Counselor Relationship Specialty Start Date End Date Irma Villegas MD [address] [place] [place] [address] PCP - General Internal Medicine 09/04/22 Sridevi Sol APRN.MANAGER [employer] [address] [place] [address] Floor Covering Printer Internal Medicine 07/12/24 Team Status: Active Member [...] section and content) DATE CREATED AUTHOR 03/18/2025 [facility] DATE CREATED AUTHOR AUTHOR'S ORGANIZ ATION 04/04/2025 [facility] Goals (unrecognized section and content) Goals [...] BE BASED ON THE PRIMARY CLINICAL RECORDS. [facility]. provides no warranty or guarantee of the accuracy or completeness of information in this document.
[2025-04-05 06:47] VITALS: BP 114/88; PULSE 74; RESP 18; TEMP 36.7; O2SAT 99
--- OUTSIDE RECORDS SUMMARY | 2025-04-05 06:54 | XMS RPT_ITS | CCD ---
Author Organization [facility] Care Team Providers Care Registration Representative Name Role Phone Nelly BAUMANN, Irma Primary Care Provider [phone] Irma Villegas MD Primary Care Provider [phone] Older BLOCK GREASER.OTOLARYNGOLOGY NURSE, Sridevi Unavailable CHRISTIANNE MURRAY Attending Unavailable NELLY, IRMA Primary Care Unavailable IRMA VILLEGAS Attending Unavailable NELLY, IRMA Primary Care Unavailable Sharyn BAUMANN, Dr. Durant Emergency Provider Unavailab Bayron BAUMANN, Dr. Solis Primary Care Provider [phone] Sharyn BAUMANN, Dr. Durant Referring Provider Unavailab [...] (SEE VEGETABLE GUM)] Food Intolerance 8 Intolerance [facility] Work Phone: (20 sources) Latex; Translations: [LATEX] Propensity to adverse reactions 5 Hives, Swelling [facility] Work Phone: (17 sources) peanut; Translations: [PEANUTS] Propensity to adverse reactions 200 5 Vomiting [facility] Work Phone: (17 sources) Shellfish; Translations: [SHELLFISH CONTAINING PRODUCTS] Drug Intolerance 8 Vomiting [facility] Work Phone: (17 sources) Sulfonamides (Antibiotic); Translations: [SULFA (SULFONAMIDE ANTIBIOTICS)] Propensity to adverse reactions 7 Hives [facility] Work Phone: (20 sources) Wheat gluten extract; Translations: [GLUTEN] Drug Allergy 8 Mental Status Change, Rash, Intolerance [facility] Work Phone: (10 sources) banannas [Other] Propensity to adverse reactions 5 Intolerance [facility] Work Phone: (17 sources) Monosodium Glutamate (Msg); Translations: [MONOSODIUM GLUTAMATE (MSG)] Food Intolerance 8 Intolerance [facility] Work Phone: (17 sources) Red Food Color (Bulk); Translations: [RED FOOD COLOR (BULK)] Drug Intolerance 8 Intolerance [facility] Work Phone: (7 sources) Banana Extract; Translations: [BANANA] Drug Allergy 4 Intolerance [facility] (4 sources) peanut allergenic extract Drug Allergy 5 Anaphylaxis [facility] (5 sources) Shellfish; Translations: [shellfish derived] Allergy to substance 5 Nausea [facility] (1 source) Gluten Drug allergy (disorder) 5 [facility] (1 source) peanut allergenic extract Drug Allergy 5 [facility] Medications Current Medications Medication Drug Class(es) Dates Sig (Normalized) Sig (Original) [id number] 200 actuat albuterol 0.09 mg/actuat metered dose [...] 12/03/2023 Active FLUoxetine 10 mg oral capsule (15 sources) Serotonin Reuptake Inhibitor Start: take 1 [...] on above: Take 1 capsule by mo [facility] two times a day for 5 days. [...] Chronic Immunizations and screening for infectious disease (10 sources) Patient encounter status; Translations: [Encounter for [...] Department Summary on 03-22-2025 Emergency Department Summary [facility] Medical Records Department [address] [place] [address] Emergency Department Summary 03/22/25 MR#: [id number] Acct: [id number] Name: ALEX QUINONES Rep #: [id number] : 1985 39 From: Carleen Coles MD [...] or wheezing) (more content not included)... Normal [facility] 03-16-2025 CNP Telephone (INTMWS) ALEX QUINONES I ([id number]) 1985 F Date Time Provider Department 03/16/25 IRMA VILLEGAS INTWS During your visit today, we recorded the following information about you: Abi Mcnally LPN 03/16/2025 2:43 PM Signed Electronic PA rec'd and completed for fluoxetine HCL 20mg. This was approved. Prior authorization approved Payer: [employer] [phone] Note from payer: CaseId:[id number];Stat us:Approved;Review Type:Prior Auth;Coverage Start Date:02/14/2025;Cover age End [...] to its destination. To be filled at: [facility] [address] [address] [facility] [phone] [id number] Pharmacy notified. Allergies As of Date: 03/16/2025 [...] Encounter Status:Closed by ABI MCNALLY on 03/16/25 [facility] Supa 02-18-2025 CNOV Office Visit (INTMWS ) ALEX QUINONES I ([id number]) 1985 F Date Time Provider Department 02/18/25 [...] the ester ends. - Sent prescription to [facility] for a 90-day supply with refills [...] - Sen (more content not included)... Normal [facility] CNOVon 11-17-2024 CNOV Office Visit (OBGYWM ) ALEX QUINONES I ([id number]) 1985 F Date Time Provider Department 11/17/24 [...] Living0 SAB0 IAB0 Ectopic0 Multiple0 Live Births0 Unit Secretary History LMP: 10/19/2024 (Within Days), Having periods Age at Menarche: 12 Age at First : Age at Menopause: Unit Secretary History Comments: Sexual Activity: Not Currently; No [...] Prostate Cancer Maternal Grandfather bone cancer other (Jkuhzgi-Uzrea-Njpqf Disease) Maternal Grandfather Hypertension Paternal Grandmother other [...] discussed with the Patient or Patient's Authorized Clinical Biostatistics Director. As applicable, any other physician, advance practice provider, medical student, or other health professional student that will be observing or involved in the sensitive examination for educational or training purposes was discussed with the Patient or Authorized Clinical Biostatistics Director. The Patient or Authorized Clinical Biostatistics Director has agreed to proceed with the [...] external genitalia normal, normal Bartholin's glands, urethra, Red Level's glands, no vulvar lesions, no cervical lesions, [...] ICD10: Z12.31 (more content not included)... Normal [facility] No Panel Informationon 09-04 [facility] Vital Signs Date Time Vital Sign Value Performing Clinician Facility 04-05-2025 06:47-0400 Body temperature 98.1 [degF] Dr. Carleen Coles MD [facility] 04-05-2025 06:47-0400 Body weight 72.[address] Carleen Coles MD [facility] 04-05-2025 06:47-0400 Diastolic blood pressure 88 mm[Hg] Dr. Carleen Coles MD [facility] 04-05-2025 06:47-0400 Heart rate 74 /min Dr. Carleen Coles MD [facility] 04-05-2025 06:47-0400 Respiratory rate 18 /min Dr. Carleen Coles MD [facility] 04-05-2025 06:47-0400 SaO2% (BldA) [Mass fraction] 99 % Dr. Carleen Coles MD [facility] 04-05-2025 06:47-0400 Systolic blood pressure 114 mm[Hg] Dr. Carleen Coles MD [facility] 03-29-2025 06:05-0400 Body temperature 98 [degF] Dr. Carleen Coles MD [facility] 03-29-2025 06:05-0400 Diastolic blood pressure 76 mm[Hg] Dr. Carleen Coles MD [facility] 03-29-2025 06:05-0400 Heart rate 83 /min Dr. Carleen Coles MD [facility] 03-29-2025 06:05-0400 Respiratory rate 16 /min Dr. Carleen Coles MD [facility] 03-29-2025 06:05-0400 SaO2% (BldA) [Mass fraction] 97 % Dr. Carleen Coles MD [facility] 03-29-2025 06:05-0400 Systolic blood pressure 119 mm[Hg] Dr. Carleen Coles MD [facility] 03-29-2025 05:46-0400 Body height 149.[address] Carleen Coles MD [facility] 03-29-2025 05:46-0400 Body mass index (BMI) [Ratio] 30 kg/m2 Dr. Carleen Coles MD [facility] 03-29-2025 05:46-0400 Body weight 67.[address] Carleen Coles MD [facility] 03-25-2025 06:34-0400 Body temperature 98.7 [degF] Dr. Carleen Coles MD [facility] 03-25-2025 06:34-0400 Diastolic blood pressure 74 mm[Hg] Dr. Carleen Coles MD [facility] 03-25-2025 06:34-0400 Heart rate 77 /min Dr. Carleen Coles MD [facility] 03-25-2025 06:34-0400 Respiratory rate 16 /min Dr. Carleen Coles MD [facility] 03-25-2025 06:34-0400 SaO2% (BldA) [Mass fraction] 97 % Dr. Carleen Coles MD [facility] 03-25-2025 06:34-0400 Systolic blood pressure 111 mm[Hg] Dr. Carleen Coles MD [facility] 03-25-2025 05:38-0400 Body height 149.[address] Carleen Coles MD [facility] 03-25-2025 05:38-0400 Body mass index (BMI) [Ratio] 30.3 kg/m2 Dr. Carleen Coles MD [facility] 03-25-2025 05:38-0400 Body weight 68.[address] Carleen Coles MD [facility] 03-22-2025 12:26-0400 Body temperature 98.5 [degF] Dr. Carleen Coles MD [facility] 03-22-2025 12:26-0400 Diastolic blood pressure 71 mm[Hg] Dr. Carleen Coles MD [facility] 03-22-2025 12:26-0400 Heart rate 87 /min Dr. Carleen Coles MD [facility] 03-22-2025 12:26-0400 Respiratory rate 16 /min Dr. Carleen Coles MD [facility] 03-22-2025 12:26-0400 SaO2% (BldA) [Mass fraction] 99 % Dr. Carleen Coles MD [facility] 03-22-2025 12:26-0400 Systolic blood pressure 119 mm[Hg] Dr. Carleen Coles MD [facility] 03-22-2025 10:30-0400 Body height 149.[address] Carleen Coles MD [facility] 03-22-2025 10:30-0400 Body mass index (BMI) [Ratio] 29.5 kg/m2 Dr. Carleen Coles MD [facility] 03-22-2025 10:30-0400 Body weight 66.[address] Carleen Coles MD [facility] 02-18-2025 08:01-0400 Body mass index (BMI) [Ratio] 28.75 kg/m2 Irma Villegas MD Work Phone: [facility] 02-18-2025 08:01-0400 Body weight 66.22 kg Irma Villegas MD Work Phone: [facility] 02-18-2025 08:01-0400 Diastolic blood pressure 72 mm[Hg] Irma Villegas MD Work Phone: [facility] 02-18-2025 08:01-0400 Heart rate 101 /min rIma Villegas MD Work Phone: [facility] 02-18-2025 08:01-0400 Respiratory rate 16 /min Irma Villegas MD Work Phone: [facility] 02-18-2025 08:01-0400 SaO2% (BldA) [Mass fraction] 98 % Irma Villegas MD Work Phone: [facility] 02-18-2025 08:01-0400 Systolic blood pressure 112 mm[Hg] Irma Villegas MD Work Phone: [facility] 11-17-2024 15:30-0400 Body height 151.8 cm Christianne Murray BLOCK GREASER.CNM Work Phone: [facility] 11-17-2024 15:30-0400 Body mass index (BMI) [Ratio] 29.54 kg/m2 Christianne Murray BLOCK GREASER.CNM Work Phone: [facility] 11-17-2024 15:30-0400 Body weight 68.04 kg Christianne Murray BLOCK GREASER.CNM Work Phone: [facility] 11-17-2024 15:30-0400 Diastolic blood pressure 70 mm[Hg] Christianne Murray BLOCK GREASER.CNM Work Phone: [facility] 11-17-2024 15:30-0400 Systolic blood pressure 118 mm[Hg] Christianne Murray BLOCK GREASER.CNM Work Phone: [facility] 02-27-2024 08:50-0400 Body height 152.4 cm Irma Villegas MD Work Phone: [facility] 02-27-2024 08:50-0400 Body mass index (BMI) [Ratio] 29.35 kg/m2 Irma Villegas MD Work Phone: [facility] 02-27-2024 08:50-0400 Body weight 68.18 kg Irma Villegas MD Work Phone: [facility] 02-27-2024 08:50-0400 Diastolic blood pressure 82 mm[Hg] Irma Villegas MD Work Phone: [facility] 02-27-2024 08:50-0400 Heart rate 95 /min Irma Villegas MD Work Phone: [facility] 02-27-2024 08:50-0400 SaO2% (BldA) [Mass fraction] 97 % Irma Villegas MD Work Phone: [facility] 02-27-2024 08:50-0400 Systolic blood pressure 118 mm[Hg] Irma Villegas MD Work Phone: [facility] 11-13-2023 15:24-0400 Body height 152.4 cm Christianne Murray BLOCK GREASER.CNM Work Phone: [facility] 11-13-2023 15:24-0400 Body weight 68.13 kg Christianne Murray BLOCK GREASER.CNM Work Phone: [facility] 11-13-2023 15:24-0400 Diastolic blood pressure 78 mm[Hg] Christianne Murray BLOCK GREASER.CNM Work Phone: [facility] 11-13-2023 15:24-0400 Systolic blood pressure 120 mm[Hg] Christianne Murray BLOCK GREASER.CNM Work Phone: [facility] 09-04-2022 09:46-0500 Body height 152.4 cm Irma Villegas MD Work Phone: [facility] 09-04-2022 09:46-0500 Body temperature 98.71 [degF] Irma Villegas MD Work Phone: [facility] 09-04-2022 09:46-0500 Body weight 65.32 kg Irma Villegas MD Work Phone: [facility] 09-04-2022 09:46-0500 Diastolic blood pressure 62 mm[Hg] Irma Villegas MD Work Phone: [facility] 09-04-2022 09:46-0500 Heart rate 89 /min Irma Villegas MD Work Phone: [facility] 09-04-2022 09:46-0500 Respiratory rate 12 /min Irma Villegas MD Work Phone: [facility] 09-04-2022 09:46-0500 SaO2% (BldA) [Mass fraction] 98 % Irma Villegas MD Work Phone: [facility] 09-04-2022 09:46-0500 Systolic blood pressure 122 mm[Hg] Irma Villegas MD Work Phone: [facility] Encounters Encounter Date Encounter Type Care Provider Facility Start: 04-05-2025 End: 04-05-2025 Emergency department patient visit Dr. Carleen Coles MD -Emergency Department Work Phone: Start: 03-29-2025 End: 03-29-2025 Emergency department patient visit Dr. Carleen Coles MD -Emergency Department Work Phone: Start: 03-29-2025 End: 03-29-[address] Carleen Coles MD -Emergency Department Work Phone: Start: 03-29-2025 End: 03-29-2025 [facility] Facility:[facility] Start: 03-25-2025 End: 03-25-2025 Emergency department patient visit Dr. Carleen Coles MD -Emergency Department Work Phone: Start: 03-25-2025 End: 03-25-[address] Carleen Coles MD -Emergency Department Work Phone: Start: 03-25-2025 End: 03-25-2025 [facility] Facility:[facility] Start: 03-22-2025 End: 03-22-2025 Emergency department patient visit Dr. Carleen Coles MD -Emergency Department Work Phone: Start: 03-21-2025 End: 03-21-2025 ambulatory Nell Jones RN NURSE ENROLLMENT CONSULTANT Comment on above: Information Start: 03-16-2025 End: [...] Start: 02-18-2025 End: 02-18-2025 ambulatory IRMA VILLEGAS Facility:[facility] Start: 02-18-2025 End: 02-18-2025 Patient encounter procedure Irma Villegas MD Work Phone: [facility] Work Phone: Start: 11-17-2024 End: 11-17-2024 ambulatory CHRISTIANNE MURRAY Facility:[facility] Start: 11-17-2024 End: 11-17-2024 Patient encounter procedure Christianne Murray APRN.CNM Work Phone: OB/Gynecology Comment on above: Encounter for gyneco logical examination (general) (routine) with abnormal findings (Primary Dx); Encounter for screening mammogram for breast cancer; Dense breast tissue; Family history of ovarian cancer Start: 11-17-2024 End: 11-17-2024 Patient encounter status Christianne Murray APRN.CNM Work Phone: [facility] Start: 02-27-2024 End: 02-27-2024 Patient encounter [...] End: 11-18-2023 Subsequent hospital visit by physician [facility] Work Phone: Radiology Comment [...] Start: 11-13-2023 End: 11-13-2023 Patient encounter status Christiannemagali Murray APRN.EDMIM Work Phone: [facility] Start: 11-28-2022 End: 11-28-2022 [facility] Irma Villegas MD Work Phone: Internal Medicine [place] Comment on above: Current moderate epi sode 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 Per [facility] emergency Start: 09-04-2022 ambulatory Anju jean RN NURSE ENROLLMENT CONSULTANT Comment on above: Fall Start: 09-04-2022 Telephone encounter Irma castañeda MD Work Phone: Internal [facility] [place] Comment on above: Medication Update Start: 09-04-2022 End: 09-04-2022 Subsequent hospital visit by physician Adi [facility] [place] Work Phone: Radiology Comment on [...] Detail Author Start: 09-04-2032 Urine microalbumin profile [facility] Start: 11-12-2028 Screening for malign ant neoplasm of cervix [facility] Start: 11-17-2025 End: 11-17-2025 Patient encounter procedure Mammogram Comment on above: Encounter for gyneco logical examination (general) (routine) with abnormal findings [Z01.411]; Encounter for screening mammogram for breast cancer [Z12.31]; Dense breast tissue [R92.30] Annual Start: 08-27-2025 End: 08-27-2025 Patient encounter procedure 08/27/2025 8:40 AM EST Office Visit Internal Medicine [place] [address] [place], [place] [id number] Irma Villegas MD [address] [place] [address] 6 month f/u [facility] [place] Comment on above: 6 month f/u Start: 05-19-2025 End: 12-17-2025 DBT Breast - bilateral screening [facility] SCREENING [facility] Radiology Routine Encounter for gynecological examination (general) (routine) with abnormal findings Encounter for screening mammogram for breast cancer Dense breast tissue Expected: 05/19/2025 (Approximate), Expires: 12/17/2025 [facility] Work Phone: Comment on above: Expected: 05/19/2025 (Approximate), Expires: 12/17/2025 Start: 04-05-2025 Influenza vaccination Influenza Vacc ine (#1) [facility] Start: 04-05-2025 [facility] Start: 02-26-2025 End: 02-26-2025 Patient encounter procedure 02/26/2025 8:00 AM EDT Office Visit Internal Medicine [place] [address] [place], [place] [id number] Irma Villegas MD [address] [place], [place] [id number] annual physical [facility] [place] Comment on above: annual physical Start: 02-18-2025 End: 05-20-2025 CBC W Auto Differential panel - Blood COMPLETE BLOOD COUNT AND DIFFERENTIAL Lab Routine Annual physical exam Expected: 02/18/2025, Expires: 05/20/2025 [facility] Comment on above: Expected: 02/18/2025 , Expires: 05/20/2025 Start: 02-18-2025 End: 05-20-2025 Comprehensive metabolic 2000 panel - Serum or Plasma COMPREHENSIVE METABOLIC PANEL Lab Routine Annual physical exam Expected: 02/18/2025, Expires: 05/20/2025 [facility] Comment on above: Expected: 02/18/2025 , Expires: 05/20/2025 Start: 02-18-2025 End: 05-20-2025 Lipid 1996 panel - Serum or Plasma LIPID PANEL, FASTING Lab Routine Annual physical exam Expected: 02/18/2025, Expires: 05/20/2025 [facility] Work Phone: Comment on above: Expected: 02/18/2025 , Expires: 05/20/2025 Start: 02-18-2025 End: 02-18-2025 Patient encounter procedure 02/18/2025 8:00 AM EDT Office Visit Internal Medicine [place] [address] [place] [address] Irma Villegas MD [address] [place] [address] annual physical [facility] [place] Comment on above: annual physical Start: 11-12-2024 End: 11-12-2024 Patient encounter procedure 11/12/2024 3:30 PM EDT Office Visit OB/Gynecology [address] [place] [address] Christianne Murray APRN.[facility] [address] [place] [address] Annual OB/Gynecology Comment on above: Annual Start: 04-05-2024 Covid-19 Vaccine () Covid-19 Vaccine ( season) [facility] Start: 04-05-2024 Influenza vaccination [facility] Start: 02-28-2024 End: 02-28-2024 ambulatory 02/28/2024 8:30 AM EDT Results Only [place] [facility] [address] [place] [address] [place] [facility] Start: 02-27-2024 End: 05-28-2024 CBC W Auto Differential panel - Blood COMPLETE BLOOD COUNT AND DIFFERENTIAL Lab Routine Annual physical exam Expected: 02/27/2024, Expires: 05/28/2024 [facility] Comment on above: Expected: 02/27/2024 , Expires: 05/28/2024 Start: 02-27-2024 End: 05-28-2024 Comprehensive metabolic 2000 panel - Serum or Plasma COMPREHENSIVE METABOLIC PANEL Lab Routine Hyperlipidemia, mixed Expected: 02/27/2024, Expires: 05/28/2024 [facility] Work Phone: Comment on above: Expected: 02/27/2024 , Expires: 05/28/2024 Start: 02-27-2024 End: 05-28-2024 Lipid 1996 panel - Serum or Plasma LIPID PANEL BASIC Lab Routine Hyperlipidemia, mixed Expected: 02/27/2024, Expires: 05/28/2024 [facility] Comment on above: Expected: 02/27/2024 , Expires: 05/28/2024 Start: 02-27-2024 End: 02-27-2024 Patient encounter procedure 02/27/2024 9:00 AM EDT Office Visit Internal Medicine [place] [address] [place] [address] Irma Villegas MD [address] [facility] [place] [address] Just general health Internal Medicine [place] Comment on above: Just general health Start: 11-13-2023 End: 02-12-2024 Bacteria identified in Urine by Culture URINE CULTURE Microbiology Routine Urinary frequency Expected: 11/13/2023, Expires: 02/12/2024 [facility] Work Phone: Comment on above: Expected: 11/13/2023 , Expires: 02/12/2024 Start: 11-13-2023 End: 02-12-2024 Cancer Ag 125 [Units/volume] in Serum or Plasma CA 125 Lab Routine Family history of ovarian cancer Early satiety Expected: 11/13/2023, Expires: 02/12/2024 [facility] Work Phone: Comment on above: Expected: 11/13/2023 , Expires: 02/12/2024 Start: 11-13-2023 End: 02-12-2024 Comprehensive metabolic 2000 panel - Serum or Plasma COMPREHENSIVE METABOLIC PANEL Lab Routine Menorrhagia with regular cycle Early satiety Expected: 11/13/2023, Expires: 02/12/2024 [facility] Work Phone: Comment on above: Expected: 11/13/2023 , Expires: 02/12/2024 Start: 11-13-2023 End: 02-12-2024 Prolactin [Mass/volume] in Serum or Plasma PROLACTIN Lab Routine Menorrhagia with regular cycle Early satiety Expected: 11/13/2023, Expires: 02/12/2024 [facility] Work Phone: Comment on above: Expected: 11/13/2023 , Expires: 02/12/2024 Start: 11-13-2023 End: 02-12-2024 Thyrotropin [Units/volume] in Serum or Plasma THYROID STIMULATING HORMONE Lab Routine Menorrhagia with regular cycle Early satiety Expected: 11/13/2023, Expires: 02/12/2024 [facility] Work Phone: Comment on above: Expected: 11/13/2023 , Expires: 02/12/2024 Start: 08-05-2023 Behavioral Health Screening Behavioral Health Screening [facility] Start: 04-05-2023 Covid-19 Vaccine () Covid-19 Vaccine () [facility] Start: 04-05-2023 Influenza vaccination Influenza Vacc ine (#1) [facility] Start: 11-13-2022 HPV TESTING HPV TESTING [facility] Start: 11-13-2022 PAP TESTING PAP TESTING [facility] Start: 11-13-2022 Screening for malign ant neoplasm of cervix [facility] Start: 04-05-2022 Influenza vaccination INFLUENZA (#1) [facility] Start: 09-18-2021 COVID-19 VACCINE (4 - Booster for Moderna series) COVID-19 VACCINE (4 - Booster for Moderna series) [facility] Start: 03-29-2014 Urine microalbumin profile DTAP,TDAP,TD (8 - Tdap) [facility] Start: 2012 HPV Vaccine (1 - 3-d ose SCDM series) HPV Vaccine (1 - 3-dose SCDM series) [facility] Start: 2003 Anxiety Screening Anxiety Screening [facility] Start: 2003 Depression Screening Depression Scre ening [facility] Start: 2003 HEPATITIS C SCREENING HEPATITIS C [facility] Start: 2003 Hepatitis C screening Hepatitis C [facility] Start: 2003 HIV SCREENING HIV SCREENING [facility] Start: 2003 HIV screening HIV Screening [facility] PAP TEST PAP TEST Lab Divina dyer Encounter for gynecological examination (general) (routine) without abnormal findings Screening for cervical cancer Encounter for screening for human papillomavirus (HPV) 11/13/2023 3:58 PM EDT [facility] Work Phone: Patient Education Rabies Immune Globulin (Human) Solution for injection Rabies Vaccine [facility] Work Phone: End: 12-12-2024 US Pelvis transvaginal US FEMALE PELVIS TRANSVAG Radiology Routine Menorrhagia with regular cycle 1 Occurrences starting 11/13/2023 until 12/12/2024 [facility] Work Phone: Comment on above: 1 Occurrences starti ng 11/13/2023 until 12/12/2024 US Pelvis transvaginal US FEMALE PELVIS TRANSVAG Radiology Routine Menorrhagia with regular cycle 11/18/2023 12:00 PM EDT [facility] Work Phone: [facility] Immunizations Immunization Date Immunization Notes Care Provider Debbie grady 04-05-2025 rabies vaccine, for intramuscular injection Dr. Carleen Coles MD [facility] 03-29-2025 rabies vaccine, for intramuscular injection Dr. Carleen Coles MD [facility] 03-25-2025 rabies vaccine, for intramuscular injection Dr. Carleen Coles MD [facility] 03-22-[address] Carleen quiñonez MD [facility] 03-22-2025 rabies vaccine, for intramuscular injection Dr. Calreen Coles MD [facility] 05-26-2024 influenza virus vacc ine, unspecified formulation Irma Villegas MD Work Phone: [facility] 09-04-2022 tetanus toxoid, redu marilynn diphtheria toxoid, and acellular pertussis vaccine, adsorbed Irma Villegas MD Work Phone: [facility] Work Phone: 05-22-2022 influenza virus vacc ine, unspecified formulation [facility] Work Phone: [facility] 03-29-2004 diphtheria and tetan us toxoids, adsorbed for pediatric use Anju Medina RN [facility] Work Phone: 02-18-2004 meningococcal polysaccharide vaccine (MPSV4) Anju Medina RN [facility] Work Phone: 08-05-2002 influenza virus vacc ine, unspecified formulation Anju Medina RN [facility] Work Phone: 07-01-2002 influenza virus vacc ine, unspecified formulation Anju Medina RN [facility] Work Phone: 05-30-2001 meningococcal polysaccharide vaccine (MPSV4) Anju Medina RN [facility] Work Phone: 06-25-2000 diphtheria and tetan us toxoids, adsorbed for pediatric use Anju Medina RN [facility] Work Phone: 03-22-1998 hepatitis B vaccine, pediatric or pediatric/adolescent dosage Anju Medina RN [facility] Work Phone: 11-11-1997 hepatitis B vaccine, pediatric or pediatric/adolescent dosage Anju Medina RN [facility] Work Phone: 08-02-1997 hepatitis B vaccine, pediatric or pediatric/adolescent dosage Anju Medina RN [facility] Work Phone: 08-02-1997 measles, mumps and rubella virus vaccine Anju Medina RN [facility] Work Phone: 02-10-1992 diphtheria, tetanus toxoids and pertussis vaccine Anju Medina RN [facility] Work Phone: 02-10-1992 trivalent poliovirus vaccine, live, oral Anju Medina RN [facility] Work Phone: 1990 Chicken Pox (disease) Alba Medina RN [facility] Work Phone: 07-20-1987 haemophilus influenz ae type b vaccine, HbOC conjugate Anju Medina RN [facility] Work Phone: 12-30-1986 diphtheria, tetanus toxoids and pertussis vaccine Anju Medina RN [facility] Work Phone: 12-30-1986 trivalent poliovirus vaccine, live, oral Anju Medina RN [facility] Work Phone: 10-21-1986 measles, mumps and rubella virus vaccine Anju Medina RN [facility] Work Phone: 1985 diphtheria, tetanus toxoids and pertussis vaccine Anju Medina RN [facility] Work Phone: 1985 diphtheria, tetanus toxoids and pertussis vaccine Anju Medina RN [facility] Work Phone: 1985 trivalent poliovirus vaccine, live, oral Anju Medina RN [facility] Work Phone: 1985 diphtheria, tetanus toxoids and pertussis vaccine Anju Medina RN [facility] Work Phone: 1985 trivalent poliovirus vaccine, live, oral Anju Medina [facility] Work Phone: Payers Date Payer Category Payer Self-pay 2019 Private Health Insurance [employer] [id number] 2019 Unknown [id number] 2019 Unknown [id number] Unknown [id number] Unknown [id number] Unknown [id number] Unknown [id number] Social History Date Type Detail Facility Start: 09-04-2022 End: 03-22-2025 Tobacco smoking status NHIS Never smoked tobacco [facility] Work Phone: Start: 09-04-2022 Tobacco use and exposure Smokeless tobacco non-user [facility] Work Phone: Start: 09-04-2022 End: 11-17-2024 Alcohol intake Current drinker of alcohol (finding) [facility] Start: 03-04-2020 End: 11-28-2022 History SDOH Alcohol Frequency 3 [facility] Start: 03-04-2020 End: 11-28-2022 History SDOH Alcohol Std Drinks 1 [facility] Start: 03-04-2020 End: 11-28-2022 History SDOH Social Connections Living 7 [facility] Start: 03-04-2020 End: 05-04-2020 History SDOH Physical Activity DPW 5 [facility] Start: 03-04-2020 End: 11-28-2022 History SDOH Stress 2 [facility] Start: 03-03-2020 Education 17 [facility] Start: 11-13-2017 Alcohol Comment occasionally [facility] Start: 1985 Sex Assigned At Female [facility] Start: 11-01-2022 End: 11-28-2022 History SDOH Social Connections Phone 4 [facility] Start: 11-01-2022 End: 11-28-2022 History SDOH Social Connections Amish 98 [facility] Start: 05-04-2020 End: 11-13-2023 History of Social function [facility] Start: 05-04-2020 End: 11-13-2023 Social connection and isolation panel [facility] Start: 07-06-2012 Frequency of Social Gatherings with Friends and Family Not on file [facility] How often to you hav e a drink containing alcohol? 2-4 times a month [facility] How many standard dr inks containing alcohol do you have on a typical day? 1 or 2 [facility] How often do you hav e 6 or more drinks on 1 occasion? Never [facility] Do you feel stress - tense, restless, nervous, or anxious, or unable to sleep at night because your mind is troubled all the time - these days [OSQ] Only a little [facility] (I/We) worried wheth er (my/our) food would run out before (I/we) got money to buy more. Never true [facility] In the past 12 month s, was there a time when you were not able to pay the mortgage or rent on time? No [facility] Start: 04-11-2021 Gender identity Identifies as female gender (finding) [facility] Do you belong to any clubs or organizations such as religious groups, unions, fraternal or athletic groups, or school groups? Yes [facility] Are you now , , , , never or living with a partner? Never [facility] How hard is it for y ou to pay for the very basics like food, housing, medical care, and heating Somewhat hard [facility] Do you feel stress - tense, restless, nervous, or anxious, or unable to sleep at night because your mind is troubled all the time - these days [OSQ] To some extent [facility] Start: 10-15-2023 Sexual orientation Heterosexual (finding) [facility] Clinical Notes 09-04-2022 to 03-21-2025 Telephone Encounter - eNll Jones RN - 03/21/2025 8:42 AM EDTTelephone [...] of which a provider is not aware:Yes. [facility] 03-21-2025 Miscellaneous Notes Patient calling with [...] is not aware:Yes. documented in this encounter [facility] 03-16-2025 Telephone encounter Note Images from the original note were not included. Electronic PA rec'd and completed for fluoxetine HCL 20mg. This was approved. Prior authorization approved Payer: [employer] [phone] Note from payer: CaseId:[id number];Status:Approve d;Review Type:Prior Auth;Coverage Start Date:02/14/2025;Coverage End Date:03/16/2026; [...] to its destination. To be filled at: [id number] [place] [address] [address] [phone] Pharmacy notified. [facility] 03-16-2025 Miscellaneous Notes Images from the original note were not included. Electronic PA rec'd and completed for fluoxetine HCL 20mg. This was approved. Prior authorization approved Payer: [employer] [phone] Note from payer: CaseId:[id number];Status:Approve d;Review Type:Prior Auth;Coverage Start Date:02/14/2025;Coverage End Date:03/16/2026; [...] to its destination. To be filled at: [id number] [place] [address] [phone] [phone] Pharmacy notified. documented in this encounter [facility] 02-18-2025 Instructions Irma Villegas MD - 02/18/2025 8:46 AM EDT We discussed your mental health and feelings of fatigue, anger, and lack of motivation: - We decided to restart you on Fluoxetine (Prozac) at 20 mg daily, as this worked well for you in the past. This prescription has been sent to [facility] for a 90-day supply with 6 [...] and preference to avoid modes that have intermediate teacher release of hormones - I recommend scheduling [...] for deodorant use. documented in this encounter [facility] 02-18-2025 Note HNO ID: [id number] Author: IRMA VILLEGAS MD Service: ? Author [...] the ester ends. - Sent prescription to [facility] for a 90-day supply with refills [...] allergy. Prefers non-hormonal (more content not included)... [facility] 02-18-2025 History of Presen t illness Narrative [...] the semester ends. - Sent prescription to [facility] for a 90-day supply with refills [...] excuse any unintended typographical errors. Recording using [employer] software for draft documentation of the visit was discussed with the patient/authorized accounts payable representative; all questions welcomed and answered. Patient/authorized accounts payable representative agreed to proceed Irma Villegas MD documented in this encounter [facility] 11-17-2024 Note HNO ID: [id number] Author: CHRISTIANNE MURRAY APRN.CNM Service: ? Author Type: Barmaid Type: Progress Notes Filed: 11/17/2024 16:53 Note [...] Living0 SAB0 IAB0 Ectopic0 Multiple0 Live Births0 Unit Secretary History LMP: 10/19/2024 (Within Days), Having periods Age at Menarche: 12 Age at First : Age at Menopause: Unit Secretary History Comments: Sexual Activity: Not Currently; No [...] Prostate Cancer Maternal Grandfather bone cancer other (Lcrlvdh-Txhhu-Qmest Disease) Maternal Grandfather Hypertension Paternal Grandmother other [...] discussed with the Patient or Patient's Authorized Clinical Biostatistics Director. As applicable, any other physician, advance practice provider, medical student, or other health professional student that will be observing or involved in the sensitive examination for educational or training purposes was discussed with the Patient or Authorized Clinical Biostatistics Director. The Patient or Authorized Clinical Biostatistics Director has agreed to proceed with the [...] external genitalia normal, normal Bartholin's glands, urethra, Red Level's glands, no vulvar lesions, no cervical lesions, [...] ICD9: V16.41, ICD (more content not included)... [facility] 11-17-2024 History of Presen t illness Narrative [...] Living0 SAB0 IAB0 Ectopic0 Multiple0 Live Births0 Unit Secretary History LMP: 10/19/2024 (Within Days), Having periods Age at Menarche: 12 Age at First : Age at Menopause: Unit Secretary History Comments: Sexual Activity: Not Currently; No [...] Prostate Cancer Maternal Grandfather bone cancer other (Mgxjuxy-Psbxg-Lrwar Disease) Maternal Grandfather Hypertension Paternal Grandmother other [...] discussed with the Patient or Patient's Authorized Clinical Biostatistics Director. As applicable, any other physician, advance practice provider, medical student, or other health professional student that will be observing or involved in the sensitive examination for educational or training purposes was discussed with the Patient or Authorized Clinical Biostatistics Director. The Patient or Authorized Clinical Biostatistics Director has agreed to proceed with the [...] external genitalia normal, normal Bartholin's glands, urethra, Red Level's glands, no vulvar lesions, no cervical lesions, [...] Christianne Murray APRN.CNM documented in this encounter [facility] 02-27-2024 History of Presen t illness [...] Prostate Cancer Maternal Grandfather bone cancer other (Aaspqus-Mptya-Gsumi Disease) Maternal Grandfather Hypertension Paternal Grandmother other [...] Irma Villegas MD documented in this encounter [facility] 11-22-2023 Miscellaneous Notes Seen patient for visit today. Christianne Murray APRN.CNM Patient was prescribed Macrobid on 11/17 for UTI. Carly Conte RN documented in this encounter [facility] 11-22-2023 Instructions Christianne Murray APRN.CNM - 11/22/2023 2:22 PM EDT Urinary Tract Infection: [facility] Urinary Tract Plus 30-90 days Weight management: Nutrition Therapy: 8 am to 4 pm: [phone] [facility] Call Center: 24 hours/day, 7 days/week: [phone] I can put a consult for weight management if you desire. documented in this encounter [facility] 11-22-2023 History of Presen t illness Narrative DISTANCE HEALTH VISIT This Team Access Model visit is a virtual encounter. It required patient-provider interaction for the medical decision making as documented below. I have communicated my name and active licensure. The patient's identity and physical location were verified at the time of this visit. Either the patient or their legal accounts payable representative has been informed of the risks [...] - ICD9: 278.02, ICD10: E66.3 -Referral to bus escort Christianne Murray APRN.CNM I spent 30 minutes in the visit, with more than 50% of the total rgki-ps-baoh time of the visit in counseling / coordination of care. documented in this encounter [facility] 11-18-2023 Miscellaneous Notes Order signed. Christianne Murray APRN.CNM Patient notified. Allergies updated. Dejah Nye, BLANCA Left message for patient to call office. [...] Christianne Murray APRN.CNM documented in this encounter [facility] 11-18-2023 History of Presen t illness [...] PATIENT PRESENTS WITH AN IMPLANTABLE OR ATTACHED ANILINE PRESS WORKER: No RADIOLOGY DEPARTMENT: Ultrasound PERIPHERAL IV DATA: Not applicable SIGNED BY: Christianne Mooney RDMS RVT November 18, 2023 2:33 PM documented in this encounter [facility] 11-13-2023 History of Presen t illness Narrative Transformer Coil Winder offered: Patient declines. Alex is a 38 [...] L0 SAB0 IAB0 Ectopic0 Multiple0 Live Births0 Unit Secretary History LMP: 10/31/2023 (Approximate), Having periods Age at Menarche: Age at First : Age at Menopause: Unit Secretary History Comments: Sexual Activity: Not Currently; No [...] Prostate Cancer Maternal Grandfather bone cancer other (Zmszowx-Uidqu-Tmvip Disease) Maternal Grandfather Hypertension Paternal Grandmother other [...] external genitalia normal, normal Bartholin's glands, urethra, Red Level's glands, no vulvar lesions, no cervical lesions, [...] Christianne Murray APRN.CNM documented in this encounter [facility] 11-28-2022 History of Presen t illness [...] Prostate Cancer Maternal Grandfather bone cancer other (Tvvbgqe-Usaeq-Yktci Disease) Maternal Grandfather Ovarian cancer Paternal Grandmother [...] Irma Villegas MD documented in this encounter [facility] 09-04-2022 Miscellaneous Notes Lester from [facility] calls and wanted provider to know that fluoxetine 10 mg capsules has red dye in it as does 10 mg tablets. Lester switch medication to fluoxetine 20 mg tablet and told patient to take half a tablet daily since 20 mg tablet does not have red dye. Katie Quinteros RN documented in this encounter [facility] 09-04-2022 History of Presen t illness [...] 2022 11:30 AM documented in this encounter [facility] 09-04-2022 History of Presen t illness Narrative Reason for Visit No chief complaint on file. Alex Quinones is a 37 year old female who presents here today for Above Complaints.. Health Maintenance HEPATITIS C SCREENING HIV SCREENING DTAP,TDAP,TD(8 - Tdap) COVID-19 VACCINE(4 - Booster for Moderna series) INFLUENZA(1) DEPRESSION ASSESSMENT PAP TESTING HPV TESTING HPI She was in [facility] recently, when she slipped and fell [...] Prostate Cancer Maternal Grandfather bone cancer other (Auslifi-Mukzx-Ncqsk Disease) Maternal Grandfather Ovarian cancer Paternal Grandmother [...] couple before finding out a perfect fit. Imra Villegas MD documented in this encounter [facility] 09-04-2022 Miscellaneous Notes Reason for Call: Neck and Upper Shoulder Discomfort due to recent fall Outcome: Patient was conferenced to [facility] in Appointment Center for PCP within 24 [...] a couple days ago Protocols used: Head Fzaegq-[id number] documented in this encounter [facility] Evaluation note Diagnosis Fall due to slipping on ice or snow, initial encounter- Primary Encounter for immunization Need for other specified prophylactic vaccination against single bacterial disease Laceration of right hand, foreign body presence unspecified, sequela Depression with anxiety Dysthymic disorder [facility] Current moderate episode of major depressive disorder without prior episode (HCC)- Primary [facility] Diagnosis Fall due to slipping on ice or snow, initial encounter [facility] Diagnosis Encounter for gynecological examination (general) [...] menstruation Early satiety [facility] Menorrhagia with regular cycle Excessive or frequent menstruation [facility] Diagnosis Acute cystitis without hematuria- Primary Acute cystitis Family history of ovarian cancer Family history of malignant neoplasm of ovary Intramural leiomyoma of uterus Overweight [facility] Diagnosis Annual physical exam- Primary Routine general medical examination at a health care facility Hyperlipidemia, mixed Mixed hyperlipidemia [facility] Diagnosis Encounter for gynecological examination (general) (routine) with abnormal findings- Primary Encounter for screening mammogram for breast cancer Dense breast tissue Family history of ovarian cancer Family history of malignant neoplasm of ovary [facility] Diagnosis Annual physical exam- Primary Routine general medical examination at a health care facility Depression, unspecified depression type Grief reaction Adjustment disorder with depressed mood Excessive sweating Generalized hyperhidrosis control counseling General counseling for initiation of other contraceptive measures documented in this encounter [facility] noteNo assessment information availableWGenesis Hospital Work Phone: Hospital Discharge instructionsAdditional Instructions [...] if your symptoms worsen or new symptoms develop.[facility] Work Phone: Reason for referral (narrative)* Diagnostic Procedure Only (Routine) - Closed Specialty Diagnoses / Procedures Referred By Contac t Referred To Contact XR IMAGING Diagnoses Fall due to slipping on ice or snow, initial encounter Procedures XR CERV OTHER 4V AP/LAT/OBL RADEX SPINE CERVICAL 4 OR 5 VIEWS Irma Villegas MD [address] [place] [address] Xr Imaging Referral ID Status Reason Start Date Expiration Date V isits Requested Visits Authorized [id number] Closed Auto-Generate d Referral 09/04/2022 10/04/2023 1 1 * Diagnostic Procedure Only (Routine) - Closed Specialty Diagnoses / Procedures Referred By Contac t Referred To Contact XR IMAGING Diagnoses Fall due to slipping on ice or snow, initial encounter Procedures XR LUMBAR LIMITED 2V AP/LAT RADEX SPINE LUMBOSACRAL 2/3 VIEWS Irma Villegas MD [address] [place] [address] Xr Imaging Referral ID Status Reason Start Date Expiration Date V isits Requested Visits Authorized [id number] Closed Auto-Generate d Referral 09/04/2022 10/04/2023 1 1 [facility] for referral (narrative)* Diagnostic Procedure Only (Routine) - Closed Specialty Diagnoses / Procedures Referred By Contac t Referred To Contact XR IMAGING Diagnoses Fall due to slipping on ice or snow, initial encounter Procedures XR LUMBAR LIMITED 2V AP/LAT RADEX SPINE LUMBOSACRAL 2/3 VIEWS Irma Villegas MD [address] [place] [address] [place] [address] Referral ID Status Reason Start Date Expiration Date V isits Requested Visits Authorized [id number] Closed Auto-Generate d Referral 09/04/2022 10/04/2023 1 1 * Diagnostic Procedure Only (Routine) - Closed Specialty Diagnoses / Procedures Referred By Contac t Referred To Contact XR IMAGING Diagnoses Fall due to slipping on ice or snow, initial encounter Procedures XR CERV OTHER 4V AP/LAT/OBL RADEX SPINE CERVICAL 4 OR 5 VIEWS Irma Villegas MD [address] [place] [address] [place] [address] Referral ID Status Reason Start Date Expiration Date V isits Requested Visits Authorized [id number] Closed Auto-Generate d Referral 09/04/2022 10/04/2023 1 1 [facility] for referral (narrative)* Diagnostic Procedure Only (Routine) - Pending Review Specialty Diagnoses / Procedures Referred By Kikaac t Referred To Contact US IMAGING Diagnoses Menorrhagia with regular cycle Procedures US FEMALE PELVIS TRANSVAG US TRANSVAGINAL Chrisitanne Murray APRN.CNM [address] [place] [address] [place] [address] Referral ID Status Reason Start Date Expiration Date Visits Requested Visits Authorized [id number] Pending Review Auto-Generat ed Referral 11/13/2023 12/12/2024 1 1 [facility] for referral (narrative)No reason for referral information availableWGenesis Hospital Work Phone: Reason for visit Narrative* Diagnostic Procedure Only (Routine) - Closed Specialty Diagnoses / Procedures Referred By Contac t Referred To Contact Internal Medicine / INTERNAL MEDICINE Diagnoses Wellness examination PER NOC SEEN WITHIN 24 HOURS Neck Stiffness pt fell Procedures OFFICE/OUTPATIENT ESTABLISHED MOD MDM 30-39 MIN 4C EST Self Irma Villegas MD [address] [place] [address] Referral ID Status Reason Start Date Expiration Date Visits Re quested Visits Authorized [id number] Closed 09/04/2022 12/03/2022 1 1 [facility] for visit Narrative* Diagnostic Procedure Only (Routine) - Closed Specialty Diagnoses / Procedures Referred By Contac t Referred To Contact XR IMAGING Diagnoses Fall due to slipping on ice or snow, initial encounter Procedures XR CERV OTHER 4V AP/LAT/OBL RADEX SPINE CERVICAL 4 OR 5 VIEWS Irma Villegas MD [address] [place] [address] [place] [address] Referral ID Status Reason Start Date Expiration Date V isits Requested Visits Authorized [id number] Closed Auto-Generate d Referral 09/04/2022 10/04/2023 1 1 [facility] Reason for Referral Specialty Diagnoses / Procedures Referred By Tamra t Referred To Contact Nutrition Diagnoses Overweight Procedures CONSULT TO NUTRITION THERAPY MEDICAL NUTRITION ASSMT&IVNTJ INDIV EACH 15 Christianne Spencer APRN.CN [address] [place] [address] Referral ID Status Reason Start Date Expiration Date Visits Requested Visits Authorized [id number] Pending Review PCP Requested Referral 11/26/2023 11/21/2024 1 4 Summary Purpose Family History No Family History Records FoundNo Family History Records Found Advance Directives Advance Directive Response Recorded Date/ Time Do you have a Healthcare Power of County Manager? No March 22, 2025 10:53am Chief Complaint [...] meds only March 29, 2025 5: 37am Chief Complaint Admit Date RABIES EXPOSURE March 22, 2025 10 :27am rabies shot March 25, 2025 5: 36am meds only March 29, 2025 5: 37am meds only April 05, 2025 6:02am Additional Source Comments Source Comments (unrecognize d section and content) In the event this informatio n is protected by the Federal Confidentiality of Alcohol and Drug Abuse Patient Records regulations: The Federal rules restrict any use of the information to criminally investigate or prosecute any alcohol or drug abuse patient.[facility] the event this information is protected by the Federal Confidentiality of Alcohol and Drug Abuse Patient Records regulations: The Federal rules restrict any use of the information to criminally investigate or prosecute any alcohol or drug abuse patient.[facility]In the event this information is protected by the Federal Confidentiality of Alcohol and Drug Abuse Patient Records regulations: The Federal rules restrict any use of the information to criminally investigate or prosecute any alcohol or drug abuse patient.[facility] the event this information is protected by the Federal Confidentiality of Alcohol and Drug Abuse Patient Records regulations: The Federal rules restrict any use of the information to criminally investigate or prosecute any alcohol or drug abuse patient.[facility] the event this information is protected by the Federal Confidentiality of Alcohol and Drug Abuse Patient Records regulations: The Federal rules restrict any use of the information to criminally investigate or prosecute any alcohol or drug abuse patient.[facility]In the event this information is protected by the Federal Confidentiality of Alcohol and Drug Abuse Patient Records regulations: The Federal rules restrict any use of the information to criminally investigate or prosecute any alcohol or drug abuse patient.[facility]In the event this information is protected by the Federal Confidentiality of Alcohol and Drug Abuse Patient Records regulations: The Federal rules restrict any use of the information to criminally investigate or prosecute any alcohol or drug abuse patient.[facility]In the event this information is protected by the Federal Confidentiality of Alcohol and Drug Abuse Patient Records regulations: The Federal rules restrict any use of the information to criminally investigate or prosecute any alcohol or drug abuse patient.[facility]In the event this information is protected by the Federal Confidentiality of Alcohol and Drug Abuse Patient Records regulations: The Federal rules restrict any use of the information to criminally investigate or prosecute any alcohol or drug abuse patient.[facility]In the event this information is protected by the Federal Confidentiality of Alcohol and Drug Abuse Patient Records regulations: The Federal rules restrict any use of the information to criminally investigate or prosecute any alcohol or drug abuse patient.[facility]In the event this information is protected by the Federal Confidentiality of Alcohol and Drug Abuse Patient Records regulations: The Federal rules restrict any use of the information to criminally investigate or prosecute any alcohol or drug abuse patient.[facility]In the event this information is protected by the Federal Confidentiality of Alcohol and Drug Abuse Patient Records regulations: The Federal rules restrict any use of the information to criminally investigate or prosecute any alcohol or drug abuse patient.[facility] HospitalIn the event this information is protected by the Federal Confidentiality of Alcohol and Drug Abuse Patient Records regulations: The Federal rules restrict any use of the information to criminally investigate or prosecute any alcohol or drug abuse patient.[facility]In the event this information is protected by the Federal Confidentiality of Alcohol and Drug Abuse Patient Records regulations: The Federal rules restrict any use of the information to criminally investigate or prosecute any alcohol or drug abuse patient.[facility]In the event this information is protected by the Federal Confidentiality of Alcohol and Drug Abuse Patient Records regulations: The Federal rules restrict any use of the information to criminally investigate or prosecute any alcohol or drug abuse patient.[facility] HospitalIn the event this information is protected by the Federal Confidentiality of Alcohol and Drug Abuse Patient Records regulations: The Federal rules restrict any use of the information to criminally investigate or prosecute any alcohol or drug abuse patient.[facility] Reason for Visit (unrecogniz ed section and content) Reason Comments Fall Reason Onset Date Comments Medication Update 09/04/2022 Reason Comments Depression Reason Comments Well Woman Reason Comments Results Reason Comments Radiology US Specialty Diagnoses / Procedures Referred By Tamra dawson Referred To Contact US IMAGING Diagnoses Menorrhagia with regular cycle Procedures US FEMALE PELVIS TRANSVAG US TRANSVAGINAL Christianne Murray APRN.CN [address] [place] [address] [place] [address] Referral ID Status Reason Start Date Expiration Date V isits Requested Visits Authorized [id number] Closed Auto-Generate d Referral 11/13/2023 12/12/2024 1 1 Reason Comments Menstrual Problem Reason Comments Physical Bowel habits have ch anged, loose and frequent for over a year. Reason Comments Yearly Exam Annual Physical Reason Comments Insurance Authorization Reason Comments Information Care Teams (unrecognized sec tion and content) Registration Representative Relationship Specialty Start Date End Date Irma Villegas MD [address] [place] [address] PCP - General Internal Medicine 09/04/22 Registration Representative Relationship Specialty Start Date End Date Irma Villegas MD [address] [place] [address] PCP - General Internal Medicine 09/04/22 Registration Representative Relationship Specialty Start Date End Date Irma Villegas MD [address] [place] [address] PCP - General Internal Medicine 09/04/22 Registration Representative Relationship Specialty Start Date End Date Irma Villegas MD [address] [place] [address] PCP - General Internal Medicine 09/04/22 Registration Representative Relationship Specialty Start Date End Date Irma Villegas MD [address] [place] [address] PCP - General Internal Medicine 09/04/22 Registration Representative Relationship Specialty Start Date End Date Irma Villegas MD [address] [facility] [place] [address] PCP - General Internal Medicine 09/04/22 Registration Representative Relationship Specialty Start Date End Date Irma Villegas MD [address] [facility] [place] [address] PCP - General Internal Medicine 09/04/22 Registration Representative Relationship Specialty Start Date End Date Irma Villegas MD [address] [facility] [place] [address] PCP - General Internal Medicine 09/04/22 Registration Representative Relationship Specialty Start Date End Date Irma Villegas MD [address] [facility] [place] [address] PCP - General Internal Medicine 09/04/22 Registration Representative Relationship Specialty Start Date End Date Irma Villegas MD [address] [facility] [place] [address] PCP - General Internal Medicine 09/04/22 Registration Representative Relationship Specialty Start Date End Date Irma Villegas MD [address] [facility] [place] [address] PCP - General Internal Medicine 09/04/22 Registration Representative Relationship Specialty Start Date End Date Irma Villegas MD [address] [facility] [place] [address] PCP - General Internal Medicine 09/04/22 Sridevi Sol APRN.OTOLARYNGOLOGY NURSE [address] [facility] [place] [place] [address] Practice Advisor Internal Medicine 07/12/24 Registration Representative Relationship Specialty Start Date End Date Irma Villegas MD [address] [facility] [place], [place] [address] PCP - General Internal Medicine 09/04/22 Sridevi Sol APRN.OTOLARYNGOLOGY NURSE [address] [facility], [place] [address] Practice Advisor Internal Medicine 07/12/24 Registration Representative Relationship Specialty Start Date End Date Irma Villegas MD [address] [facility] [place], [place] [address] PCP - General Internal Medicine 09/04/22 Sridevi Sol, BLOCK GREASER.OTOLARYNGOLOGY NURSE [address] [facility], [place] [address] Practice Advisor Internal Medicine 07/12/24 Team Status: Active Member [...] March 29, 2025 End: March 29, 2025 Team Status: Inactive Member Role/Relationship Status Dates Dr. Irma Villegas MD Primary Care Provider Active Start: March 29, 2025 End: March 29, 2025 Dr. Carleen Coles MD Attending Provider Active S tart: March 29, 2025 End: March 29, 2025 Team Status: Inactive Member Role/Relationship Status Dates Dr. Irma Villegas MD Primary Care Provider Active Start: April 05, 2025 End: April 05, 2025 Dr. Carleen Coles MD Emergency Provider Active S tart: April 05, 2025 End: April 05, 2025 INFORMATION SOURCE (unrecogn ized section and content) DATE CREATED AUTHOR 03/18/2025 [facility] DATE CREATED AUTHOR AUTHOR'S ORGANIZ ATION 04/04/2025 [facility] Goals (unrecognized section and content) Goals [...] BE BASED ON THE PRIMARY CLINICAL RECORDS. [facility]. provides no warranty or guarantee of the accuracy or completeness of information in this document.
== END 2025-04-05 06:49 | disposition home or self-care (01) ==
PROVIDERS: PCP Internal Medicine; Visit Provider Student in an Organized Health Care Education/Training Program
DX: Z23 Encounter for immunization (principal)
CPT/HCPCS: 90675